=== PATIENT | female | born 1975 | race Caucasian/White ===

== ENCOUNTER 2017-05-08 18:04 | Emergency (ER) | payer MEDICAID, SELFPAY ==
[2017-05-08 18:06] VITALS: BP 162/94; PULSE 84; RESP 17; TEMP 37.1; O2SAT 97; BMI 36.5
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
--- NOTE | 2017-05-08 18:35 | RAD_ITS ---
STUDY: X-RAY - RIGHT ELBOW REASON FOR EXAM: Female, 41 years old. Blunt trauma. TECHNIQUE: 3 view(s) of the elbow. COMPARISON: None. FINDINGS: Small, faint degenerative. Cortical calcification noted along the proximal margin of the medial humeral epicondyle. Normal visualized radius and ulna. Normal radiocapitellar and ulnotrochlear articulations. There is minor soft tissue irregularity/swelling near the degenerative calcification described above. There is no clearly demonstrated fracture, however, which would typically displace the epicondylar fat pad with concomitant hemarthrosis. That is not seen here. RAD/Elbow min 3 Views IMPRESSION: No clearly acute fracture of the right elbow. Probable degenerative calcification along the medial humeral epicondyle. Clinical correlation for point tenderness at this site is advised, however. Electronically Signed: Curtis Jane MD at 19:00 EST , Service support ,
== END 2017-05-08 19:27 | disposition home or self-care (01) ==
PROVIDERS: Emergency Provider Emergency Medicine
DX: S50.01XA Contusion of right elbow, initial encounter (principal); J45.909 Unspecified asthma, uncomplicated; F32.9 Major depressive disorder, single episode, unspecified; Z79.51 Long term (current) use of inhaled steroids; Z79.899 Other long term (current) drug therapy; W20.8XXA Other cause of strike by thrown, projected or falling object, initial encounter; Y93.89 Activity, other specified; Y92.009 Unspecified place in unspecified non-institutional (private) residence as the place of occurrence of the external cause; Y99.8 Other external cause status
CPT/HCPCS: 73080; 99282

== ENCOUNTER 2017-07-31 14:09 | Emergency (ER) | payer MEDICAID, SELFPAY ==
[2017-07-31 14:09] VITALS: BP 147/93; PULSE 95; RESP 16; TEMP 36.6; O2SAT 100; BMI 38.8
--- NOTE | 2017-07-31 14:35 | RAD_ITS ---
STUDY: X-RAY - LEFT HAND REASON FOR EXAM: Female, 41 years old. Pain swelling trauma TECHNIQUE: 3 view(s) of the hand. The patient's fingers are flexed. COMPARISON: None. FINDINGS: Normal radiocarpal articulation. Normal distal radioulnar joint. Normal visualized carpal bones. Normal carpal articulations Normal carpometacarpal articulation of the thumb. Normal second through fifth carpometacarpal joints. Normal metacarpi. Normal metacarpophalangeal joint of the thumb. Normal interphalangeal joint of the thumb. Normal proximal and distal phalanges of the thumb. Normal metacarpophalangeal joints of the second through fifth fingers. Normal proximal and distal interphalangeal joints of the second through fifth fingers. Normal phalanges of the second through fifth fingers. There is visualized soft tissue swelling. There is no definitive evidence of an acute fracture. Consider follow-up study if pain persists. RAD/Hand Min 3 Views IMPRESSION: There is visualized soft tissue swelling. There is no definitive evidence of an acute fracture. Consider follow-up study if pain persists. Electronically Signed: Irene Tucker MD at 14:58 EDT Tel , Service support ,
[2017-07-31] MEDS: HYDROcodone Bitartrate/Apap 5/325 Tablet PO (14:36)
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
--- NOTE | 2017-07-31 14:58 | ED.DEP ---
ED Disposition - Plan for ED Patient: Disposition: Home or Assisted Living Chief Complaint: Upper Extremity Injury Instructions: ED Contusion Upper Ext Prescriptions: Acetaminophen [Tylenol] 325 mg PO 4X/DAY #30 tab Referrals: Care Physician,No Primary [Primary Care Provider] -
== END 2017-07-31 15:25 | disposition home or self-care (01) ==
PROVIDERS: Emergency Provider Emergency Medicine
DX: S60.222A Contusion of left hand, initial encounter (principal); Z72.0 Tobacco use; W22.09XA Striking against other stationary object, initial encounter; Y93.89 Activity, other specified; Y92.89 Other specified places as the place of occurrence of the external cause; Y99.8 Other external cause status
CPT/HCPCS: 73130; 99282

== ENCOUNTER 2017-08-14 15:49 | Emergency (ER) | payer MEDICAID, SELFPAY ==
[2017-08-14 15:49] VITALS: BP 165/97; PULSE 65; RESP 18; TEMP 35.8; O2SAT 100; BMI 37.4
--- NOTE | 2017-08-14 15:59 | ED.DCSUM_ITS ---
- ER Visit Summary Date of Service: 08/14/17 Chief Complaint: Abdominal pain, nausea, vomiting, diarrhea History of Present Illness: The patient is a 41 F reasons to the emergency department with symptoms of gastroenteritis. Patient's symptoms began at 7 AM this morning. She states she had diffuse abdominal cramping. She began to have multiple bouts of emesis. She also had loose watery diarrhea. She denies any fevers or chills. She denies any constant pain, just cramping when she vomits. She did eat fried potatoes last night. She denies any other sick contacts. She has no history of abdominal surgery. She denies any history of Crohn's disease or ulcerative colitis. She does not think there is been blood in the emesis or the diarrhea. She does not take any daily medications. Physical Examination: Vital signs reviewed General: Well-nourished, well-developed Head: Normocephalic, atraumatic Eyes: Pupils equal and reactive, extraocular muscles intact Neck, supple, no lymphadenopathy Heart: Regular rate and rhythm Respiratory: No distress, clear bilaterally Abdomen: Soft, mildly tender without rebound or guarding, nondistended, no peritoneal signs Back: Nontender Extremities: Nontender, no edema, no cords Skin: Normal color no rash Neuro: Alert and oriented, no focal or lateralizing deficits Test Results: [] Emergency Department Course and Treatment: The patient's symptoms do seem consistent with gastroenteritis. She has no focal tenderness. IV was established. Patient was given fluids, morphine, Zofran, and Bentyl. She had marked improvement of her symptoms. Her labs do show mild leukocytosis which I feel is likely reactive. Rest of her labs are relatively unremarkable. On reevaluation she is resting comfortably. The patient was able to tolerate ice chips. At this time, I do feel that she is safe for discharge. She will prescribed antiemetics and antispasmodics. She is counseled to return in the next 24 hours if she has worsening pain, fever, or change in symptoms. She will be discharged home. Treatment Plan: [] Disposition: Charge Impression: 1. Gastroenteritis This note was generated with [employer] dictation software. It may contain incorrect words, spelling, and punctuation that were not noted in review of the chart prior to signing ED Disposition - Plan for ED Patient: Chief Complaint: Nausea/Vomiting/Diarrhea Instructions: ED Gastroenteritis Vs Food Poison Prescriptions: Ondansetron [Zofran Odt] 4 mg PO Q8H PRN PRN #10 tab PRN Reason: Nausea Dicyclomine HCl [Bentyl] 20 mg PO TIDAC #20 cap Referrals: Care Physician,No Primary [Primary Care Provider] -
[2017-08-14] MEDS: Morphine 4 MG/ML Syringe IV (16:08)
[2017-08-14] MEDS: 0.9% Normal Saline 1,000 ML 1000 ML IV (16:08)
[2017-08-14] MEDS: Ondansetron 4 MG/2 ML Vial IV (16:08)
[2017-08-14] MEDS: Dicyclomine 20 MG/2 ML Vial IM (16:11)
[2017-08-14 16:26] LABS: Absolute Neutrophil Count 13.5 X10^3/uL (2.0-7.7); Basophil# 0.02 X10^3/uL; Basophil% 0.1 % (0-1); Hematocrit 34.2 % (37-47); Hemoglobin 10.6 g/dl (12.0-15.0); Mean Corpuscular Hgb 23.7 pg (27.0-32.0); Mean Corpuscular Volume 76.3 fL (81-99); Mean Platelet Vol. 9.3 fl (6.2-12.0); Monocyte# 0.31 X10^3/uL; Monocyte% 2.1 % (0-10); Neutrophil # 13.51 X10^3/uL (2.7-7.7); Neutrophil % 89.7 % (47-70); Platelet Count 415 K/mm3 (150-450); RBC Distribution Width CV 18.4 % (11.6-14.6); RBC Distribution Width SD 51.6 fl (35.1-43.9); Red Blood Count 4.48 M/mm3 (4.2-5.4); White Blood Count 15.1 K/mm3 (4.4-11.0)
[2017-08-14 16:27] LABS: POSITIVE COUNT NO; POSITIVE DIFFERENTIAL NO; POSITIVE MORPHOLOGY NO
[2017-08-14 16:39] LABS: BUN 5 mg/dL (7-18); Glucose 154 mg/dL (74-106)
[2017-08-14 16:40] LABS: ALB/GLOB Ratio 0.9 RATIO (0.9-2.4); AST(SGOT) 17 U/L (15-37); Alanine Aminotransfer ALT/SGPT 16 U/L (13-56); Albumin, Serum 3.7 g/dL (3.2-5.0); Alkaline Phosphatase 80 U/L (45-117); Anion Gap 8 (5-15); BUN/Creat Ratio 7.1 RATIO (10-20); Chloride 108 mmol/L (98-107); EST Glomerular Filtration Rate 98 mL/min (>60); Est Glom Filt Rate - Afr Amer 119 mL/min (>60); Estimated Creatinine Clearance 108.85 ml/min; Globulin 4.1 g/dL (2.2-4.2); Lipase 76 U/L (73-393); Potassium 4.2 mmol/L (3.5-5.1); Protein, Total 7.8 g/dL (6.4-8.2); Sodium Level 141 mmol/L (136-145)
[2017-08-14 16:44] LABS: Pregnancy, Serum, hCG Quali. NEGATIVE Negative (0-9 Nonpreg)
[2017-08-14 17:09] VITALS: BP 132/71; PULSE 75; RESP 20; O2SAT 100
--- NOTE | 2017-08-14 17:10 | ED.RN ---
PT GIVEN WRITTEN AND VERBAL DISCHARGE INSTRUCTIONS. PT IV D/C AND COVERED WITH 2X2 GAUZE DRESSING AND PAPER TAPE. PT AMBULATES OUT OF DEPT. WITH FRIEND.
== END 2017-08-14 17:11 | disposition home or self-care (01) ==
LOC: ED 16:36
PROVIDERS: Emergency Provider Emergency Medicine
DX: K52.9 Noninfective gastroenteritis and colitis, unspecified (principal); E66.9 Obesity, unspecified; J45.909 Unspecified asthma, uncomplicated; Z79.51 Long term (current) use of inhaled steroids
CPT/HCPCS: 80053; 83690; 84703; 85025; 96361; 96372; 96374; 96375; 99283; J7030; A4216; J2405

== ENCOUNTER 2017-09-13 21:34 | Emergency (ER) | payer MEDICAID, SELFPAY ==
[2017-09-13 21:34] VITALS: BP 110/98; PULSE 98; RESP 14; TEMP 37.2; O2SAT 98; BMI 44.5
--- NOTE | 2017-09-13 22:18 | RAD_ITS ---
STUDY: X-RAY - PELVIS AND LEFT HIP REASON FOR EXAM: Female, 42 years old. Pain TECHNIQUE: Radiological exam, hip, unilateral, with pelvis when performed; 2 or 3 views. COMPARISON: None. FINDINGS: There is a non-specific bowel gas pattern. Normal visualized soft tissue structures. Normal bilateral iliac wings, sacroiliac joints and visualized sacrum. Normal bilateral superior and inferior pubic rami. Normal pubic symphysis. Normal bilateral ischial tuberosities. Normal visualized femoral head. Normal acetabulum. Normal hip joint. RAD/Hip 2-3 Views with Pelvis IMPRESSION: Normal x-ray examination of the pelvis and hip. Electronically Signed: Terrence Brian DO at 22:57 EDT Tel [phone], Service support ,
--- NOTE | 2017-09-13 22:20 | ED.DCSUM_ITS ---
- ER Visit Summary Date of Service: 09/13/17 Chief Complaint: Left hip pain History of Present Illness: The patient is a 42 F presenting with left hip pain. Patient states she fell getting out of the bathtub this morning. She fell directly on her left hip. She did not hit her head. She did not lose consciousness. She tried Tylenol and ibuprofen at home. She has been able to ambulate with pain. No other injuries. Physical Examination: Vitals are stable. Patient is afebrile. Alert no acute distress. HEENT exam is unremarkable. Neck is nontender Lungs are clear and equal bilaterally. Heart is regular rate and rhythm. Abdomen is soft nontender nondistended. Back: nontender Extremities left lateral hip tenderness with no ecchymosis. Painful range of motion. Skin is warm and dry. No focal neurologic deficit. Remainder of exam is unremarkable. Emergency Department Course and Treatment: X-ray of the left help hip and pelvis shows no acute process. Patient is advised to ice and rest. She declines crutches. She is given one [place] in the emergency department. Advised to follow up with Dr Walker stone dresser for no doc. Advised to return to the ED for worsening complaints. Disposition: Discharge home Impression: Left hip contusion This note was generated with [employer] dictation software. It may contain incorrect words, spelling, and punctuation that were not noted in review of the chart prior to signing ED Disposition - Plan for ED Patient: Chief Complaint: Lower Extremity Injury Referrals: Care Physician,No Primary [Primary Care Provider] -
--- NOTE | 2017-09-13 23:07 | ED.DEP ---
ED Disposition - Plan for ED Patient: Chief Complaint: Lower Extremity Injury Instructions: ED Contusion Hip Prescriptions: Hydrocodone Bitart/Apap 5-325 [Delta 5MG-325MG] 1 tablet PO Q6H PRN PRN 2 Days #8 tablet PRN Reason: Pain Referrals: Care Physician,No Primary [Primary Care Provider] - Katelin Walker MD [COURTESY STAFF PHYSICIAN] -
--- NOTE | 2017-09-13 23:09 | DCINST.ED_ITS ---
ED Disposition - Plan for ED Patient: Chief Complaint: Lower Extremity Injury Instructions: ED Contusion Hip Prescriptions: Hydrocodone Bitart/Apap 5-325 [Stout 5MG-325MG] 1 tablet PO Q6H PRN PRN 2 Days # 8 tablet PRN Reason: Pain Referrals: Care Physician,No Primary [Primary Care Provider] - Katelin Walker MD [COURTESY STAFF PHYSICIAN] -
[2017-09-13] MEDS: HYDROcodone Bitartrate/Apap 5/325 Tablet PO (23:55)
[2017-09-13 23:56] VITALS: RESP 18
== END 2017-09-13 23:56 | disposition home or self-care (01) ==
LOC: ED 22:39
PROVIDERS: Emergency Provider Emergency Medicine
DX: S70.02XA Contusion of left hip, initial encounter (principal); J45.909 Unspecified asthma, uncomplicated; Z72.0 Tobacco use; Z79.51 Long term (current) use of inhaled steroids; W18.30XA Fall on same level, unspecified, initial encounter; Y93.E1 Activity, personal bathing and showering; Y92.002 Bathroom of unspecified non-institutional (private) residence as the place of occurrence of the external cause; Y99.8 Other external cause status
CPT/HCPCS: 73502; 99283

== ENCOUNTER 2017-09-30 07:25 | Emergency (ER) | payer MEDICAID, SELFPAY ==
[2017-09-30 07:26] VITALS: BP 164/91; PULSE 77; RESP 20; TEMP 36.7; O2SAT 99; BMI 44.5
--- NOTE | 2017-09-30 07:58 | RAD_ITS ---
STUDY: X-RAY - SOFT TISSUE NECK REASON FOR EXAM: Female, 42 years old. Sore throat TECHNIQUE: 2 view(s) of the neck were obtained. COMPARISON: None. FINDINGS: Normal visualized nasopharynx, oropharynx, hypopharynx. Normal epiglottis. Normal visualized subglottic tracheal air column. Normal prevertebral soft tissue structures. Normal visualized osseous structures. The soft tissue structures are unremarkable. Straightening normal cervical lordosis. RAD/Neck for Soft Tissue IMPRESSION: Normal x-ray soft tissue neck. Straightening of normal cervical lordosis. Electronically Signed: Tobin Mitchell DO at 8:45 EDT , Service support ,
[2017-09-30 08:05] VITALS: PULSE 80; RESP 17
[2017-09-30] MEDS: Ipratropium/Albuterol Sulfate 3 ML AMPUL.NEB INHALATION (08:05)
--- NOTE | 2017-09-30 08:06 | ED.DCSUM_ITS ---
- ER Visit Summary Date of Service: 09/30/17 Chief Complaint: [Sore throat] History of Present Illness: The patient is a 42 F [who presents the emergency department with cough productive of clear white phlegm. She also feels like the right side of her neck is swollen and she has a big ball of phlegm stuck that she cannot get out. She says it hurts to swallow and she feels like she cannot breathe. No fevers but she has had chills. She has had nasal congestion and bilateral ear pain. She feels short of breath. No nausea or vomiting. She has a history of asthma. She does smoke.] Physical Examination: [] Blood pressure 164/91 respiratory rate 20 other vitals within normal limits WN WD tearful PERRL EOMI MMM Posterior oropharynx shows postnasal drip and mild erythema there is no exudate there is no swelling there is no pooling of secretions NECK shows lymphadenopathy bilateral anterior cervical it is tender there is no redness or erythema she has some mild swelling bilaterally secondary to her lymphadenopathy at the angle of the jaw there is no submandibular swelling RRR no murmur rub or gallop, no peripheral edema, symmetric radial pulses Mild end expiratory wheezing no respiratory distress no rhonchi or rails no accessory muscle use ABDOMEN is soft and nontender, normal bowel sounds, no distension, no rebound or guarding SKIN is warm and dry no rashes Alert and Oriented x3, CN II-XII in tact, no motor or sensory deficits, gait normal No lymphadenopathy Test Results: [] Emergency Department Course and Treatment: [Patient was given steroids. Rapid strep was sent was positive. Soft tissue neck shows no airway obstruction or evidence of retropharyngeal abscess. On physical exam there is no uvula deviation and minimal swelling with no asymmetry. Patient was treated with Augmentin and Decadron she will be given Augmentin for home. She was given precautions for which to return and will follow up with her primary care physician] Treatment Plan: [] Disposition: [Discharge] Impression: [Strep pharyngitis] This note was generated with [employer] dictation software. It may contain incorrect words, spelling, and punctuation that were not noted in review of the chart prior to signing ED Disposition - Plan for ED Patient: Chief Complaint: Sore Throat Referrals: Care Physician,No Primary [Primary Care Provider] -
--- NOTE | 2017-09-30 08:22 | RAD_ITS ---
STUDY: X-RAY CHEST REASON FOR EXAM: Female, 42 years old. Sore throat, fever TECHNIQUE: Frontal and lateral views of the chest. COMPARISON: 02/09/2017. FINDINGS: The lungs are clear and expanded. There is no demonstrated pleural abnormality. Normal size heart. Normal mediastinum and mary. Normal visualized pulmonary arteries. Normal visualized aortic arch and descending thoracic aorta. Normal visualized thoracic spine. Normal visualized ribs, clavicles, and shoulders. There is no demonstrated abnormality of the visualized soft tissue structures of the upper abdomen. RAD/Chest PA and Lateral IMPRESSION: No acute cardiopulmonary disease. Electronically Signed: Tobin Mitchell DO at 8:46 EDT , Service support ,
[2017-09-30] MEDS: Amox/Clavulanate 875 MG Tablet PO (08:50)
--- NOTE | 2017-09-30 09:04 | ED.DEP ---
ED Disposition - Plan for ED Patient: Chief Complaint: Sore Throat Instructions: ED Strep Pharyngitis Conf Prescriptions: Amox/Clavulanate Tablet [Augmentin Tablet] 875 mg PO Q12H #20 tablet Referrals: Sander Moreira DO [STAFF PHYSICIAN] - 5-7 Days
[2017-09-30] MEDS: HYDROcodone Bitartrate/Apap 5/325 Tablet PO (09:17)
[2017-09-30 09:20] VITALS: PULSE 80; RESP 16; O2SAT 99
== END 2017-09-30 09:21 | disposition home or self-care (01) ==
LOC: ED 08:43
PROVIDERS: Emergency Provider Emergency Medicine
DX: J02.0 Streptococcal pharyngitis (principal); F17.200 Nicotine dependence, unspecified, uncomplicated
CPT/HCPCS: 70360; 71046; 87880; 94640; 99283

== ENCOUNTER 2017-11-21 16:05 | Emergency (ER) | payer MEDICAID, SELFPAY ==
[2017-11-21 16:06] VITALS: BP 124/78; PULSE 90; RESP 16; TEMP 36.4; O2SAT 99; BMI 43.2
[2017-11-21] MEDS: HYDROcodone Bitartrate/Apap 5/325 Tablet PO (16:31)
--- NOTE | 2017-11-21 16:32 | ED.VISSUMM ---
- ER Visit Summary Date of Service: 11/21/17 Chief Complaint: Fall History of Present Illness: The patient is a 42 F with a mechanical fall earlier today. She felt that her left hip popped. She has continued pain in her left hip. Pain with moving use. Nothing seems to make it better. She never had this before. No history of hip surgery. No other injuries or complaints from the fall. Physical Examination: Afebrile and vital signs unremarkable. Patient appears uncomfortable but not toxic or in distress. Abdomen soft and nontender. Back nontender. Left hip tender to palpation of the greater trochanter. Tenderness with any movement of her left hip. No obvious shortening or abnormal rotation. She is neurovascular intact distally. Test Results: X-rays of the left hip and pelvis are pending. Emergency Department Course and Treatment: Patient treated with [place] while awaiting results. X-rays negative. Patient was able to ambulate without difficulty. This is likely a contusion. No other injuries noted. I did advise her that the x-ray technology is not perfect. If she has new or worsening pain, she may need repeat x-rays or further imaging. At this point, rest, ice, anti-inflammatories. Short course of [place]. I did check her prescription database report. Patient has crutches at home. We will follow-up with her primary doctor. Treatment Plan: Above Disposition: Discharged Impression: 1. Left hip contusion This note was generated with [employer] dictation software. It may contain incorrect words, spelling, and punctuation that were not noted in review of the chart prior to signing ED Disposition - Plan for ED Patient: Chief Complaint: Fall Referrals: Care Physician,No Primary [Primary Care Provider] -
--- NOTE | 2017-11-21 17:51 | ED.DEP ---
ED Disposition - Plan for ED Patient: Chief Complaint: Fall Instructions: ED Mechanical Fall Prescriptions: Hydrocodone Bitart/Apap 5-325 [[place] 5MG-325MG] 1 tab PO Q6H PRN PRN 3 Days #10 tab PRN Reason: Pain Referrals: Care Physician,No Primary [Primary Care Provider] -
[2017-11-21 18:09] VITALS: BP 109/63; PULSE 66; RESP 16; O2SAT 99
== END 2017-11-21 18:09 | disposition home or self-care (01) ==
PROVIDERS: Emergency Provider Emergency Medicine
DX: S70.02XA Contusion of left hip, initial encounter (principal); J45.909 Unspecified asthma, uncomplicated; Z72.0 Tobacco use; Z79.51 Long term (current) use of inhaled steroids; W18.30XA Fall on same level, unspecified, initial encounter; Y93.89 Activity, other specified; Y92.89 Other specified places as the place of occurrence of the external cause; Y99.8 Other external cause status
CPT/HCPCS: 73502; 99283

== ENCOUNTER 2017-11-29 15:38 | Emergency (ER) | payer MEDICAID, SELFPAY ==
[2017-11-29 15:39] VITALS: BP 149/89; PULSE 90; RESP 18; TEMP 36.7; O2SAT 97; BMI 38.0
--- NOTE | 2017-11-29 15:53 | ED.DCSUM_ITS ---
- ER Visit Summary Date of Service: 11/29/17 Chief Complaint: Left hip pain History of Present Illness: The patient is a 42 F who fell over a week ago and injured her left hip. She was seen here at that time and had x-rays that were unremarkable. Patient states she felt a pop last evening and is now had increased pain. She had still been using crutches but was weightbearing well on her left leg. Now she states she has difficulty with weightbearing again. She did take ibuprofen earlier this morning. She is an appointment to see an orthopedic doctor in [place] next week. Physical Examination: Vital signs are unremarkable. Patient's lying in bed in no acute distress. Heart is regular rate and rhythm. Lung sounds are clear. Abdomen is soft nontender. Left leg is held in flexion and internal rotation, however I am able to straighten her leg and rock her hip without difficulty. She has strong distal pulses and normal sensation. She does have reproducible tenderness over the lateral aspect of the left hip the greater trochanter and over the posterior aspect of the hip near the sciatic notch. Test Results: Hip and pelvis x-rays are unremarkable. Emergency Department Course and Treatment: Patient was given ibuprofen and prednisone. She will be given prescriptions for the same. She will follow-up with her orthopedic doctor next week. She already has crutches at home to use. Treatment Plan: [] Disposition: Discharge Impression: Left hip sprain This note was generated with [employer] dictation software. It may contain incorrect words, spelling, and punctuation that were not noted in review of the chart prior to signing ED Disposition - Plan for ED Patient: Chief Complaint: Lower Extremity Injury Referrals: Care Physician,No Primary [Primary Care Provider] -
[2017-11-29] MEDS: Ibuprofen 400 MG Tablet 800 MG PO (15:54)
[2017-11-29] MEDS: predniSONE 20 MG Tablet 60 MG PO (15:54)
--- NOTE | 2017-11-29 17:05 | ED.DEP ---
ED Disposition - Plan for ED Patient: Disposition: Home or Assisted Living Chief Complaint: Lower Extremity Injury Instructions: ED Sprain Hip Prescriptions: Ibuprofen [Motrin] 800 mg PO TID PRN PRN #20 tablet PRN Reason: Pain Prednisone 10 mg PO UD #33 tablet Additional Instructions: Follow-up with orthopedics next week as scheduled.
[2017-11-29 17:14] VITALS: BP 139/86; PULSE 58; RESP 16; O2SAT 99
--- NOTE | 2017-11-29 17:15 | ED.RN ---
walked to bathroom while in ED and stated ok to walk to car for DC
== END 2017-11-29 17:15 | disposition home or self-care (01) ==
PROVIDERS: Emergency Provider Emergency Medicine
DX: S73.192D Other sprain of left hip, subsequent encounter (principal); J45.909 Unspecified asthma, uncomplicated; Z72.0 Tobacco use; Z79.51 Long term (current) use of inhaled steroids; W19.XXXD Unspecified fall, subsequent encounter
CPT/HCPCS: 73502; 99283

== ENCOUNTER 2018-02-20 09:55 | Emergency (ER) | payer MEDICAID, SELFPAY ==
[2018-02-20 09:56] VITALS: BP 143/82; PULSE 85; RESP 16; TEMP 36.6; O2SAT 99; BMI 39.1
[2018-02-20 10:12] VITALS: O2SAT 97
--- NOTE | 2018-02-20 10:13 | ED.VISSUMM ---
- ER Visit Summary Date of Service: 02/20/18 Chief Complaint: [Cough and shortness of breath] History of Present Illness: The patient is a 42 F [presents the emergency department complaining of a cough times 5 days. Patient states she is coughing up green and yellow sputum. Patient has not had a documented fever at home but she is had chills and sweats. Patient complains of bilateral ear pain. She complains of some mild body aches. Patient states her fianc? also has similar symptoms at home. Patient does have a history of asthma. Patient states that she ran out of her inhaler 2 days ago. Patient does not have a primary care physician.] Physical Examination: [HEENT-PERRLA, EOMI. Cranial nerves II through XII grossly intact. TMs clear. Mucous membranes moist. No adenopathy. Cardiovascular-regular rate and rhythm without murmur or ectopy Lungs-good aeration bilaterally. Patient does have expiratory wheezes throughout. Multiple no significant tachypnea. There is no accessory muscle use or retractions. Abdomen-normoactive bowel sounds, soft, nontender, no rebound or rigidity, no peritoneal signs. Extremities-intact ?4, normal range of motion, normal pulses, atraumatic] Test Results: [None indicated] Emergency Department Course and Treatment: [Patient was given a DuoNeb aerosol as well as prednisone and a dose of Zithromax.] Treatment Plan: [She will be treated with albuterol MDI for home, prednisone, and Zithromax. Patient will be referred to primary care physician loss control consultant for no doc for follow-up within next 5-7 days. Patient advised to return if worsening shortness of breath or condition should worsen anyway.] Disposition: [Discharged home in stable condition] Impression: [Asthmatic bronchitis] This note was generated with [email or web address] dictation software. It may contain incorrect words, spelling, and punctuation that were not noted in review of the chart prior to signing ED Disposition - Plan for ED Patient: Chief Complaint: Cold Sx Referrals: Care Physician,No Primary [Primary Care Provider] -
--- NOTE | 2018-02-20 10:15 | ED.DEP ---
ED Disposition - Plan for ED Patient: Chief Complaint: Cold Sx Instructions: ED Bronchitis Asthmatic Prescriptions: Azithromycin [Zithromax] 250 mg PO DAILY #4 tab Benzonatate [Tessalon Perle] 200 mg PO TID PRN PRN #20 cap PRN Reason: Cough Prednisone [Deltasone] 40 mg PO DAILY #10 tab Referrals: Care Physician,No Primary [Primary Care Provider] - Sharath Castillo III, MD [STAFF PHYSICIAN] - 5-7 Days
[2018-02-20] MEDS: predniSONE 20 MG Tablet 40 MG PO (10:16)
[2018-02-20] MEDS: Azithromycin 250 MG Tablet 500 MG PO (10:16)
[2018-02-20] MEDS: Ipratropium/Albuterol Sulfate 3 ML AMPUL.NEB INHALATION (10:26)
[2018-02-20 10:29] VITALS: PULSE 88; RESP 18
[2018-02-20 10:56] VITALS: BP 154/84; PULSE 90; RESP 16; O2SAT 99
--- OUTSIDE RECORDS SUMMARY | 2018-04-04 01:48 | XMS RPT_ITS ---
:1975 Author Organization OHIP Support Name Relationship Address Phone BARRON LIAM Unavailable [address] [place] [id number] UE Unavailable Unavailable Unavailable UE Unavailable Unavailable Unavailable BARRON, LIAM Unavailable [address] [place] [id number] ANITA JOHNSON Unavailable [address] [place] [place] [id number] UE Unavailable Unavailable Unavailable BARRON, LIAM Unavailable [address] [place] [id number] ANITA JOHNSON Unavailable [address] [place] [place] [id number] UE Unavailable Unavailable Unavailable BARRON, LIAM Unavailable [address] [place] [place] [address] ANITA JOHNSON Unavailable [address] [place] [place] [id number] UE Unavailable Unavailable Unavailable BARRON, LIAM Unavailable [address] [place] [place] [id number] ANITA JOHNSON Unavailable [address] [place] [place] [id number] UE Unavailable Unavailable Unavailable ANITA JOHNSON Unavailable Unavailable + ANITA JOHNSON Unavailable Unavailable + BARRON, LIAM Unavailable [address] [place] [address] ANITA JOHNSON Unavailable [address] [place] [id number] UE Unavailable Unavailable Unavailable BARRON, LIAM Unavailable [address] [place] [address] ANITA JOHNSON Unavailable [address] [place] [place] [address] UE Unavailable Unavailable Unavailable ANITA JOHNSON Unavailable Unavailable + ANITA JOHNSON Unavailable Unavailable + NADEGE BARRONA Unavailable [address] [place] [address] ANITA JOHNSON Unavailable [address] [place] [address] UE Unavailable Unavailable Unavailable Care Team Providers Name Role Phone Charlene PEACOCK, June Watts Attending Unavailable PHYSICIAN, NONE Primary Care Unavailable June Chang MD Attending Unavailable PHYSICIAN, NONE Primary Care Unavailable SHAWNA MOREIRA (PA) Referring Unavailable SHAWNA MOREIRA (PA) Attending Unavailable SHAWNA MOREIRA (PA) Referring Unavailable SRAVAN PEREZ Attending Unavailable SRAVAN PEREZ Referring Unavailable CK TELLEZ Attending Unavailable SRAVAN PEREZ Referring Unavailable Primay Care Physicia, No Primary Care Unavailable Haseeb Toro Attending Unavailable Primay Care Physicia, No Primary Care Unavailable Eric Melchor Attending Unavailable Primay Care Physicia, No Primary Care Unavailable Andrés Lagunas Attending Unavailable Primay Care Physicia, No Primary Care Unavailable Sylvia Nguyen Attending Unavailable Primay Care Physicia, No Primary Care Unavailable Laly Reyes Attending Unavailable Primay Care Physicia, No Primary Care Unavailable Haseeb Viera Attending Unavailable Haseeb Viera Referring Unavailable Primay Care Physicia, No Primary Care Unavailable Yanique Tim Attending Unavailable Primay Care Physicia, No Primary Care Unavailable Da Merida Attending Unavailable PROBLEMS PROBLEMS DATE TYPE CONDITION / CODE ATTENDING STATUS SOURCE 01/05/2018 Active Pain in left knee NA Active [facility] / M25.562(ICD-10) [facility] [place] Repository 01/05/2018 Active Sprain of other NA Active [facility] specified parts [place] of left knee, Repository initial encounter / S83.8X2A(ICD-10) 01/04/2018 Active Unknown / SHAWNA MOREIRA Active [facility] UNK(Unknown) (PA) [facility] [place] Repository 01/04/2018 Active Pain, unspecified NA Active [facility] / R52(ICD-10) [facility] [place] Repository 11/21/2017 Unknown M25.559 - Pain in Haseeb Viera Active [place] unspecified hip / Community M25.559(ICD-10) Hospital Repository 09/14/2017 Unknown S70.02XA - [facility], Active [place] Contusion of left [facility] hip, initial Hospital encounter / Repository S70.02XA(ICD-10) PROCEDURES PROCEDURES No Procedure Records FoundRESULTS RESULTS DISCHARGE INSTRUCTION Observed: 02/20/2018 Status: F Source: [place] 10:18 AM [facility] REPOSITORY [facility] Medical Records Department [address] [place] [address] Discharge Instruction 02/20/18 1015 MR#: [id number] Acct: [id number] Name: JONO BARBOUR Rep #: [id number] : 1975 42 From: Da Merida DO PCP: Care Physician, No Primary Status: PRE ER ED Disposition - Plan for ED Patient: Chief Complaint: Cold Sx Instructions: ED Bronchitis Asthmatic Prescriptions: Azithromycin [Zithromax] 250 mg PO DAILY #4 tab Benzonatate [Tessalon Perle] 200 mg PO TID PRN PRN #20 cap PRN Reason: Cough Prednisone [Deltasone] 40 mg PO DAILY #10 tab Referrals: Care Physician,No Primary [Primary Care Provider] - Sharath Castillo III, MD [STAFF PHYSICIAN] - 5-7 Days What to do if you have Problems For any increased pain, shortness of breath, bleeding, nausea or vomiting, chest pain, or any unexpected problems, contact your Primary Care Provider. Call [facility] ([phone]) or report to the closest Emergency Room. Call 911 if necessary. 02/20/18 1018 <Electronically signed by Da Merida DO> Date Da Merida DO Cosigner Signature (If Indicated): Date CC: No Primary Care Physician EMERGENCY DEPARTMENT Observed: 02/20/2018 Status: F Source: [place] SUMMARY 10:15 AM [facility] REPOSITORY [facility] Medical Records Department [address] [place] [address] Emergency Department Summary 02/20/18 1013 MR#: [id number] Acct: [id number] Name: JONO BARBOUR Rep #: [id number] : 1975 42 From: Da Merida DO PCP: Care Physician, No Primary Status: PRE ER - ER Visit Summary Date of Service: 02/20/18 Chief Complaint: [Cough and shortness of breath] History of Present Illness: The patient is a 42 F [presents the emergency department complaining of a cough times 5 days. Patient states she is coughing up green and yellow sputum. Patient has not had a documented fever at home but she is had chills and sweats. Patient complains of bilateral ear pain. She complains of some mild body aches. Patient states her fianc also has similar symptoms at home. Patient does have a history of asthma. Patient states that she ran out of her inhaler 2 days ago. Patient does not have a primary care physician.] Physical Examination: [HEENT-PERRLA, EOMI. Cranial nerves II through XII grossly intact. TMs clear. Mucous membranes moist. No adenopathy. Cardiovascular-regular rate and rhythm without murmur or ectopy Lungs-good aeration bilaterally. Patient does have expiratory wheezes throughout. Multiple no significant tachypnea. There is no accessory muscle use or retractions. Abdomen-normoactive bowel sounds, soft, nontender, no rebound or rigidity, no peritoneal signs. Extremities-intact 4, normal range of motion, normal pulses, atraumatic] Test Results: [None indicated] Emergency Department Course and Treatment: [Patient was given a DuoNeb aerosol as well as prednisone and a dose of Zithromax.] Treatment Plan: [She will be treated with albuterol MDI for home, prednisone, and Zithromax. 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 Patient advised to return if worsening shortness of breath or condition should worsen anyway.] Disposition: [Discharged home in stable condition] Impression: [Asthmatic bronchitis] This note was generated with [employer] Insight dictation software. It may contain incorrect words, spelling, and punctuation that were not noted in review of the chart prior to signing ED Disposition - Plan for ED Patient: Chief Complaint: Cold Sx Referrals: Care Physician,No Primary [Primary Care Provider] - What to do if you have Problems For any increased pain, shortness of breath, bleeding, nausea or vomiting, chest pain, or any unexpected problems, contact your Primary Care Provider. Call [facility] ([phone]) or report to the closest Emergency Room. Call 911 if necessary. 02/20/18 1015 <Electronically signed by Da Merida DO> Date Da Merida DO Cosigner Signature (If Indicated): Date CC: No Primary Care Physician PROGRESS Observed: 01/29/2018 Status: COMPLETED Source: [place] 7:10 AM [facility] REPOSITORY [facility] ID: [id number] Author: Ck Tellez Service: (none) Author Type: Physician Type: Progress Notes Filed: 01/29/2018 7:23 AM Note Text: DEPARTMENT OF ORTHOPAEDICS HISTORY OF PRESENT ILLNESS: This is a pleasant 42 year old female, who presents today with a chief complaint of left knee pain. She complains of sharp and stabbing pain about the anterior and medial aspect of approximately several months duration. This pain is constant. She reports falling . She complains that the pain is 7/10. She reports nocturnal pain. The pain is exacerbated by walking, managing stairs, prolonged standing, prolonged sitting and ADLs. Previous treatments have included surgery( arthroscopy x2 in last ten years . Patient reports that she had cartilage fragments cleaned out) . She denies proximal radiation. She denies distal radiation. She denies numbness, tingling, or electric shocks. She reports clicking and grinding. She reports swelling and/or warmth. PAST MEDICAL HISTORY Diagnosis Date - Abnormal glandular Papanicolaou smear of cervix Abn. Pap smear (cervix) - Anemia WITH - Asthma - Back pain - Bipolar disorder (HCC) - Complication of anesthesia BACK PAIN AT INSERTION SITE - Diabetes (HCC) - Diabetes, gestational - Loose body in knee 2012 Left knee ARTHROSCOPIC REMOVAL LOOSE BODY KNEE - Migraines - Obesity - Tobacco use disorder - Trauma PAST SURGICAL HISTORY Procedure Laterality Date - KNEE ARTHROSCOPY/SURGERY 1997, 2012 left X2 - LIGATE FALLOPIAN TUBE 02/23/16 Tubal ligation - VAGINOSCOPY 09 Current Outpatient Prescriptions: acetaminophen (TYLENOL EXTRA STRENGTH) 500 mg tablet Take 1,500 mg by mouth twice daily as needed. Disp: Rfl: cyclobenzaprine (FLEXERIL) 10 mg tablet Take 1 tablet by mouth three times daily as needed for Muscle Spasm. Disp: 20 tablet Rfl: 0 melatonin 10 mg tab Take by mouth once daily. Disp: Rfl: promethazine (PHENERGAN) 12.5 mg tablet Take 1 tablet by mouth every 6 hours as needed for Nausea/Vomiting. Disp: 30 tablet Rfl: 0 Blood-Glucose Meter misc 1 Each as directed. Disp: 1 Each Rfl: 0 blood sugar diagnostic test strip 1 Strip four times daily. Use as instructed Disp: 120 Strip Rfl: 9 Lancets lancets 1 Each four times daily. Use as instructed Disp: 120 Each Rfl: 9 Urine Glucose-Ketones Test (KETO-DIASTIX) strp 1 Strip four times daily. (Patient not taking: Reported on 01/04/2018 ) Disp: 120 Strip Rfl: 9 FLUoxetine (PROZAC) 20 mg capsule Take 60 mg by mouth once daily. Disp: Rfl: Hctxgeox-Nt-Vvx-Fe-FA tab Take 1 tablet by mouth once daily. (Patient not taking: Reported on 01/04/2018 ) Disp: 30 tablet Rfl: 12 No current facility-administered medications for this visit. ALLERGIES Allergen Reactions - Aspirin Hives - Naprosyn [Naproxen] Hives - [place] [Hydrocodone-* Rash, Vomiting - Thorazine [Chlorpro* Hives, Swelling - Ultram [Tramadol] Swelling Made throat swell - 2014 FAMILY HISTORY Problem Relation Age of Onset - other (tb [Other]) Father - Heart Father - Emphysema Father - Thyroid Brother - Alcohol/Drug Father ETOH - Arthritis Father - Diabetes Paternal Grandmother - Heart Paternal Grandfather - Hypertension Father - Hypertension Sister - Hypertension Maternal Grandmother - Hypertension Maternal Grandfather - Hypertension Paternal Grandmother - Hypertension Paternal Grandfather Social History Substance Use Topics - Smoking status: Current Every Day Smoker Packs/day: 0.50 Years: 25.00 Types: Cigarettes - Smokeless tobacco: Never Used - Alcohol use No Occupation: Currently unemployed Activity level: sedentary, sport/activity: none REVIEW OF SYSTEMS: GENERAL: negative for malaise, significant weight loss, night sweats and fever HEENT: No changes in hearing or vision, no nose bleeds or other nasal problems., No trouble swallowing RESPIRATORY: Negative for cough, wheezing and shortness of breath CARDIOVASCULAR: Negative for chest pain, leg swelling, palpitations, orthopnea GI: Negative for abdominal discomfort, hematochezia, melena, hematemesis, change in bowel habits, diarrhea, constipation, nausea or vomiting. MUSCULOSKELETAL: See HPI. PSYCH: Negative for sleep disturbance, mood disorder and recent psychosocial stressors. HEMATOLOGY Negative for prolonged bleeding, bruising easily, and swollen nodes. ENDOCRINE: Negative for cold or heat intolerance, polyuria, polydipsia and goiter. NEURO: negative for lightheadedness, dizziness, tremor, gait imbalance, syncope and seizures. RADIOGRAPHS: left standing AP, lateral and Merchant views dated 01/04/18 revealed no acute processes, fractures, or dislocations. Osseous and soft tissue structures remarkable for what appears to be an osteochondral defect at the margin of her lateral femoral condyle. 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 Finally there is narrowing of the talus femoral joint with osteophyte formation at the superior and inferior margins of the patella . All of these changes are consistent with those seen on films 05/22/15. OTHER STUDIES: MRI left knee performed 01/05/18- NO ACUTE ABNORMALITY. 2. ?MODERATE DEGENERATIVE ARTHRITIS IN THE PATELLA. 3. ?FOCAL CHRONIC APPEARING OSTEOCHONDRAL LESION IN THE ANTERIOR ASPECT OF LATERAL FEMORAL CONDYLE. PHYSICAL EXAM: Wt 264 lb (119.8kg) General: Appears stated age, well built, in no apparent distress. Psychiatric: Mood and affect appropriate. Alert and oriented x3. Musculoskeletal Exam: Gait and Station antalgic: left. LEFT KNEE EXAM: Inspection Skin No evidence of eythema, warmth, bruising, abrasions, scars, swelling, atrophy or deformity about bilateral lower extremities. Incision Positive: Well healed arthroscopic incision. Atrophy No evidence of muscular atrophy. Range of Motion Knee 5-100 degrees Patella Decreased patellar mobility Palpation Effusion Mild effusion Tenderness medial joint line, lateral joint line, medial patellar facet and lateral patellar facet Crepitance Positive palpable patellofemoral crepitance Meniscus difficult to assess secondary to pain Stability Negative varus/valgus instability, negative Saad's, negative posterior drawer and negative Dial test Lumbar Spine: Lumbar spine normal to inspection, palpation and motion. Negative straight leg raise and nerve root tension signs. Negative Andrew's, calf tenderness or palpable cords. Bilateral lower extremities show equal motion of the hips and ankles. Normal strength, tone, and stability of both lower extremities distally. Neurologic Exam: Intact medial leg and foot(L4), lateral leg and 1st web space(L5), lateral foot(S1) sensation in both lower extremities. Intact patellar tendon(L4), and Achilles(S1) reflexes in both lower extremities. Vascular: 2+ pedal pulses of both lower extremities. PROCEDURE: Not applicable IMPRESSION: 1. left knee pain-chronic. Based on her exam and imaging this appears to be all related to osteoarticular wear. She does not demonstrate any obvious loose bodies or meniscal tears that I feel could be predictably improved with an arthroscopic procedure. Discussed other nonoperative treatment options including prescription NSAID use. Patient states that she has had an anaphylactic reaction to both aspirin and Naprosyn and therefore is unable to take NSAIDs. We discussed the potential benefit of a short course of prednisone. Patient states that she has been on prednisone in the past and refuses to take it again. She states that she's been on it so much in the past that she does not wish to utilize it any further. We discussed the potential benefit of a corticosteroid injection. Patient refuses stating that she is full because of needles and will not consent. Finally discussed a physical therapy program for the left knee as well as mjfu-bjf-zffsopt anti-inflammatory agents. I explained to her that arthroscopic intervention would not improve her symptoms as her pain is coming from osteoarticular wear. I explained the risk of the surgery in this situation out weigh the potential benefits and therefore do not recommend surgical intervention at this time. She became quite upset at this point. She together herbal long ring's and left the office angrily complaining about the treatment plan and stating that she would seek care elsewhere. I did attempt to discuss this with her further patient refused. PLAN: Patient left the office before any definitive treatment plans could be established. Ck Tellez MD I would like to thank you for the kind referral of . I appreciate the opportunity to be involved in her care. Please do not hesitate to call upon me if I may be of further assistance. CNOV Observed: 01/26/2018 Status: COMPLETED Source: [place] 2:00 PM [facility] REPOSITORY Office Visit (ORMDNA) JONO BARBOUR ([id number]) 1975 F Date Time Provider Department 01/26/18 2:00 PM CK TELLEZ During your visit today, we recorded the following information about you: Weight 119.[address] 01/26/2018 2:46 PM Signed Patient presents with: Left Knee Pain Ck Tellez MD 01/29/2018 7:23 AM Signed DEPARTMENT OF ORTHOPAEDICS HISTORY OF PRESENT ILLNESS: This is a pleasant 42 year old female, who presents today with a chief complaint of left knee pain. She complains of sharp and stabbing pain about the anterior and medial aspect of approximately several months duration. This pain is constant. She reports falling . She complains that the pain is 7/10. She reports nocturnal pain. The pain is exacerbated by walking, managing stairs, prolonged standing, prolonged sitting and ADLs. Previous treatments have included surgery( arthroscopy x2 in last ten years . Patient reports that she had cartilage fragments cleaned out) . She denies proximal radiation. She denies distal radiation. She denies numbness, tingling, or electric shocks. She reports clicking and grinding. She reports swelling and/or warmth. PAST MEDICAL HISTORY Diagnosis Date - Abnormal glandular Papanicolaou smear of cervix Abn. Pap smear (cervix) - Anemia WITH - Asthma - Back pain - Bipolar disorder (HCC) - Complication of anesthesia BACK PAIN AT INSERTION SITE - Diabetes (HCC) - Diabetes, gestational - Loose body in knee 2012 Left knee ARTHROSCOPIC REMOVAL LOOSE BODY KNEE - Migraines - Obesity - Tobacco use disorder - Trauma PAST SURGICAL HISTORY Procedure Laterality Date - KNEE ARTHROSCOPY/SURGERY 1997, 2012 left X2 - LIGATE FALLOPIAN TUBE 02/23/16 Tubal ligation - VAGINOSCOPY 09 Current Outpatient Prescriptions: acetaminophen (TYLENOL EXTRA STRENGTH) 500 mg tablet Take 1,500 mg by mouth twice daily as needed. Disp: Rfl: cyclobenzaprine (FLEXERIL) 10 mg tablet Take 1 tablet by mouth three times daily as needed for Muscle Spasm. Disp: 20 tablet Rfl: 0 melatonin 10 mg tab Take by mouth once daily. Disp: Rfl: promethazine (PHENERGAN) 12.5 mg tablet Take 1 tablet by mouth every 6 hours as needed for Nausea/Vomiting. Disp: 30 tablet Rfl: 0 Blood-Glucose Meter misc 1 Each as directed. Disp: 1 Each Rfl: 0 blood sugar diagnostic test strip 1 Strip four times daily. Use as instructed Disp: 120 Strip Rfl: 9 Lancets lancets 1 Each four times daily. Use as instructed Disp: 120 Each Rfl: 9 Urine Glucose-Ketones Test (KETO-DIASTIX) strp 1 Strip four times daily. (Patient not taking: Reported on 01/04/2018 ) Disp: 120 Strip Rfl: 9 FLUoxetine (PROZAC) 20 mg capsule Take 60 mg by mouth once daily. Disp: Rfl: Meigfvyw-Qa-Aje-Fe-FA tab Take 1 tablet by mouth once daily. (Patient not taking: Reported on 01/04/2018 ) Disp: 30 tablet Rfl: 12 No current facility-administered medications for this visit. ALLERGIES Allergen Reactions - Aspirin Hives - Naprosyn [Naproxen] Hives - [place] [Hydrocodone-* Rash, Vomiting - Thorazine [Chlorpro* Hives, Swelling - Ultram [Tramadol] Swelling Made throat swell - 2014 FAMILY HISTORY Problem Relation Age of Onset - other (tb [Other]) Father - Heart Father - Emphysema Father - Thyroid Brother - Alcohol/Drug Father ETOH - Arthritis Father - Diabetes Paternal Grandmother - Heart Paternal Grandfather - Hypertension Father - Hypertension Sister - Hypertension Maternal Grandmother - Hypertension Maternal Grandfather - Hypertension Paternal Grandmother - Hypertension Paternal Grandfather Social History Substance Use Topics - Smoking status: Current Every Day Smoker Packs/day: 0.50 Years: 25.00 Types: Cigarettes - Smokeless tobacco: Never Used - Alcohol use No Occupation: Currently unemployed Activity level: sedentary, sport/activity: none REVIEW OF SYSTEMS: GENERAL: negative for malaise, significant weight loss, night sweats and fever HEENT: No changes in hearing or vision, no nose bleeds or other nasal problems., No trouble swallowing RESPIRATORY: Negative for cough, wheezing and shortness of breath CARDIOVASCULAR: Negative for chest pain, leg swelling, palpitations, orthopnea GI: Negative for abdominal discomfort, hematochezia, melena, hematemesis, change in bowel habits, diarrhea, constipation, nausea or vomiting. MUSCULOSKELETAL: See HPI. PSYCH: Negative for sleep disturbance, mood disorder and recent psychosocial stressors. HEMATOLOGY Negative for prolonged bleeding, bruising easily, and swollen nodes. ENDOCRINE: Negative for cold or heat intolerance, polyuria, polydipsia and goiter. NEURO: negative for lightheadedness, dizziness, tremor, gait imbalance, syncope and seizures. RADIOGRAPHS: left standing AP, lateral and Merchant views dated 01/04/18 revealed no acute processes, fractures, or dislocations. Osseous and soft tissue structures remarkable for what appears to be an osteochondral defect at the margin of her lateral femoral condyle. She also has a calcified fragment at the tibial tubercle consistent with Johnny Ty's. Finally there is narrowing of the talus femoral joint with osteophyte formation at the superior and inferior margins of the patella . All of these changes are consistent with those seen on films 05/22/15. OTHER STUDIES: MRI left knee performed 01/05/18- NO ACUTE ABNORMALITY. 2. ?MODERATE DEGENERATIVE ARTHRITIS IN THE PATELLA. 3. ?FOCAL CHRONIC APPEARING OSTEOCHONDRAL LESION IN THE ANTERIOR ASPECT OF LATERAL FEMORAL CONDYLE. PHYSICAL EXAM: Wt 264 lb (119.8kg) General: Appears stated age, well built, in no apparent distress. Psychiatric: Mood and affect appropriate. Alert and oriented x3. Musculoskeletal Exam: Gait and Station antalgic: left. LEFT KNEE EXAM: Inspection Skin No evidence of eythema, warmth, bruising, abrasions, scars, swelling, atrophy or deformity about bilateral lower extremities. Incision Positive: Well healed arthroscopic incision. Atrophy No evidence of muscular atrophy. Range of Motion Knee 5-100 degrees Patella Decreased patellar mobility Palpation Effusion Mild effusion Tenderness medial joint line, lateral joint line, medial patellar facet and lateral patellar facet Crepitance Positive palpable patellofemoral crepitance Meniscus difficult to assess secondary to pain Stability Negative varus/valgus instability, negative Saad's, negative posterior drawer and negative Dial test Lumbar Spine: Lumbar spine normal to inspection, palpation and motion. Negative straight leg raise and nerve root tension signs. Negative Andrew's, calf tenderness or palpable cords. Bilateral lower extremities show equal motion of the hips and ankles. Normal strength, tone, and stability of both lower extremities distally. Neurologic Exam: Intact medial leg and foot(L4), lateral leg and 1st web space(L5), lateral foot(S1) sensation in both lower extremities. Intact patellar tendon(L4), and Achilles(S1) reflexes in both lower extremities. Vascular: 2+ pedal pulses of both lower extremities. PROCEDURE: Not applicable IMPRESSION: 1. left knee pain-chronic. Based on her exam and imaging this appears to be all related to osteoarticular wear. She does not demonstrate any obvious loose bodies or meniscal tears that I feel could be predictably improved with an arthroscopic procedure. Discussed other nonoperative treatment options including prescription NSAID use. Patient states that she has had an anaphylactic reaction to both aspirin and Naprosyn and therefore is unable to take NSAIDs. We discussed the potential benefit of a short course of prednisone. Patient states that she has been on prednisone in the past and refuses to take it again. She states that she's been on it so much in the past that she does not wish to utilize it any further. We discussed the potential benefit of a corticosteroid injection. Patient refuses stating that she is full because of needles and will not consent. Finally discussed a physical therapy program for the left knee as well as awql-qli-[id number] anti-inflammatory agents. I explained to her that arthroscopic intervention would not improve her symptoms as her pain is coming from osteoarticular wear. I explained the risk of the surgery in this situation out weigh the potential benefits and therefore do not recommend surgical intervention at this time. She became quite upset at this point. She together herbal long ring's and left the office angrily complaining about the treatment plan and stating that she would seek care elsewhere. I did attempt to discuss this with her further patient refused. PLAN: Patient left the office before any definitive treatment plans could be established. Ck Tellez MD I would like to thank you for the kind referral of . I appreciate the opportunity to be involved in her care. Please do not hesitate to call upon me if I may be of further assistance. Referring Provider: SRAVAN PEREZ [[id number]] Allergies As of Date: 01/26/2018 Noted Allergy Reaction ASPIRIN 02/09/2011 4 - Hives NAPROSYN (NAPROXEN) 12/28/2012 4 - Hives NORCO (HYDROCODONE-ACETAMINOPHEN) 03/18/2013 2 - Rash 11 - Vomiting THORAZINE (CHLORPROMAZINE) 02/09/2011 4 - Hives 7 - Swelling ULTRAM (TRAMADOL) 02/09/2011 7 - Swelling Comments: Made throat swell - 2014 Date Reviewed: 01/26/2018 Reviewed by: Patrizia Madsen CT - Fully Assessed Reason for Visit: Left Knee Pain [1208] Primary Visit Diagnosis:Primary osteoarthritis of left knee [M17.12] Prescriptions as of 01/26/2018 Sig: ACETAMINOPHEN 500 MG TABLET Take 1,500 mg by mouth twice * CYCLOBENZAPRINE 10 MG TABLET Take 1 tablet by mouth three * MELATONIN 10 MG TABLET Take by mouth once daily. PROMETHAZINE 12.5 MG TABLET Take 1 tablet by mouth every * BLOOD-GLUCOSE METER 1 Each as directed. BLOOD SUGAR DIAGNOSTIC STRIPS 1 Strip four times daily. Use* LANCETS 1 Each four times daily. Use * URINE GLUCOSE-KETONES TEST ST* 1 Strip four times daily. Patient not taking: Reported on 01/04/2018 FLUOXETINE 20 MG CAPSULE Take 60 mg by mouth once adeline* VITAMIN,CALCIUM,MINE* Take 1 tablet by mouth once d* Patient not taking: Reported on 01/04/2018 Problem List As Of Date 01/26/2018 Noted Resolved Asthma [J45.909] Bipolar disorder [F31.9] More... Tobacco use disorder [F17.200] More... Back pain [M54.9] Obesity [E66.9] Neck pain [M54.2] INVALID FOR* SUPRF HIGH RISK NEC [V23.89] [O09.899]INVALID FOR* Itching [L29.9] INVALID FOR* More... More... Depression [F32.9] INVALID FOR* More... Poor social situation [Z65.9] INVALID FOR* More... More... ADHD (attention deficit hyperactivity disorder)*INVALID FOR* More... Custody issue [Z65.3] INVALID FOR* More... Marijuana use [F12.90] INVALID FOR* More... Nausea/vomiting in [O21.9] INVALID FOR* More... History of gestational diabetes in prior pregna*INVALID FOR* More... Outbursts of anger [R45.4] INVALID FOR* More... Chronic back pain [M54.9, G89.29] INVALID FOR* More... History of miscarriage [Z87.59] INVALID FOR* More... Advanced maternal age in [VFM1045] INVALID FOR*10/16/2015 More... Osteochondral defect of femoral condyle [M95.8] INVALID FOR* Loose body in knee [M23.40] INVALID FOR* Supervision of high risk in third tri*INVALID FOR* Encounter for confirmation of test re*INVALID FOR* with type 2 diabetes mellitus in firs*INVALID FOR* More... Non-compliant patient [O09.899, Z91.19]INVALID FOR* More... Obesity in [O99.210] INVALID FOR* Visit Notes: >> Patrizia Madsen CT MonJan 26, 2018 2:18 PM Status: Signed Patient presents with: Left Knee Pain Follow-up and Disposition History Recorded Encounter Status:Closed by CK TELLEZ MD on 01/29/18 PROGRESS Observed: 01/16/2018 Status: COMPLETED Source: [place] 4:19 PM [facility] REPOS[facility] O ID: [id number] Author: Sravan Perez Service: (none) Author Type: Physician Type: Progress Notes Filed: 02/15/2018 10:44 AM Note Text: PRE OP VISIT Jono Barbour is a 42 year old female who is in to discuss a left total knee replacement. Please see full care path note of 01/04/18. Her MRI shows areas of full thickness loss but no oint-hr-nljm areas. I think total knee is an over aggressive approach at this time and would recommend an assessment as to whether arthroscopic surgery might help Over 20 minutes was spent with the patient discussing the details of the treatment options. Sravan Perez MD CNOV Observed: 01/16/2018 Status: COMPLETED Source: [place] 4:00 PM [facility] REPOSITORY Office Visit (ORMDNA) JONO BARBOUR ([id number]) 1975 F Date Time Provider Department 01/16/18 4:00 PM SRAVAN PEREZ During your visit today, we recorded the following information about you: Yuly Linares Ma 01/16/2018 4:19 PM Signed Patient presents with: Pre-Op Exam: left knee Sravan Perez MD 02/15/2018 10:44 AM Signed PRE OP VISIT Jono Barbour is a 42 year old female who is in to discuss a left total knee replacement. Please see full care path note of 01/04/18. Her MRI shows areas of full thickness loss but no sqzl-mr-qbkb areas. I think total knee is an over aggressive approach at this time and would recommend an assessment as to whether arthroscopic surgery might help Over 20 minutes was spent with the patient discussing the details of the treatment options. Sravan Perez MD Referring Provider: SRAVAN PEREZ [[id number]] Allergies As of Date: 01/16/2018 Noted Allergy Reaction ASPIRIN 02/09/2011 4 - Hives NAPROSYN (NAPROXEN) 12/28/2012 4 - Hives NORCO (HYDROCODONE-ACETAMINOPHEN) 03/18/2013 2 - Rash 11 - Vomiting THORAZINE (CHLORPROMAZINE) 02/09/2011 4 - Hives 7 - Swelling ULTRAM (TRAMADOL) 02/09/2011 7 - Swelling Comments: Made throat swell - 2014 Date Reviewed: 01/16/2018 Reviewed by: Yuly Linares Ma - Fully Assessed Reason for Visit: Pre-Op Exam [87] Cmt: left knee Primary Visit Diagnosis:Osteochondral defect of femoral condyle [M95.8] Other Visit Diagnosis:Primary osteoarthritis of left knee [M17.12] Prescriptions as of 01/16/2018 Sig: CYCLOBENZAPRINE 10 MG TABLET Take 1 tablet by mouth three * MELATONIN 10 MG TABLET Take by mouth once daily. PROMETHAZINE 12.5 MG TABLET Take 1 tablet by mouth every * BLOOD-GLUCOSE METER 1 Each as directed. BLOOD SUGAR DIAGNOSTIC STRIPS 1 Strip four times daily. Use* LANCETS 1 Each four times daily. Use * URINE GLUCOSE-KETONES TEST ST* 1 Strip four times daily. Patient not taking: Reported on 01/04/2018 FLUOXETINE 20 MG CAPSULE Take 60 mg by mouth once adeline* VITAMIN,CALCIUM,MINE* Take 1 tablet by mouth once d* Patient not taking: Reported on 01/04/2018 Problem List As Of Date 01/16/2018 Noted Resolved Asthma [J45.909] Bipolar disorder [F31.9] More... Tobacco use disorder [F17.200] More... Back pain [M54.9] Obesity [E66.9] Neck pain [M54.2] INVALID FOR* SUPRF HIGH RISK NEC [V23.89] [O09.899]INVALID FOR* Itching [L29.9] INVALID FOR* More... More... Depression [F32.9] INVALID FOR* More... Poor social situation [Z65.9] INVALID FOR* More... More... ADHD (attention deficit hyperactivity disorder)*INVALID FOR* More... Custody issue [Z65.3] INVALID FOR* More... Marijuana use [F12.90] INVALID FOR* More... Nausea/vomiting in [O21.9] INVALID FOR* More... History of gestational diabetes in prior pregna*INVALID FOR* More... Outbursts of anger [R45.4] INVALID FOR* More... Chronic back pain [M54.9, G89.29] INVALID FOR* More... History of miscarriage [Z87.59] INVALID FOR* More... Advanced maternal age in [ZZU2564] INVALID FOR*10/16/2015 More... Osteochondral defect of femoral condyle [M95.8] INVALID FOR* Loose body in knee [M23.40] INVALID FOR* Supervision of high risk in third tri*INVALID FOR* Encounter for confirmation of test re*INVALID FOR* with type 2 diabetes mellitus in firs*INVALID FOR* More... Non-compliant patient [O09.899, Z91.19]INVALID FOR* More... Obesity in [O99.210] INVALID FOR* Visit Notes: >> Yuly Parker Jan 16, 2018 4:19 PM Status: Signed Patient presents with: Pre-Op Exam: left knee Encounter Status:Closed by SRAVAN PEREZ MD on 02/15/18 MRI KNEE WO IVCON Observed: 01/05/2018 Status: F Source: [facility] 2:37 PM [facility] REPOSITORY * * *Final Report* * * DATE OF EXAM: Jan 05 2018 2:37PM [facility] 0212 - MRI KNEE WO IVCON LT / PROCEDURE REASON: multiple diagnoses * * * * Physician Interpretation * * * * EXAMINATION: MRI LEFT KNEE WITHOUT CONTRAST CLINICAL HISTORY: Internal derangement Joint pain, knee, Limited movement, knee, [facility]'s sign, Mechanical knee symptoms: locking, catching, snapping, crepitus Prev sx x2 pain under patella and both sides of lt knee TECHNIQUE: Routine non-contrast MRI of the knee MQ: [id number]_2 COMPARISON: None RESULT: MENISCI: Medial Meniscus: Intact. Lateral Meniscus: Degenerative changes without a tear with minimal increased signal along the inner margin of the body. LIGAMENTS: ACL: Intact PCL: Intact MCL: Intact LCL Complex: Intact CARTILAGE: Medial Femoral Condyle: Small area(s) of full thickness cartilage loss/fissuring in the far posterior aspect Medial Tibial Plateau: Normal Lateral Femoral Condyle: Osteochondral lesion in the anterior aspect of the lateral femoral condyle the junction with the trochlea measuring 1.5 cm in AP dimension with mild edema signal and small subchondral cyst at the base. The overlying articular cartilage is abnormal in signal and morphology. Lateral Tibial Plateau: Normal Patella: Moderate sized area(s) of predominantly high grade (>50% thickness) cartilage loss/fissuring with smaller area(s) of full thickness cartilage loss/fissuring in the lateral patellar facet with subchondral marrow reactive/cystic changes. Trochlea: Normal TENDONS: The distal quadriceps and patellar tendons are intact. The popliteus tendon is intact. BONES AND MARROW: No evidence of fracture or bone marrow replacing process. Reactive cystic changes in the tibial tuberosity with a ununited ossicle. MUSCLES: Muscle bulk and signal intensity are normal. JOINT FLUID AND SYNOVIUM: No joint effusion. No synovitis. No Alejo's cyst. OTHER: An intra-articular body seen within the popliteal tendon sheath (5:5). IMPRESSION: 1. NO ACUTE ABNORMALITY. 2. MODERATE DEGENERATIVE ARTHRITIS IN THE PATELLA. 3. FOCAL CHRONIC APPEARING OSTEOCHONDRAL LESION IN THE ANTERIOR ASPECT OF LATERAL FEMORAL CONDYLE. Director Of Quality: PSCB Transcribe Date/Time: Jan 05 2018 2:58P Dictated by : ADAMA BARBOUR MD This examination was interpreted and the report reviewed and electronically signed by: ADAMA BARBOUR MD on Jan 05 2018 3:05PM EST [id number] PROGRESS Observed: 01/05/2018 Status: COMPLETED Source: [place] 2:17 PM [facility] REPOSITORY HNO ID: [id number] Author: Anay Parekr (Rt) Service: (none) Author Type: Account Services Coordinator Type: Progress Notes Filed: 01/05/2018 2:17 PM Note Text: Radiology Service Progress Note PATIENT NAME: Jono Barbour DATE OF SERVICE: January 05, 2018 TIME: 2:17 PM PATIENT IDENTITY VERIFICATION COMPLETED USING TWO (2) METHODS: Patient confirmed name verbally and Date of . PATIENT GENDER DATA: Female. status: : No status: NO. PATIENT RELEVANT IMPLANT DATA REVIEWED: Yes RADIOLOGY DEPARTMENT: MR; Exam(s) Completed: Lower MSK: Knee, left PERIPHERAL IV DATA: Not applicable SIGNED BY: RT Keith January 05, 2018 2:17 PM PROGRESS Observed: 01/04/2018 Status: COMPLETED Source: [place] 2:13 PM [facility] REPOSITORY HNO ID: [id number] Author: Shawna Moreira (Pa) Service: (none) Author Type: Physician Wrapper Stemmer Operator Type: Progress Notes Filed: 01/04/2018 2:38 PM Note Text: CONSULT ORTHOPAEDIC: KNEE PRIMARY CARE PHYSICIAN: No primary care provider on file. REFERRING PROVIDER: SELF ASSESSMENT AND PLAN Impression: Left Knee Mild Degenerative Osteoarthritis, Primary and locked meniscal tear left knee After discussion with Jono Barbour, continued non-operative management of MRI was chosen. The patient currently has progressive symptoms and concern for a locked meniscal tear. Progressive Symptoms Include: Pain impacting sleep or causing fatigue Pain worsened by weight bearing Pain effecting living situation Pain limiting ability to stay fit and healthy. The patient has been ordered: STAT MRI Crutches hydrocodone Jono Barbour meets the following criteria for MRI: Diagnosis of Mild Osteorathritis Diagnosis of Internal Derangement of Knee CONSULTS: Patient does not require consults for optimization at this time. ACTIVE PROBLEM LIST Asthma Bipolar Disorder (Hcc) Tobacco Use Disorder Back Pain Obesity Neck Pain SUPRF HIGH RISK NEC [V23.89] Itching Depression Poor Social Situation Adhd (Attention Deficit Hyperactivity Disorder) Custody Issue Marijuana Use Nausea/Vomiting in History of Gestational Diabetes in Prior , Currently Outbursts of Anger Chronic Back Pain History of Miscarriage Osteochondral Defect of Femoral Condyle Loose Body in Knee Supervision of High Risk in Third Trimester Encounter for Confirmation of Test Result With Physical Examination With Type 2 Diabetes Mellitus in First Trimester Non-Compliant Patient Obesity in SUBJECTIVE CHIEF COMPLAINT: Knee Pain HPI: Jono Barbour is a 42 year old female here for evaluation and management of left knee pain. 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 The problem began limiting activities 1-4 weeks ago. Currently the pain in the joint is rated at 9 out of 10 with minimal activity. The pain is constant and is located global. The pain is described as sharp, stabbing and locking. Relieving factors include temporary relief with ibuprofen. The pain appears to be directly related to injury. Jono states she fell while coming down steps while carrying her 2 year old daughter. She landed on her left hip and was checked out at an ED diagnosis was left hip bruise. The knee was not bothering her at the time and was not addressed. She has no additional complaints. FUNCTIONAL STATUS: Have sexual relations (5.25 METs) Preoperative Ambulatory Status: Impaired Community Distances Number of Entry Steps: 10 Bedroom Location: First floor Bathroom Location: First floor Caregiver Assistance: Consistent/Live-In (5-7 days/wk) Home Location: Up to 150 miles PREVIOUS TREATMENTS: Medical Treatments: OTC NSAIDS for 3 Months or Greater (Ibuprofen), RX NSAIDS for 3 Months or Greater (meloxicam (Mobic)) Physical Therapy: Use of Ambulatory Aid and Activities Modified REVIEW OF SYSTEMS: PAIN ASSESSMENT: See HPI. MUSCULOSKELETAL: See HPI. Surgical Risk Factors: asthma PAST MEDICAL HISTORY Diagnosis Date - Abnormal glandular Papanicolaou smear of cervix Abn. Pap smear (cervix) - Anemia WITH - Asthma - Back pain - Bipolar disorder (HCC) - Complication of anesthesia BACK PAIN AT INSERTION SITE - Diabetes (HCC) - Diabetes, gestational - Loose body in knee 2012 Left knee ARTHROSCOPIC REMOVAL LOOSE BODY KNEE - Migraines - Obesity - Tobacco use disorder - Trauma PAST SURGICAL HISTORY Procedure Laterality Date - KNEE ARTHROSCOPY/SURGERY 1997, 2012 left X2 - LIGATE FALLOPIAN TUBE 02/23/16 Tubal ligation - VAGINOSCOPY 09 FAMILY HISTORY Problem Relation Age of Onset - other (tb [Other]) Father - Heart Father - Emphysema Father - Thyroid Brother - Alcohol/Drug Father ETOH - Arthritis Father - Diabetes Paternal Grandmother - Heart Paternal Grandfather - Hypertension Father - Hypertension Sister - Hypertension Maternal Grandmother - Hypertension Maternal Grandfather - Hypertension Paternal Grandmother - Hypertension Paternal Grandfather Social History Marital status: Legally Spouse name: Years of education: 11 Number of children: 4 Occupational History Occupation Employer Comment unemployed Social History Main Topics Smoking status: Current Every Day Smoker Packs/day: 0.50 Years: 25.00 Types: Cigarettes Smokeless tobacco: Never Used Alcohol use: No Drug use: No Sexual activity: Yes Partners with: Male control/protection: None Social History Narrative 1 son, 1 daughter ALLERGIES: Aspirin; Naprosyn [Naproxen]; Thorazine [Chlorpromazine]; Ultram [Tramadol] MEDICATIONS: Blood-Glucose Meter misc 1 Each as directed. blood sugar diagnostic test strip 1 Strip four times daily. Use as instructed Lancets lancets 1 Each four times daily. Use as instructed cyclobenzaprine (FLEXERIL) 10 mg tablet Take 1 tablet by mouth three times daily as needed for Muscle Spasm. melatonin 10 mg tab Take by mouth once daily. promethazine (PHENERGAN) 12.5 mg tablet Take 1 tablet by mouth every 6 hours as needed for Nausea/Vomiting. Urine Glucose-Ketones Test (KETO-DIASTIX) strp 1 Strip four times daily. FLUoxetine (PROZAC) 20 mg capsule Take 60 mg by mouth once daily. Wcyulqkg-Zg-Yvk-Fe-FA tab Take 1 tablet by mouth once daily. PHYSICAL EXAM: BP 106/80 Pulse 95 Ht 175.3 cm (5' 9) Wt 117.7 kg (259 lb 6.4 oz) LMP 12/21/2017 BMI 38.31 kg/m? All other systems deferred. GENERAL: Appears healthy, well-nourished, no deformities. HABITUS: Morbidly obese GAIT: Antalgic to the left, Shuffling and The patient had trouble getting up onto the exam table KNEE EXAM: Right: Alignment: Neutral Range of motion is 0 degrees in extension and 130 degrees of flexion. Extension La degrees Pain with ROM: No Effusion: None Tender to the palpation of None Pain with patellar compression: No Stability: Anterior/Posterior stable and Varus/Valgus stable Hip Exam: flexion to 100+ degrees, full extension, internal/external rotation adequate and no pain with log roll Neurovascular Status: Sensation Intact and Moves foot and ankle up AND down Left: Alignment: Neutral Range of motion is 20 degrees in extension and 70 degrees of flexion. Extension La-20 degrees Pain with ROM: Yes and + McMurrary's Effusion: Moderate Tender to the palpation of Patellar tendon, Medial joint line and Lateral joint line Pain with patellar compression: No Stability: difficult to assess due to pain and limited motion Hip Exam: flexion to 100+ degrees, full extension, internal/external rotation adequate and no pain with log roll Neurovascular Status: Sensation Intact, Moves foot and ankle up AND down, 2+ dorsalis pedis and negative homans sign UPPER EXTREMITIES: No restriction of function that would interfere with the use of ambulatory aids DATA: Diagnostic tests reviewed for today's visit: Left knee X-Ray: Medial joint space noted to have mild degenerative changes, Patellofemoral joint noted to have mild degenerative changes and 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 The following conditions were addressed during the office visit today: Obesity - Weight management strategies and Smoking - Cessation counseling SIGNATURE: Shawna Moreira PA-C PATIENT NAME: Jono Barbour DATE: January 04, 2018 TIME: 2:15 PM CNOV Observed: 01/04/2018 Status: COMPLETED Source: [place] 2:00 PM [facility] REPOSITORY Office Visit (ORMDNA) JONO BARBOUR ([id number]) 1975 F Date Time Provider Department 01/04/18 2:00 PM SHAWNA MOREIRA (PA) During your visit today, we recorded the following information about you: Pulse Blood pressure Weight Height 95/minute 106/80 117.7 kg 1.753 m Last Period 12/21/17 Karissa Bernal Julianna 01/04/2018 1:58 PM Signed Patient presents with: Left Knee Pain Shawna Moreira PA-C 01/04/2018 2:38 PM Signed CONSULT ORTHOPAEDIC: KNEE PRIMARY CARE PHYSICIAN: No primary care provider on file. REFERRING PROVIDER: SELF ASSESSMENT AND PLAN Impression: Left Knee Mild Degenerative Osteoarthritis, Primary and locked meniscal tear left knee After discussion with Jono Barbour, continued non-operative management of MRI was chosen. The patient currently has progressive symptoms and concern for a locked meniscal tear. Progressive Symptoms Include: Pain impacting sleep or causing fatigue Pain worsened by weight bearing Pain effecting living situation Pain limiting ability to stay fit and healthy. The patient has been ordered: STAT MRI Crutches hydrocodone Jono Barbour meets the following criteria for MRI: Diagnosis of Mild Osteorathritis Diagnosis of Internal Derangement of Knee CONSULTS: Patient does not require consults for optimization at this time. ACTIVE PROBLEM LIST Asthma Bipolar Disorder (Hcc) Tobacco Use Disorder Back Pain Obesity Neck Pain SUPRF HIGH RISK NEC [V23.89] Itching Depression Poor Social Situation Adhd (Attention Deficit Hyperactivity Disorder) Custody Issue Marijuana Use Nausea/Vomiting in History of Gestational Diabetes in Prior , Currently Outbursts of Anger Chronic Back Pain History of Miscarriage Osteochondral Defect of Femoral Condyle Loose Body in Knee Supervision of High Risk in Third Trimester Encounter for Confirmation of Test Result With Physical Examination With Type 2 Diabetes Mellitus in First Trimester Non-Compliant Patient Obesity in SUBJECTIVE CHIEF COMPLAINT: Knee Pain HPI: Jono Barbour is a 42 year old female here for evaluation and management of left knee pain. 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 The problem began limiting activities 1-4 weeks ago. Currently the pain in the joint is rated at 9 out of 10 with minimal activity. The pain is constant and is located global. The pain is described as sharp, stabbing and locking. Relieving factors include temporary relief with ibuprofen. The pain appears to be directly related to injury. Jono states she fell while coming down steps while carrying her 2 year old daughter. She landed on her left hip and was checked out at an ED diagnosis was left hip bruise. The knee was not bothering her at the time and was not addressed. She has no additional complaints. FUNCTIONAL STATUS: Have sexual relations (5.25 METs) Preoperative Ambulatory Status: Impaired Community Distances Number of Entry Steps: 10 Bedroom Location: First floor Bathroom Location: First floor Caregiver Assistance: Consistent/Live-In (5-7 days/wk) Home Location: Up to 150 miles PREVIOUS TREATMENTS: Medical Treatments: OTC NSAIDS for 3 Months or Greater (Ibuprofen), RX NSAIDS for 3 Months or Greater (meloxicam (Mobic)) Physical Therapy: Use of Ambulatory Aid and Activities Modified REVIEW OF SYSTEMS: PAIN ASSESSMENT: See HPI. MUSCULOSKELETAL: See HPI. Surgical Risk Factors: asthma PAST MEDICAL HISTORY Diagnosis Date - Abnormal glandular Papanicolaou smear of cervix Abn. Pap smear (cervix) - Anemia WITH - Asthma - Back pain - Bipolar disorder (HCC) - Complication of anesthesia BACK PAIN AT INSERTION SITE - Diabetes (HCC) - Diabetes, gestational - Loose body in knee 2012 Left knee ARTHROSCOPIC REMOVAL LOOSE BODY KNEE - Migraines - Obesity - Tobacco use disorder - Trauma PAST SURGICAL HISTORY Procedure Laterality Date - KNEE ARTHROSCOPY/SURGERY 1997, 2012 left X2 - LIGATE FALLOPIAN TUBE 02/23/16 Tubal ligation - VAGINOSCOPY 09 FAMILY HISTORY Problem Relation Age of Onset - other (tb [Other]) Father - Heart Father - Emphysema Father - Thyroid Brother - Alcohol/Drug Father ETOH - Arthritis Father - Diabetes Paternal Grandmother - Heart Paternal Grandfather - Hypertension Father - Hypertension Sister - Hypertension Maternal Grandmother - Hypertension Maternal Grandfather - Hypertension Paternal Grandmother - Hypertension Paternal Grandfather Social History Marital status: Legally Spouse name: Years of education: 11 Number of children: 4 Occupational History Occupation Employer Comment unemployed Social History Main Topics Smoking status: Current Every Day Smoker Packs/day: 0.50 Years: 25.00 Types: Cigarettes Smokeless tobacco: Never Used Alcohol use: No Drug use: No Sexual activity: Yes Partners with: Male control/protection: None Social History Narrative 1 son, 1 daughter ALLERGIES: Aspirin; Naprosyn [Naproxen]; Thorazine [Chlorpromazine]; Ultram [Tramadol] MEDICATIONS: Blood-Glucose Meter misc 1 Each as directed. blood sugar diagnostic test strip 1 Strip four times daily. Use as instructed Lancets lancets 1 Each four times daily. Use as instructed cyclobenzaprine (FLEXERIL) 10 mg tablet Take 1 tablet by mouth three times daily as needed for Muscle Spasm. melatonin 10 mg tab Take by mouth once daily. promethazine (PHENERGAN) 12.5 mg tablet Take 1 tablet by mouth every 6 hours as needed for Nausea/Vomiting. Urine Glucose-Ketones Test (KETO-DIASTIX) strp 1 Strip four times daily. FLUoxetine (PROZAC) 20 mg capsule Take 60 mg by mouth once daily. Jmzkwwpd-Jf-Ifj-Fe-FA tab Take 1 tablet by mouth once daily. PHYSICAL EXAM: BP 106/80 Pulse 95 Ht 175.3 cm (5' 9) Wt 117.7 kg (259 lb 6.4 oz) LMP 12/21/2017 BMI 38.31 kg/m? All other systems deferred. GENERAL: Appears healthy, well-nourished, no deformities. HABITUS: Morbidly obese GAIT: Antalgic to the left, Shuffling and The patient had trouble getting up onto the exam table KNEE EXAM: Right: Alignment: Neutral Range of motion is 0 degrees in extension and 130 degrees of flexion. Extension La degrees Pain with ROM: No Effusion: None Tender to the palpation of None Pain with patellar compression: No Stability: Anterior/Posterior stable and Varus/Valgus stable Hip Exam: flexion to 100+ degrees, full extension, internal/external rotation adequate and no pain with log roll Neurovascular Status: Sensation Intact and Moves foot and ankle up AND down Left: Alignment: Neutral Range of motion is 20 degrees in extension and 70 degrees of flexion. Extension La-20 degrees Pain with ROM: Yes and + McMurrary's Effusion: Moderate Tender to the palpation of Patellar tendon, Medial joint line and Lateral joint line Pain with patellar compression: No Stability: difficult to assess due to pain and limited motion Hip Exam: flexion to 100+ degrees, full extension, internal/external rotation adequate and no pain with log roll Neurovascular Status: Sensation Intact, Moves foot and ankle up AND down, 2+ dorsalis pedis and negative homans sign UPPER EXTREMITIES: No restriction of function that would interfere with the use of ambulatory aids DATA: Diagnostic tests reviewed for today's visit: Left knee X-Ray: Medial joint space noted to have mild degenerative changes, Patellofemoral joint noted to have mild degenerative changes and 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 The following conditions were addressed during the office visit today: Obesity - Weight management strategies and Smoking - Cessation counseling SIGNATURE: Shawna Moreira PA-C PATIENT NAME: Jono Barbour DATE: January 04, 2018 TIME: 2:15 PM Referring Provider: SELF [200] Allergies As of Date: 01/04/2018 Noted Allergy Reaction ASPIRIN 02/09/2011 4 - Hives NAPROSYN (NAPROXEN) 12/28/2012 4 - Hives THORAZINE (CHLORPROMAZINE) 02/09/2011 4 - Hives 7 - Swelling ULTRAM (TRAMADOL) 02/09/2011 7 - Swelling Comments: Made throat swell - 2014 Date Reviewed: 01/04/2018 Reviewed by: Shawna Moreira (Pa) - Fully Assessed Reason for Visit: Left Knee Pain [1208] Primary Visit Diagnosis:Acute lateral meniscal injury of left knee, initial encounter [S83.8X2A] Other Visit Diagnosis:Arthralgia of left knee [M25.562] Order(s[facility] [1416[facility]] Order #: [id number] FUTURE HYDROcodone-acetaminophen (NORCO) 5-325 mg per tabletTake 1 tablet by mouth every 8 hours as needed for up to 7 days.Disp: 21 tabletRfl: 0 Prescriptions as of 01/04/2018 Sig: HYDROCODONE 5 MG-ACETAMINOPHE* Take 1 tablet by mouth every * CYCLOBENZAPRINE 10 MG TABLET Take 1 tablet by mouth three * MELATONIN 10 MG TABLET Take by mouth once daily. PROMETHAZINE 12.5 MG TABLET Take 1 tablet by mouth every * BLOOD-GLUCOSE METER 1 Each as directed. BLOOD SUGAR DIAGNOSTIC STRIPS 1 Strip four times daily. Use* LANCETS 1 Each four times daily. Use * URINE GLUCOSE-KETONES TEST ST* 1 Strip four times daily. Patient not taking: Reported on 01/04/2018 FLUOXETINE 20 MG CAPSULE Take 60 mg by mouth once adeline* VITAMIN,CALCIUM,MINE* Take 1 tablet by mouth once d* Patient not taking: Reported on 01/04/2018 Problem List As Of Date 01/04/2018 Noted Resolved Asthma [J45.909] Bipolar disorder [F31.9] More... Tobacco use disorder [F17.200] More... Back pain [M54.9] Obesity [E66.9] Neck pain [M54.2] INVALID FOR* SUPRF HIGH RISK NEC [V23.89] [O09.899]INVALID FOR* Itching [L29.9] INVALID FOR* More... More... Depression [F32.9] INVALID FOR* More... Poor social situation [Z65.9] INVALID FOR* More... More... ADHD (attention deficit hyperactivity disorder)*INVALID FOR* More... Custody issue [Z65.3] INVALID FOR* More... Marijuana use [F12.90] INVALID FOR* More... Nausea/vomiting in [O21.9] INVALID FOR* More... History of gestational diabetes in prior pregna*INVALID FOR* More... Outbursts of anger [R45.4] INVALID FOR* More... Chronic back pain [M54.9, G89.29] INVALID FOR* More... History of miscarriage [Z87.59] INVALID FOR* More... Advanced maternal age in [NBD0199] INVALID FOR*10/16/2015 More... Osteochondral defect of femoral condyle [M95.8] INVALID FOR* Loose body in knee [M23.40] INVALID FOR* Supervision of high risk in third tri*INVALID FOR* Encounter for confirmation of test re*INVALID FOR* with type 2 diabetes mellitus in firs*INVALID FOR* More... Non-compliant patient [O09.899, Z91.19]INVALID FOR* More... Obesity in [O99.210] INVALID FOR* Visit Notes: >> Karissa Bernal Ma Donna Jan 04, 2018 1:58 PM Status: Signed Patient presents with: Left Knee Pain Prescriptions ordered this encounter Disp Refills Start End HYDROCODONE 5 MG-ACETAMINOPHEN 325 M* 21 t* 0 01/04/2018 01/11/2018 Class: Print RX Route: ORAL Sig: Take 1 tablet by mouth every 8 hours as needed for up to 7 days. Encounter Status:Closed by SHAWNA MOREIRA PA-C on 01/04/18 PROGRESS Observed: 01/04/2018 Status: COMPLETED Source: [place] 1:49 PM CLINIC OTHER CAMPUS REPOSITORY HNO ID: [id number] Author: Ave (Ct) KAROLYN Correa Service: (none) Author Type: Clinical Account Services Coordinator Type: Progress Notes Filed: 01/04/2018 1:49 PM Note Text: NAME:Jono Barbour DATE: January 04, 2018 CCF#: [id number] Lower Extremity X-Ray(s): Knee, AP / Lat / Merchant Left and Wt. Bearing COMPLETED TECH ID SIGN: AVE CORREA XR KNEE 3V AP/LAT/MERCHANT Observed: 01/04/2018 Status: F Source: [facility] 1:41 PM [facility] OTHER [place] REPOSITORY * * *Final Report* * * DATE OF EXAM: Jan 04 2018 1:41PM MECHELLE 5208 - XR KNEE 3V AP/LAT/MERCHANT LT / PROCEDURE REASON: [id number] * * * * Physician Interpretation * * * * EXAMINATION: XR KNEE 3V AP/LAT/MERCHANT LT HISTORY: LEFT KNEE PAIN-FALL ONE WEEK AGO-XRAYS PERFORMED PER ORTHO DR PROTOCOL Pain . TECHNIQUE: XR KNEE 3V AP/LAT/MERCHANT LT Laterality: LEFT Number of different views (projections): 3 M: XB_1 COMPARISON: 05/22/2015. RESULT: There is no acute fracture or subluxation. There is no significant joint space narrowing. Tiny marginal osteophytes are again visualized. There is a well-corticated osseous density near the tibial tuberosity is unchanged. There is chronic deformity of the lateral femoral condyle, which is unchanged since prior exam. IMPRESSION: NO ACUTE OSSEOUS ABNORMITY. MINIMAL DEGENERATIVE CHANGES OF THE LEFT KNEE, NOT SIGNIFICANTLY CHANGED SINCE 05/22/2015. Director Of Quality: PSCB Transcribe Date/Time: Jan 05 2018 8:04A Dictated by : ALEYDA BROWN MD This examination was interpreted and the report reviewed and electronically signed by: ALEYDA BROWN MD on Jan 05 2018 8:07AM EST [id number] EMERGENCY DEPARTMENT Observed: 11/30/2017 Status: F Source: [place] SUMMARY 12:43 AM [facility] REPOSITORY [facility] Medical Records Department [address] [place] [address] Emergency Department Summary 11/29/17 1552 MR#: [id number] Acct: [id number] Name: JONO BARBOUR Rep #: [id number] : 1975 42 From: Yanique Tim MD PCP: Care Physician, No Primary Status: DEP ER - ER Visit Summary Date of Service: 11/29/17 Chief Complaint: Left hip pain History of Present Illness: The patient is a 42 F who fell over a week ago and injured her left hip. She was seen here at that time and had x-rays that were unremarkable. Patient states she felt a pop last evening and is now had increased pain. She had still been using crutches but was weightbearing well on her left leg. Now she states she has difficulty with weightbearing again. She did take ibuprofen earlier this morning. She is an appointment to see an orthopedic doctor in [place] next week. Physical Examination: Vital signs are unremarkable. Patient's lying in bed in no acute distress. Heart is regular rate and rhythm. Lung sounds are clear. Abdomen is soft nontender. Left leg is held in flexion and internal rotation, however I am able to straighten her leg and rock her hip without difficulty. She has strong distal pulses and normal sensation. She does have reproducible tenderness over the lateral aspect of the left hip the greater trochanter and over the posterior aspect of the hip near the sciatic notch. Test Results: Hip and pelvis x-rays are unremarkable. Emergency Department Course and Treatment: Patient was given ibuprofen and prednisone. She will be given prescriptions for the same. She will follow- up with her orthopedic doctor next week. She already has crutches at home to use. Treatment Plan: [] Disposition: Discharge Impression: Left hip sprain This note was generated with iCoolhuntation software. It may contain incorrect words, spelling, and punctuation that were not noted in review of the chart prior to signing ED Disposition - Plan for ED Patient: Chief Complaint: Lower Extremity Injury Referrals: Care Physician,No Primary [Primary Care Provider] - What to do if you have Problems For any increased pain, shortness of breath, bleeding, nausea or vomiting, chest pain, or any unexpected problems, contact your Primary Care Provider. Call [facility] ([phone]) or report to the closest Emergency Room. Call 911 if necessary. 11/30/17 0043 <Electronically signed by Yanique Tim MD> Date Yanique Tim MD Cosigner Signature (If Indicated): Date CC: No Primary Care Physician DISCHARGE INSTRUCTION Observed: 11/29/2017 Status: F Source: [place] 5:06 PM [facility] REPOSITORY [facility] Medical Records Department [address] [place] [address] Discharge Instruction 11/29/171704 MR#: [id number] Acct: [id number] Name: JONO BARBOUR Rep #: [id number] : 1975 42 From: Yanique Tim MD PCP: Care Physician, No Primary Status: REG ER ED Disposition - Plan for ED Patient: Disposition: Home or Assisted Living Chief Complaint: Lower Extremity Injury Instructions: ED Sprain Hip Prescriptions: Ibuprofen [Motrin] 800 mg PO TID PRN PRN #20 tablet PRN Reason: Pain Prednisone 10 mg PO UD #33 tablet Additional Instructions: Follow-up with orthopedics next week as scheduled. What to do if you have Problems For any increased pain, shortness of breath, bleeding, nausea or vomiting, chest pain, or any unexpected problems, contact your Primary Care Provider. Call [facility] ([phone]) or report to the closest Emergency Room. Call 911 if necessary. 11/29/17 1706 <Electronically signed by Yanique Tim MD> Date Yanique Tim MD Cosigner Signature (If Indicated): Date CC: No Primary Care Physician HIP, UNI W/ PELVIS Observed: 11/29/2017 Status: F Source: [facility] 2-3 VIEWS 3:50 PM [facility] REPOSITORY [facility] Imaging Services [address] [place] [address] HIP, UNI W/ Pelvis 2-3 Views MR#: [id number] Acct: [id number] Name: JONO BARBOUR Rep #: [id number] : 1975 F 42 From: Julius Escamilla MD PCP: Care Physician, No Primary Status: REG ER Study: HIP, UNI W/ Pelvis 2-3 Views Date of Exam: 11/29/17 Exam# [id number] Ordering Dr: Yanique Tim MD STUDY: X-RAY - PELVIS AND LEFT HIP REASON FOR EXAM: Female, 42 years old. Trauma TECHNIQUE: Radiological exam, hip, unilateral, with pelvis when performed; 2 or 3 views. COMPARISON: None. FINDINGS: There is a non-specific bowel gas pattern. Normal visualized soft tissue structures. Normal bilateral iliac wings, sacroiliac joints and visualized sacrum. Normal bilateral superior and inferior pubic rami. Normal pubic symphysis. Normal bilateral ischial tuberosities. Normal visualized femoral head. Normal acetabulum. Normal hip joint. RAD/HIP, UNI W/ Pelvis 2-3 Views IMPRESSION: Normal x-ray examination of the pelvis and hip. Electronically Signed: Julius Escamilla MD at 16:44 EDT , Service support , CC: No Primary Care Physician; Yanique Tim MD Director Of Quality: Signed EMERGENCY DEPARTMENT Observed: 11/21/2017 Status: F Source: [place] SUMMARY 11:25 PM [facility] REPOSITORY [facility] Medical Records Department [address] [place] [address] Emergency Department Summary 11/21/17 1632 MR#: [id number] Acct: [id number] Name: JONO BARBOUR Rep #: [id number] : 1975 42 From: Haseeb Viera MD PCP: Care Physician, No Primary Status: DEP ER - ER Visit Summary Date of Service: 11/21/17 Chief Complaint: Fall History of Present Illness: The patient is a 42 F with a mechanical fall earlier today. She felt that her left hip popped. She has continued pain in her left hip. Pain with moving use. Nothing seems to make it better. She never had this before. No history of hip surgery. No other injuries or complaints from the fall. Physical Examination: Afebrile and vital signs unremarkable. Patient appears uncomfortable but not toxic or in distress. Abdomen soft and nontender. Back nontender. Left hip tender to palpation of the greater trochanter. Tenderness with any movement of her left hip. No obvious shortening or abnormal rotation. She is neurovascular intact distally. Test Results: X-rays of the left hip and pelvis are pending. Emergency Department Course and Treatment: Patient treated with [place] while awaiting results. X-rays negative. Patient was able to ambulate without difficulty. This is likely a contusion. No other injuries noted. I did advise her that the x-ray technology is not perfect. If she has new or worsening pain, she may need repeat x-rays or further imaging. At this point, rest, ice, anti-inflammatories. Short course of [place]. I did check her prescription database report. Patient has crutches at home. We will follow-up with her primary doctor. Treatment Plan: Above Disposition: Discharged Impression: 1. Left hip contusion This note was generated with iCoolhuntation software. It may contain incorrect words, spelling, and punctuation that were not noted in review of the chart prior to signing ED Disposition - Plan for ED Patient: Chief Complaint: Fall Referrals: Care Physician,No Primary [Primary Care Provider] - What to do if you have Problems For any increased pain, shortness of breath, bleeding, nausea or vomiting, chest pain, or any unexpected problems, contact your Primary Care Provider. Call [facility] ([phone]) or report to the closest Emergency Room. Call 911 if necessary. 11/21/172324 <Electronically signed by Haseeb Viera MD> Date Haseeb Viera MD Cosigner Signature (If Indicated): Date CC: No Primary Care Physician DISCHARGE INSTRUCTION Observed: 11/21/2017 Status: F Source: [place] 11:25 PM [facility] REPOSITORY [facility] Medical Records Department [address] [place] [address] Discharge Instruction 11/21/17 1751 MR#: [id number] Acct: [id number] Name: JONO BARBOUR Rep #: [id number] : 1975 42 From: Haseeb Viera MD PCP: Care Physician, No Primary Status: [facility] ER ED Disposition - Plan for ED Patient: Chief Complaint: Fall Instructions: ED Mechanical Fall Prescriptions: Hydrocodone Bitart/Apap 5-325 [[place] 5MG-325MG] 1 tab PO Q6H PRN PRN 3 Days #10 tab PRN Reason: Pain Referrals: Care Physician,No Primary [Primary Care Provider] - What to do if you have Problems For any increased pain, shortness of breath, bleeding, nausea or vomiting, chest pain, or any unexpected problems, contact your Primary Care Provider. Call [facility] ([phone]) or report to the closest Emergency Room. Call 911 if necessary. 11/21/172324 <Electronically signed by Haseeb Viera MD> Date Haseeb Viera MD Cosigner Signature (If Indicated): Date CC: No Primary Care Physician HIP, UNI W/ PELVIS Observed: 11/21/2017 Status: F Source: [facility] 2-3 VIEWS 4:24 PM [facility] REPOSITORY [facility] Imaging Services [address] [place] [address] HIP, UNI W/ Pelvis 2-3 Views MR#: [id number] Acct: [id number] Name: JONO BARBOUR Rep #: [id number] : 1975 F 42 From: Zulema Owen MD PCP: Care Physician, No Primary Status: REG ER Study: HIP, UNI W/ Pelvis 2-3 Views Date of Exam: 11/21/17 Exam# [id number] Ordering Dr: Haseeb Viera MD STUDY: X-RAY - PELVIS AND LEFT HIP REASON FOR EXAM: Female, 42 years old. Fall, left hip pain. TECHNIQUE: Radiological exam, hip, unilateral, with pelvis when performed; 2 or 3 views. COMPARISON: None. FINDINGS: There is a non-specific bowel gas pattern. Normal visualized soft tissue structures. Normal bilateral iliac wings, sacroiliac joints and visualized sacrum. Normal bilateral superior and inferior pubic rami. Normal pubic symphysis. Normal bilateral ischial tuberosities. Normal visualized femoral head. Normal acetabulum. Normal hip joint. RAD/HIP, UNI W/ Pelvis 2-3 Views IMPRESSION: Normal x-ray examination of the pelvis and hip. Electronically Signed: Zulema Owen MD at 16:56 EDT Tel , Service support , CC: No Primary Care Physician; Haseeb Viera MD Director Of Quality: Signed DISCHARGE INSTRUCTION Observed: 09/30/2017 Status: F Source: [facility] 9:05 AM [facility] REPOSITORY [facility] Medical Records Department [address] [place] [address] Discharge Instruction 09/30/17903 MR#: [id number] Acct: [id number] Name: JONO BARBOUR Rep #: [id number] : 1975 42 From: Laly Reyes PCP: Care Physician, No Primary Status: REG ER ED Disposition - Plan for ED Patient: Chief Complaint: Sore Throat Instructions: ED Strep Pharyngitis Conf Prescriptions: Amox/Clavulanate Tablet [Augmentin Tablet] 875 mg PO Q12H #20 tablet Referrals: Sander Moreira DO [STAFF PHYSICIAN] - 5-7 Days What to do if you have Problems For any increased pain, shortness of breath, bleeding, nausea or vomiting, chest pain, or any unexpected problems, contact your Primary Care Provider. Call [facility] ([phone]) or report to the closest Emergency Room. Call 911 if necessary. 09/30/17904 <Electronically signed by Laly Reyes > Date Laly Reyes Cosigner Signature (If Indicated): Date CC: No Primary Care Physician EMERGENCY DEPARTMENT Observed: 09/30/2017 Status: F Source: [facility] SUMMARY 9:04 AM [facility] REPOSITORY [facility] Medical Records Department [address] [place] [address] Emergency Department Summary 09/30/17802 MR#: [id number] Acct: [id number] Name: JONO BARBOUR Rep #: [id number] : 1975 42 From: Laly Reyes PCP: Care Physician, No Primary Status: REG ER - ER Visit Summary Date of Service: 09/30/17 Chief Complaint: [Sore throat] History of Present Illness: The patient is a 42 F [who presents the emergency department with cough productive of clear white phlegm. She also feels like the right side of her neck is swollen and she has a big ball of phlegm stuck that she cannot get out. She says it hurts to swallow and she feels like she cannot breathe. No fevers but she has had chills. She has had nasal congestion and bilateral ear pain. She feels short of breath. No nausea or vomiting. She has a history of asthma. She does smoke.] Physical Examination: [] Blood pressure 164/91 respiratory rate 20 other vitals within normal limits WN WD tearful PERRL EOMI MMM Posterior oropharynx shows postnasal drip and mild erythema there is no exudate there is no swelling there is no pooling of secretions NECK shows lymphadenopathy bilateral anterior cervical it is tender there is no redness or erythema she has some mild swelling bilaterally secondary to her lymphadenopathy at the angle of the jaw there is no submandibular swelling RRR no murmur rub or gallop, no peripheral edema, symmetric radial pulses Mild end expiratory wheezing no respiratory distress no rhonchi or rails no accessory muscle use ABDOMEN is soft and nontender, normal bowel sounds, no distension, no rebound or guarding SKIN is warm and dry no rashes Alert and Oriented x3, CN II-XII in tact, no motor or sensory deficits, gait normal No lymphadenopathy Test Results: [] Emergency Department Course and Treatment: [Patient was given steroids. Rapid strep was sent was positive. Soft tissue neck shows no airway obstruction or evidence of retropharyngeal abscess. On physical exam there is no uvula deviation and minimal swelling with no asymmetry. Patient was treated with Augmentin and Decadron she will be given Augmentin for home. She was given precautions for which to return and will follow up with her primary care physician] Treatment Plan: [] Disposition: [Discharge] Impression: [Strep pharyngitis] This note was generated with iCoolhuntation software. It may contain incorrect words, spelling, and punctuation that were not noted in review of the chart prior to signing ED Disposition - Plan for ED Patient: Chief Complaint: Sore Throat Referrals: Care Physician,No Primary [Primary Care Provider] - What to do if you have Problems For any increased pain, shortness of breath, bleeding, nausea or vomiting, chest pain, or any unexpected problems, contact your Primary Care Provider. Call [facility] ([phone]) or report to the closest Emergency Room. Call 911 if necessary. 09/30/17903 <Electronically signed by Laly Reyes > Date Laly Reyes Cosigner Signature (If Indicated): Date CC: No Primary Care Physician Observed: 09/30/2017 Status: F Source: [place] STREP A (THROAT 8:05 AM [facility] RAPID MICHI) REPOSITORY Order Date: 09/30/17 Strep A Rapid RESULTS CALLED TO BERENICE MOORE 09/30/17 0824 Irene Aviles. REPORT READ BACK BY SAME. Rapid Strep A Screen POSITIVE A Disk (Conf. Cult) Test Not Required : All NEGATIVE screens will be confirmed with a culture. ORGANISM 1: Streptococcus Group A Performed By: #### M100.676 #### [facility] [address] [address] [facility] [place], [place], [address] NECK FOR SOFT Observed: 09/30/2017 Status: F Source: [place] TISSUE 7:59 AM [facility] REPOSITORY [facility] Imaging Services [address] [place] [address] Neck for Soft Tissue MR#: [id number] Acct: [id number] Name: JONO BARBOUR Rep #: [id number] : 1975 F 42 From: Tobin Mitchell PCP: Care Physician, No Primary Status: REG ER Study: Neck for Soft Tissue Date of Exam: 09/30/17 Exam# [id number] Ordering Dr: Laly Reyes STUDY: X-RAY - SOFT TISSUE NECK REASON FOR EXAM: Female, 42 years old. Sore throat TECHNIQUE: 2 view(s) of the neck were obtained. COMPARISON: None. FINDINGS: Normal visualized nasopharynx, oropharynx, hypopharynx. Normal epiglottis. Normal visualized subglottic tracheal air column. Normal prevertebral soft tissue structures. Normal visualized osseous structures. The soft tissue structures are unremarkable. Straightening normal cervical lordosis. RAD/Neck for Soft Tissue IMPRESSION: Normal x-ray soft tissue neck. Straightening of normal cervical lordosis. Electronically Signed: Tobin Mitchell DO at 8:45 EDT , Service support , CC: No Primary Care Physician; Laly Reyes Director Of Quality: Signed CHEST PA AND LATERAL Observed: 09/30/2017 Status: F Source: [place] 7:59 AM [facility] REPOSITORY [facility] Imaging Services [address] [place] [address] Chest PA and Lateral MR#: [id number] Acct: [id number] Name: JONO BARBOUR Rep #: [id number] : 1975 F 42 From: Tobin Mitchell PCP: Care Physician, No Primary Status: REG ER Study: Chest PA and Lateral Date of Exam: 09/30/17 Exam# [id number] Ordering Dr: Laly Reyes STUDY: X-RAY CHEST REASON FOR EXAM: Female, 42 years old. Sore throat, fever TECHNIQUE: Frontal and lateral views of the chest. COMPARISON: 02/09/2017. FINDINGS: The lungs are clear and expanded. There is no demonstrated pleural abnormality. Normal size heart. Normal mediastinum and mary. Normal visualized pulmonary arteries. Normal visualized aortic arch and descending thoracic aorta. Normal visualized thoracic spine. Normal visualized ribs, clavicles, and shoulders. There is no demonstrated abnormality of the visualized soft tissue structures of the upper abdomen. RAD/Chest PA and Lateral IMPRESSION: No acute cardiopulmonary disease. Electronically Signed: Tobin Mitchell DO at 8:46 EDT , Service support , CC: No Primary Care Physician; Laly Reyes Director Of Quality: Signed DISCHARGE INSTRUCTION Observed: 2017 Status: F Source: [place] 11:09 PM [facility] REPOSITORY [facility] Medical Records Department [address] [place] [address] Discharge Instruction 09/13/172306 MR#: [id number] Acct: [id number] Name: JONO BARBOUR Rep #: [id number] : 1975 42 From: Sylvia Nguyen MD PCP: Care Physician, No Primary Status: REG ER ED Disposition - Plan for ED Patient: Chief Complaint: Lower Extremity Injury Instructions: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 [address]ATTN: [place] [address]QN: 11/29/2017 Secondary NOT GIVENUNK [place] Insurance:SELF PAY [facility] Number: Effective Repository Date:2017-11-29 11/21/2017 Melisse A Primary Melisse A [place] [id number] WATER Insurance:CARESOURCEP GroahDOB: [address] BARNESsocrates Number: [id number] General Hospital [address]Nen: [id number] Repository Date:2017-11-21P O (HP) [address]ATTN: [place] [address]XB: 11/21/2017 Secondary NOT GIVENUNK [place] Insurance:SELF PAY [facility] Number: Effective Repository Date:2017-11-21 09/30/2017 Melisse A Primary Melisse A Vamsi [id number] WATER Insurance:CARESOURCEP GroahDOB: [facility] Aletheajosé antonio BARNES Number: [id number] General Hospital [address]Zvj: [id number] Repository Date:2017-09-30P O (HP) [address]ATTN: [place] [address]QF: 09/30/2017 Secondary NOT GIVENUNK [place] Insurance:SELF PAY [facility] Number: Effective Repository Date:2017-09-30 2017 Melisse A Primary Melisse A [place] [id number] WATER Insurance:CARESOURCEP GroDOB: [address] [facility] Number: [id number] General Hospital [address]Igi: [id number] Repository Date:2017P O (HP) [address]ATTN: [place] [address]ST: 2017 Secondary NOT GIVENUNK Vamsi Insurance:SELF PAY [facility] Number: Effective Repository Date:2017 09/08/2017 MELISSE A [facility]CARESOURCE [facility] MEDICAIDPolicy [id number] LOT Number: [address] [place] [address] [id number] [address] [place] [address]Avr: ([phone]) Date:2017-09-08 20713Fdi: [id number] [phone] (HP)Tel: [phone]) Name:[address] () () [address] [place] [phone] (WP) [address]DZ: 08/14/2017 Melisse A Primary Melisse A Vamsi [id number] WATER Insurance:CARESOURCEP [facility] [address] Number: [id number] General Hospital [address]Vow: [id number] Repository Date:2017-08-14P O (HP) [address]ATTN: [place] [address]DR: 08/14/2017 Secondary NOT GIVENUNK [place] Insurance:SELF PAY [facility] Number: Effective Repository Date:2017-08-14 07/31/2017 Melisse A Primary Melisse A [place] [id number] WATER Insurance:CARESOURCEP GroDOB: [facility] fanny GUAJARDOsocrates Number: [id number] General Hospital [address]Riq: [id number] Repository Date:2017-07-31 O (HP) [address]ATTN: [place] [address]PQ: 07/31/2017 Secondary NOT GIVENUNK Vamsi Insurance:SELF PAY [facility] Number: Effective Repository Date:2017-07-31 06/12/2017 MELISSE A Primary JONO [facility] Insurance:CARESOURCE [facility]: [facility] MEDICAIDPolicy [id number] LOT Number: [address] [place] [id number] [place] [address]Pwd: [phone]) Date:2017-06-12 [id number]: [id number] [phone] (HP)Tel: [phone]) Name:[address] (HP) (WP) [address], [place] [phone] (WP) [address]YL: 05/08/2017 Melisse A Primary Nerissaisse A [place] [id number] WATER Insurance:CARESOURCEP [facility] [address] Number: [id number] General Hospital [address]Nnb: [id number] Repository Date:2017-05-08 O (HP) [address]ATTN: [place] [address]GH: 05/08/2017 Secondary NOT GIVENUNK [place] Insurance:SELF PAY [facility] Number: Effective Repository Date:2017-05-08
== END 2018-02-20 10:58 | disposition home or self-care (01) ==
LOC: ED 10:27
PROVIDERS: Emergency Provider Emergency Medicine
DX: J45.909 Unspecified asthma, uncomplicated (principal); Z72.0 Tobacco use
CPT/HCPCS: 94640; 99283

== ENCOUNTER 2018-06-12 10:24 | Emergency (ER) | payer MEDICAID, SELFPAY ==
[2018-06-12 10:25] VITALS: BP 142/77; PULSE 96; RESP 20; TEMP 36.6; O2SAT 100; BMI 43.2
--- NOTE | 2018-06-12 10:41 | CT_ITS ---
STUDY: CT LUMBAR SPINE WITHOUT CONTRAST REASON FOR EXAM: Female, 42 years old. FALL-LBP WITH PAIN RADIATING TO RLE, HX-DB,ASTHMA,KS, CERVICAL CA RADIATION DOSAGE (If Supplied By Facility): CTDIvol = ( 39.92 ) mGy, DLP = ( 1090.46 ) mGycm TECHNIQUE: The patient was scanned in a multi detector CT scanner. High resolution transaxial imaging was performed. Images were obtained from T11 to S2. Sagittal and coronal images were reconstructed. Individualized dose optimization techniques were used for this CT. COMPARISON: None FINDINGS: Normal lumbar lordosis. There is no substantial scoliosis. Normal vertebrae of the lumbar spine. L1-2: Normal endplates. Normal disc height and morphology. Normal bilateral facet joints. Normal central canal and bilateral lateral recesses. Normal bilateral intervertebral neural foramina. L2-3: Normal endplates. Normal disc height and morphology. Normal bilateral facet joints. Normal central canal and bilateral lateral recesses. Normal bilateral intervertebral neural foramina. L3-4: Normal endplates. Normal disc height and morphology. Normal bilateral facet joints. Normal central canal and bilateral lateral recesses. Normal bilateral intervertebral neural foramina. L4-5: Normal endplates. Normal disc height and morphology. Normal bilateral facet joints. Normal central canal and bilateral lateral recesses. Normal bilateral intervertebral neural foramina. L5-S1: Endplate spondylosis. Left para midline and left foraminal disc herniation impinging on the left S1 nerve root. Degenerative changes of the bilateral facet joints. Mild narrowing of the central canal and moderate narrowing of the left intervertebral neural foramen. Normal visualized paraspinous soft tissue structures. CT/Spine Lumbar without Contrast IMPRESSION: Left para midline and left foraminal disc herniation at L5-S1 impinging on the left S1 nerve root. Degenerative changes of the bilateral facet joints. Mild narrowing of the central canal and moderate narrowing of the left intervertebral neural foramen. Electronically Signed: Armando Tolbert, at 11:24 EDT Tel , Service support ,
[2018-06-12] MEDS: Morphine 4 MG/ML Syringe SC (10:51)
--- NOTE | 2018-06-12 11:00 | ED.VIS.GEN ---
History of Present Illness Chief Complaint: Back Informant: Patient Onset: Today Context: Sudden Onset Timing: Continuous Quality: pain Location: upper lumbar Current Severity: Severe Maximum Severity: Severe Worsened by: movement Relieved by: nothing Associated Symptoms: radiation down RLE. no bowel or bladder dysfunction or saddle anesthesia Narrative: Patient states she has chronic knee problems, her right knee frequently gives out on her. She states she is used to that, and it did this on Monday, 2 days ago, causing her to fall onto her buttocks. She took some Tylenol or ibuprofen and had no significant pain issues from this. Today the same thing happened if she was going down some steps, she ended up falling with 1 of the steps against her low back, again no significant pain issues from that, but shortly thereafter she bent over to pick something up and when she stood back up she felt a pop in her low back with excruciating pain that has been persistent for the last couple hours. She had some discomfort radiate down her right leg but that has not persisted. She denies feeling any weakness in her lower extremities, just significant amount of pain with trying to walk and move. - Past Medical History (1) History of asthma Status: Chronic Past Medical History - Allergies and Home Meds Allergies/Adverse Reactions: Allergies aspirin Allergy (Verified 06/12/18 10:27) Hives chlorpromazine HCl [From Thorazine] Allergy (Verified 06/12/18 10:27) Hives naproxen Allergy (Verified 06/12/18 10:27) Anaphylaxis tramadol HCl [From Ultram] Allergy (Verified 06/12/18 10:27) Hives Primary Care Physician: Care Physician,No Primary [Primary Care Provider] - Surgical History: no surgical history Smoking Status: Current every day smoker Drugs: None Review of Systems General: Denies: Chills, Fever Genitourinary: Reports: - - no bowel or bladder incontinence or retention Musculoskeletal: Reports: Back pain, Extremity Pain. Denies: Neck pain Skin: Denies: Abrasions, Wounds Neurological: Denies: Headache, Weakness, Numbness Physical Exam Vital Signs/Narrative: Vital Signs Temp Pulse Resp BP Pulse Ox 06/12/18 10:25 97.9 F 96 20 H 142/77 H 100 Inital Vital Signs reviewed: Yes General: Well nourished, Well developed, Obese, Acute Distress - painful Head: Normocephalic, Atraumatic Abdomen: Soft, Nontender, Nondistended, Normal bowel sounds Back: Spinal tenderness - upper lumbar, in addition to right paraspinal tenderness. no thoracic or cervical tenderness. Extremities: Nontender, No edema Skin: Normal color, No rash, No Trauma Neurological: Alert, Oriented x3, Cranial nerves II-XII grossly intact, Normal Strength, Normal Sensation, Normal DTR. Negative for: Normal Gait - able. antalgic. Psychological: Normal affect, Normal Mood Diagnostic/Tx/Re-eval Clinical Impression(s) from Imaging Studies Lumbar Spine CT 06/12/18 10:41 IMPRESSION: Left para midline and left foraminal disc herniation at L5-S1 impinging on the left S1 nerve root. Degenerative changes of the bilateral facet joints. Mild narrowing of the central canal and moderate narrowing of the left intervertebral neural foramen. Electronically Signed: Armando Tolbert, at 11:24 EDT Tel , Service support , - Medical Decision Making Given the severity of her pain and her obesity, I decided to obtain a CT because I thought it would be more sensitive to rule out fracture. It shows no fractures, but does show left S1 nerve impingement by a disc. She is having no symptoms down the left lower extremity, only the right. It is possible that she has nerve impingement that is not seen by the CT, and it is also possible that she has a neuropraxia. She feels better after an injection of morphine. She has developed no symptoms of cauda equina syndrome or conus medullaris syndrome. She is stable for discharge home, symptom medic treatment, with close outpatient follow-up. She was given a prescription for [place], after screening her for addiction problems. At her request she is also given a work note for tomorrow. ED Disposition - Plan for ED Patient: Disposition: Home or Assisted Living Diagnosis: Acute myofascial strain of lumbar region Instructions: ED Sciatica, ED Low Back Pain Injury Prescriptions: Hydrocodone Bitart/Apap 5-325 [[place] 5MG-325MG] 1 tab PO Q4H PRN PRN 2 Days #12 tab PRN Reason: Pain Referrals: Kontak,Julius, MD [NON-STAFF] - 3-5 Days if not improving
== END 2018-06-12 12:06 | disposition home or self-care (01) ==
PROVIDERS: Emergency Provider Emergency Medicine
DX: S39.012A Strain of muscle, fascia and tendon of lower back, initial encounter (principal); F17.200 Nicotine dependence, unspecified, uncomplicated; E66.9 Obesity, unspecified; W10.9XXA Fall (on) (from) unspecified stairs and steps, initial encounter; Y93.01 Activity, walking, marching and hiking; Y92.89 Other specified places as the place of occurrence of the external cause; Y99.8 Other external cause status
CPT/HCPCS: 72131; 96372; 99282

== ENCOUNTER 2018-07-25 14:31 | Emergency (ER) | payer MEDICAID, SELFPAY ==
[2018-07-25 14:32] VITALS: BP 147/78; PULSE 88; RESP 16; TEMP 36.7; O2SAT 98; BMI 37.3
--- NOTE | 2018-07-25 14:53 | ED.RN ---
DR MCCARTNEY IN TO SEE PT. ASSESSED PT. PT BEGAN YELLING AT DR ABOUT PAIN WHEN HE OFFERED MOTRIN. PT STOOD UP STRAIGHT, FORCEFULLY THREW URINE CUP IN THE TRASH AND BRISKLY WALKED WITHOUT DIFFICULTY OUT OF DEPARTMENT STATING I'M GOOD. I'M FINE. PT LEFT DEPARTMENT BEFORE BEING REGISTERED OR RECEIVING DISCHARGE INSTRUCTIONS.
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
== END 2018-07-25 15:13 | disposition home or self-care (01) ==
LOC: ED 15:11
PROVIDERS: Emergency Provider Emergency Medicine
DX: M54.5 Low back pain (principal); Z76.5 Malingerer [conscious simulation]; J45.909 Unspecified asthma, uncomplicated; Z87.891 Personal history of nicotine dependence
CPT/HCPCS: 99282

== ENCOUNTER 2019-01-14 06:08 | Emergency (ER) | payer MEDICAID, SELFPAY ==
[2019-01-14 06:09] VITALS: BP 120/90; PULSE 70; RESP 18; TEMP 36.9; O2SAT 99; BMI 37.7
--- NOTE | 2019-01-14 06:27 | RAD_ITS ---
STUDY: X-RAY - RIGHT SHOULDER REASON FOR EXAM: Female, 43 years old. Status post fall down 4 steps, landing on the banister with shoulder. TECHNIQUE: 3 view(s) of the shoulder. COMPARISON: None. FINDINGS: Normal glenohumeral articulation. Normal acromioclavicular joint. Normal acromion. Normal humeral head and visualized proximal humerus. The soft tissue structures are unremarkable. Normal visualized pulmonary apex. RAD/Shoulder min 2 Views IMPRESSION: Normal x-ray examination of the shoulder. Electronically Signed: Logan Navarrete MD at 6:46 EDT , Service support ,
--- NOTE | 2019-01-14 06:28 | ED.DCSUM_ITS ---
History of Present Illness Chief Complaint: Upper Extremity Injury Informant: Patient Onset: Today Context: Sudden Onset Timing: Continuous Current Severity: Severe Maximum Severity: Severe Narrative: Patient is a 43-year-old female with history of asthma and tobacco abuse presenting with right shoulder pain. Patient states she is walking on the stairs when her feet slipped out from underneath her and she fell onto her buttocks. She then slid down the stairs and her right shoulder hit the banister. Patient has had significant pain in her right shoulder since then. She is a hard time moving it because of the pain. The pain is in the shoulder/upper back area. She has no associated numbness or tingling. She is taken Tylenol and Motrin at home with no significant relief. Patient states the pain woke her up from sleep and then she came to the emergency room. She denies any other complaints or injuries at this time. She denies hitting her head or any loss of consciousness. She states she is now on any anticoagulation. 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 Past Medical History - Allergies and Home Meds Allergies/Adverse Reactions: Allergies acetaminophen [From [place]] Allergy (Verified 01/14/19 06:09) Hives aspirin Allergy (Verified 01/14/19 06:09) Hives chlorpromazine HCl [From Thorazine] Allergy (Verified 01/14/19 06:09) Hives hydrocodone [From [place]] Allergy (Verified 01/14/19 06:09) Hives naproxen Allergy (Verified 01/14/19 06:09) Anaphylaxis oseltamivir [From Tamiflu] Allergy (Verified 01/14/19 06:09) Swelling tramadol HCl [From Ultram] Allergy (Verified 01/14/19 06:09) Hives Primary Care Physician: Care Physician,No Primary [Primary Care Provider] - Past Medical History: - - Asthma Surgical History: - - Tubal ligation, left knee surgery Lives: With Family Smoking Status: Current every day smoker Alcohol: None Drugs: None Review of Systems All systems negative except as indicated Musculoskeletal: Reports: Extremity Pain - Right shoulder Physical Exam Vital Signs/Narrative: Vital Signs Temp Pulse Resp BP Pulse Ox 01/14/19 06:09 98.5 F 70 18 120/90 H 99 Inital Vital Signs reviewed: Yes General: Well nourished, Well developed, No Acute Distress, - - Crying in the room Head: Normocephalic, Atraumatic Eyes: Perrl, EOMI ENT: Moist mucous membranes, No rhinorrhea Neck: Supple, Nontender Cardiovascular: Regular rate, Regular rhythm, No murmurs Respiratory: No distress, CTA bilaterally, Chest nontender Abdomen: Soft, Nontender Back: Normal Inspection, - - No midline tenderness. 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 Electronically Signed: Logan Navarrete MD at 6:46 EDT , Service support , - Medical Decision Making Patient is evaluated for a right shoulder injury after a fall. She is hemodynamically stable. Patient is neurovascularly intact. Patient is significant pain at her AC joint and over her trapezius. She does not have any obvious deformity. X-ray does not show acute fracture or dislocation. I suspect patient is more of a soft tissue injury. She is initially given morphine for pain control in the ER. Patient is then given oral Flexeril. She states she still having pain however she is resting much more comfortably in bed. Patient is given a work note as she does a lot of physical activity. Patient is counseled on signs and symptoms requiring return to the emergency room. Patient verbalizes agreement and understand this plan. Patient discharged home in stable and improved condition. ED Disposition - Plan for ED Patient: Disposition: Home or Assisted Living Diagnosis: Right shoulder pain, Shoulder contusion Instructions: CONTUSION, Upper Extremity Prescriptions: cycloBENZAPRine HCl [Flexeril] 10 mg PO TID PRN #12 tab PRN Reason: Muscle Spasm Prescription Printed Ibuprofen [Motrin] 600 mg PO Q6H PRN PRN #20 tab PRN Reason: Pain Or Fever Prescription Printed Referrals: Care Physician,No Primary [Primary Care Provider] - Additional Instructions: Please follow-up with your primary care doctor. Use ice for the pain as well as medications prescribed. Continue to range of motion your shoulder throughout the day to prevent frozen shoulder. Return if you develop any worsening symptoms such as numbness or tingling or inability to move your arm.
[2019-01-14] MEDS: Morphine 4 MG/ML Syringe IM (06:43)
[2019-01-14 07:53] VITALS: BP 127/79; PULSE 59; RESP 18; TEMP 35
[2019-01-14] MEDS: cycloBENZAPRine HCl 10 MG Tablet PO (07:54)
== END 2019-01-14 08:30 | disposition home or self-care (01) ==
PROVIDERS: Emergency Provider Emergency Medicine
DX: S40.011A Contusion of right shoulder, initial encounter (principal); J45.909 Unspecified asthma, uncomplicated; F17.200 Nicotine dependence, unspecified, uncomplicated; W01.0XXA Fall on same level from slipping, tripping and stumbling without subsequent striking against object, initial encounter; Y93.01 Activity, walking, marching and hiking; Y92.009 Unspecified place in unspecified non-institutional (private) residence as the place of occurrence of the external cause; Y99.8 Other external cause status
CPT/HCPCS: 73030; 96372; 99284

== ENCOUNTER 2019-02-27 15:03 | Emergency (ER) | payer MEDICAID, SELFPAY ==
[2019-02-27 15:04] VITALS: BP 136/81; PULSE 76; RESP 17; TEMP 36.7; O2SAT 97; BMI 41.8
--- NOTE | 2019-02-27 15:35 | US_ITS ---
STUDY: ULTRASOUND OF THE FEMALE PELVIS - COMPLETE REASON FOR EXAM: Female, 43 years old. Right sided pelvic pain for 3 years recent worsening. LMP: February 11, 2019. TECHNIQUE: Transvaginal TECHNICAL QUALITY: Adequate. COMPARISON: OB ultrasound, March 18, 2015. FINDINGS: The uterus is anteverted and is in a midline position. The uterus measures 9.1 x 6.3 x 4.4 cm. There is a Nabothian cyst of the cervix. The endometrium measures 7 mm in thickness, and is hyperechoic. There is no demonstrated endometrial mass. There is no demonstrated myometrial mass. I.U.D. - The patient does not have an I.U.D. The right ovary is visualized. The right ovary measures 3.5 x 3.1 x 2.2 cm. There is a dominant 1.3 x 1.4 x 1.0 cm follicle. There is no visualized right adnexal mass or complex lesion. There is normal arterial and normal venous vascularity. The left ovary is visualized. The left ovary measures 4.7 x 2.5 x 2 point for cm. There is a 1.6 x 1.0 x 1.6 cm cyst. There is no visualized left adnexal mass or complex lesion. There is normal arterial and normal venous vascularity. There is no fluid in the cul-de-sac. The urinary bladder appears grossly normal but is incompletely visualized. Polycystic ovary disease: No. US/Transvaginal Non- IMPRESSION: 1. Normal uterus and right ovary. 2. Small left ovarian cyst. Electronically Signed: Blaek Ibanez DO at 16:54 EST Tel [phone], Service support ,
--- NOTE | 2019-02-27 15:40 | ED.DCSUM_ITS ---
History of Present Illness Chief Complaint: Abd Pain Informant: Patient - Abdominal Pain/Flank Pain Onset: Days - 4-5 Context: Gradual Onset Timing: Continuous - not colicky Quality: Cramping - like labor pains Location: - - suprapubic Current Severity: Severe Maximum Severity: Severe Worsened by: Movement, - - intercourse Relieved by: Nothing - hasn't tried any medications - Nausea/Vomiting/Emesis GI Symptom: Nausea. Negative for: Vomiting - Diarrhea/Melena/Hematochezia GI Symptom: Negative for: Diarrhea, Melena, Hematochezia Associated Symptoms: Urgency - and trouble initially getting urine out when feels need to go. Negative for: Dysuria, Frequency LMP: 3 weeks - 2-3 wks; usually regular Narrative: Patient states she has been having this pain for the past 4 or 5 days and it is severe. Despite the pain, she had intercourse which made it worse. She then says that she has been having this pain almost monthly for the past 3 years. It is associated with her cycle usually, however this time it is not. Her last cycle was 2 or 3 weeks ago. She is usually regular. She has a [employer] and has never discussed the symptoms with. - Past Medical History (1) History of asthma Status: Chronic Past Medical History - Allergies and Home Meds Allergies/Adverse Reactions: Allergies acetaminophen [From Sweeny] Allergy (Verified 02/27/19 15:04) Hives aspirin Allergy (Verified 02/27/19 15:04) Hives chlorpromazine HCl [From Thorazine] Allergy (Verified 02/27/19 15:04) Hives hydrocodone [From Sweeny] Allergy (Verified 02/27/19 15:04) Hives naproxen Allergy (Verified 02/27/19 15:04) Anaphylaxis oseltamivir [From Tamiflu] Allergy (Verified 02/27/19 15:04) Swelling tramadol HCl [From Ultram] Allergy (Verified 02/27/19 15:04) Hives Primary Care Physician: Care Physician,No Primary [Primary Care Provider] - Surgical History: - - Tubal ligation, left knee surgery Smoking Status: Current every day smoker Drugs: None Review of Systems General: Denies: Chills, Fever, Sweats Eyes: Denies: Visual changes - bilaterally, Diplopia ENT: Denies: Rhinorrhea, Sore throat Cardiovascular: Denies: Chest pain, Palpitations Respiratory: Denies: Dyspnea, Cough, Dyspnea on exertion Gastrointestinal: Reports: Abdominal pain, Nausea. Denies: Vomiting, Diarrhea, Melena, Hematochezia Genitourinary: Reports: - - hesitancy. Denies: Dysuria, Hematuria, Frequency Musculoskeletal: Reports: Back pain - rad to low back. Denies: Swelling, Extremity Pain Skin: Denies: Rash, Wounds Neurological: Denies: Headache, Weakness, Numbness Physical Exam Vital Signs/Narrative: Vital Signs Temp Pulse Resp BP Pulse Ox 02/27/19 15:04 98.0 F 76 17 136/81 H 97 Inital Vital Signs reviewed: Yes General: Well nourished, Well developed, Obese, No Acute Distress Head: Normocephalic, Atraumatic Eyes: Perrl, EOMI ENT: Moist mucous membranes, No rhinorrhea Neck: Supple, Nontender Cardiovascular: Regular rate, Regular rhythm, No murmurs Respiratory: No distress, CTA bilaterally, Chest nontender Abdomen: Soft, Nondistended, Normal bowel sounds, Tender - suprapubic only. Negative for: Guarding, Rebound tenderness, Pulsatile mass Back: Nontender, Normal Inspection. Negative for: CVA tenderness Extremities: Nontender, No edema Skin: Normal color, No rash, No Trauma Neurological: Alert, Oriented x3, Cranial nerves II-XII grossly intact, Normal Strength, Normal Sensation, Normal Gait Psychological: Normal Mood, - - anxiety Diagnostic/Tx/Re-eval Laboratory Tests 02/27/19 02/27/19 02/27/19 Range/Units 15:50 15:50 15:48 WBC 11.4 H (4.4-11.0) K/mm3 RBC 4.02 L (4.2-5.4) M/mm3 Hgb 10.2 L (12.0-15.0) g/dL Hct 32.6 L (37-47) % MCV 81.1 (81-99) fL MCH 25.4 L (27.0-32.0) pg MCHC 31.3 L (32-36) g/dL RDW Std Deviation 58.5 H (35.1-43.9) fl RDW Coeff of Mohan 19.8 H (11.6-14.6) % Plt Count 325 (150-450) K/mm3 MPV 9.4 (6.2-12.0) fl Immature Gran % (Auto) 0.400 (0.0-0.9) % Neut % (Auto) 68.2 (47-70) % Lymph % (Auto) 21.6 (19-41) % Williams % (Auto) 8.1 (0-10) % Eos % (Auto) 1.1 (0-5) % Baso % (Auto) 0.6 (0-1) % Absolute Neuts (auto) 7.8 H (2.0-7.7) X10^3/uL Absolute Lymphs (auto) 2.45 (0.83-4.51) X10^3/uL Nucleated RBC % 0 (0-5) % Urine Color Yellow (Yellow) Urine Clarity Sl. Cloudy (Clear) Urine pH 6.0 (5.0 - 8.0) Ur Specific North 1.015 (1.002-1.030) Urine Protein Negative (Negative) mg/dl Urine Glucose (UA) Normal (Normal) mg/dl Urine Ketones Negative (Negative) mg/dl Urine Occult Blood Negative (Negative) /ul Urine Nitrite Negative (Negative) Urine Bilirubin Negative (Negative) mg/dL Urine Urobilinogen Normal (Normal) mg/dl Ur Leukocyte Esterase 25 H (Negative) /ul Urine RBC 0 SEEN (0-5) /hpf Urine WBC 0-5 SEEN (0-5) /hpf Ur Squamous Epith Cells 10-25 SEEN (5-10) /hpf Amorphous Sediment 1+ Urine Bacteria 2+ (None Seen) /hpf Urine Mucus 1+ (<or=2+) /hpf Urine Test Negative Negative Clinical Impression(s) from Imaging Studies Transvaginal US 02/27/19 15:35 IMPRESSION: 1. Normal uterus and right ovary. 2. Small left ovarian cyst. Electronically Signed: Blake Ibanez DO at 16:54 EST Tel [phone], Service support , - Medical Decision Making Labs are unremarkable including urinalysis which shows no infection. Her is negative. I obtained an ultrasound of her pelvis which I thought was the most appropriate imaging test given the quality, location, duration of her symptoms. It shows nothing acute. There is a small left ovarian cyst which may or may not be related to her symptoms. I think giving the recurrence and duration of her symptoms, she needs to follow-up with gynecology. She is in agreement. Endometriosis is in the differential diagnosis. She was given some morphine here since she declares allergies in the form of anaphylaxis to some NSAIDs and does not know if she is allergic to Toradol or not. She states she feels a lot better but is still in some pain. She will be given an oxycodone and discharged home with supportive care and pelvic rest until she feels better. ED Disposition - Plan for ED Patient: Disposition: Home or Assisted Living Diagnosis: Acute pelvic pain, female Instructions: PELVIC PAIN, Unknown Cause Referrals: [facility] [Provider Group] - As soon as possible
[2019-02-27] MEDS: Ondansetron 4 MG/2 ML Vial IV (15:52)
[2019-02-27] MEDS: Morphine 4 MG/ML Syringe IV (15:53)
[2019-02-27 16:01] LABS: Red Blood Cells-Urine 0 SEEN /hpf (0-5)
[2019-02-27 16:06] LABS: Absolute Lymphocyte Count 2.45 X10^3/uL (0.83-4.51); Absolute Neutrophil Count 7.8 X10^3/uL (2.0-7.7); Basophil# 0.07 X10^3/uL; Basophil% 0.6 % (0-1); Eosinophil# 0.12 X10^3/uL; Eosinophils% 1.1 % (0-5); Hematocrit 32.6 % (37-47); Hemoglobin 10.2 g/dL (12.0-15.0); Lymphocyte # 2.45 X10^3/ul (4.0); Lymphocyte % 21.6 % (19-41); Mean Corp Hgb Conc 31.3 g/dL (32-36); Mean Corpuscular Hgb 25.4 pg (27.0-32.0); Mean Corpuscular Volume 81.1 fL (81-99); Mean Platelet Vol. 9.4 fl (6.2-12.0); Monocyte# 0.92 X10^3/uL; Monocyte% 8.1 % (0-10); NRBC Flagged by Analyzer 0 % (0-5); Neutrophil # 7.76 X10^3/uL (2.7-7.7); Neutrophil % 68.2 % (47-70); Platelet Count 325 K/mm3 (150-450); RBC Distribution Width CV 19.8 % (11.6-14.6); RBC Distribution Width SD 58.5 fl (35.1-43.9); Red Blood Count 4.02 M/mm3 (4.2-5.4); White Blood Count 11.4 K/mm3 (4.4-11.0)
[2019-02-27 16:10] LABS: Color, Urine Yellow (Yellow); Glucose, Dipstick Normal (Normal); Ketone-Dipstick Negative (Negative); Leukocyte Esterase-Dipstick 25 /ul (Negative); Nitrite-Dipstick Negative (Negative); Occult Blood-Urine Negative /ul (Negative); Protein-Dipstick Negative (Negative); Specific Gravity, Urine 1.015 (1.002-1.030); Urine Bilirubin Dipstick Negative (Negative); Urine Clarity Sl. Cloudy (Clear); Urine Urobilinogen Normal (Normal)
[2019-02-27 16:13] LABS: Internal QC Validated? YES +Cl - CLEAR BKGD; Pregnancy, Urine Negative Negative
[2019-02-27 16:18] LABS: Amorphous Sediment 1+; Bacteria 2+ /hpf (None Seen); Mucous, Urine 1+ /hpf (<or=2+); Squamous Epithelial Cells - UA 10-25 SEEN /hpf (5-10); White Blood Cells 0-5 SEEN /hpf (0-5)
[2019-02-27] MEDS: oxyCODONE 5 MG Tablet PO (17:30)
[2019-02-27 17:35] VITALS: BP 131/81; PULSE 67; RESP 12; O2SAT 97
== END 2019-02-27 17:36 | disposition home or self-care (01) ==
PROVIDERS: Emergency Provider Emergency Medicine
DX: R10.2 Pelvic and perineal pain (principal); N83.202 Unspecified ovarian cyst, left side; J45.909 Unspecified asthma, uncomplicated; E66.9 Obesity, unspecified; F17.200 Nicotine dependence, unspecified, uncomplicated
CPT/HCPCS: 76830; 81001; 81025; 85025; 93976; 96374; 96375; 99284; A4216; J2405

== ENCOUNTER 2019-03-07 14:14 | Emergency (ER) | payer MEDICAID, SELFPAY ==
[2019-03-07 14:17] VITALS: BP 163/97; PULSE 117; RESP 17; TEMP 36.9; O2SAT 99; BMI 38.5
--- NOTE | 2019-03-07 14:39 | RAD_ITS ---
STUDY: X-RAY - LEFT ANKLE REASON FOR EXAM: Female, 43 years old. Left ankle pain following injury. TECHNIQUE: 3 view(s) of the ankle. COMPARISON: Comparison is made with prior study dated October 17, 2015. FINDINGS: Normal visualized distal tibia and fibula. Normal medial and lateral malleoli. Normal tibiotalar articulation and ankle mortise. Small plantar spur The visualized subtalar, talonavicular, calcaneocuboid and tarsal articulations are normal. The soft tissue structures are unremarkable. RAD/Ankle min 3 Views IMPRESSION: Small plantar spur. Electronically Signed: Markel Diaz, at 15:13 EST , Service support ,
--- NOTE | 2019-03-07 14:39 | RAD_ITS ---
STUDY: X-RAY - RIGHT KNEE REASON FOR EXAM: Female, 43 years old. Right knee pain and abrasion following injury. TECHNIQUE: 4 view(s) of the knee. COMPARISON: None. FINDINGS: Normal visualized distal femur. Normal visualized proximal tibia and fibula. Normal proximal tibiofibular articulation. Normal medial femorotibial compartment. Normal lateral femorotibial compartment. Normal patellofemoral articulation. Small joint effusion. RAD/Knee 4 or More Views IMPRESSION: Small joint effusion. Electronically Signed: Markel Diaz, at 15:16 EST , Service support ,
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
[2019-03-07] MEDS: Ibuprofen 600 MG Tablet PO (15:04)
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
== END 2019-03-07 15:28 | disposition home or self-care (01) ==
PROVIDERS: Emergency Provider Emergency Medicine
DX: S93.402A Sprain of unspecified ligament of left ankle, initial encounter (principal); S80.211A Abrasion, right knee, initial encounter; J45.909 Unspecified asthma, uncomplicated; Z72.0 Tobacco use; Y04.2XXA Assault by strike against or bumped into by another person, initial encounter; Y93.89 Activity, other specified; Y92.481 Parking lot as the place of occurrence of the external cause; Y99.8 Other external cause status
CPT/HCPCS: 73564; 73610; 99283

== ENCOUNTER 2019-04-01 09:41 | Emergency (ER) | payer MEDICAID, SELFPAY ==
[2019-04-01 09:42] VITALS: BP 153/78; PULSE 71; RESP 17; TEMP 36.5; O2SAT 100; BMI 39.8
--- NOTE | 2019-04-01 10:02 | RAD_ITS ---
STUDY: X-RAY CHEST REASON FOR EXAM: Female, 43 years old. CHEST PAIN, NAUSEA, VOMITING TECHNIQUE: Single AP portable view of the chest. COMPARISON: Comparison is made with prior examination dated September 30, 2017. FINDINGS: EKG electrodes are seen. Mild degree of increased markings at the left lung base suggestive of atelectasis and/or early infiltrate. Follow-up is recommended. There is no demonstrated pleural abnormality. Normal size heart. Normal mediastinum and mary. Normal visualized pulmonary arteries. Normal visualized aortic arch and descending thoracic aorta. Normal visualized thoracic spine. Normal visualized ribs, clavicles, and shoulders. There is no demonstrated abnormality of the visualized soft tissue structures of the upper abdomen. RAD/Chest 1 View (Portable) IMPRESSION: Mild degree of increased markings at the left lung base suggestive of atelectasis and/or early infiltrate. Electronically Signed: Markel Diaz, at 10:51 EST , Service support ,
--- NOTE | 2019-04-01 10:02 | EKG12_ITS ---
Test Reason : AB PAIN Blood Pressure : / mmHG Vent. Rate : 054 BPM Atrial Rate : 054 BPM P-R Int : 142 ms QRS Dur : 088 ms QT Int : 452 ms P-R-T Axes : 012 034 050 degrees QTc Int : 428 ms Sinus bradycardia Otherwise normal ECG Confirmed by NINA PEACOCK, MAURO ([id number]), graphic editor LILIA FISCHER ([id number]) on 04/03/2019 10:45:24 AM Referred By: Confirmed By:MAURO WOOD MD
[2019-04-01] MEDS: 0.9% Normal Saline 1,000 ML 1000 ML IV (10:13)
[2019-04-01] MEDS: Ondansetron 4 MG/2 ML Vial IV (10:13)
[2019-04-01] MEDS: Morphine 4 MG/ML Syringe IV (10:13)
--- NOTE | 2019-04-01 10:19 | ED.DCSUM_ITS ---
- ER Visit Summary Date of Service: 04/01/19 Chief Complaint: Nausea, vomiting, diarrhea History of Present Illness: The patient is a 43 F with nausea, vomiting, diarrhea that started this morning when she woke up. This is associated with epigastric pain that radiates to the back. She never had this before. Worse when she tries to eat or drink. Worse in certain positions. Denies fever, but does report chills. Denies any chest pain or shortness of breath. Denies any urinary symptoms. No recent antibiotics or hospitalization. Physical Examination: Afebrile and vital signs unremarkable. Alert and oriented. Uncomfortable but not toxic or in distress. Heart regular rate and rhythm. Lungs clear. Abdomen is tender in the epigastric region. No guarding or rebound. Back is nontender. Skin appears normal without jaundice or pallor. Test Results: EKG, chest x-ray, labs pending. Emergency Department Course and Treatment: Patient treated with fluids, morphine, Zofran while awaiting results. White count 16.4. Patient has a history of leukocytosis. She is aware of this, but does not know why. Hemoglobin slightly improved from baseline at 11.9 and platelets 451. She may be hemoconcentrated to some degree. CMP and lipase unremarkable. Troponin normal. EKG showed sinus rhythm at a rate of 54 with no signs of ischemia or infarction pattern. hCG negative. Chest x-ray was read as possible left base atelectasis versus infiltrate by the radiologist. I reviewed the x-ray. There is no significant infiltrate. The patient has no clinical signs or symptoms of pneumonia. I did ask her when we reviewed the results. No cough, fevers, sputum, etc. I will not initiate treatment with antibiotics based on her clinical picture. Patient had continued nausea and required treatment with Phenergan. Because of her continued symptoms, I did check a CT of her abdomen and pelvis. This showed multiple small gallstones without other signs of cholecystitis. She also has a 2.7 cm right adrenal adenoma. No other acute findings to explain her current symptoms. On reevaluation, patient is feeling better. Vital signs stable. She would like to go home. I believe this is reasonable. Patient was advised that this could be an early infection and will return for fevers or any worsening pain or symptoms. She will also monitor for symptoms of pneumonia. Follow-up with her family doctor for recheck. Prescription for Phenergan. Stay hydrated and rested. Precautions discussed. Treatment Plan: As above Disposition: Discharge Impression: 1. Nausea, vomiting, diarrhea This note was generated with [employer] (V3D) dictation software. It may contain incorrect words, spelling, and punctuation that were not noted in review of the chart prior to signing ED Disposition - Plan for ED Patient: Referrals: Care Physician,No Primary [Primary Care Provider] -
[2019-04-01 10:20] LABS: Absolute Lymphocyte Count 3.79 X10^3/uL (0.83-4.51); Basophil% 0.6 % (0-1); Eosinophil# 0.26 X10^3/uL; Eosinophils% 1.6 % (0-5); Hemoglobin 11.9 g/dL (12.0-15.0); Lymphocyte # 3.79 X10^3/ul (4.0); Lymphocyte % 23.1 % (19-41); Mean Corp Hgb Conc 30.5 g/dL (32-36); Mean Corpuscular Hgb 24.8 pg (27.0-32.0); Mean Corpuscular Volume 81.4 fL (81-99); Mean Platelet Vol. 9.4 fl (6.2-12.0); Monocyte# 1.18 X10^3/uL; Monocyte% 7.2 % (0-10); NRBC Flagged by Analyzer 0 % (0-5); Neutrophil # 10.99 X10^3/uL (2.7-7.7); Neutrophil % 67.1 % (47-70); Platelet Count 451 K/mm3 (150-450); RBC Distribution Width CV 18.7 % (11.6-14.6); RBC Distribution Width SD 56.1 fl (35.1-43.9); Red Blood Count 4.79 M/mm3 (4.2-5.4); White Blood Count 16.4 K/mm3 (4.4-11.0)
[2019-04-01 10:34] LABS: ALB/GLOB Ratio 0.8 RATIO (0.9-2.4); AST(SGOT) 17 U/L (15-37); Alanine Aminotransfer ALT/SGPT 19 U/L (13-56); Albumin, Serum 3.7 g/dL (3.2-5.0); Alkaline Phosphatase 71 U/L (45-117); Anion Gap 5 (5-15); BUN 7 mg/dL (7-18); BUN/Creat Ratio 8.2 RATIO (10-20); Calcium,Total 9.2 mg/dL (8.5-10.1); Chloride 111 mmol/L (98-107); Creatinine, Serum 0.86 mg/dL (0.55-1.02); EST Glomerular Filtration Rate 77 mL/min (>60); Est Glom Filt Rate - Afr Amer 94 mL/min (>60); Estimated Creatinine Clearance 89.97 ml/min; Globulin 4.4 g/dL (2.2-4.2); Glucose 122 mg/dL (74-106); Lipase 136 U/L (73-393); Potassium 3.8 mmol/L (3.5-5.1); Protein, Total 8.1 g/dL (6.4-8.2); Sodium Level 142 mmol/L (136-145)
--- NOTE | 2019-04-01 10:39 | CT_ITS ---
STUDY: CT ABDOMEN AND PELVIS WITH CONTRAST REASON FOR EXAM: Female, 43 years old. ABD PAIN, N/V/D RADIATION DOSAGE (If Supplied By Facility): CTDIvol = ( 18.72 ) mGy, DLP = ( 1325.23 ) mGycm TECHNIQUE: Transaxial images were obtained from the dome of the diaphragm to the symphysis pubis without oral contrast. IV 100mL Isovue-300 was administered. Sagittal and coronal images were reconstructed. Individualized dose optimization techniques were used for this CT. COMPARISON: None. FINDINGS: Minimal degree of dependent bibasilar atelectasis. The visualized portions of the heart are within normal limits. Normal liver. There are several tiny gallstones along the dependent portion of the gallbladder lumen. Normal spleen. Normal pancreas. There is a small, circumscribed, smooth, low attenuation right adrenal mass, consistent with an adrenal adenoma. This measures 2.7 cm. Normal left adrenal gland. Normal right kidney. There is a 1.4 cm cyst in the upper lateral aspect of the left kidney. There is a small hiatal hernia. Normal small intestine. There are scattered colonic diverticula consistent with diverticulosis. The appendix is visualized and appears normal. There is scattered atherosclerotic calcification of the abdominal aorta, without a demonstrated aneurysm. Normal inferior vena cava. Normal retroperitoneum. Normal urinary bladder. Bilateral tubal ligation. There is a 2.5 cm cyst in the right ovary. Small follicles are seen in the left ovary. Normal abdominal wall. Disc space narrowing and degeneration at the L5-S1 level. CT/Abdomen/Pelvis W IV Cont ONLY IMPRESSION: Multiple small gallstones along the dependent portion of the gallbladder lumen. Findings suggestive of a 2.7 cm right adrenal adenoma. Electronically Signed: Markel Diaz, at 11:21 EST , Service support ,
[2019-04-01 10:40] LABS: Internal QC Validated? YES +Cl - CLEAR BKGD; Pregnancy, Serum, hCG Quali. NEGATIVE Negative
[2019-04-01] MEDS: proMETHazine 25 MG/ML Syringe 12.5 MG IV (10:43)
[2019-04-01 10:45] VITALS: BP 149/91; PULSE 62; RESP 20; O2SAT 100
[2019-04-01 11:21] VITALS: BP 149/106; PULSE 62; RESP 18; O2SAT 98
--- NOTE | 2019-04-01 11:38 | ED.DEP ---
ED Disposition - Plan for ED Patient: Instructions: VOMITING (8y-Adult) Prescriptions: proMETHazine tablet [Phenergan] 25 mg PO Q6H PRN PRN #10 tab PRN Reason: Nausea Prescription Printed Referrals: Amanda Rivera [NON-STAFF] -
[2019-04-01 11:48] VITALS: BP 169/100; PULSE 79; RESP 18; O2SAT 98
== END 2019-04-01 11:54 | disposition home or self-care (01) ==
PROVIDERS: Emergency Provider Emergency Medicine
DX: R11.2 Nausea with vomiting, unspecified (principal); R19.7 Diarrhea, unspecified; K80.20 Calculus of gallbladder without cholecystitis without obstruction; D35.01 Benign neoplasm of right adrenal gland; J45.909 Unspecified asthma, uncomplicated; Z72.0 Tobacco use
CPT/HCPCS: 71045; 74177; 80053; 83690; 84484; 84703; 85025; 93005; 96361; 96374; 96375; 99285; J7030; Q9967; A4216; J2405

== ENCOUNTER 2019-05-13 01:17 | Emergency (ER) | payer MEDICAID, SELFPAY ==
[2019-05-13 01:18] VITALS: BP 137/84; PULSE 74; RESP 18; TEMP 37; O2SAT 99; BMI 41.4
--- NOTE | 2019-05-13 02:40 | ED.VISSUMM ---
- ER Visit Summary Date of Service: 05/13/19 Chief Complaint: Left ankle pain History of Present Illness: The patient is a 43 F who presents with a left ankle injury that her occurred today. Patient states she slipped getting out of her truck and twisted her left ankle. Patient states her pain is worse with any movement or weightbearing. Patient states her pain is sharp and stabbing. Patient states her pain improves with rest. Patient admits to some tingling in her toes. Patient denies any head injury or loss of consciousness. Patient denies any other injuries. Patient denies any pain over the proximal fibula or fifth metatarsal. Physical Examination: Vital signs are stable. Patient is afebrile. Patient is in no acute distress. Musculoskeletal exam reveals tenderness over the medial and posterior aspects of the left ankle. There is some mild edema. There is no bony crepitance or step-off. Achilles tendon is intact. Saldaña test is negative. Pedal pulses are equal bilaterally. Sensation was intact to light touch in all digits. There is no tenderness over the fifth metatarsal or proximal fibula. Test Results: X-rays of the left ankle were obtained. There is no acute fracture. These are interpreted by the radiologist and myself. Emergency Department Course and Treatment: Patient was given an Aircast. Patient was instructed to ice and elevate the left ankle. Patient was instructed to take Tylenol or ibuprofen as needed for pain. Patient was instructed to follow-up with her primary care physician in 5 to 7 days. Patient understood and was agreeable with the plan. All questions were answered. Disposition: Discharge home Impression: Acute sprain left ankle This note was generated with [employer] dictation software. It may contain incorrect words, spelling, and punctuation that were not noted in review of the chart prior to signing ED Disposition - Plan for ED Patient: Disposition: Home or Assisted Living Diagnosis: Sprain of left ankle Instructions: Sprain, Ankle, with X-Ray Referrals: Care Physician,No Primary [Primary Care Provider] - Bigg Johnson MD [STAFF PHYSICIAN] - 5-7 Days
--- NOTE | 2019-05-13 02:50 | RAD_ITS ---
STUDY: X-RAY - LEFT ANKLE REASON FOR EXAM: Female, 43 years old. PT INJURED LT ANKLE WHILE STEPPING OUT OF A TRUCK, MEDIAL LT ANKLE PAIN TECHNIQUE: 3 view(s) of the ankle. COMPARISON: 03/07/2019. FINDINGS: Normal visualized distal tibia and fibula. Normal medial and lateral malleoli. Normal tibiotalar articulation and ankle mortise. There is a plantar calcaneal spur and there is a posterior calcaneal enthesophyte at the insertion site of the Achilles'' tendon. Otherwise normal talus, calcaneus, and tarsal bones, The visualized subtalar, talonavicular, calcaneocuboid and tarsal articulations are normal. The soft tissue structures are unremarkable. RAD/Ankle min 3 Views IMPRESSION: Normal x-ray examination of the ankle. Electronically Signed: Logan Navarrete MD at 3:35 EST , Service support ,
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
== END 2019-05-13 04:36 | disposition home or self-care (01) ==
PROVIDERS: Emergency Provider Emergency Medicine
DX: S93.402A Sprain of unspecified ligament of left ankle, initial encounter (principal); Z72.0 Tobacco use; X50.1XXA Overexertion from prolonged static or awkward postures, initial encounter; Y93.89 Activity, other specified; Y92.89 Other specified places as the place of occurrence of the external cause; Y99.8 Other external cause status
CPT/HCPCS: 73610; 99283

== ENCOUNTER 2019-09-16 21:08 | Emergency (ER) | payer MEDICAID, SELFPAY ==
[2019-09-16 21:09] VITALS: BP 153/88; PULSE 79; RESP 20; TEMP 36.4; O2SAT 99; BMI 44.9
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
--- NOTE | 2019-09-16 21:25 | RAD_ITS ---
STUDY: X-RAY - LEFT ANKLE REASON FOR EXAM: Female, 44 years old. left ankle pain after twisting it TECHNIQUE: 3 view(s) of the ankle. COMPARISON: None. FINDINGS: Mild to moderate soft tissue swelling is present around the ankle joint. No visualized acute fracture or displacement. A small plantar calcaneal spur is seen. Normal visualized distal tibia and fibula. Normal medial and lateral malleoli. Normal tibiotalar articulation and ankle mortise. Normal visualized talus and calcaneus. The visualized subtalar, talonavicular, calcaneocuboid and tarsal articulations are normal. RAD/Ankle min 3 Views IMPRESSION: Mild to moderate soft tissue swelling Electronically Signed: Raheel Biswas MD at 22:04 EDT , Service support ,
[2019-09-16] MEDS: oxyCODONE 5 MG Tablet PO (21:30)
[2019-09-16 22:09] VITALS: BP 144/88; PULSE 71; RESP 16; O2SAT 97
== END 2019-09-16 22:09 | disposition home or self-care (01) ==
PROVIDERS: Emergency Provider Emergency Medicine
DX: S93.402A Sprain of unspecified ligament of left ankle, initial encounter (principal); J45.909 Unspecified asthma, uncomplicated; Z79.51 Long term (current) use of inhaled steroids; F17.200 Nicotine dependence, unspecified, uncomplicated; X50.1XXA Overexertion from prolonged static or awkward postures, initial encounter; Y93.01 Activity, walking, marching and hiking; Y92.89 Other specified places as the place of occurrence of the external cause; Y99.8 Other external cause status
CPT/HCPCS: 73610; 99283

== ENCOUNTER 2020-01-28 04:23 | Emergency (ER) | payer MEDICAID, SELFPAY ==
[2020-01-28 04:23] VITALS: BP 155/89; PULSE 87; RESP 18; TEMP 35.7; O2SAT 98; BMI 45.8
--- NOTE | 2020-01-28 04:30 | ED.DCSUM_ITS ---
History of Present Illness Chief Complaint: Abd Pain Informant: Patient Onset: Today Context: Gradual Onset Timing: Continuous Current Severity: Moderate Maximum Severity: Moderate Narrative: Patient is a 44-year-old female who presents to the emergency department concerned that she may have food poisoning. She states that she had [place] yesterday in the evening. A few hours later, she began to get diffuse abdominal cramping. Was followed by multiple bouts of nonbloody, nonbilious emesis. She states right prior to arrival, she began to have loose, watery diarrhea. She describes diffuse cramping pain throughout her abdomen, mostly in the left upper quadrant. She is had chills but no fever. She states up until tonight, she has been in her normal state of health. She denies any other sick contacts. Prior similar symptoms: No Recent Illness/Hospitalization: No Past Medical History - Allergies and Home Meds Allergies/Adverse Reactions: Allergies aspirin Allergy (Verified 01/28/20 04:26) Hives chlorpromazine HCl [From Thorazine] Allergy (Verified 01/28/20 04:26) Hives hydrocodone [From [place]] Allergy (Verified 01/28/20 04:26) Hives naproxen Allergy (Verified 01/28/20 04:26) Anaphylaxis oseltamivir [From Tamiflu] Allergy (Verified 01/28/20 04:26) Swelling tramadol HCl [From Ultram] Allergy (Verified 01/28/20 04:26) Hives Primary Care Physician: Care Physician,No Primary [Primary Care Provider] - Prior records reviewed: Yes Past Medical History: - - No significant medical history Surgical History: noncontributory, - - Tubal ligation, left knee surgery Smoking Status: Current every day smoker Review of Systems General: Denies: Chills, Fever, Sweats Eyes: Denies: Visual changes - bilaterally, Diplopia ENT: Denies: Rhinorrhea, Sore throat Cardiovascular: Denies: Chest pain, Palpitations Respiratory: Denies: Dyspnea, Cough, Dyspnea on exertion Gastrointestinal: Reports: Abdominal pain, Nausea, Vomiting, Diarrhea. Denies: Melena, Hematochezia Genitourinary: Denies: Dysuria, Hematuria, Frequency Musculoskeletal: Denies: Back pain, Extremity Pain Skin: Denies: Rash, Wounds Neurological: Denies: Headache, Weakness, Numbness Physical Exam Vital Signs/Narrative: Vital Signs Temp Pulse Resp BP Pulse Ox 01/28/20 04:23 96.3 F L 87 18 155/89 H 98 Inital Vital Signs reviewed: Yes General: Well nourished, Well developed, No Acute Distress Head: Normocephalic, Atraumatic Eyes: Perrl, EOMI ENT: Moist mucous membranes, No rhinorrhea Neck: Supple, Nontender Cardiovascular: Regular rate, Regular rhythm, No murmurs Respiratory: No distress, CTA bilaterally, Chest nontender Abdomen: Soft, Nontender, Nondistended, Normal bowel sounds Back: Nontender, Normal Inspection Extremities: Nontender, No edema Skin: Normal color, No rash Neurological: Alert, Oriented x3, Cranial nerves II-XII grossly intact, Normal Strength, Normal Sensation Psychological: Normal affect, Normal Mood Diagnostic/Tx/Re-eval Abnormal Lab Results 01/28/20 01/28/20 04:30 04:30 WBC 11.3 H RBC 4.36 Hgb 11.6 L Hct 37.4 MCV 85.8 MCH 26.6 L MCHC 31.0 L RDW Std Deviation 52.8 H RDW Coeff of Mohan 16.8 H Plt Count 448 MPV 9.6 Immature Gran % (Auto) 0.400 Neut % (Auto) 68.7 Lymph % (Auto) 22.5 Gregg % (Auto) 6.7 Eos % (Auto) 1.2 Baso % (Auto) 0.5 Absolute Neuts (auto) 7.7 Absolute Lymphs (auto) 2.53 Nucleated RBC % 0 Sodium 140 Potassium 4.8 Chloride 105 Carbon Dioxide 30.0 Anion Gap 5 BUN 9 Creatinine 0.92 Estim Creat Clear Calc 83.25 Est GFR (MDRD) Af Amer 86 Est GFR (MDRD) Non-Af 71 BUN/Creatinine Ratio 9.8 L Glucose 127 H Calcium 8.3 L Total Bilirubin 0.50 AST 71 H ALT 42 Alkaline Phosphatase 77 Total Protein 7.3 Albumin 3.2 Globulin 4.1 Albumin/Globulin Ratio 0.8 L Lipase 125 - Medical Decision Making Patient symptoms do seem consistent with a gastroenteritis or food poisoning. IV was established. She was treated with fluids, Zofran, and morphine. Labs were obtained. She does have mild leukocytosis which I feel is likely reactive. On reevaluation her symptoms are much improved and she is resting comfortably. She is in no further vomiting. Her pain is controlled. Her labs are otherwise unremarkable. The patient will be treated with Bentyl and Phenergan. She was counseled on concerning symptoms. She will be discharged home. Impression 1. Gastroenteritis ED Disposition - Plan for ED Patient: Instructions: ED Gastroenteritis Vs Food Poison Prescriptions: Dicyclomine HCl [Bentyl] 20 mg PO TIDAC #20 cap Prescription Printed proMETHazine tablet [Phenergan] 25 mg PO Q6H PRN PRN #10 tab PRN Reason: Nausea Prescription Printed Referrals: Care Physician,No Primary [Primary Care Provider] -
[2020-01-28] MEDS: Ondansetron 4 MG/2 ML Vial IV (04:35)
[2020-01-28] MEDS: 0.9% Normal Saline 1,000 ML 1000 ML IV (04:35)
[2020-01-28] MEDS: Morphine 4 MG/ML Syringe IV (04:36)
[2020-01-28 04:38] LABS: Absolute Lymphocyte Count 2.53 X10^3/uL (0.83-4.51); Absolute Neutrophil Count 7.7 X10^3/uL (2.0-7.7); Basophil# 0.06 X10^3/uL; Basophil% 0.5 % (0-1); Eosinophil# 0.13 X10^3/uL; Eosinophils% 1.2 % (0-5); Hematocrit 37.4 % (37-47); Hemoglobin 11.6 g/dL (12.0-15.0); Lymphocyte # 2.53 X10^3/ul (4.0); Lymphocyte % 22.5 % (19-41); Mean Corpuscular Hgb 26.6 pg (27.0-32.0); Mean Corpuscular Volume 85.8 fL (81-99); Mean Platelet Vol. 9.6 fl (6.2-12.0); Monocyte# 0.75 X10^3/uL; Monocyte% 6.7 % (0-10); NRBC Flagged by Analyzer 0 % (0-5); Neutrophil # 7.73 X10^3/uL (2.7-7.7); Neutrophil % 68.7 % (47-70); Platelet Count 448 K/mm3 (150-450); RBC Distribution Width CV 16.8 % (11.6-14.6); RBC Distribution Width SD 52.8 fl (35.1-43.9); Red Blood Count 4.36 M/mm3 (4.2-5.4); White Blood Count 11.3 K/mm3 (4.4-11.0)
[2020-01-28 04:59] LABS: ALB/GLOB Ratio 0.8 RATIO (0.9-2.4); AST(SGOT) 71 U/L (15-37); Alanine Aminotransfer ALT/SGPT 42 U/L (13-56); Albumin, Serum 3.2 g/dL (3.2-5.0); Alkaline Phosphatase 77 U/L (45-117); Anion Gap 5 (5-15); BUN 9 mg/dL (7-18); BUN/Creat Ratio 9.8 RATIO (10-20); Calcium,Total 8.3 mg/dL (8.5-10.1); Chloride 105 mmol/L (98-107); Creatinine, Serum 0.92 mg/dL (0.55-1.02); EST Glomerular Filtration Rate 71 mL/min (>60); Est Glom Filt Rate - Afr Amer 86 mL/min (>60); Estimated Creatinine Clearance 83.25 ml/min; Globulin 4.1 g/dL (2.2-4.2); Glucose 127 mg/dL (74-106); Lipase 125 U/L (73-393); Potassium 4.8 mmol/L (3.5-5.1); Protein, Total 7.3 g/dL (6.4-8.2); Sodium Level 140 mmol/L (136-145)
[2020-01-28 05:10] VITALS: BP 145/78; PULSE 79; RESP 18; O2SAT 96
== END 2020-01-28 05:11 | disposition home or self-care (01) ==
LOC: ED 04:45
PROVIDERS: Emergency Provider Emergency Medicine
DX: K52.9 Noninfective gastroenteritis and colitis, unspecified (principal); F17.200 Nicotine dependence, unspecified, uncomplicated
CPT/HCPCS: 80053; 83690; 85025; 96361; 96374; 96375; 99282; J7030; J2405

== ENCOUNTER 2020-07-22 05:56 | Emergency (ER) | payer MEDICAID, SELFPAY ==
[2020-07-22 05:57] VITALS: BP 183/81; PULSE 77; RESP 20; TEMP 36.3; O2SAT 100; BMI 47.7
--- NOTE | 2020-07-22 06:05 | RAD_ITS ---
STUDY: X-RAY - RIGHT SHOULDER REASON FOR EXAM: Female, 44 years old. Pain after lifting 30 pound daughter. TECHNIQUE: 3 view(s) of the shoulder. COMPARISON: 01/14/2019 right shoulder radiographs. FINDINGS: No visible fracture. No osseous destruction. Alignment anatomic. No significant degenerative changes. No acute soft tissue abnormality. Calcific tendinopathy of the distal rotator cuff. RAD/Shoulder min 2 Views IMPRESSION: No acute osseous abnormality. Calcific tendinopathy of the distal rotator cuff. Electronically Signed: Dirk Kothari MD at 6:36 EDT Tel , Service support ,
--- NOTE | 2020-07-22 06:32 | EX.ED.UPPERE ---
HPI History of Present Illness Chief Complaint: Upper Extremity Injury Narrative Narrative: Patient presenting with right shoulder pain. 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 She felt it in the anterior shoulder. She has limited range of motion secondary to pain. She states she was unable to sleep. She denies any direct trauma. She does not have any numbness or tingling. PFSH PFSH Home Medications albuterol sulfate 2 puff IH Q6H PRN PRN 05/13/19 [History Last Taken Unknown] oxycodone 5 mg PO Q6H PRN 3 Days #12 cap 07/22/20 [Rx Last Taken Unknown] Allergy/AdvReac Type Severity Reaction Status Date / Time aspirin Allergy Hives Verified 07/22/20 06:01 chlorpromazine HCl Allergy Hives Verified 07/22/20 06:01 [From Thorazine] hydrocodone [From [place]] Allergy Hives Verified 07/22/20 06:01 naproxen Allergy Anaphylaxis Verified 07/22/20 06:01 oseltamivir [From Tamiflu] Allergy Swelling Verified 07/22/20 06:01 tramadol HCl [From Ultram] Allergy Hives Verified 07/22/20 06:01 Social History Smoking Status: Current every day smoker ROS ROS ED Constitutional Constitutional ED: Denies chills, fever(s) or sweats Eyes Eyes: Denies blurry vision or change in vision ENT ENT ED: Denies ear pain, rhinorrhea or sore throat Cardiovascular Cardiovascular: Denies chest pain, palpitations or racing heartbeat Respiratory/Chest Respiratory/Chest: Denies cough, dyspnea or sputum Gastrointestinal Gastrointestinal: Denies abdominal pain, constipation, diarrhea or vomiting Genitourinary Genitourinary ED: Denies dysuria, hematuria or urinary frequency Musculoskeletal Musculoskeletal: Reports arthralgias, myalgias and other Details: Right anterior shoulder and trapezius pain. Limited range of motion secondary to pain. Integumentary Denies abscess, Abrasions or rash Neurologic Neurologic: Denies headache(s), paresthesias or weakness Psychiatric Psychiatric: Denies anxiety, depression, suicidal ideation or suicidal thoughts Endocrine Endocrinology: Denies polydipsia or polyuria EXAM Physical Exam Const Vital Signs: 04/28/21 05:57 Temperature 97.3 F L Temperature Source Temporal Pulse Rate 77 Respiratory Rate 20 H Blood Pressure 183/81 H Blood Pressure Mean 115 Pulse Ox 100 Oxygen Delivery Method Room Air General Appearance ED: Negative for pallor HEENT Reports normocephalic, head/scalp atraumatic and moist mucous membranes Eyes PERRL and EOMs intact bilaterally Neck no lymphadenopathy and supple Chest Wall inspection of chest normal and palpation of chest normal Resp normal respiratory effort and clear to auscultation bilaterally Auscultation: Negative for rales, rhonchi or wheezes Cardio regular rate and regular rhythm GI normal to inspection, nondistended, normoactive bowel sounds and non-distended Auscultation: normoactive bowel sounds Palpation: soft Narrative: Deferred Back/Spine no CVA tenderness General Back: Negative for CVA tenderness Cervical Spine: Negative for cervical spine tenderness Extremity normal to inspection Right Upper Extremity: shoulder joint Shoulder Joint Exam - Right: ROM and other (Tenderness to palpation right anterior shoulder and right trapezius. There is no obvious deformities.) Neuro oriented x3 and CN's II-XII intact bilaterally Sensorium / Orientation: alert Motor Exam: strength 5/5 throughout Psych mental status grossly normal Attitude: No agitated Skin no rashes or lesions noted and no wounds General Skin Exam: Negative for jaundice or pallor MDM MDM MDM Narrative Medical decision making narrative: Patient presenting with right shoulder pain which started yesterday and she heard a pop in her right shoulder. This was while she was trying to lift a child. Patient tried Tylenol as well as ice and ibuprofen and these were not helping. Patient states she was unable to sleep secondary to pain. Patient had 2 views of the right shoulder which showed no acute bony abnormality as interpreted by myself and radiologist agree. Radiologist does feel there is some tendinopathy in the right distal rotator cuff. Patient was given oxycodone in the ED. clinically I think she has a rotator cuff tear. She will be given pain medication for home. She is given follow-up with orthopedics. Patient stable for discharge at this time. Impression: 1. Right rotator cuff tear Discharge Plan Triage Chief Complaint: Upper Extremity Injury ED Provider: Lamont Ge Dx/Rx/DC Orders Instructions: ED Rotator Cuff Tear Prescriptions: New oxycodone 5 mg capsule 5 mg PO Q6H PRN (Reason: pain) 3 Days Qty: 12 RF: 0 No Action albuterol sulfate 1 INHALER inhaler 2 puff IH Q6H PRN PRN (Reason: Sob &/Or Wheezing) RF: 0 Primary Care Provider: Care Physician,No Primary Referrals: Nuvia Packer DO [STAFF PHYSICIAN] - Care Physician,No Primary [Primary Care Provider] - Disposition Patient Disposition: Home, self care Discharge Date/Time: 07/22/20 07:15
[2020-07-22] MEDS: oxyCODONE 5 MG Tablet PO (07:13)
== END 2020-07-22 07:15 | disposition home or self-care (01) ==
PROVIDERS: Emergency Provider Student in an Organized Health Care Education/Training Program
DX: S46.011A Strain of muscle(s) and tendon(s) of the rotator cuff of right shoulder, initial encounter (principal); F17.200 Nicotine dependence, unspecified, uncomplicated; X50.0XXA Overexertion from strenuous movement or load, initial encounter; Y93.89 Activity, other specified; Y92.89 Other specified places as the place of occurrence of the external cause; Y99.8 Other external cause status
CPT/HCPCS: 73030; 99283

== ENCOUNTER 2020-08-20 07:19 | Emergency (ER) | payer MEDICAID, SELFPAY ==
[2020-07-29 10:19] VITALS: BMI 44.2
[2020-08-20 07:20] VITALS: BP 155/120; PULSE 97; RESP 16; TEMP 36.4; O2SAT 98; BMI 42.2
--- NOTE | 2020-08-20 07:25 | EDS_ITS ---
HPI History of Present Illness Chief Complaint: Upper Extremity Injury Narrative Narrative: 44-year-old female presenting with right-sided neck pain, shoulder pain, numbness and tingling in the right hand in the distribution of the right thumb and index finger. Patient states that the tingling is intermittent. At times her hand go numb in this distribution. She denies any trauma. Patient was seen in the ED a month ago for similar symptoms and now they have worsened. Patient states that she followed up with orthopedics who did do a shoulder injection and placed her on a Medrol Dosepak. This course of medications is finished and she has continued numbness and tingling in her right shoulder/right hand. Patient has not seen a spinal specialist. She states that last night her hand went numb in this distribution and she was unable to natural resources specialist. PFSH [facility] Medical History Asthma Depression H/O psychiatric hospitalization Home Medications cyclobenzaprine 10 mg tablet 10 mg PO TID PRN #30 tab 08/14/20 [Rx Last Taken Unknown] hydrocodone-acetaminophen 1 tab PO Q6H PRN PRN 3 Days #12 tablet 08/20/20 [Rx Last Taken Unknown] prednisone 50 mg PO DAILY #5 tab 08/20/20 [Rx Last Taken Unknown] Allergy/AdvReac Type Severity Reaction Status Date / Time aspirin Allergy Hives Verified 08/20/20 07:23 chlorpromazine HCl Allergy Hives Verified 08/20/20 07:23 [From Thorazine] hydrocodone [From [place]] Allergy Hives Verified 08/20/20 07:23 naproxen Allergy Anaphylaxis Verified 08/20/20 07:23 oseltamivir [From Tamiflu] Allergy Swelling Verified 08/20/20 07:23 tramadol HCl [From Ultram] Allergy Hives Verified 08/20/20 07:23 Family History Father Cancer Heart disease Mother Myocardial infarction Surgical History History of arthroscopy of left knee Hx of tubal ligation Social History household members: significant other and children number of children: 4 Smoking Status: Current every day smoker tobacco type: cigarettes Tobacco: How many years used: 20 alcohol intake: never what type of physical activity do you participate in: none do you feel safe at home: Yes ROS ROS ED Constitutional Constitutional ED: Denies chills, fever(s) or sweats Eyes Eyes: Denies blurry vision or change in vision ENT ENT ED: Denies ear pain, rhinorrhea or sore throat Cardiovascular Cardiovascular: Denies chest pain, palpitations or racing heartbeat Respiratory/Chest Respiratory/Chest: Denies cough, dyspnea or sputum Gastrointestinal Gastrointestinal: Denies abdominal pain, constipation, diarrhea or vomiting Genitourinary Genitourinary ED: Denies dysuria, hematuria or urinary frequency Musculoskeletal Musculoskeletal: Reports neck pain; Denies arthralgias or myalgias Integumentary Denies abscess, Abrasions or rash Neurologic Neurologic: Reports paresthesias; Denies headache(s) or weakness Psychiatric Psychiatric: Denies anxiety, depression, suicidal ideation or suicidal thoughts Endocrine Endocrinology: Denies polydipsia or polyuria EXAM Physical Exam Const Vital Signs: 08/20/20 07:20 Temperature 97.6 F L Temperature Source Temporal Pulse Rate 97 Respiratory Rate 16 Blood Pressure 155/120 H Blood Pressure Mean 131 Pulse Ox 98 Oxygen Delivery Method Room Air Positive well nourished General Appearance ED: NAD; Negative for pallor HEENT Reports normocephalic, head/scalp atraumatic and moist mucous membranes normocephalic and atraumatic Eyes PERRL and EOMs intact bilaterally Neck no lymphadenopathy Neck Narrative: Right paraspinal musculature tenderness. Chest Wall inspection of chest normal and palpation of chest normal Resp normal respiratory effort and clear to auscultation bilaterally Auscultation: Negative for rales, rhonchi or wheezes Cardio regular rate and regular rhythm GI normal to inspection, nondistended, normoactive bowel sounds Narrative: Deferred Extremity normal to inspection Extremity Narrative: Tenderness to palpation right paraspinal musculature tenderness as well as right trapezius. General Extremety ED: Yes edema and tenderness General Extremity: edema Neuro oriented x3 and CN's II-XII intact bilaterally Neuro Narrative: Decreased sensation of her right thumb and index finger. Sensorium / Orientation: alert Motor Exam: strength 5/5 throughout Psych mental status grossly normal Attitude: No agitated Skin no rashes or lesions noted and no wounds General Skin Exam: Negative for jaundice or pallor Lesions: no lesions Rashes: no rashes MDM MDM MDM Narrative Medical decision making narrative: Patient presenting with right shoulder pain and radicular pain into her thumb and first index finger on the right. She is previously been on a Medrol Dosepak and had a shoulder injection into the shoulder. Her exam is consistent with cervical radiculopathy. I do not believe she needs another x-ray of her cervical spine. I spoke with Dr. Bell who will see her next week in office on Monday. He recommended a burst of prednisone and some pain medication until she can get to the office. Patient amenable to this plan and she is discharged home in stable condition. Impression: 1. Cervical radiculopathy Lab Data Attestation: I reviewed the patient's lab results. Discharge Plan Triage Chief Complaint: Upper Extremity Injury ED Provider: Lamont Ge Dx/Rx/DC Orders Instructions: ED Radiculopathy, Cervical Prescriptions: New hydrocodone-acetaminophen 5-325 mg tablet 1 tab PO Q6H PRN PRN (Reason: Pain) 3 Days Qty: 12 RF: 0 prednisone 50 mg tablet 50 mg PO DAILY Qty: 5 RF: 0 No Action cyclobenzaprine 10 mg tablet 10 mg PO TID PRN (Reason: muscle spasm) Qty: 30 RF: 0 Primary Care Provider: Care Physician,No Primary Referrals: Kd Bell DO [STAFF PHYSICIAN] - Care Physician,No Primary [Primary Care Provider] - Disposition Disposition: Home, self care Discharge Date/Time: 08/20/20 09:12
== END 2020-08-20 09:12 | disposition home or self-care (01) ==
PROVIDERS: Emergency Provider Student in an Organized Health Care Education/Training Program
DX: M54.12 Radiculopathy, cervical region (principal); F41.9 Anxiety disorder, unspecified; F32.9 Major depressive disorder, single episode, unspecified; F17.210 Nicotine dependence, cigarettes, uncomplicated; Z79.899 Other long term (current) drug therapy
CPT/HCPCS: 99282

== ENCOUNTER → 2020-09-15 16:59 | Outpatient (CLI) | payer MEDICAID, SELFPAY ==
[2020-08-26 13:00] VITALS: BMI 42.2
--- NOTE | 2020-09-15 17:00 | MRI_ITS ---
STUDY: MRI CERVICAL SPINE WITHOUT CONTRAST REASON FOR EXAM: Female, 45 years old. Neck pain, right shoulder and elbow pain, right arm numbness TECHNIQUE: Standardized fat and water weighted pulse sequences were obtained in the sagittal and axial planes. COMPARISON: None FINDINGS: Normal foramen magnum and brainstem-cervical cord junction. There is straightening of the normal cervical lordosis. C2-3: Normal endplates. Normal disc height, signal and morphology. Normal central canal and intervertebral neural foramina. C3-4: There is minimal disc space narrowing and endplate spondylosis. There is no significant disc herniation, central canal or foraminal stenosis. C4-5: There is mild disc space narrowing and endplate spondylosis. There is no significant disc herniation, central canal or foraminal stenosis. C5-6: There is mild disc space narrowing and endplates spondylosis. Mild disc osteophyte complex without significant central canal stenosis. Uncovertebral arthropathy with moderate right and moderate left foraminal stenosis. C6-7: There is moderate disc space narrowing and endplates spondylosis. Mild disc osteophyte complex with mild central canal stenosis. Uncovertebral arthropathy with moderate right and moderate left foraminal stenosis. There is 1.2 cm hemangioma at C7. C7-T1: There is minimal disc space narrowing and endplate spondylosis. There is no significant disc herniation, central canal or left foraminal stenosis. Uncovertebral arthropathy with mild right foraminal stenosis. Normal cervical cord. MRI/Spine Cervical (Routine) IMPRESSION: C5/C6 moderate right and moderate left foraminal stenosis. C6/7: Moderate right and moderate left foraminal stenosis. Electronically Signed: Suzy Beth MD at 15:50 EDT Tel , Service support ,
== END ==
PROVIDERS: Referring Provider Orthopaedic Surgery; Visit Provider Orthopaedic Surgery
DX: M50.222 Other cervical disc displacement at C5-C6 level (principal); M54.12 Radiculopathy, cervical region; M47.812 Spondylosis without myelopathy or radiculopathy, cervical region
CPT/HCPCS: 72141

== ENCOUNTER 2021-01-03 21:39 | Emergency (ER) | payer MEDICAID, SELFPAY ==
[2021-01-03 21:40] VITALS: BP 162/86; PULSE 81; RESP 18; TEMP 36.7; O2SAT 98; BMI 43.6
--- NOTE | 2021-01-03 21:50 | RAD_ITS ---
EXAM: XR LEFT ELBOW COMPLETE, 3 OR MORE VIEWS : 1975 CLINICAL INDICATION: LT ELBOW INJURY TECHNIQUE: Frontal, lateral and oblique views of the left elbow. This report was created using [employer] report generation technology. COMPARISON: None. FINDINGS: BONES/JOINTS: Unremarkable. There is no displacement of the anterior or posterior fat pads. No acute fracture. No subluxation. Normal alignment. Preservation of the joint space. No destructive or sclerotic lesions. SOFT TISSUES: Unremarkable. No soft tissue swelling or gas. No radiopaque foreign body. RAD/Elbow min 3 Views IMPRESSION: Negative left elbow. at 2214 Reported and signed by: Toby Motley MD Electronically Signed: Toby Motley MD at 22:13 EDT Tel , Service support ,
[2021-01-03 22:24] VITALS: PULSE 78; O2SAT 15
--- NOTE | 2021-01-03 22:25 | EX.ED.UPPERE ---
HPI History of Present Illness Chief Complaint: Upper Extremity Injury Informant: patient Narrative Narrative: Patient had her left arm closed in a car door yesterday evening. She has some bruising and soreness at the elbow and just above. No numbness tingling or weakness. No deformity. No other injuries. Pressing her motion makes it worse. Ice makes it better. Decreased hearing. Of note the patient has allergies as to opioids, aspirin and was taken off Tylenol due to reactions recently. There is very low limits of what can be given for discomfort. [facility] Medical History Asthma Depression H/O psychiatric hospitalization Home Medications cyclobenzaprine 10 mg tablet 10 mg PO TID PRN #30 tab 08/14/20 [Rx Last Taken Unknown] diazepam 10 mg tablet 10 mg PO QHS PRN #1 tab 08/26/20 [Rx Last Taken Unknown] Allergy/AdvReac Type Severity Reaction Status Date / Time aspirin Allergy Hives Verified 01/03/21 21:40 chlorpromazine HCl Allergy Hives Verified 01/03/21 21:40 [From Thorazine] hydrocodone [From [place]] Allergy Hives Verified 01/03/21 21:40 naproxen Allergy Anaphylaxis Verified 01/03/21 21:40 oseltamivir [From Tamiflu] Allergy Swelling Verified 01/03/21 21:40 tramadol HCl [From Ultram] Allergy Hives Verified 01/03/21 21:40 Family History Father Cancer Heart disease Mother Myocardial infarction Surgical History History of arthroscopy of left knee Hx of tubal ligation Social History household members: significant other and children number of children: 4 Smoking Status: Current every day smoker tobacco type: cigarettes Tobacco: How many years used: 20 alcohol intake: never what type of physical activity do you participate in: none do you feel safe at home: Yes ROS ROS ED Constitutional Constitutional ED: Denies fever(s) or subjective Respiratory/Chest Respiratory/Chest: Denies dyspnea Gastrointestinal Gastrointestinal: Denies nausea or vomiting Musculoskeletal Musculoskeletal: Reports other Details: See history of present illness. ; Denies back pain or neck pain Integumentary Reports other Details: Contusion to left elbow ; Denies abscess, Abrasions or rash Neurologic Neurologic: Denies paresthesias or weakness Hematologic/Lymphatic Hematologic/Lymphatic: Denies easy bleeding or easy bruising EXAM Physical Exam Const Vital Signs: 01/03/21 21:40 Temperature 98.0 F Temperature Source Temporal Pulse Rate 81 Respiratory Rate 18 Blood Pressure 162/86 H Blood Pressure Mean 111 Pulse Ox 98 Oxygen Delivery Method Room Air Positive well nourished, well developed and obese General Appearance ED: well developed Nutritional Appearance: obese HEENT atraumatic Resp normal respiratory effort Back/Spine Cervical Spine: Negative for cervical spine tenderness Extremity Extremity Narrative: There is system contusion along the medial aspect of the left elbow. There are some mild tenderness in that area and just above it. Patient distal pulses are normal and intact. 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 No tenderness distal to the elbow or more proximally in the arm. No deformities. Neuro oriented x3 and no sensory deficits noted Sensorium / Orientation: alert Motor Exam: strength 5/5 throughout Psych mental status grossly normal Skin Skin Narrative: Contusion as above. MDM MDM MDM Narrative Medical decision making narrative: Three-view x-ray of her left elbow looked at by me and read by radiology shows no sign of acute fracture or dislocation. Patient has very significant limitations on which be given for pain. However, she also has contusions with no sign of a break. I think rest ice and a sling will be appropriate. I explained that with a sling she can only use it for a few days and I demonstrated frequent range of motion to prevent stiffness. Radiography Diagnostic Testing: Clinical Impression(s) from Imaging Studies Elbow X-Ray 01/03/21 21:50 IMPRESSION: Negative left elbow. at 2214 Reported and signed by: Toby Motley MD Electronically Signed: Toby Motley MD at 22:13 EDT Tel , Service support , Discharge Plan Triage Chief Complaint: Upper Extremity Injury ED Provider: Ari Sweeney Dx/Rx/DC Orders Clinical Impression: Contusion of elbow, left Instructions: Bruises (Contusions) Prescriptions: No Action diazepam [Valium] 10 mg tablet 10 mg PO QHS PRN (Reason: mri anxiety) Qty: 1 RF: 0 cyclobenzaprine 10 mg tablet 10 mg PO TID PRN (Reason: muscle spasm) Qty: 30 RF: 0 Primary Care Provider: Care Physician,No Primary Referrals: Sylvia Marshall MD [STAFF PHYSICIAN] - 1 Week if not improving Care Physician,No Primary [Primary Care Provider] - Disposition Disposition: Home, Self Care
[2021-01-03 22:27] VITALS: BP 139/74
== END 2021-01-03 22:48 | disposition home or self-care (01) ==
PROVIDERS: Emergency Provider Emergency Medicine
DX: S50.02XA Contusion of left elbow, initial encounter (principal); J45.909 Unspecified asthma, uncomplicated; F32.9 Major depressive disorder, single episode, unspecified; F17.210 Nicotine dependence, cigarettes, uncomplicated; E66.9 Obesity, unspecified; W23.0XXA Caught, crushed, jammed, or pinched between moving objects, initial encounter; Y93.89 Activity, other specified; Y92.89 Other specified places as the place of occurrence of the external cause; Y99.8 Other external cause status
CPT/HCPCS: 73080; 99282

== ENCOUNTER 2021-03-11 16:57 | Emergency (ER) | payer MEDICAID, SELFPAY ==
[2021-03-11 16:58] VITALS: BP 131/84; PULSE 95; RESP 16; TEMP 36.3; O2SAT 97; BMI 43.0
--- NOTE | 2021-03-11 17:51 | EX.ED.DYSGE1 ---
HPI History of Present Illness Chief Complaint: Back Informant: patient Onset/Context/Timing Onset: Today Current Severity: Moderate Maximum Severity: Severe Narrative Narrative: Patient presents with left flank pain after a fall. She was standing on some steps when she took her dog outside. The dog took off after her cat and had the leash wrapped around her leg. Her legs were pulled out from underneath her and she hit her left flank area on the edge of the step. She had pain to the left flank area since that time. She denies hematuria. [facility] Medical History (Updated 03/11/21 @ 20:[address] Yanique Tim MD) Anxiety and depression Asthma Depression H/O psychiatric hospitalization Herniated nucleus pulposus, C5-6 History of asthma Home Medications oxycodone-acetaminophen [Percocet] 1 tab PO Q6H PRN 3 Days #10 tab 03/11/21 [Rx Last Taken Unknown] Allergy/AdvReac Type Severity Reaction Status Date / Time aspirin Allergy Hives Verified 03/11/21 17:51 chlorpromazine HCl Allergy Hives Verified 03/11/21 17:51 [From Thorazine] hydrocodone [From [place]] Allergy Hives Verified 03/11/21 17:51 naproxen Allergy Anaphylaxis Verified 03/11/21 17:51 oseltamivir [From Tamiflu] Allergy Swelling Verified 03/11/21 17:51 tramadol HCl [From Ultram] Allergy Hives Verified 03/11/21 17:51 Family History Father Cancer Heart disease Mother Myocardial infarction Surgical History History of arthroscopy of left knee Hx of tubal ligation Social History household members: significant other and children number of children: 4 Smoking Status: Current every day smoker tobacco type: cigarettes Tobacco: How many years used: 20 alcohol intake: never what type of physical activity do you participate in: none do you feel safe at home: Yes ROS ROS ED Constitutional Constitutional ED: Denies chills or fever(s) Eyes Eyes: Denies change in vision ENT ENT ED: Denies sore throat Cardiovascular Cardiovascular: Denies chest pain Respiratory/Chest Respiratory/Chest: Denies cough or dyspnea Gastrointestinal Gastrointestinal: Reports abdominal pain; Denies diarrhea, nausea or vomiting Genitourinary Genitourinary ED: Denies dysuria Musculoskeletal Musculoskeletal: Reports back pain Integumentary Denies rash Neurologic Neurologic: Denies headache(s) or weakness Allergic/Immunologic Allergic/Immunologic ED: Denies urticaria EXAM Physical Exam Const Vital Signs: 03/11/21 16:58 03/11/21 19:30 Temperature 97.4 F L Temperature Source Temporal Pulse Rate 95 62 Respiratory Rate 16 15 Blood Pressure 131/84 H 111/69 Blood Pressure Mean 99 83 Pulse Ox 97 96 Oxygen Delivery Method Room Air Room Air Positive well nourished and well developed General Appearance ED: well developed HEENT Reports moist mucous membranes Eyes PERRL and EOMs intact bilaterally Neck supple Chest Wall inspection of chest normal and palpation of chest normal Resp normal respiratory effort and clear to auscultation bilaterally Cardio regular rate and regular rhythm GI normal to inspection, nondistended, normoactive bowel sounds Extremity Extremity Narrative: Tenderness to the left flank. No overlying abrasions or ecchymoses. Neuro oriented x3 Sensorium / Orientation: alert MDM MDM MDM Narrative Medical decision making narrative: Patient given morphine and Zofran for pain. Lab work and urinalysis ordered. CT abdomen pelvis with IV contrast ordered due to concern for kidney injury. Lab Data Labs: Laboratory Results - last 24 hr 03/11/21 03/11/21 03/11/21 18:20 18:20 18:20 WBC 10.0 RBC 3.84 L Hgb 10.8 L Hct 33.0 L MCV 85.9 MCH 28.1 MCHC 32.7 RDW Std Deviation 57.1 H RDW Coeff of Mohan 18.0 H Plt Count 299 MPV 10.0 Immature Gran % (Auto) 0.200 Neut % (Auto) 50.5 Lymph % (Auto) 37.8 [place] % (Auto) 9.1 Eos % (Auto) 1.7 Baso % (Auto) 0.7 Absolute Neuts (auto) 5.1 Absolute Lymphs (auto) 3.80 Nucleated RBC % 0 Sodium 143 Potassium 3.5 Chloride 114 H Carbon Dioxide 26.0 Anion Gap 3 L BUN 6 L Creatinine 0.73 Estim Creat Clear Calc 103.85 Est GFR (MDRD) Af Amer 111 Est GFR (MDRD) Non-Af 92 BUN/Creatinine Ratio 8.2 L Glucose 103 Calcium 8.7 Serum , Qual NEGATIVE Urine Color Urine Clarity Urine pH Ur Specific [place] Urine Protein Urine Glucose (UA) Urine Ketones Urine Occult Blood Urine Nitrite Urine Bilirubin Urine Urobilinogen Ur Leukocyte Esterase Urine RBC Urine WBC Ur Squamous Epith Cells Urine Bacteria Urine Mucus 03/11/21 19:38 WBC RBC Hgb Hct MCV MCH MCHC RDW Std Deviation RDW Coeff of Mohan Plt Count MPV Immature Gran % (Auto) Neut % (Auto) Lymph % (Auto) [place] % (Auto) Eos % (Auto) Baso % (Auto) Absolute Neuts (auto) Absolute Lymphs (auto) Nucleated RBC % Sodium Potassium Chloride Carbon Dioxide Anion Gap BUN Creatinine Estim Creat Clear Calc Est GFR (MDRD) Af Amer Est GFR (MDRD) Non-Af BUN/Creatinine Ratio Glucose Calcium Serum , Qual Urine Color Yellow Urine Clarity Sl. Cloudy Urine pH 6.0 Ur Specific [place] 1.015 Urine Protein Negative Urine Glucose (UA) Normal Urine Ketones Negative Urine Occult Blood 10 H Urine Nitrite Negative Urine Bilirubin Negative Urine Urobilinogen 1 H Ur Leukocyte Esterase Negative Urine RBC 0 SEEN Urine WBC 0 SEEN Ur Squamous Epith Cells 0-5 SEEN Urine Bacteria 0 SEEN Urine Mucus 0 SEEN Radiography Diagnostic Testing: Clinical Impression(s) from Imaging Studies Abdomen/Pelvis CT 03/11/21 17:53 IMPRESSION: No acute abnormalities in the abdomen or pelvis. Stable 2.2 cm right adrenal adenoma. Cholelithiasis. Diverticulosis. Electronically Signed: John Yoo MD at 20:22 EST Tel , Service support , Treatment and Re-Evaluation Comments:: Lab work is unremarkable. Renal function normal. CT reveals no evidence of acute injury. I did do an [facility] report. Patient has not had a narcotic for pain since July 2020. She will be given a short course of Percocet. Return instructions provided. Discharge Plan Triage Chief Complaint: Back ED Provider: Yanique Tim Dx/Rx/DC Orders Clinical Impression: Fall, Back pain Instructions: ED Back Pain (Acute or Chronic) Prescriptions: New oxycodone-acetaminophen [Percocet] 5-325 mg tablet 1 tab PO Q6H PRN (Reason: pain) 3 Days Qty: 10 RF: 0 Primary Care Provider: Care Physician,No Primary Referrals: Chirag Collier MD [STAFF PHYSICIAN] - 1-2 Weeks Care Physician,No Primary [Primary Care Provider] - Disposition Disposition: Home, Self Care
--- NOTE | 2021-03-11 17:53 | CT_ITS ---
INDICATION: fall EXAMINATION: CT Abdomen And Pelvis W/ Contrast Injection TECHNIQUE: Helically acquired images were obtained of the abdomen and pelvis after IV contrast. A radiation dose optimization technique was used for this scan. IV Contrast dosage and agent: IV 100mL [id number]-300 Oral contrast: None. COMPARISON: 04/01/2019. FINDINGS: Visualized lung bases: Unremarkable Liver: Unremarkable Gallbladder: Few small intraluminal stones seen. Spleen: Unremarkable Pancreas: Unremarkable Adrenal Glands: Stable 2.2 cm right adrenal adenoma. Kidneys: Scattered too small to characterize subcentimeter hypodensities bilaterally. Vasculature: Unremarkable GI Tract: Scattered diverticula throughout the colon without evidence of inflammation. Lymphadenopathy: None Peritoneum: No ascites. Bladder: Unremarkable Reproductive organs: Unremarkable Bones/Soft tissues: No suspicious osseous or soft tissue lesions CT/Abdomen/Pelvis W IV Cont ONLY IMPRESSION: No acute abnormalities in the abdomen or pelvis. Stable 2.2 cm right adrenal adenoma. Cholelithiasis. Diverticulosis. Electronically Signed: John Yoo MD at 20:22 EST Tel , Service support ,
[2021-03-11] MEDS: Morphine 4 MG/ML Syringe IV (18:13)
[2021-03-11] MEDS: Ondansetron 4 MG/2 ML Vial IV (18:13)
[2021-03-11 18:43] LABS: Absolute Neutrophil Count 5.1 X10^3/uL (2.0-7.7); Basophil# 0.07 X10^3/uL; Basophil% 0.7 % (0-1); Eosinophil# 0.17 X10^3/uL; Eosinophils% 1.7 % (0-5); Hemoglobin 10.8 g/dL (12.0-15.0); Lymphocyte % 37.8 % (19-41); Mean Corp Hgb Conc 32.7 g/dL (32-36); Mean Corpuscular Hgb 28.1 pg (27.0-32.0); Mean Corpuscular Volume 85.9 fL (81-99); Monocyte# 0.91 X10^3/uL; Monocyte% 9.1 % (0-10); NRBC Flagged by Analyzer 0 % (0-5); Neutrophil # 5.07 X10^3/uL (2.7-7.7); Neutrophil % 50.5 % (47-70); Platelet Count 299 K/mm3 (150-450); RBC Distribution Width SD 57.1 fl (35.1-43.9); Red Blood Count 3.84 M/mm3 (4.2-5.4)
[2021-03-11 18:52] LABS: Internal QC Validated? YES +Cl - CLEAR BKGD; Pregnancy, Serum, hCG Quali. NEGATIVE Negative
[2021-03-11 18:54] LABS: Anion Gap 3 (5-15); BUN 6 mg/dL (7-18); BUN/Creat Ratio 8.2 RATIO (10-20); Calcium,Total 8.7 mg/dL (8.5-10.1); Chloride 114 mmol/L (98-107); Creatinine, Serum 0.73 mg/dL (0.55-1.02); EST Glomerular Filtration Rate 92 mL/min (>60); Est Glom Filt Rate - Afr Amer 111 mL/min (>60); Estimated Creatinine Clearance 103.85 ml/min; Glucose 103 mg/dL (74-106); Potassium 3.5 mmol/L (3.5-5.1); Sodium Level 143 mmol/L (136-145)
[2021-03-11 19:30] VITALS: BP 111/69; PULSE 62; RESP 15; O2SAT 96
[2021-03-11 19:48] LABS: Bacteria 0 SEEN /hpf (None Seen); Mucous, Urine 0 SEEN /hpf (<or=2+); Red Blood Cells-Urine 0 SEEN /hpf (0-5); White Blood Cells 0 SEEN /hpf (0-5)
[2021-03-11 19:53] LABS: Color, Urine Yellow (Yellow); Glucose, Dipstick Normal (Normal); Ketone-Dipstick Negative (Negative); Leukocyte Esterase-Dipstick Negative /ul (Negative); Nitrite-Dipstick Negative (Negative); Occult Blood-Urine 10 /ul (Negative); Protein-Dipstick Negative (Negative); Specific Gravity, Urine 1.015 (1.002-1.030); Urine Bilirubin Dipstick Negative (Negative); Urine Clarity Sl. Cloudy (Clear); Urine Urobilinogen 1 mg/dl (Normal)
[2021-03-11 20:11] LABS: Squamous Epithelial Cells - UA 0-5 SEEN /hpf (5-10)
[2021-03-11 21:44] VITALS: BP 111/69; PULSE 62; RESP 15; O2SAT 96
== END 2021-03-11 21:44 | disposition home or self-care (01) ==
PROVIDERS: Emergency Provider Emergency Medicine
DX: M54.9 Dorsalgia, unspecified (principal); F17.210 Nicotine dependence, cigarettes, uncomplicated
CPT/HCPCS: 74177; 80048; 81001; 84703; 85025; 96374; 96375; 99283; Q9967; A4216; J2405

== ENCOUNTER 2021-08-23 20:55 | Emergency (ER) | payer MEDICAID, SELFPAY ==
[2021-08-23 20:56] VITALS: BP 144/97; PULSE 75; RESP 14; TEMP 37.2; O2SAT 99; BMI 39.2
--- NOTE | 2021-08-23 21:07 | EDS_ITS ---
HPI History of Present Illness Chief Complaint: Bite Informant: patient Onset/Context/Timing Onset: Today Context: Gradual Onset Timing: Continuous Quality: swelling Location: around both eyes Current Severity: Severe Maximum Severity: Severe Worsened by: nothing Relieved by: nothing but hasn't tried anything Associated Symptoms Associated Symptoms: forehead swelling mild Narrative Narrative: Patient states she was outside and got stung by a horse fly in the middle of her forehead. She then took a nap and woke up and she was severely swollen around both of her eyes. She denies pain, mildly itchy. She denies any shortness of breath, she does have a history of asthma and states it is not acting up. She denies any swelling in her hands or feet, lightheadedness, to ngue or throat swelling or any other symptoms. [facility] Medical History Anxiety and depression Asthma Depression H/O psychiatric hospitalization Herniated nucleus pulposus, C5-6 History of asthma Home Medications oxycodone-acetaminophen [Percocet] 1 tab PO Q6H PRN 3 Days #10 tab 03/11/21 [Rx Last Taken Unknown] prednisone 40 mg PO DAILY 3 Days #6 tablet 08/23/21 [Rx Last Taken Unknown] Allergy/AdvReac Type Severity Reaction Status Date / Time aspirin Allergy Hives Verified 08/23/21 20:56 chlorpromazine HCl Allergy Hives Verified 08/23/21 20:56 [From Thorazine] hydrocodone [From [place]] Allergy Hives Verified 08/23/21 20:56 naproxen Allergy Anaphylaxis Verified 08/23/21 20:56 oseltamivir [From Tamiflu] Allergy Swelling Verified 08/23/21 20:56 tramadol HCl [From Ultram] Allergy Hives Verified 08/23/21 20:56 Family History Father Cancer Heart disease Mother Myocardial infarction Surgical History History of arthroscopy of left knee Hx of tubal ligation Social History household members: significant other and children number of children: 4 Smoking Status: Current every day smoker tobacco type: cigarettes Tobacco: How many years used: 20 alcohol intake: never what type of physical activity do you participate in: none do you feel safe at home: Yes ROS ROS ED Constitutional Constitutional ED: Denies chills, fatigue or fever(s) Cardiovascular Cardiovascular: Denies chest pain, dyspnea, flutter in chest, lightheadedness or palpitations Respiratory/Chest Respiratory/Chest: Denies cough, dyspnea, dyspnea on exertion or wheezing Musculoskeletal Musculoskeletal: Denies back pain, extremity pain or joint pain Integumentary Reports pruritus; Denies abscess or rash Neurologic Neurologic: Denies numbness, syncope or weakness Psychiatric Psychiatric: Denies anxiety or depression Allergic/Immunologic Allergic/Immunologic ED: Reports as per HPI; Denies throat swelling, tongue swelling, hives, urticaria or wheezing EXAM Physical Exam Const Vital Signs: 08/23/21 20:56 08/23/21 21:13 Temperature 99 F Temperature Source Temporal Pulse Rate 75 87 Respiratory Rate 14 Blood Pressure 144/97 H Blood Pressure Mean 112 Pulse Ox 99 98 Oxygen Delivery Method Room Air Positive well nourished, well developed and obese General Appearance ED: well developed and NAD Nutritional Appearance: obese HEENT Reports normocephalic, head/scalp atraumatic and moist mucous membranes HEENT Narrative: No stridor or difficulty breathing or talking Eyes Eyes Narrative: Bilateral symmetric periorbital edema. Eyes normal. Resp normal respiratory effort and normal air movement Effort and Inspection: able to speak in complete sentences Cardio regular rate and regular rhythm Rate: Negative for tachycardic Extremity normal to inspection, full ROM and no pedal edema Neuro oriented x3, CN's II-XII intact bilaterally, no focal motor deficits, no sensory deficits noted and gait normal Psych mental status grossly normal and thought process normal Skin no rashes or lesions noted and no wounds Skin Narrative: No rashes MDM MDM MDM Narrative Medical decision making narrative: Given the contacts I think giving the patient Benadryl 75 mg and advising that she apply ice packs to her eyes will help with this and by tomorrow it should be significantly improved. Since I cannot guarantee this, I am happy to provide her a [id number] prescription for a short course of prednisone. Discussed this with her she is comfortable with that plan. Discharge Plan Triage Chief Complaint: Bite ED Provider: Aries Dhaliwal Dx/Rx/DC Orders Clinical Impression: Local reaction to insect sting Instructions: ED Insect Sting, Local Reaction Prescriptions: New prednisone 20 MG tablet 40 mg PO DAILY 3 Days Qty: 6 RF: 0 No Action oxycodone-acetaminophen [Percocet] 5-325 mg tablet 1 tab PO Q6H PRN (Reason: pain) 3 Days Qty: 10 RF: 0 Primary Care Provider: Care Physician,No Primary Referrals: Care Physician,No Primary [Primary Care Provider] - Doctor,Your [STAFF PHYSICIAN] - As Needed Disposition Disposition: Home, Self Care
[2021-08-23] MEDS: DiphenhydrAMINE 25 MG Capsule 75 MG PO (21:11)
[2021-08-23 21:13] VITALS: PULSE 87; O2SAT 98
== END 2021-08-23 21:28 | disposition home or self-care (01) ==
LOC: ED 21:20
PROVIDERS: Emergency Provider Emergency Medicine; Visit Provider Emergency Medicine
DX: S00.86XA Insect bite (nonvenomous) of other part of head, initial encounter (principal); W57.XXXA Bitten or stung by nonvenomous insect and other nonvenomous arthropods, initial encounter; F17.210 Nicotine dependence, cigarettes, uncomplicated; E66.9 Obesity, unspecified; Z68.39 Body mass index [BMI] 39.0-39.9, adult
CPT/HCPCS: 99283

== ENCOUNTER 2021-09-21 16:41 | Emergency (ER) | payer MEDICAID, SELFPAY ==
[2021-09-21 16:42] VITALS: BP 121/78; PULSE 79; RESP 18; TEMP 36.6; O2SAT 98; BMI 37.8
--- NOTE | 2021-09-21 17:13 | RAD_ITS ---
STUDY: XR Knee Complete 4 Views or More 09/21/2021 5:55 PM REASON FOR EXAM: Female, 46 years old. trauma TECHNIQUE: XR Knee Complete 4 Views or More LEFT COMPARISON: None FINDINGS: Normal visualized distal femur. Normal visualized proximal tibia and fibula. Normal proximal tibiofibular articulation. Normal medial femorotibial compartment. Normal lateral femorotibial compartment. Normal patellofemoral articulation. The soft tissue structures are unremarkable. RAD/Knee 4 or More Views IMPRESSION: There are no acute findings. Electronically Signed: Toby Wilson MD at 17:56 EDT ,
--- NOTE | 2021-09-21 17:20 | EDS_ITS ---
HPI HPI - Fall History of Present Illness Chief Complaint: Fall Informant: patient Narrative Narrative: Patient fell at about 930 this morning. Her dog pulled her. She states her left knee twisted but she fell onto her left hip. Its been sore ever since. She can bear weight but it is sore. She denies any other injury. She is not on any blood thinners. PFSH PFSH Medical History Anxiety and depression Asthma Depression H/O psychiatric hospitalization Herniated nucleus pulposus, C5-6 History of asthma Home Medications oxycodone-acetaminophen 5 mg-325 mg tablet (Percocet) 1 tab PO Q6H PRN pain 3 days #10 tabs 03/11/21 [Rx Last Taken Unknown] prednisone 20 mg tablet 40 mg PO DAILY 3 days #6 TABLETS 08/23/21 [Rx Last Taken Unknown] Allergy/AdvReac Type Severity Reaction Status Date / Time aspirin Allergy Hives Verified 09/21/21 16:42 chlorpromazine HCl Allergy Hives Verified 09/21/21 16:42 [From Thorazine] hydrocodone [From [place]] Allergy Hives Verified 09/21/21 16:42 naproxen Allergy Anaphylaxis Verified 09/21/21 16:42 oseltamivir [From Tamiflu] Allergy Swelling Verified 09/21/21 16:42 tramadol HCl [From Ultram] Allergy Hives Verified 09/21/21 16:42 Family History Father Cancer Heart disease Mother Myocardial infarction Surgical History History of arthroscopy of left knee Hx of tubal ligation Social History household members: significant other and children number of children: 4 Smoking Status: Current every day smoker tobacco type: cigarettes Tobacco: How many years used: 20 alcohol intake: never what type of physical activity do you participate in: none do you feel safe at home: Yes ROS ROS ED Constitutional Constitutional ED: Denies chills or fever(s) Eyes Eyes: Denies change in vision Cardiovascular Cardiovascular: Denies chest pain Respiratory/Chest Respiratory/Chest: Denies cough or dyspnea Gastrointestinal Gastrointestinal: Denies nausea or vomiting Musculoskeletal Musculoskeletal: Reports other Details: Left hip knee thigh area pain. No other complaints. ; Denies back pain or neck pain Integumentary Denies rash Neurologic Neurologic: Denies paresthesias or weakness Hematologic/Lymphatic Hematologic/Lymphatic: Denies easy bleeding or easy bruising EXAM Physical Exam Const Vital Signs: 09/21/21 16:42 09/21/21 17:18 Temperature 97.8 F Temperature Source Temporal Pulse Rate 79 Respiratory Rate 18 Respiratory Effort Normal Respiratory Depth Normal Respiratory Pattern Normal Blood Pressure 121/78 H Blood Pressure Mean 92 Pulse Ox 98 Oxygen Delivery Method Room Air Room Air Positive well nourished and well developed Constitutional Narrative: Patient is awake alert lying in bed. She can roll around without difficulty. She looks comfortable. She is nontoxic. General Appearance ED: well developed HEENT atraumatic Resp normal respiratory effort Back/Spine Thoracic Spine / Upper Back: Negative for pain with ROM Lumbar Spine / Lower Back: Negative for lumbar spinal tenderness Extremity Extremity Narrative: Patient has nonfocal soreness of her left knee. She points mostly to the anterior lateral aspect but is not focally tender. There is no erythema or contusion. It is stable to varus valgus stress. Extensor mechanism is intact. She also has some mild tenderness up the lateral thigh and over the greater trochanter. No inguinal pain. No tenderness with compression of her pelvis. Neuro oriented x3 Skin Skin Narrative: No notable abrasions or contusions. Lesions: no lesions MDM MDM MDM Narrative Medical decision making narrative: 4 view femur x-rays and 4 view left knee x-ray looked at by me and read by radiology shows no acute fracture. There are signs of old Johnny-Schlatter's disease in the knee has a fabella. Ice rest Tylenol should be appropriate. She requested a couple days off work. Radiography Diagnostic Testing: Clinical Impression(s) from Imaging Studies Knee X-Ray 09/21/21 17:13 IMPRESSION: There are no acute findings. Electronically Signed: Toby Wilson MD at 17:56 EDT Reading Location ID and State: [facility] / [place] , Service support , Femur X-Ray 09/21/21 17:25 IMPRESSION: Negative left femur x-rays. Electronically Signed: Toby Wilson MD at 17:56 EDT , Discharge Plan Triage Chief Complaint: Fall ED Provider: Ari Sweeney Dx/Rx/DC Orders Clinical Impression: Fall from slip, trip, or stumble, Contusion of hip, left, Strain of left knee Instructions: ED Contusion, Lower Extremity Prescriptions: No Action oxycodone-acetaminophen [Percocet] 5-325 mg tablet 1 tab PO Q6H PRN (Reason: pain) 3 Days Qty: 10 0RF prednisone 20 MG tablet 40 mg PO DAILY 3 Days Qty: 6 0RF Primary Care Provider: Care Physician,No Primary Referrals: Deirdre Gonzalez DO [STAFF PHYSICIAN] - 3-5 Days Care Physician,No Primary [Primary Care Provider] - Disposition Disposition: Home, Self Care
--- NOTE | 2021-09-21 17:25 | RAD_ITS ---
EXAM: XR LEFT FEMUR, 2 VIEWS CLINICAL INDICATION: trauma TECHNIQUE: Frontal and lateral views of the left femur. This report was created using Room 77 report generation technology. COMPARISON: None. FINDINGS: BONES/JOINTS: Unremarkable. No acute fracture. No subluxation. Normal alignment. Preservation of the joint space. No sclerotic or destructive changes observed. SOFT TISSUES: Unremarkable. No soft tissue swelling or gas. No radiopaque foreign body. RAD/Femur Min 2 Views IMPRESSION: Negative left femur x-rays. Electronically Signed: Toby Wilson MD at 17:56 EDT ,
== END 2021-09-21 18:30 | disposition home or self-care (01) ==
PROVIDERS: Emergency Provider Emergency Medicine; Visit Provider Emergency Medicine
DX: S86.912A Strain of unspecified muscle(s) and tendon(s) at lower leg level, left leg, initial encounter (principal); S70.02XA Contusion of left hip, initial encounter; W17.89XA Other fall from one level to another, initial encounter; Y93.K1 Activity, walking an animal; Y99.8 Other external cause status; F17.210 Nicotine dependence, cigarettes, uncomplicated
CPT/HCPCS: 73552; 73564; 99282

== ENCOUNTER 2021-11-20 10:29 | Emergency (ER) | payer MEDICAID, SELFPAY ==
[2021-11-20 10:30] VITALS: BP 157/86; PULSE 69; RESP 14; TEMP 36.2; O2SAT 99; BMI 35.7
--- NOTE | 2021-11-20 10:40 | EX.ED.UPPERE ---
HPI History of Present Illness HPI Narrative: Patient presents with right shoulder pain that began after a fall 2 days ago. Patient states initially she did not have much pain in her shoulder. Patient states it has gradually gotten worse since yesterday. Patient states it is worse with any movement. Patient describes the pain as sharp. Patient states she is unable to lift her arm due to the pain. Patient denies any weakness. Patient does admit to some tingling into her fingers. Patient denies any head injury or loss of consciousness. Patient states the pain radiates up into the right side of her neck. Patient denies any midline neck pain. Chief Complaint: Upper Extremity Injury Informant: patient Occured/Mechanism Mechanism/Context: Yes fall Onset/Context/Timing Onset: Days (2) Context: Gradual Onset Timing: Continuous Quality of Pain: Sharp Location: Right shoulder Worsened by: Movement Relieved by: Nothing Associated Symptoms Associated Symptoms: Positive for Parasthesia; Negative for Weakness or Loss of Funtion PFSH PFSH Medical History Anxiety and depression Asthma Depression H/O psychiatric hospitalization Herniated nucleus pulposus, C5-6 History of asthma Home Medications oxycodone-acetaminophen 5 mg-325 mg tablet (Percocet) 1 tab PO Q6H PRN pain 3 days #10 tabs 03/11/21 [Rx Last Taken Unknown] prednisone 20 mg tablet 40 mg PO DAILY 3 days #6 TABLETS 08/23/21 [Rx Last Taken Unknown] Allergy/AdvReac Type Severity Reaction Status Date / Time aspirin Allergy Hives Verified 11/20/21 10:30 chlorpromazine HCl Allergy Hives Verified 11/20/21 10:30 [From Thorazine] hydrocodone [From [place]] Allergy Hives Verified 11/20/21 10:30 naproxen Allergy Anaphylaxis Verified 11/20/21 10:30 oseltamivir [From Tamiflu] Allergy Swelling Verified 11/20/21 10:30 tramadol HCl [From Ultram] Allergy Hives Verified 11/20/21 10:30 Family History Father Cancer Heart disease Mother Myocardial infarction Surgical History History of arthroscopy of left knee Hx of tubal ligation Social History household members: significant other and children number of children: 4 Smoking Status: Current every day smoker tobacco type: cigarettes Tobacco: How many years used: 20 alcohol intake: never what type of physical activity do you participate in: none do you feel safe at home: Yes ROS ROS ED Constitutional Constitutional ED: Denies chills or fever(s) Eyes Eyes: Denies blurry vision or change in vision ENT ENT ED: Denies rhinorrhea or sore throat Cardiovascular Cardiovascular: Denies chest pain or palpitations Respiratory/Chest Respiratory/Chest: Denies cough or dyspnea Gastrointestinal Gastrointestinal: Denies nausea or vomiting Genitourinary Genitourinary ED: Denies dysuria or hematuria Musculoskeletal Musculoskeletal: Reports neck pain; Denies back pain Integumentary Denies abscess or rash Neurologic Neurologic: Denies headache(s) or weakness Allergic/Immunologic Allergic/Immunologic ED: Denies mouth swelling or urticaria EXAM Physical Exam Const Vital Signs: 11/20/21 10:30 Temperature 97.1 F L Temperature Source Temporal Pulse Rate 69 Respiratory Rate 14 Blood Pressure 157/86 H Blood Pressure Mean 109 Pulse Ox 99 Oxygen Delivery Method Room Air Positive well nourished, well developed and obese General Appearance ED: well developed and NAD Nutritional Appearance: obese HEENT Reports moist mucous membranes Neck full ROM and supple Neck Narrative: There is some mild tenderness over the right cervical paraspinal muscles. There is no midline tenderness. There is no bony crepitance or step-off. There is good range of motion. Extremity Extremity Narrative: There is diffuse tenderness over the right shoulder. There is no edema or ecchymosis. There is no bony crepitance or step-off. Range of motion was limited in all motions of the right shoulder secondary to pain. There is also limited range of motion of the right elbow secondary to pain. Radial pulses are equal bilaterally. Sensation was intact to light touch in the radial, median, and ulnar areas. Strength is 5/5 in the radial, median, and ulnar areas. Neuro oriented x3, CN's II-XII intact bilaterally, moves all extremities, no focal motor deficits and no sensory deficits noted Sensorium / Orientation: alert Motor Exam: strength 5/5 throughout Psych mental status grossly normal MDM MDM MDM Narrative Medical decision making narrative: Patient was given a dose of oxycodone here. X-rays of the right shoulder were obtained. There are 4 views. On my interpretation, there is no acute fracture. There is no dislocation. There is no soft tissue swelling. Radiologist also interpreted the x-rays and agrees. Patient was advised of her findings. Patient was given a sling for comfort. Patient was instructed to ice and elevate the right shoulder. Patient was instructed to take Tylenol or ibuprofen as needed for pain. Patient understood and was agreeable with the plan. All questions were answered. Discharge Plan Triage Chief Complaint: Upper Extremity Injury ED Provider: Wilmer Calvin Dx/Rx/DC Orders Clinical Impression: Right shoulder strain, Fall Instructions: ED Shoulder Sprain Prescriptions: No Action oxycodone-acetaminophen [Percocet] 5-325 mg tablet 1 tab PO Q6H PRN (Reason: pain) 3 Days Qty: 10 0RF prednisone 20 MG tablet 40 mg PO DAILY 3 Days Qty: 6 0RF Primary Care Provider: Care Physician,No Primary Referrals: Katelin Walker MD [Med Staff - Senior Water Resources Engineer] - 3-5 Days Care Physician,No Primary [Primary Care Provider] - Disposition Disposition: Home, Self Care
--- NOTE | 2021-11-20 10:55 | RAD_ITS ---
STUDY: X-RAY - RIGHT SHOULDER REASON FOR EXAM: Female, 46 years old. Pain, decreased range of motion TECHNIQUE: 4 view(s) of the shoulder. COMPARISON: None. FINDINGS: Normal glenohumeral articulation. Normal acromioclavicular joint. Normal acromion. Normal humeral head and visualized proximal humerus. The soft tissue structures are unremarkable. Normal visualized pulmonary apex. RAD/Shoulder min 2 Views IMPRESSION: Normal x-ray examination of the shoulder. Electronically Signed: Curtis Braden MD at 11:14 EDT ,
[2021-11-20] MEDS: oxyCODONE 5 MG Tablet PO (11:05)
--- NOTE | 2021-11-20 12:21 | ED.RN ---
PT ANGRY UPON THIS RN ARRIVAL TO ROOM. ATTEMPTS TO ASK WHAT PT IS ANGRY ABOUT AND WHAT THIS NURSE COULD DO TO HELP. PT STATES YOU CAN'T DO NOTHING, TELLING ME TO TAKE TYLENOL IS STUPID, THIS HOSPITAL IS A FUCKING JOKE AND I WILL NEVER COME BACK. THIS RN ATTEMPTED TO DISCUSS WITH PT, PT STATES JUST PUT THE STUPID SLING ON AND I'M LEAVING. PT YELLING THRU HALLWAY ON WAY OUT
== END 2021-11-20 12:25 | disposition home or self-care (01) ==
PROVIDERS: Emergency Provider Emergency Medicine; Visit Provider Emergency Medicine
DX: S46.911A Strain of unspecified muscle, fascia and tendon at shoulder and upper arm level, right arm, initial encounter (principal); F17.210 Nicotine dependence, cigarettes, uncomplicated; J45.909 Unspecified asthma, uncomplicated; E66.9 Obesity, unspecified; Z79.52 Long term (current) use of systemic steroids; W19.XXXA Unspecified fall, initial encounter
CPT/HCPCS: 73030; 99283

== ENCOUNTER 2022-01-11 12:08 | Emergency (ER) | payer MEDICAID, SELFPAY ==
[2022-01-11 12:09] VITALS: BP 145/83; PULSE 66; RESP 16; TEMP 36.6; O2SAT 97; BMI 43.4
--- NOTE | 2022-01-11 12:24 | CT_ITS ---
STUDY: CT ABDOMEN AND PELVIS WITH CONTRAST REASON FOR EXAM: Female, 46 years old. Lower abdominal pain with radiation to the back. Painful urination. RADIATION DOSAGE (If Supplied By Facility): CTDIvol = ( 22.27 ) mGy, DLP = ( 1728.64 ) mGycm TECHNIQUE: Transaxial images were obtained from the dome of the diaphragm to the symphysis pubis without oral contrast. IV 100mL Isovue-300 was administered. Sagittal and coronal images were reconstructed. Individualized dose optimization techniques were used for this CT. COMPARISON: Comparison is made with prior study dated 03/11/2021. FINDINGS: The visualized lung bases are unremarkable. The visualized portions of the heart are within normal limits. There is decreased attenuation of the liver consistent with steatosis. There are multiple small gallstones. Normal spleen. Normal pancreas. There is a small, circumscribed, smooth, low attenuation right adrenal mass, consistent with an adrenal adenoma. This measures 2.9 cm. This is unchanged. Normal left adrenal gland. Normal right kidney. Stable small cyst in the upper pole of the left kidney. Normal visualized stomach. Normal small intestine. There are multiple colonic diverticula consistent with diverticulosis. The appendix is visualized and appears normal. There is scattered atherosclerotic calcification of the abdominal aorta, without a demonstrated aneurysm. Normal inferior vena cava. Normal retroperitoneum. Normal urinary bladder. There is evidence of bilateral tubal ligation. Normal abdominal wall. Disc space narrowing and disc degeneration and spondylosis at the L5-S1 level. CT/Abdomen/Pelvis WITH Contrast IMPRESSION: Fatty infiltration of the liver. Multiple small gallstones. Stable right adrenal adenoma. Sigmoid diverticulosis. Electronically Signed: Markel Diaz MD at 14:57 EDT ,
--- NOTE | 2022-01-11 12:24 | ED.VIS.GI ---
HPI HPI - GI History of Present Illness Chief Complaint: Abd Pain Detail of Chief Complaint: Abdominal pain off and on for a month and a half Informant: patient Abdominal Pain/Flank Pain Current Severity: 8/10 Narrative Narrative: Patient presents to the emergency department with complaint of abdominal pain that started about a month and a half ago. Patient's had the pain off and on. Patient states the pain became more severe last evening and now feels like it is radiating to her back. Patient states that she try to have a bowel movement last night. Time she tried to put she would have severe pain on the lower abdomen. Patient denies any vomiting or diarrhea. She denies blood in her stool or black tarry stool. Patient states that she had a temperature last night up to 100.0. She is not had any prior abdominal surgeries other than tubal ligation. Patient currently rates the pain an 8 out of 10. [facility] Medical History Anxiety and depression Asthma Depression H/O psychiatric hospitalization Herniated nucleus pulposus, C5-6 History of asthma Home Medications oxycodone-acetaminophen 5 mg-325 mg tablet (Percocet) 1 tab PO Q6H PRN pain 3 days #10 tabs 03/11/21 [Rx Last Taken Unknown] prednisone 20 mg tablet 40 mg PO DAILY 3 days #6 TABLETS 08/23/21 [Rx Last Taken Unknown] dicyclomine 10 mg capsule 20 mg PO TIDAC PRN cramps #20 CAPSULES 01/11/22 [Rx Last Taken Unknown] oxycodone-acetaminophen 5 mg-325 mg tablet 1 tab PO Q6H PRN PRN Pain 3 days #12 TABLETS 01/11/22 [Rx Last Taken Unknown] Allergy/AdvReac Type Severity Reaction Status Date / Time aspirin Allergy Hives Verified 01/11/22 12:11 chlorpromazine HCl Allergy Hives Verified 01/11/22 12:11 [From Thorazine] hydrocodone [From [place]] Allergy Hives Verified 01/11/22 12:11 naproxen Allergy Anaphylaxis Verified 01/11/22 12:11 oseltamivir [From Tamiflu] Allergy Swelling Verified 01/11/22 12:11 tramadol HCl [From Ultram] Allergy Hives Verified 01/11/22 12:11 Family History Father Cancer Heart disease Mother Myocardial infarction Surgical History History of arthroscopy of left knee Hx of tubal ligation Social History household members: significant other and children number of children: 4 Smoking Status: Current every day smoker tobacco type: cigarettes Tobacco: How many years used: 20 alcohol intake: never what type of physical activity do you participate in: none do you feel safe at home: Yes ROS ROS ED Review of Systems ROS Unobtainable: other Constitutional Constitutional ED: Reports lethargy; Denies chills, fever(s), sweats or weight loss Eyes Eyes: Denies blurry vision, change in vision or diplopia ENT ENT ED: Denies rhinorrhea or sore throat Cardiovascular Cardiovascular: Denies chest pain, orthopnea or racing heartbeat Respiratory/Chest Respiratory/Chest: Denies cough, dyspnea, dyspnea on exertion, orthopnea or sputum Gastrointestinal Gastrointestinal: Reports abdominal pain; Denies diarrhea, nausea or vomiting Genitourinary Genitourinary ED: Denies dysuria, hematuria or urinary frequency Musculoskeletal Musculoskeletal: Denies arthralgias, back pain, myalgias or neck pain Integumentary Denies abscess, Abrasions or rash Neurologic Neurologic: Denies headache(s) or weakness Psychiatric Psychiatric: Denies anxiety, depression or suicidal thoughts Endocrine Endocrinology: Denies polydipsia, polyphagia or polyuria Hematologic/Lymphatic Hematologic/Lymphatic: Denies easy bleeding, easy bruising or lymphadenopathy Allergic/Immunologic Allergic/Immunologic ED: Denies mouth swelling, tongue swelling or urticaria EXAM Physical Exam Const Vital Signs: 01/11/22 12:09 Temperature 97.8 F Temperature Source Temporal Pulse Rate 66 Respiratory Rate 16 Blood Pressure 145/83 H Blood Pressure Mean 103 Pulse Ox 97 Oxygen Delivery Method Room Air Positive well nourished and well developed General Appearance ED: well developed and NAD HEENT Reports TM's clear and moist mucous membranes normocephalic and atraumatic; Negative for trauma or tenderness Tympanic Membrane ED: Yes TM's clear Eyes PERRL and EOMs intact bilaterally General Eye ED: Negative for pale conjunctiva or scleral icterus Neck no lymphadenopathy, supple and no JVD General: Negative for tenderness Chest Wall inspection of chest normal and palpation of chest normal Chest: Negative for tenderness Resp normal respiratory effort and clear to auscultation bilaterally Effort and Inspection: Negative for respiratory distress or pain with movement Auscultation: Negative for rhonchi, wheezes or diminished lung sounds Cardio regular rate, regular rhythm, S1 normal heart sound, S2 normal heart sound and no murmurs Peripheral Pulses: pulses 2+ throughout GI normal to inspection, nondistended, normoactive bowel sounds, soft to palpation, non-distended and no masses GI Narrative: Tender to palpation over the left lower quadrant. There are some mild fullness over the suprapubic region. There is no rebound, rigidity, or peritoneal signs. No obvious hernias palpated. Patient is morbidly obese. Back/Spine no CVA tenderness and no thoracic nor lumbar tenderness Extremity normal to inspection General Extremety ED: Negative for edema General Extremity: Negative for edema Neuro oriented x3, CN's II-XII intact bilaterally, no sensory deficits noted and gait normal Sensorium / Orientation: awake, alert, oriented to person, oriented to place and oriented to time Motor Exam: strength 5/5 throughout and strength abnormal Psych mental status grossly normal Skin no rashes or lesions noted and no wounds MDM MDM MDM Narrative Medical decision making narrative: IV line established. Patient placed on normal saline. CBC with differential showing a 10.6. Chemistries unremarkable. LFTs were normal. Urinalysis was normal. CT scan of the abdomen pelvis with IV and p.o. contrast showed some gallstones and some diverticulosis otherwise nothing acute. Stable exam. Patient was given morphine and Zofran for pain. At this point etiology of her pain unclear although this appears to be a chronic issue. Patient will be given referral to GI. She will be given a prescription for Bentyl and a few [place] for severe pain. Patient also advised to follow-up with her [employer] as he has before COVID she was having a lot of issues with heavy menstrual periods and they were to do a hysterectomy and she has had some issues with ovarian cysts. Etiology of her abdominal pain is unclear. Lab Data Attestation: I reviewed the patient's lab results. Labs: Laboratory Results - last 24 hr 01/11/22 01/11/22 01/11/22 12:41 12:45 12:45 WBC 10.6 RBC 3.77 L Hgb 11.9 L Hct 36.4 L MCV 96.6 MCH 31.6 MCHC 32.7 RDW Std Deviation 59.7 H RDW Coeff of Mohan 16.9 H Plt Count 318 MPV 9.9 Immature Gran % (Auto) 0.500 Neut % (Auto) 58.6 Lymph % (Auto) 31.9 Bowie % (Auto) 7.3 Eos % (Auto) 1.1 Baso % (Auto) 0.6 Absolute Neuts (auto) 6.2 Absolute Lymphs (auto) 3.37 Nucleated RBC % 0 Sodium 143 Potassium 3.8 Chloride 113 H Carbon Dioxide 25.0 Anion Gap 5 BUN 5 L Creatinine 0.59 Estim Creat Clear Calc 127.16 Est GFR (MDRD) Af Amer 142 Est GFR (MDRD) Non-Af 118 BUN/Creatinine Ratio 8.5 L Glucose 92 Lactic Acid Calcium 8.6 Total Bilirubin 0.30 AST 7 L ALT 14 Alkaline Phosphatase 58 Total Protein 6.8 Albumin 3.3 Globulin 3.5 Albumin/Globulin Ratio 0.9 Serum , Qual Urine Color Yellow Urine Clarity Clear Urine pH 6.0 Ur Specific [place] 1.010 Urine Protein Negative Urine Glucose (UA) Normal Urine Ketones Negative Urine Occult Blood 50 H Urine Nitrite Negative Urine Bilirubin Negative Urine Urobilinogen Normal Ur Leukocyte Esterase 25 H Urine RBC 0-5 SEEN Urine WBC 0-5 SEEN Ur Squamous Epith Cells 0-5 SEEN Urine Bacteria RARE Urine Mucus 0 SEEN 01/11/22 01/11/22 12:45 12:45 WBC RBC Hgb Hct MCV MCH MCHC RDW Std Deviation RDW Coeff of Mohan Plt Count MPV Immature Gran % (Auto) Neut % (Auto) Lymph % (Auto) [place] % (Auto) Eos % (Auto) Baso % (Auto) Absolute Neuts (auto) Absolute Lymphs (auto) Nucleated RBC % Sodium Potassium Chloride Carbon Dioxide Anion Gap BUN Creatinine Estim Creat Clear Calc Est GFR (MDRD) Af Amer Est GFR (MDRD) Non-Af BUN/Creatinine Ratio Glucose Lactic Acid 0.8 Calcium Total Bilirubin AST ALT Alkaline Phosphatase Total Protein Albumin Globulin Albumin/Globulin Ratio Serum , Qual NEGATIVE Urine Color Urine Clarity Urine pH Ur Specific [place] Urine Protein Urine Glucose (UA) Urine Ketones Urine Occult Blood Urine Nitrite Urine Bilirubin Urine Urobilinogen Ur Leukocyte Esterase Urine RBC Urine WBC Ur Squamous Epith Cells Urine Bacteria Urine Mucus Radiography Diagnostic Testing: Clinical Impression(s) from Imaging Studies Abdomen/Pelvis CT 01/11/22 12:24 IMPRESSION: Fatty infiltration of the liver. Multiple small gallstones. Stable right adrenal adenoma. Sigmoid diverticulosis. Electronically Signed: Markel Diaz MD at 14:57 EDT , Discharge Plan Triage Chief Complaint: Abd Pain ED Provider: Da Merida Dx/Rx/DC Orders Clinical Impression: Abdominal pain Instructions: ED Abdominal Pain Unkn Cause Fem Prescriptions: New dicyclomine 10 mg capsule 20 mg PO TIDAC PRN (Reason: cramps) Qty: 20 0RF oxycodone-acetaminophen [oxycodone-acetaminophen] 5-325 mg tablet 1 tab PO Q6H PRN PRN (Reason: Pain) 3 Days Qty: 12 0RF No Action oxycodone-acetaminophen [Percocet] 5-325 mg tablet 1 tab PO Q6H PRN (Reason: pain) 3 Days Qty: 10 0RF prednisone 20 MG tablet 40 mg PO DAILY 3 Days Qty: 6 0RF Primary Care Provider: Care Physician,No Primary Referrals: Friend,Jose, DO [Med Staff - Active Staff] - 3-5 Days Care Physician,No Primary [Primary Care Provider] - Disposition Disposition: Home, Self Care
[2022-01-11] MEDS: Ondansetron 4 MG/2 ML Vial IV (12:47)
[2022-01-11] MEDS: 0.9% Normal Saline 1,000 ML 125 ML IV (12:47)
[2022-01-11] MEDS: Morphine 4 MG/ML Syringe IV (12:47)
[2022-01-11 12:58] LABS: Mucous, Urine 0 SEEN /hpf (<or=2+)
[2022-01-11 13:10] LABS: Absolute Lymphocyte Count 3.37 X10^3/uL (0.83-4.51); Absolute Neutrophil Count 6.2 X10^3/uL (2.0-7.7); Basophil# 0.06 X10^3/uL; Basophil% 0.6 % (0-1); Eosinophil# 0.12 X10^3/uL; Eosinophils% 1.1 % (0-5); Hematocrit 36.4 % (37-47); Hemoglobin 11.9 g/dL (12.0-15.0); Lymphocyte # 3.37 X10^3/ul (0.83-4.51); Lymphocyte % 31.9 % (19-41); Mean Corp Hgb Conc 32.7 g/dL (32-36); Mean Corpuscular Hgb 31.6 pg (27.0-32.0); Mean Corpuscular Volume 96.6 fL (81-99); Mean Platelet Vol. 9.9 fl (6.2-12.0); Monocyte# 0.77 X10^3/uL; Monocyte% 7.3 % (0-10); NRBC Flagged by Analyzer 0 % (0-5); Neutrophil # 6.18 X10^3/uL (2.7-7.7); Neutrophil % 58.6 % (47-70); Platelet Count 318 K/mm3 (150-450); RBC Distribution Width CV 16.9 % (11.6-14.6); RBC Distribution Width SD 59.7 fl (35.1-43.9); Red Blood Count 3.77 M/mm3 (4.2-5.4); White Blood Count 10.6 K/mm3 (4.4-11.0)
[2022-01-11 13:17] LABS: Color, Urine Yellow (Yellow); Glucose, Dipstick Normal (Normal); Ketone-Dipstick Negative (Negative); Leukocyte Esterase-Dipstick 25 /ul (Negative); Nitrite-Dipstick Negative (Negative); Occult Blood-Urine 50 /ul (Negative); Protein-Dipstick Negative (Negative); Urine Bilirubin Dipstick Negative (Negative); Urine Clarity Clear (Clear); Urine Urobilinogen Normal (Normal)
[2022-01-11 13:19] LABS: ALB/GLOB Ratio 0.9 RATIO (0.9-2.4); AST(SGOT) 7 U/L (15-37); Alanine Aminotransfer ALT/SGPT 14 U/L (13-56); Albumin, Serum 3.3 g/dL (3.2-5.0); Alkaline Phosphatase 58 U/L (45-117); Anion Gap 5 (5-15); BUN 5 mg/dL (7-18); BUN/Creat Ratio 8.5 RATIO (10-20); Calcium,Total 8.6 mg/dL (8.5-10.1); Chloride 113 mmol/L (98-107); Creatinine, Serum 0.59 mg/dL (0.55-1.02); EST Glomerular Filtration Rate 118 mL/min (>60); Est Glom Filt Rate - Afr Amer 142 mL/min (>60); Estimated Creatinine Clearance 127.16 ml/min; Globulin 3.5 g/dL (2.2-4.2); Glucose 92 mg/dL (74-106); Potassium 3.8 mmol/L (3.5-5.1); Protein, Total 6.8 g/dL (6.4-8.2); Sodium Level 143 mmol/L (136-145)
[2022-01-11 13:26] LABS: Internal QC Validated? YES +Cl - CLEAR BKGD; Pregnancy, Serum, hCG Quali. NEGATIVE Negative
[2022-01-11 13:26] LABS: Bacteria RARE /hpf (None Seen); Red Blood Cells-Urine 0-5 SEEN /hpf (0-5); Squamous Epithelial Cells - UA 0-5 SEEN /hpf (5-10); White Blood Cells 0-5 SEEN /hpf (0-5)
[2022-01-11 13:37] LABS: Lactic Acid 0.8 mmol/L (0.4-1.9)
[2022-01-11 14:09] VITALS: PULSE 88; RESP 20; O2SAT 100
== END 2022-01-11 15:21 | disposition home or self-care (01) ==
PROVIDERS: Emergency Provider Emergency Medicine; Visit Provider Emergency Medicine
DX: R10.9 Unspecified abdominal pain (principal); F17.210 Nicotine dependence, cigarettes, uncomplicated
CPT/HCPCS: 74177; 80053; 81001; 83605; 84703; 85025; 96374; 96375; 99283; J7030; Q9967; A4216; J2405

== ENCOUNTER 2022-02-15 12:42 | Day surgery (SDC) | payer MEDICAID, SELFPAY ==
--- NOTE | 2022-02-14 18:34 | PCM.HP.BLA ---
History and Physical Date of Admission: 02/15/22 ? Jono Belcher 1975 ? ? REFERRING PHYSICIAN:? ?Self ? CHIEF COMPLAINT:? ?Gallstones? ? HPI: The patient is a 46 year old female notes RUQ abdominal pain.? She states that this is intermittent.? She had known gallstones prior to COVID but this has not bothered her until recently.? She has noted severe pain - severe ache in the RUQ with intermittent sharp pains for the past two weeks.? She also has accompanying nausea.? She denies fevers. She denies icterus or jaundice. ? US obtained 01/17/2022 obtained at [facility]: FINDINGS:? The gallbladder is moderately distended with small calculi. There is no abnormal wall thickening. Negative sonographic Emery's sign..? ? ? PAST MEDICAL HISTORY ?Abnormal glandular Papanicolaou smear of cervix? ?Abn. Pap smear (cervix) ?Anemia? ?WITH ?Asthma? ?Back pain? ?Bipolar disorder (HCC)? ?Complication of anesthesia? ?BACK PAIN AT INSERTION SITE ?Diabetes (HCC)? ?Diabetes, gestational? ?Loose body in [id number] ?Left knee? ARTHROSCOPIC REMOVAL LOOSE BODY KNEE? ?Migraines? ?Obesity? ?Tobacco use disorder? ?Trauma? PAST SURGICAL HISTORY ?KNEE ARTHROSCOPY/SURGERY 1997, 2012 ?left X2 ?LIG/TRNSXJ FLP TUBE ABDL/VAG APPR UNI/BI 02/23/16 ?Tubal ligation ?VAGINOSCOPY 09 ? ? Current Outpatient Medications MedicationSig ?acetaminophen (TYLENOL EXTRA STRENGTH) 500 mg tabletTake 1,500 mg by mouth twice daily as needed. ?melatonin 10 mg tabTake? by mouth once daily. (Patient not taking: Reported on 01/26/2022) ?promethazine (PHENERGAN) 12.5 mg tabletTake 1 tablet by mouth every 6 hours as needed for Nausea/Vomiting. ?FLUoxetine (PROZAC) 20 mg capsuleTake 60 mg by mouth once daily. ? Gyphussp-Ry-Zpb-Fe-FA tabTake 1 tablet by mouth once daily. (Patient not taking: Reported on 01/04/2018 ? ? ALLERGIES: Aspirin, Naprosyn [Naproxen], [place] [Hydrocodone-Acetaminophen], Thorazine [Chlorpromazine], and Ultram [Tramadol] ? PERSONAL HISTORY:? Tobacco Use ?Smoking status:Every Day ? Packs/day:0.50 ? Years:35.00 ? Pack years:17.50 ? Types:Cigarettes ?Smokeless tobacco:Never ?Tobacco comments: ? 4 per day? Vaping Use ?Vaping Use:Never used Substance Use Topics ?Alcohol use:No ?Drug use:No ?? ? FAMILY MEDICAL HISTORY ?HeartFather? ?EmphysemaFather? ?Alcohol/DrugFather? ETOH ?ArthritisFather? ?HypertensionFather? ?other (tb)Father? ?HypertensionMaternal Grandmother? ?HypertensionMaternal Grandfather? ?DiabetesPaternal Grandmother? ?HypertensionPaternal Grandmother? ?HeartPaternal Grandfather? ?HypertensionPaternal Grandfather? ?ThyroidBrother? ?HypertensionSister? ? ? The review of systems data was entered by the nurse and reviewed by me ? Nursing Notes:? Gabbi Calderon LPN?? REVIEW OF SYSTEMS: ? ? ?General:? ?The patient denies fatigue, denies weight loss, denies weight gain, NOTES feeling hot, and denies feelings of cold. ? ? ?Eyes:? The patient denies glaucoma, denies eye injury/surgery, wears glasses. ? ? ?Ear/Nose/Throat:? The patient denies allergies, denies hayfever, denies ear infections, and denies bloody noses. ? ? ?Cardiovascular:? The patient NOTES chest pain, denies heart disease, denies high blood pressure,denies cardiac stent, denies prior heart attack, denies irregular heart beat, denies high cholesterol,? denies poor circulation, denies heart failure, other cardiac issues, NOTES claudication, denies cold feet, denies peripheral arterial stent. ? ? ?Respiratory:? The patient denies tuberculosis, denies pneumonia, denies frequent cough, denies pulmonary embolism, denies shortness of breath, and denies coughing up blood. ? ? ?Gastrointestinal:? The patient denies difficulty swallowing, NOTES acid reflux, NOTES ulcers, denies vomiting, denies jaundice/hepatitis, NOTES gallbladder problems, NOTES black or tarry stools, denies hemorrhoids, denies bleeding from rectum, denies diverticulitis, NOTES constipation, denies diarrhea, denies loss of stool control, and denies hernias. ? ? ?Kidney/Bladder:? The patient denies kidney stones, denies urine infections, and denies bloody urine. ? ? ?Skin:? The patient denies a history of skin cancer, denies bleeding/changing moles, and denies a history of skin rash. ? ? ?Neurologic:? The patient denies a history of epilepsy/convulsions, NOTES headaches, NOTES head injuries, and denies stroke/TIA. ? ? ?Psychiatric:? The patient denies psychiatric medications, denies depression, and denies voices, denies substance abuse. ? ? ?Endocrine:? The patient denies thyroid disorders, denies diabetes, and denies hormonal problems. ? ? ?Hematologic:? The patient denies a history of bruising, denies bleeding, and denies anemia, denies blood clots. ? ? ?Infections:? The patient denies a history of measles and mumps, denies rheumatic fever, and denies sexually transmitted diseases. ? ? ?Musculoskeletal:? The patient denies back pain/injury, denies back problems, denies sciatica, NOTES knee trouble, denies arthritis, or denies gout. When was patient's last Mammogram screening? Nothing noted ?Last Colonoscopy:? N/A? Gabbi Calderon LPN ? ? ? PHYSICAL EXAMINATION: ? General:? The patient is 46 year old female, well nourished, well hydrated in no acute distress.? The patient is oriented to time, place, and person. ? VITALS: Blood pressure 114/72, pulse 88, temperature 36.4 ?C (97.6 ?F), temperature source Temporal, resp. rate 16, height 175.3 cm (5' 9), weight 110.2 kg (243 lb), last menstrual period 01/20/2022, SpO2 98 %. Body mass index is 35.88 kg/m?.? ? Head ? Normocephalic. EOM intact with sclera clear and no icterus noted. Wearing glasses. Neck - supple with no jugular venous distention noted. Trachea is midline.? Lungs ? clear to auscultation. Normal breath sounds. No rales/rhonchi/wheezing noted. No labored breathing noted, such as retractions. No cough heard. Heart ? normal S1 and S2 auscultated. No rubs/clicks/murmurs noted. Regular rate. Abdomen ? soft and benign. Difficult to determine if any masses or organomegaly due to body habitus. Extremities ? no calf tenderness noted. No pitting edema noted. Skin ? normal skin integrity. Neurological ? gait normal, no focal deficits noted. Psych ? calm and appropriate? ? RADIOLOGIC STUDIES:? As Noted ? IMPRESSION: cholelithiasis, abdominal pain ? PLAN:? ?I have discussed the above with the patient. I have offered laparoscopic cholecystectomy, possible cholangiograms I have explained the procedure to the patient. I have counseled the patient as to the risks of the procedure, including but not limited to: infection, bleeding, injury to any blood vessels/nerves, scar tissue, injury to any intrabdominal organs, injury to bowel/bladder, injury to the common bile duct/biliary tree, bile leakage, intraabdominal abscess/bleeding, hernias at incisional sites, wound infections, complications of anesthesia, etc. ? the patient understands. The patient wishes to proceed. ? ? I have answered all questions to the patient?s satisfaction and the patient has no further questions. . Diagnoses: (R10.11) RUQ abdominal pain (K80.20) Gallstones ? ? ?
[2022-02-15] VITALS (10 sets, daily range): BP systolic 121–156; BP diastolic 61–74; PULSE 63–105; RESP 18–96; TEMP 36.4–37.1; O2SAT 28–98; BMI 34.5
[2022-02-15] MEDS: Lactated Ringers 1,000 ML 75 ML IV (13:20)
[2022-02-15] MEDS: Cefazolin 2 GM in 0.9% Normal Saline 100 ML IV (14:35)
--- NOTE | 2022-02-15 14:35 | GALL_PTH ---
PATIENT: ANGÉLICA JOHNSON LOC: [facility] [place] U#:[id number] AGE/SX: 46/F ROOM: RE02/15/[address]: Dr. Jacquelyn Hui MD : 1975 BED: DIS: 02/15/2022 SPEC #: [id number] RECD: 02/16/22 07:00 STATUS: BROOKE REAngely #: [id number] MARGARET: 02/15/22 14:[address]: Jacquelyn Hui DEPT: SURGICAL PATHOLOGY RECD BY: Rubina Sanchez ENTERED: 02/16/22 09:01 SP TYPE: MAN CRESPO DR: No Primary Care Phys Tissues: Gallbladder, NOS Procedures: Surgery Specimen Level III HEADER OPERATION: Laparoscopic cholecystectomy with IOC PRE-OP DIAGNOSIS: Cholelithiasis, abdominal pain TISSUE SUBMITTED: Gallbladder MICROSCOPIC DIAGNOSIS Gallbladder, cholecystectomy: Chronic cholecystitis and cholelithiasis. SJ:anh 02/18/2022 MICROSCOPIC DESCRIPTION Slides are reviewed. GROSS DESCRIPTION Received is one container labeled with the patient's name and designated gallbladder. The specimen consists of a gallbladder measuring 6.5 cm in length and up to 2 cm in diameter. The external surface is pink-cortes, smooth and glistening for the most part. Focally it is granular, hemorrhagic and contains cautery artifact. The gallbladder contains green-yellow mucoid bile and multiple black, irregular stones measuring in aggregate 1.5 x 1.5 x 0.5 cm and 0.3 to 0.4 cm in greatest dimension. The mucosa is bile-stained and without any mass lesions. The gallbladder wall measures up to 0.3 cm in thickness. Sr Technical Sales Consultant sections from the gallbladder and the cystic duct are submitted in one cassette. / SJ:rg 02/16/2022 TC:3 [facility]: [id number]
--- NOTE | 2022-02-15 14:50 | RAD_ITS ---
EXAM: FL CHOLANGIOGRAPHY AND/OR PANCREATOGRAPHY CLINICAL INDICATION: PAIN TECHNIQUE: Fluoroscopic cholangiogram and/or pancreatography of the right upper quadrant. Fluoroscopic guidance was provided by a physician. This report was created using [employer] report [employer] technology. COMPARISON: None. FINDINGS: Single fluoroscopic view of the abdomen in the OR demonstrates contrast material injected into the cystic duct remnant filling the distal portion of the common bile duct. No filling defects are seen within the distal duct. Contrast extends into the duodenum. Total fluoroscopy time of 5.2 seconds. Total dose of 1.1mGy. RAD/Cholangiogram/ O R,Initial IMPRESSION: As above. Electronically Signed: Jaycob Canela MD at 15:48 EST ,
[2022-02-15] MEDS: Lidocaine 2% /Epi 1:100 (20ml) 20 ML VIAL ×2 (15:02→15:55)
--- NOTE | 2022-02-15 16:06 | OP.PCM_ITS ---
Report of Operation Date of Procedure: 02/15/22 Pre-Operative Diagnosis: cholelithiasis, RUQ abdominal pain Post-Operative Diagnosis: same Surgery/Procedure Performed:: laparoscopic cholecystectomy with cholangiograms Description of Surgical Findings:: normal cholangiograms Surgeon: Jacqueyln Hui Type of Anesthesia: General Anesthesiologist: Wilmer Garcia Specimen's removed: gallbladder and contents Drains: none Estimated Blood Loss (mL): < 10 ml Fluids Replaced: 450 ml RL Description of Procedure: After informed consent was given, the patient was brought to the Operating Room. Appropriate time out protocol was followed. The patient was placed in the supine position. The patient was then placed under general endotracheal anesthesia by the anesthesia provider. The abdomen was then prepped with a sterile surgical skin preparation and sterile surgical drapes were placed. An area superior to the umbilical dimple was grasped with penetrating clamps and the skin and subcutaneous tissues were infiltrated with local anesthetic with epinephrine. A skin incision was then made with a 15 blade scalpel. The anterior abdominal wall was elevated and a Veress needle was carefully inserted into the intraabdominal cavity. It was checked to be in the proper position with a normal saline drop test. A CO2 pneumoperitoneum was then created. Once this was achieved, then the Veress needle was removed and an 11mm trocar was placed in its stead. A 10mm laparoscope was then inserted into the trocar and careful attention was directed to the intraabdominal contents. There was no evidence of injury to any intraabdominal organs from insertion of the Veress needle or the trocar. Under direct visualization, a 5mm subxiphoid trocar and two lateral 5mm right subcostal trocars were placed. The skin and subcutaneous tissues at these sites were infiltrated with local anesthetic with epinephrine prior to placement of these trocars. Attention was then directed to the right upper quadrant of the abdomen. Graspers were placed in the lateral trocars to grasp the distal aspect of the gallbladder and direct it cephalad and to grasp the gallbladder at Brock?s pouch and direct it laterally. Dissection then began on the proximal gallbladder continuing down to the area of the triangle of Calot to bluntly dissect out the cystic duct. The neck of the gallbladder was identified and blunt dissection continued to dissect out a segment of the cystic duct. A clip was then placed on the neck of the gallbladder. A small ductotomy was then made. A Ranfac catheter was brought in through a separate skin incision and placed into the cystic duct. An intraoperative cholangiogram was performed under fluoroscopy. The xray revealed no lesions in the common bile duct, arborization of the biliary tree, and good flow into the duodenum. The Ranfac catheter was then removed and two clips were placed proximal to the ductotomy and the cystic duct was then transected. The cystic artery was visualized and bluntly isolated and then two clips were placed proximally and one clip distally and then it was transected between the proximal and distal clips. The gallbladder was then from the liver bed using electroca utery. Once from the liver bed, it was placed in an Endobag and brought out via the umbilical port. It was then forwarded to pathology for analysis. The liver bed was carefully examined. There was no evidence of bile leakage or bleeding. The cystic duct stump and cystic artery stump had their clips intact and there was no evidence of bile leakage or bleeding. The remainder of the abdomen was grossly normal. The CO2 was released and all trocars removed intact. The periumbilical fascia was approximated with a [id number]-iv-yhdgt 0 vicryl suture. All skin incision were closed with 4-0 monocryl in a subdermal fashion. Cavilol and Steristrips were used to reinforce the skin closure. Sterile dressings were applied to all wounds. Sponge, needle and instrument count was verified and correct at time of skin closure. The patient was extubated and brought to the Recovery Room in stable condition. Complications none noted Admit VTE Documentation VTE Present on Admission: Yes VTE Mechan Device Prophylaxis: SCD's
[2022-02-15] MEDS: Ipratropium/Albuterol Sulfate 3 ML AMPUL.NEB INHALATION (17:00)
[2022-02-15] MEDS: Acetaminophen 500 MG Tablet PO (18:24)
== END 2022-02-15 18:42 | disposition home or self-care (01) ==
LOC: SDC 12:42 → AC 12:44
PROVIDERS: Referring Provider Surgery; Visit Provider Surgery
PROC: (CPT 47610; principal; 2022-02-15 14:15)
DX: K80.10 Calculus of gallbladder with chronic cholecystitis without obstruction (principal); F31.9 Bipolar disorder, unspecified; F17.210 Nicotine dependence, cigarettes, uncomplicated; M47.812 Spondylosis without myelopathy or radiculopathy, cervical region; Z86.16 Personal history of COVID-19; Z79.899 Other long term (current) drug therapy
CPT/HCPCS: 47563; 00790; 74300; 76000; 88304; 93005; 94640; 99251; J7050; J7120; G0463; J2405

== ENCOUNTER 2022-02-17 10:41 | Emergency (ER) | payer MEDICAID, SELFPAY ==
[2022-02-17 10:44] VITALS: BP 167/97; PULSE 94; RESP 20; TEMP 36.7; O2SAT 97; BMI 34.0
--- NOTE | 2022-02-17 10:53 | EKG12_ITS ---
Test Reason : PRE-OP Blood Pressure : / mmHG Vent. Rate : 061 BPM Atrial Rate : 061 BPM P-R Int : 148 ms QRS Dur : 078 ms QT Int : 416 ms P-R-T Axes : 010 012 028 degrees QTc Int : 418 ms Normal sinus rhythm Normal ECG When compared with ECG of 01-APR-2019 10:25, No significant change was found Confirmed by LIBBY PEACOCK, ESTEFANIA ([id number]), deputy editor in chief KARL CHAN ([id number]) on 02/21/2022 11:37:06 AM Referred By: KALI Confirmed By:ESTEFANIA SOUZA MD
--- NOTE | 2022-02-17 10:54 | EDS_ITS ---
HPI HPI - GI History of Present Illness Chief Complaint: Other, Pain/Inj Informant: patient Abdominal Pain/Flank Pain Onset: Days (2) Context: Gradual Onset Timing: Continuous Quality: Aching Location: Epigastric (And periumbilical mostly) and RUQ Current Severity: Severe Maximum Severity: Severe Worsened by: - (Vomiting) Relieved by: Nothing Nausea/Vomiting/Emesis GI Symptom: Positive for Nausea Onset: Yesterday Diarrhea/Melena/Hematochezia GI Symptom: Positive for - (No bowel movement since surgery); Negative for Diarrhea, Melena or Hematochezia Associated Symptoms Associated Symptoms: Negative for Dysuria, Frequency or Hematuria Narrative Narrative: 2 days ago patient had a laparoscopic cholecystectomy by Dr. Hui here. She has had no bowel movement since then. Her abdominal discomfort postoperatively of continued to worsen in the past 2 days, she has been vomiting and unable to keep any liquids down, she had a fever of 102 at home, she has a chronic cough that is no worse than usual. She feels short of breath because taking a deep breath makes her epigastrium hurt worse, and the pain radiates into her mid low back. No alcohol since this surgery. Other than asthma and arthritis she has no other major medical problems. [facility] Medical History Anxiety and depression Arthritis Asthma Cancer Depression H/O psychiatric hospitalization Herniated nucleus pulposus, C5-6 History of asthma History of edema History of pain when walking History of ulceration Injury of back Injury of head and neck Low iron Migraine headache Smoker Wears dentures Wears glasses Home Medications oxycodone 5 mg capsule 5 mg PO Q8H PRN pain 5 days #15 caps 02/15/22 [Rx Last Taken 02/17/22 0200] ciprofloxacin HCl 500 mg tablet 500 mg PO BID #20 TABLETS 02/17/22 [Rx Last Taken Unknown] metronidazole 500 mg tablet 500 mg PO BID #20 tabs 02/17/22 [Rx Last Taken Unknown] Allergy/AdvReac Type Severity Reaction Status Date / Time aspirin Allergy Hives Verified 02/17/22 10:44 chlorpromazine HCl Allergy Hives Verified 02/17/22 10:44 [From Thorazine] hydrocodone [From [place]] Allergy Hives Verified 02/17/22 10:44 naproxen Allergy Anaphylaxis Verified 02/17/22 10:44 oseltamivir [From Tamiflu] Allergy Swelling Verified 02/17/22 10:44 tramadol HCl [From Ultram] Allergy Hives Verified 02/17/22 10:44 Family History Father Cancer Heart disease Mother Myocardial infarction Surgical History History of arthroscopy of left knee Hx laparoscopic cholecystectomy Hx of tooth extraction Hx of tubal ligation Social History household members: significant other and children number of children: 4 Smoking Status: Current every day smoker tobacco type: cigarettes Tobacco: How many years used: 20 alcohol intake: never what type of physical activity do you participate in: none do you feel safe at home: Yes ROS ROS ED Constitutional Constitutional ED: Reports fever(s); Denies chills Eyes Eyes: Denies change in vision or diplopia ENT ENT ED: Denies rhinorrhea or sore throat Cardiovascular Cardiovascular: Denies chest pain or palpitations Respiratory/Chest Respiratory/Chest: Reports cough and dyspnea Gastrointestinal Gastrointestinal: Reports abdominal pain, nausea and vomiting; Denies diarrhea or melena Genitourinary Genitourinary ED: Denies dysuria, hematuria or urinary frequency Musculoskeletal Musculoskeletal: Reports back pain; Denies neck pain Integumentary Denies abscess or rash Neurologic Neurologic: Denies headache(s), paresthesias or weakness Psychiatric Psychiatric: Denies anxiety or suicidal thoughts EXAM Physical Exam Const Vital Signs: 02/17/22 10:44 02/17/22 10:58 02/17/22 10:58 Temperature 98.0 F 97.6 F L 97.6 F L Temperature Source Temporal Oral Oral Pulse Rate 94 94 94 Respiratory Rate 20 H 16 16 Respiratory Effort Respiratory Pattern Blood Pressure 167/97 H 147/90 H 147/90 H Blood Pressure Mean 120 109 109 Pulse Ox 97 97 97 Oxygen Delivery Method Room Air Room Air Room Air 02/17/22 11:05 02/17/22 11:58 02/17/22 12:58 Temperature 97.8 F 98.0 F Temperature Source Oral Oral Pulse Rate 72 83 Respiratory Rate 14 16 Respiratory Effort Normal Non-Labored Respiratory Pattern Normal Blood Pressure 156/84 H 142/82 H Blood Pressure Mean 108 102 Pulse Ox 97 96 Oxygen Delivery Method Room Air Room Air 02/17/22 13:58 Temperature 98.3 F Temperature Source Oral Pulse Rate 86 Respiratory Rate 18 Respiratory Effort Respiratory Pattern Blood Pressure 152/84 H Blood Pressure Mean 106 Pulse Ox 97 Oxygen Delivery Method Room Air Positive well nourished, well developed and obese General Appearance ED: well developed and NAD Nutritional Appearance: obese HEENT Reports moist mucous membranes normocephalic and atraumatic Eyes PERRL and EOMs intact bilaterally Neck full ROM and supple Resp normal respiratory effort and clear to auscultation bilaterally Cardio regular rate, regular rhythm and no murmurs GI GI Narrative: Postoperative laparoscopic incision dressings are in place and clean, dry, intact without any surrounding erythema or major tenderness at the skin level. Patient is tender severely in the epigastrium and right upper quadrant, less so throughout the rest of the right side, periumbilical, suprapubic areas. Nontender on the left. No guarding or rebound. Auscultation: hypoactive bowel sounds Palpation: soft Back/Spine no CVA tenderness General Back: other FROM Extremity normal to inspection and full ROM General Extremety ED: Negative for edema, pulses abnormal or tenderness General Extremity: Negative for edema or pulses abnormal Neuro oriented x3, CN's II-XII intact bilaterally and no sensory deficits noted Sensorium / Orientation: awake and alert Motor Exam: strength 5/5 throughout Skin no rashes or lesions noted and no wounds MDM MDM MDM Narrative Medical decision making narrative: Patient has symptoms initially sound like it could be due to an ileus, started with an acute abdominal series which is unremarkable on my interpretation, 4 views. No free air, no infiltrates, no pleural effusion, and the bowel gas pattern is nonspecific. Her labs show significant leukocytosis, normal liver enzymes and lipase. Discussed with surgery Dr. White, he advises and oral and IV contrast CT given the possibility for a bile leak. After evaluating the results of the CT, and discussing again with surgery, this patient is highly suspect for having a bile leak. The next best test to evaluate for that would be a HIDA scan. However the patient presents on , and that test is not available today although it would be available tomorrow morning. Dr. White came in to evaluate the patient and admit her, however the patient refuses to stay because of social issues at home, she understands risks, and demands to leave AGAINST MEDICAL ADVICE which I confirmed with her with subsequent conversation. She does have the capacity to make this decision at this time, she does understand the risks of an untreated bile leak which include but are not exclusive of biliary peritonitis, cholangitis with possible sepsis, and infected biloma as well has significant intra-abdominal inflammation with possible development of scar tissue and the possible delayed complications that come with that. Therefore I treated her with IV Zosyn and discharged her with Cipro and Flagyl prescriptions. Lab Data Attestation: I reviewed the patient's lab results. Labs: Laboratory Results - last 24 hr 02/17/22 02/17/22 11:05 11:05 WBC 21.4 H RBC 4.05 L Hgb 12.9 Hct 38.3 MCV 94.6 MCH 31.9 MCHC 33.7 RDW Std Deviation 52.8 H RDW Coeff of Mohan 15.0 H Plt Count 305 MPV 9.4 Immature Gran % (Auto) 0.500 Neut % (Auto) 79.9 H Lymph % (Auto) 11.5 L [place] % (Auto) 7.9 Eos % (Auto) 0.0 Baso % (Auto) 0.2 Absolute Neuts (auto) 17.1 H Absolute Lymphs (auto) 2.45 Nucleated RBC % 0 Diff Path Review May foll Hypersegmented Neuts 21.4 Sodium 137 Potassium 3.5 Chloride 107 Carbon Dioxide 23.0 Anion Gap 7 BUN 8 Creatinine 0.57 Estim Creat Clear Calc 131.63 Est GFR (MDRD) Af Amer 148 Est GFR (MDRD) Non-Af 122 BUN/Creatinine Ratio 14.0 Glucose 96 Calcium 8.8 Total Bilirubin 0.70 AST 16 ALT 28 Alkaline Phosphatase 62 Troponin I High Sens 8 Total Protein 7.3 Albumin 3.3 Globulin 4.0 Albumin/Globulin Ratio 0.8 L Lipase 67 L Radiography Diagnostic Testing: Clinical Impression(s) from Imaging Studies Acute Abdomen Series 02/17/22 11:45 IMPRESSION: 1. Normal x-ray examination of the chest. 2. Mild gaseous distention of the transverse colon noted. No visualized bowel obstruction by x-ray criteria. The soft tissue structures of the abdomen and pelvis are unremarkable. Bilateral adnexal surgical clips are present. Electronically Signed: Raheel Biswas MD at 12:09 EST , Abdomen/Pelvis CT 02/17/22 12:00 IMPRESSION: 1. Small amount of postoperative serous fluid is present in the cholecystectomy surgical bed. Electronically Signed: Raheel Biswas MD at 14:33 EST , Rhythm Strip Rhythm Strip: Sinus Rhythm Rate: 85 Ectopy: None EKG Initial EKG: Attestation: I personally reviewed and interpreted this EKG as follows: Interpretation: Sinus Rhythm and No Acute Injury Pattern Comments: nml EKG Discharge Plan Triage Chief Complaint: Other, Pain/Inj ED Provider: Aries Dhaliwal Dx/Rx/DC Orders Clinical Impression: Acute postoperative abdominal pain, Leukocytosis Instructions: AMA, Managing Post-Op Pain at Home Prescriptions: New metronidazole [metronidazole] 500 mg tablet 500 mg PO BID Qty: 20 0RF ciprofloxacin HCl [ciprofloxacin HCl] 500 mg tablet 500 mg PO BID Qty: 20 0RF No Action oxycodone 5 mg capsule 5 mg PO Q8H PRN (Reason: pain) 5 Days Qty: 15 0RF Primary Care Provider: Care Physician,No Primary Referrals: Jacquelyn Hui MD [Med Staff - Active Staff] - As soon as possible Care Physician,No Primary [Primary Care Provider] - Disposition Disposition: Against Medical Advice Capacity Capacity Assessment Tool Can the patient make a choice & communicate that choice?: Yes Can the patient understand benefits, risks and alternatives?: Yes Can the patient make a logical, rational choice?: Yes Is the choice the patient makes consistent w/ their values?: Yes Is there an impending, emergent risk to the patient?: Yes Is there a Surrogate Available?: Yes ()
[2022-02-17 10:58] VITALS: BP 147/90; PULSE 94; RESP 16; TEMP 36.4; O2SAT 97
--- NOTE | 2022-02-17 11:00 | EKG12_ITS ---
Test Reason : OTHER PAIN Blood Pressure : / mmHG Vent. Rate : 082 BPM Atrial Rate : 082 BPM P-R Int : 132 ms QRS Dur : 076 ms QT Int : 378 ms P-R-T Axes : 072 026 033 degrees QTc Int : 441 ms Normal sinus rhythm Nonspecific ST abnormality Abnormal ECG Confirmed by LIBBY PEACOCK, ESTEFANIA ([id number]), electronic news gathering editor KARL CHAN ([id number]) on 02/21/2022 11:51:45 AM Referred By: Confirmed By:ESTEFANIA SOUZA MD
[2022-02-17 11:14] LABS: Absolute Lymphocyte Count 2.45 X10^3/uL (0.83-4.51); Absolute Neutrophil Count 17.1 X10^3/uL (2.0-7.7); Basophil# 0.04 X10^3/uL; Basophil% 0.2 % (0-1); Eosinophil# 0.01 X10^3/uL; Hematocrit 38.3 % (37-47); Hemoglobin 12.9 g/dL (12.0-15.0); Lymphocyte # 2.45 X10^3/ul (0.83-4.51); Lymphocyte % 11.5 % (19-41); Mean Corp Hgb Conc 33.7 g/dL (32-36); Mean Corpuscular Hgb 31.9 pg (27.0-32.0); Mean Corpuscular Volume 94.6 fL (81-99); Mean Platelet Vol. 9.4 fl (6.2-12.0); Monocyte# 1.69 X10^3/uL; Monocyte% 7.9 % (0-10); NRBC Flagged by Analyzer 0 % (0-5); Neutrophil % 79.9 % (47-70); POSITIVE DIFFERENTIAL YES; Platelet Count 305 K/mm3 (150-450); RBC Distribution Width SD 52.8 fl (35.1-43.9); Red Blood Count 4.05 M/mm3 (4.2-5.4); White Blood Count 21.4 K/mm3 (4.4-11.0)
[2022-02-17] MEDS: Morphine 4 MG/ML Syringe IV ×2 (11:15→14:08)
[2022-02-17] MEDS: Ondansetron 4 MG/2 ML Vial IV (11:15)
[2022-02-17] MEDS: 0.9% Normal Saline 1,000 ML 999 ML IV (11:15)
[2022-02-17 11:16] LABS: Differential Indicated SCAN CRITERIA MET
[2022-02-17 11:31] LABS: ALB/GLOB Ratio 0.8 RATIO (0.9-2.4); AST(SGOT) 16 U/L (15-37); Alanine Aminotransfer ALT/SGPT 28 U/L (13-56); Albumin, Serum 3.3 g/dL (3.2-5.0); Alkaline Phosphatase 62 U/L (45-117); Anion Gap 7 (5-15); BUN 8 mg/dL (7-18); Calcium,Total 8.8 mg/dL (8.5-10.1); Chloride 107 mmol/L (98-107); Creatinine, Serum 0.57 mg/dL (0.55-1.02); EST Glomerular Filtration Rate 122 mL/min (>60); Est Glom Filt Rate - Afr Amer 148 mL/min (>60); Estimated Creatinine Clearance 131.63 ml/min; Glucose 96 mg/dL (74-106); Lipase 67 U/L (73-393); Potassium 3.5 mmol/L (3.5-5.1); Protein, Total 7.3 g/dL (6.4-8.2); Sodium Level 137 mmol/L (136-145); Troponin-I HS 8 pg/mL (3.0-54.0)
[2022-02-17 11:39] LABS: Hypersegmented Neutrophils 21.4
--- NOTE | 2022-02-17 11:45 | RAD_ITS ---
STUDY: X-RAY - ACUTE ABDOMINAL SERIES REASON FOR EXAM: Female, 46 years old. postop pain more on right/middle, vomiting TECHNIQUE: Single view of the chest. Supine, view(s) of the abdomen were obtained. COMPARISON: Chest x-ray dated April 01, 2019. CT of the abdomen and pelvis dated January 11, 2022 FINDINGS: The lungs are clear and expanded. Normal size heart. Normal mediastinum and mary. Normal visualized pulmonary arteries. Normal visualized aortic arch and descending thoracic aorta. Mild gaseous distention of the transverse colon noted. No visualized bowel obstruction by x-ray criteria. The soft tissue structures of the abdomen and pelvis are unremarkable. Bilateral adnexal surgical clips are present. Normal visualized osseous structures. RAD/Acute Abdomen Inc Chest IMPRESSION: 1. Normal x-ray examination of the chest. 2. Mild gaseous distention of the transverse colon noted. No visualized bowel obstruction by x-ray criteria. The soft tissue structures of the abdomen and pelvis are unremarkable. Bilateral adnexal surgical clips are present. Electronically Signed: Raheel Biswas MD at 12:09 EST ,
[2022-02-17 11:58] VITALS: BP 156/84; PULSE 72; RESP 14; TEMP 36.6; O2SAT 97
--- NOTE | 2022-02-17 12:00 | CT_ITS ---
STUDY: CT ABDOMEN AND PELVIS WITH CONTRAST REASON FOR EXAM: Female, 46 years old. postop pain epigast/R, leukocytosis, n/v. CHOLECYSTECTOMY 02/15/22. RADIATION DOSAGE (If Supplied By Facility): CTDIvol = ( 21.53 ) mGy, DLP = ( 1913.79 ) mGycm TECHNIQUE: Transaxial images were obtained from the dome of the diaphragm to the symphysis pubis without oral contrast. Oral and amp; IV Gastrografin and amp; 75mL Isovue-370 was administered. Sagittal and coronal images were reconstructed. Individualized dose optimization techniques were used for this CT. COMPARISON: CT of abdomen and pelvis dated January 11, 2022 FINDINGS: Mild subsegmental atelectasis is present in the lung bases. Normal liver. No intrahepatic biliary duct dilatation or liver mass. Small amount of postoperative serous fluid is present in the cholecystectomy surgical bed. A small amount of the fluid tracks down into the right lower quadrant and pelvis. Normal spleen. Normal pancreas. Normal bilateral adrenal glands. Normal right kidney. There is mild cortical atrophy of the left kidney, consistent with chronic medical renal disease. No hydronephrosis or renal masses. No visualized radiopaque stones. Normal visualized stomach. Normal small intestine. There are several sigmoid colonic diverticula consistent with diverticulosis. Normal remaining colonic loops. No bowel dilatation or obstruction. No free air or free fluid. The appendix is visualized and appears normal. There is diffuse atherosclerotic calcification of the abdominal aorta, without a demonstrated aneurysm. Normal inferior vena cava. Normal retroperitoneum. Normal urinary bladder. Unremarkable uterus and ovaries. Bilateral adnexal clips are present. Healed midline anterior abdominal wall incision tract. Normal osseous structures. CT/Abdomen/Pelvis WITH Contrast IMPRESSION: 1. Small amount of postoperative serous fluid is present in the cholecystectomy surgical bed. Electronically Signed: Raheel Biswas MD at 14:33 EST Reading Location ID and State: [facility] / [place] , Service support ,
[2022-02-17 12:58] VITALS: BP 142/82; PULSE 83; RESP 16; TEMP 36.7; O2SAT 96
[2022-02-17 13:58] VITALS: BP 152/84; PULSE 86; RESP 18; TEMP 36.8; O2SAT 97
--- NOTE | 2022-02-17 15:32 | EX.PCM.CON.S ---
Assessment & Plan Assessment/Plan (1) Acute postoperative abdominal pain: PLAN: I told the patient had like for her to come in so that we can get a HIDA scan on her in the morning to make sure that she did not have a bile leak. She said that there was no way possible that she was going to be able to do this because she had no one to take care of her children and if her did not go to work tomorrow he would lose her job and there was no one else to take care of her kids. I discussed the case with the ER physician we are going to give her some antibiotics and send her home on some antibiotics. I explained to her that if her pain gets worse she is going to have to come back to the emergency department we are going to have to admit her. Her plan is to follow-up on Monday with Dr. Hui. This is clearly not an ideal situation. Given the situation I really do not think she has a pulmonary embolus and the CAT scan really does not reveal any significant amount of postoperative fluid or signs of bleeding. HPI Consult Data Date of Consult: 02/17/22 HPI Narrative HPI Narrative: ANGÉLICA JOHNSON, is a 46 F who presents who 2 days ago patient had a laparoscopic cholecystectomy by Dr. Hui here.? She has had no bowel movement since then.? Her abdominal discomfort postoperatively of continued to worsen in the past 2 days, she has been vomiting and unable to keep any liquids down, she had a fever of 102 at home, she has a chronic cough that is no worse than usual.? She feels short of breath because taking a deep breath makes her epigastrium hurt worse, and the pain radiates into her mid low back.? No alcohol since this surgery.? Other than asthma and arthritis she has no other major medical problems. CT scan was performed which showed small amounts of postoperative serous fluid present in the cholecystectomy surgical bed. Her white count on admission was 21.4 hemoglobin is stable at 12.9 hematocrit 38.3 platelet count is 305 her total bilirubin is 0.7 and her liver function tests are all within normal limits. [facility] Medical History Anxiety and depression Arthritis Asthma Cancer Depression H/O psychiatric hospitalization Herniated nucleus pulposus, C5-6 History of asthma History of edema History of pain when walking History of ulceration Injury of back Injury of head and neck Low iron Migraine headache Smoker Wears dentures Wears glasses Home Medications oxycodone 5 mg capsule 5 mg PO Q8H PRN pain 5 days #15 caps 02/15/22 [Rx Last Taken 02/17/22 0200] Allergy/AdvReac Type Severity Reaction Status Date / Time aspirin Allergy Hives Verified 02/17/22 10:44 chlorpromazine HCl Allergy Hives Verified 02/17/22 10:44 [From Thorazine] hydrocodone [From [place]] Allergy Hives Verified 02/17/22 10:44 naproxen Allergy Anaphylaxis Verified 02/17/22 10:44 oseltamivir [From Tamiflu] Allergy Swelling Verified 02/17/22 10:44 tramadol HCl [From Ultram] Allergy Hives Verified 02/17/22 10:44 Family History Father Cancer Heart disease Mother Myocardial infarction Surgical History History of arthroscopy of left knee Hx laparoscopic cholecystectomy Hx of tooth extraction Hx of tubal ligation Social History household members: significant other and children number of children: 4 Smoking Status: Current every day smoker tobacco type: cigarettes Tobacco: How many years used: 20 alcohol intake: never what type of physical activity do you participate in: none do you feel safe at home: Yes ROS Constitutional Constitutional: Reports fever(s); Denies chills Cardiovascular Cardiovascular: Denies chest pain Gastrointestinal Gastrointestinal: Reports abdominal pain, nausea and vomiting; Denies diarrhea or hematochezia Genitourinary Genitourinary: Denies dysuria Integumentary Integumentary: Denies jaundice Neurologic Neurologic: Denies abnormal gait or dizziness Physical Exam Const alert, oriented x3 and no apparent distress Nutritional Appearance: obese HEENT normocephalic and head/scalp atraumatic Eyes PERRL and EOMs intact bilaterally Resp clear to auscultation bilaterally Cardio Rate: regular rate Rhythm: regular rhythm GI soft to palpation GI Narrative: Her dressings are dry and intact. She has no bruising around the dressings. There is no surrounding erythema. She is most tender in the epigastric area. There is no guarding rebound or peritoneal signs. Her abdomen is soft to palpation Palpation: tender epigastric Lab / Micro Data Result Diagrams: 02/17/22 11:05 02/17/22 11:05 Labs: Laboratory Results - last 24 hr 02/17/22 11:05: WBC 21.4 H, RBC 4.05 L, Hgb 12.9, Hct 38.3, MCV 94.6, MCH 31.9, MCHC 33.7, RDW Std Deviation 52.8 H, RDW Coeff of Mohan 15.0 H, Plt Count 305, MPV 9.4, Immature Gran % (Auto) 0.500, Neut % (Auto) 79.9 H, Lymph % (Auto) 11.5 L, [place] % (Auto) 7.9, Eos % (Auto) 0.0, Baso % (Auto) 0.2, Absolute Neuts (auto) 17.1 H, Absolute Lymphs (auto) 2.45, Nucleated RBC % 0, Diff Path Review May , Hypersegmented Neuts 21.4 02/17/22 11:05: Sodium 137, Potassium 3.5, Chloride 107, Carbon Dioxide 23.0, Anion Gap 7, BUN 8, Creatinine 0.57, Estim Creat Clear Calc 131.63, Est GFR (MDRD) Af Amer 148, Est GFR (MDRD) Non-Af 122, BUN/Creatinine Ratio 14.0, Glucose 96, Calcium 8.8, Total Bilirubin 0.70, AST 16, ALT 28, Alkaline Phosphatase 62, Troponin I High Sens 8, Total Protein 7.3, Albumin 3.3, Globulin 4.0, Albumin/Globulin Ratio 0.8 L, Lipase 67 L Rhythm Strip Rhythm Strip: Sinus Rhythm Rate: 85 Ectopy: None Radiology Impression Acute Abdomen Series 02/17/22 11:45 IMPRESSION: 1. Normal x-ray examination of the chest. 2. Mild gaseous distention of the transverse colon noted. No visualized bowel obstruction by x-ray criteria. The soft tissue structures of the abdomen and pelvis are unremarkable. Bilateral adnexal surgical clips are present. Electronically Signed: Raheel Biswas MD at 12:09 EST Reading Location ID and State: [facility] / [place] , Service support , Abdomen/Pelvis CT 02/17/22 12:00 IMPRESSION: 1. Small amount of postoperative serous fluid is present in the cholecystectomy surgical bed. Electronically Signed: Raheel Biswas MD at 14:33 EST ,
[2022-02-17 16:54] VITALS: BP 134/77; PULSE 77; RESP 16; O2SAT 94
[2022-02-18 13:29] LABS: Pathologist Review Reviewed
== END 2022-02-17 16:55 | disposition left against medical advice (07) ==
PROVIDERS: Emergency Provider Emergency Medicine; Visit Provider Emergency Medicine
DX: R10.13 Epigastric pain (principal); G89.18 Other acute postprocedural pain; D72.829 Elevated white blood cell count, unspecified; F17.210 Nicotine dependence, cigarettes, uncomplicated; E66.9 Obesity, unspecified
CPT/HCPCS: 74022; 74177; 80053; 83690; 84484; 85025; 93005; 96365; 96375; 96376; 99283; J7030; Q9967; A4216; J2405

== ENCOUNTER 2022-02-28 05:11 | Emergency (ER) | payer MEDICAID, SELFPAY ==
[2022-02-28 05:12] VITALS: BP 191/94; PULSE 67; RESP 16; TEMP 36.6; O2SAT 99; BMI 34.3
--- NOTE | 2022-02-28 05:36 | ED.VIS.GI ---
HPI HPI - GI History of Present Illness Chief Complaint: Abd Pain Detail of Chief Complaint: Post operative abdominal pain status post laparoscopic cholecystectomy Informant: patient Abdominal Pain/Flank Pain Onset: Weeks Context: Gradual Onset Timing: Continuous Quality: Aching Location: Epigastric and RUQ Current Severity: Mild Maximum Severity: Moderate Worsened by: Nothing Relieved by: Nothing Nausea/Vomiting/Emesis GI Symptom: Positive for Nausea and Vomiting Onset: Today Severity: Mild Diarrhea/Melena/Hematochezia GI Symptom: Negative for Diarrhea, Melena or Hematochezia Associated Symptoms Associated Symptoms: Negative for Dysuria, Frequency or Hematuria Narrative Narrative: 46-year-old female status post laparoscopic cholecystectomy on 1121 here at this facility by Dr. Jacquelyn Hui. Patient is reportedly had postoperative pain. She was seen here in emergency department had evaluation done including a CAT scan. At that time she had elevated white count. Dr. White was consulted for general surgery. Patient last needs medical advice was treated with IV antibiotics here and discharged home on Cipro and Flagyl. She has since followed up and the plan was to get an outpatient HIDA scan to evaluate her for biliary leak. She is complaining of the same pain. Has had nausea and vomiting last 24 hours. Denies dysuria. Denies fever. Prior similar symptoms: Yes Recent Illness/Hospitalization: No PFSH PFSH Medical History Anxiety and depression Arthritis Asthma Cancer Depression H/O psychiatric hospitalization Herniated nucleus pulposus, C5-6 History of asthma History of edema History of pain when walking History of ulceration Injury of back Injury of head and neck Low iron Migraine headache Smoker Wears dentures Wears glasses Home Medications acetaminophen 500 mg tablet 1,500 mg PO BID PRN Pain 02/28/22 [History Last Taken Unknown] ondansetron HCl 4 mg tablet 4 mg PO Q8 PRN Nausea 02/28/22 [History Last Taken Unknown] Allergy/AdvReac Type Severity Reaction Status Date / Time aspirin Allergy Hives Verified 02/17/22 10:44 chlorpromazine HCl Allergy Hives Verified 02/17/22 10:44 [From Thorazine] hydrocodone [From [place]] Allergy Hives Verified 02/17/22 10:44 naproxen Allergy Anaphylaxis Verified 02/17/22 10:44 oseltamivir [From Tamiflu] Allergy Swelling Verified 02/17/22 10:44 tramadol HCl [From Ultram] Allergy Hives Verified 02/17/22 10:44 Family History Father Cancer Heart disease Mother Myocardial infarction Surgical History History of arthroscopy of left knee History of cholecystectomy Hx laparoscopic cholecystectomy Hx of tooth extraction Hx of tubal ligation Social History household members: significant other and children number of children: 4 Smoking Status: Current every day smoker tobacco type: cigarettes Tobacco: How many years used: 20 alcohol intake: never what type of physical activity do you participate in: none do you feel safe at home: Yes ROS ROS ED ROS Narrative Abdominal pain. Nausea vomiting. Review of Systems ROS Unobtainable: Denies due to encephalopathy Constitutional Constitutional ED: Denies chills or fever(s) ENT ENT ED: Denies ear pain Cardiovascular Cardiovascular: Denies chest pain Respiratory/Chest Respiratory/Chest: Denies cough or dyspnea Gastrointestinal Gastrointestinal: Reports abdominal pain, nausea and vomiting; Denies constipation, diarrhea or melena Genitourinary Genitourinary ED: Denies dysuria or hematuria Musculoskeletal Musculoskeletal: Denies arthralgias Integumentary Denies abscess Neurologic Neurologic: Denies headache(s) Psychiatric Psychiatric: Denies anxiety Endocrine Endocrinology: Denies polydipsia Hematologic/Lymphatic Hematologic/Lymphatic: Denies easy bleeding Allergic/Immunologic Allergic/Immunologic ED: Denies mouth swelling or tongue swelling EXAM Physical Exam Narrative Exam Narrative: Well-appearing middle-aged female. Vital signs are stable afebrile. She does not look septic or toxic. She is emotionally upset and times tearful. H EENT exam unremarkable. Moist [place] members. Neck nontender. Lungs clear to auscultation bilaterally. Heart regular rate and rhythm rate about 70 no murmur. Abdomen soft. Nondistended normal bowel sounds no peritoneal signs. Well healing laparoscopic incisions. They are dry and clean. No discharge or cellulitis. She does have mild epigastric right upper quadrant tenderness. No peritoneal signs. No signs of obstruction. Positive bowel sounds. Moving all 4 extremities. Back nontender. Neurologically she is awake and alert. Const Vital Signs: 02/28/22 05:12 Temperature 97.9 F Temperature Source Oral Pulse Rate 67 Respiratory Rate 16 Blood Pressure 191/94 H Blood Pressure Mean 126 Pulse Ox 99 Oxygen Delivery Method Room Air Positive well nourished, well developed and obese; Negative for cachectic, contractures or unkempt General Appearance ED: well developed and NAD; Negative for unkempt, cachectic, contractures or pallor Nutritional Appearance: obese; Negative for cachectic HEENT Reports moist mucous membranes; Denies dry mucous membranes normocephalic and atraumatic; Negative for trauma or tenderness Mouth ED: No dry mucous membranes Mouth: No dry mucous membranes Eyes PERRL and EOMs intact bilaterally General Eye ED: Negative for pale conjunctiva Neck no lymphadenopathy, supple and no JVD General: Negative for tenderness Carotids: Negative for other Lymph Lymphatic: Negative for other Resp normal respiratory effort and clear to auscultation bilaterally Effort and Inspection: Negative for respiratory distress, retractions or pain with movement Auscultation: Negative for rales or rhonchi Cardio regular rate, regular rhythm, S1 normal heart sound, S2 normal heart sound and no murmurs Rate: Negative for bradycardia or tachycardic Rhythm: Negative for abnormal rhythm GI non-distended and no masses; Negative for non-tender GI Narrative: Well-healing laparoscopic abdominal incisions. Dry and clean. No discharge. No cellulitis. Moderate gastric right upper quadrant tenderness. No peritoneal signs. No signs of obstruction. Lower quadrants are nontender. Inspection: Negative for abdominal distention Auscultation: normoactive bowel sounds Palpation: soft and tender; Negative for guarding, rigid, hernia, mass or pulsatile mass Back/Spine no CVA tenderness General Back: Negative for CVA tenderness Cervical Spine: Negative for cervical spine tenderness Thoracic Spine / Upper Back: Negative for thoracic spinal tenderness Lumbar Spine / Lower Back: Negative for lumbar spinal tenderness Coccyx: Negative for other Extremity full ROM General Extremety ED: Negative for edema or tenderness General Extremity: Negative for edema Neuro CN's II-XII intact bilaterally and moves all extremities Sensorium / Orientation: alert, oriented to person, oriented to place and oriented to time; Negative for orientation impaired, confused, lethargic or stuporous Motor Exam: strength 5/5 throughout Psych mental status grossly normal and thought process normal Appearance: Negative for unkempt Attitude: No agitated Mood & Affect: Negative for depressed, anxious or tearful Skin no wounds General Skin Exam: Negative for jaundice or pallor Lesions: no lesions Rashes: no rashes Trauma: Negative for abrasion Nails: Negative for discolored MDM MDM MDM Narrative Medical decision making narrative: 46-year-old status post laparoscopic cholecystectomy on February 15. Was seen in the emergency department. Is pending an outpatient HIDA scan. Has recurrent epigastric right upper quadrant pain. She had a CAT scan of her abdomen that showed no specific abnormality. She will be treated with Toradol morphine and Zofran tonight. Screening labs are being obtained. I do not think we need to repeat CAT scan her. Repeat exam at 6:18 AM patient doing well.Feels improved after medications. We went over her test results. She is supposed to call and schedule her HIDA scan today. Its already been ordered according to the patient. She is needs to set up the date and time. Lab Data Attestation: I reviewed the patient's lab results. Lab results narrative: BC shows a white count 11.1 much improved from the prior 21. H&H 12.5 and 37. Platelets 393. Electrolytes show a gap of 7. Normal BUN and creatinine. Normal liver enzymes. Glucose of 108. Lipase is normal at 136. Labs are unremarkable white count is markedly improved from prior visit. Labs: Laboratory Results - last 24 hr 02/28/22 02/28/22 05:17 05:17 WBC 11.1 H RBC 3.88 L Hgb 12.5 Hct 37.4 MCV 96.4 MCH 32.2 H MCHC 33.4 RDW Std Deviation 55.6 H RDW Coeff of Mohan 15.7 H Plt Count 393 MPV 10.9 Immature Gran % (Auto) 0.400 Neut % (Auto) 62.7 Lymph % (Auto) 27.7 [place] % (Auto) 7.3 Eos % (Auto) 1.4 Baso % (Auto) 0.5 Absolute Neuts (auto) 6.9 Absolute Lymphs (auto) 3.07 Nucleated RBC % 0 Sodium 140 Potassium 3.9 Chloride 109 H Carbon Dioxide 24.0 Anion Gap 7 BUN 8 Creatinine 0.62 Estim Creat Clear Calc 121.01 Est GFR (MDRD) Af Amer 135 Est GFR (MDRD) Non-Af 111 BUN/Creatinine Ratio 12.9 Glucose 108 H Calcium 9.0 Total Bilirubin 0.30 AST 19 ALT 17 Alkaline Phosphatase 54 Total Protein 7.0 Albumin 3.3 Globulin 3.7 Albumin/Globulin Ratio 0.9 Lipase 136 Discharge Plan Triage Chief Complaint: Abd Pain ED Provider: Fred Porras Dx/Rx/DC Orders Clinical Impression: Acute postoperative abdominal pain, History of cholecystectomy Instructions: Abdominal Pain Prescriptions: No Action ondansetron HCl 4 mg tablet 4 mg PO Q8 PRN (Reason: Nausea) acetaminophen [Tylenol Ex Str Arthritis Pain] 500 mg Tablet 1,500 mg PO BID PRN (Reason: Pain) Primary Care Provider: Care Physician,No Primary Referrals: Jacquelyn Hui MD [Med Staff - Active Staff] - As soon as possible Care Physician,No Primary [Primary Care Provider] - Activity Restrictions/Additional Instructions: Tylenol and Motrin for pain. Call and follow-up with Dr. Jacquelyn Hui Monday to get your HIDA scan done. Disposition Disposition: Home, Self Care
[2022-02-28] MEDS: Ketorolac 15 MG/ML Vial IV (05:38)
[2022-02-28] MEDS: Ondansetron 4 MG/2 ML Vial IV (05:38)
[2022-02-28] MEDS: morphine 8 MG/ML Syringe IV (05:39)
[2022-02-28 05:41] LABS: Absolute Lymphocyte Count 3.07 X10^3/uL (0.83-4.51); Absolute Neutrophil Count 6.9 X10^3/uL (2.0-7.7); Basophil# 0.05 X10^3/uL; Basophil% 0.5 % (0-1); Eosinophil# 0.16 X10^3/uL; Eosinophils% 1.4 % (0-5); Hematocrit 37.4 % (37-47); Hemoglobin 12.5 g/dL (12.0-15.0); Lymphocyte # 3.07 X10^3/ul (0.83-4.51); Lymphocyte % 27.7 % (19-41); Mean Corp Hgb Conc 33.4 g/dL (32-36); Mean Corpuscular Hgb 32.2 pg (27.0-32.0); Mean Corpuscular Volume 96.4 fL (81-99); Mean Platelet Vol. 10.9 fl (6.2-12.0); Monocyte# 0.81 X10^3/uL; Monocyte% 7.3 % (0-10); NRBC Flagged by Analyzer 0 % (0-5); Neutrophil # 6.94 X10^3/uL (2.7-7.7); Neutrophil % 62.7 % (47-70); Platelet Count 393 K/mm3 (150-450); RBC Distribution Width CV 15.7 % (11.6-14.6); RBC Distribution Width SD 55.6 fl (35.1-43.9); Red Blood Count 3.88 M/mm3 (4.2-5.4); White Blood Count 11.1 K/mm3 (4.4-11.0)
[2022-02-28 06:08] LABS: ALB/GLOB Ratio 0.9 RATIO (0.9-2.4); AST(SGOT) 19 U/L (15-37); Alanine Aminotransfer ALT/SGPT 17 U/L (13-56); Albumin, Serum 3.3 g/dL (3.2-5.0); Alkaline Phosphatase 54 U/L (45-117); Anion Gap 7 (5-15); BUN 8 mg/dL (7-18); BUN/Creat Ratio 12.9 RATIO (10-20); Chloride 109 mmol/L (98-107); Creatinine, Serum 0.62 mg/dL (0.55-1.02); EST Glomerular Filtration Rate 111 mL/min (>60); Est Glom Filt Rate - Afr Amer 135 mL/min (>60); Estimated Creatinine Clearance 121.01 ml/min; Globulin 3.7 g/dL (2.2-4.2); Glucose 108 mg/dL (74-106); Lipase 136 U/L (73-393); Potassium 3.9 mmol/L (3.5-5.1); Sodium Level 140 mmol/L (136-145)
[2022-02-28 06:24] VITALS: BP 174/87; PULSE 59; RESP 16; O2SAT 95
== END 2022-02-28 06:25 | disposition home or self-care (01) ==
PROVIDERS: Emergency Provider Emergency Medicine; Visit Provider Emergency Medicine
DX: R10.9 Unspecified abdominal pain (principal); G89.18 Other acute postprocedural pain; F17.210 Nicotine dependence, cigarettes, uncomplicated; E66.9 Obesity, unspecified
CPT/HCPCS: 80053; 83690; 85025; 96374; 96375; 99282; A4216; J2405

== ENCOUNTER 2022-03-01 10:20 | Emergency (ER) | payer MEDICAID, SELFPAY ==
[2022-03-01 10:20] VITALS: BP 157/86; PULSE 86; RESP 16; TEMP 36.3; O2SAT 98; BMI 33.9
--- NOTE | 2022-03-01 11:24 | CT_ITS ---
STUDY: CT ABDOMEN AND PELVIS WITH CONTRAST REASON FOR EXAM: Female, 46 years old. Right flank pain. Recent cholecystectomy. History of cervical cancer. RADIATION DOSAGE (If Supplied By Facility): CTDIvol = ( 17.03 ) mGy, DLP = ( 1320.04 ) mGycm TECHNIQUE: Transaxial images were obtained from the dome of the diaphragm to the symphysis pubis without oral contrast. IV 100mL Isovue-300 was administered. Sagittal and coronal images were reconstructed. Individualized dose optimization techniques were used for this CT. COMPARISON: Comparison is made with prior study 02/17/2022. FINDINGS: Mild degree of increased markings at the lung bases suggest bibasilar atelectasis. Mild coronary artery calcification. Normal liver. The patient is status post cholecystectomy. The previously seen small amount of the fluid in the gallbladder fossa as a most completely resolved. Normal spleen. Normal pancreas. Normal bilateral adrenal glands. Normal right kidney. Normal left kidney. Normal visualized stomach. Normal small intestine. There are multiple colonic diverticula consistent with diverticulosis. The appendix is visualized and appears normal. Normal abdominal aorta. Normal inferior vena cava. Normal retroperitoneum. Normal urinary bladder. There is evidence of prior bilateral tubal ligation. Normal abdominal wall. Normal osseous structures. CT/Abdomen/Pelvis W IV Cont ONLY IMPRESSION: Status post cholecystectomy. Minimal amount of residual fluid is seen in the gallbladder fossa. Electronically Signed: Markel Diaz MD at 13:04 EST ,
--- NOTE | 2022-03-01 11:25 | EX.ED.DYSGE1 ---
HPI History of Present Illness Chief Complaint: Flank Pain Informant: patient and spouse/S.O. Narrative Narrative: 46-year-old female underwent laparoscopic cholecystectomy on February 15, [address]ui. She states that since that time she has had pain in her right upper quadrant and epigastrium. Is been unrelenting. She was seen in the emergency department yesterday where she had labs that were negative. She called the office today and was referred back to the emergency department. Nothing has changed from yesterday until today she states she is just following doctors orders. She notes constipation and vomiting. She denies any fevers. Steri-Strips are still in place. She did a follow-up in the office and was told it everything looked fine. She states that she is always told to come to the emergency department where we treat her horribly. PFSH [facility] Medical History Anxiety and depression Arthritis Asthma Cancer Depression H/O psychiatric hospitalization Herniated nucleus pulposus, C5-6 History of asthma History of edema History of pain when walking History of ulceration Injury of back Injury of head and neck Low iron Migraine headache Smoker Wears dentures Wears glasses Home Medications acetaminophen 500 mg tablet 1,500 mg PO BID PRN Pain 02/28/22 [History Last Taken Unknown] ondansetron HCl 4 mg tablet 4 mg PO Q8 PRN Nausea 02/28/22 [History Last Taken Unknown] oxycodone 5 mg tablet 5 mg PO Q6H PRN pain 3 days #12 tabs 03/01/22 [Rx Last Taken Unknown] pantoprazole 40 mg tablet,delayed release (Protonix) 40 mg PO DAILY #14 tabs 03/01/22 [Rx Last Taken Unknown] Allergy/AdvReac Type Severity Reaction Status Date / Time aspirin Allergy Hives Verified 03/01/22 10:20 chlorpromazine HCl Allergy Hives Verified 03/01/22 10:20 [From Thorazine] hydrocodone [From [place]] Allergy Hives Verified 03/01/22 10:20 naproxen Allergy Anaphylaxis Verified 03/01/22 10:20 oseltamivir [From Tamiflu] Allergy Swelling Verified 03/01/22 10:20 tramadol HCl [From Ultram] Allergy Hives Verified 03/01/22 10:20 Family History Father Cancer Heart disease Mother Myocardial infarction Surgical History History of arthroscopy of left knee History of cholecystectomy Hx laparoscopic cholecystectomy Hx of tooth extraction Hx of tubal ligation Social History household members: significant other and children number of children: 4 Smoking Status: Current every day smoker tobacco type: cigarettes Tobacco: How many years used: 20 alcohol intake: never what type of physical activity do you participate in: none do you feel safe at home: Yes ROS ROS ED Constitutional Constitutional ED: Denies chills or weight loss Eyes Eyes: Denies change in vision or diplopia ENT ENT ED: Denies ear pain, rhinorrhea or sore throat Cardiovascular Cardiovascular: Denies chest pain, orthopnea, palpitations or racing heartbeat Respiratory/Chest Respiratory/Chest: Denies cough, dyspnea or orthopnea Gastrointestinal Gastrointestinal: Reports abdominal pain, constipation, nausea and vomiting; Denies diarrhea Genitourinary Genitourinary ED: Denies dysuria, hematuria or urinary frequency Musculoskeletal Musculoskeletal: Denies arthralgias or myalgias Integumentary Denies abscess or rash Neurologic Neurologic: Denies headache(s) or weakness Psychiatric Psychiatric: Denies anxiety, depression, suicidal ideation or suicidal thoughts Endocrine Endocrinology: Denies polydipsia, polyphagia or polyuria Allergic/Immunologic Allergic/Immunologic ED: Denies mouth swelling, tongue swelling or urticaria EXAM Physical Exam Const Vital Signs: 03/01/22 10:20 03/01/22 12:25 Temperature 97.4 F L Temperature Source Temporal Pulse Rate 86 Respiratory Rate 16 16 Blood Pressure 157/86 H Blood Pressure Mean 109 Pulse Ox 98 Oxygen Delivery Method Room Air Positive well nourished and well developed General Appearance ED: well developed HEENT Reports normocephalic, head/scalp atraumatic and moist mucous membranes Eyes PERRL and EOMs intact bilaterally Neck no lymphadenopathy, supple and no JVD Resp normal respiratory effort and clear to auscultation bilaterally Cardio regular rate, regular rhythm and no murmurs GI Inspection: Negative for abdominal distention Auscultation: normoactive bowel sounds Palpation: soft Narrative: Patient is diffusely tender to palpation throughout the abdomen out of proportion to the examination. Even with very light touch of the skin the patient winces. Her abdominal incisions appear to be healing well and there are still Steri-Strips in place Back/Spine no CVA tenderness and normal ROM Extremity normal to inspection General Extremety ED: Negative for edema General Extremity: Negative for edema Neuro oriented x3 and CN's II-XII intact bilaterally Sensorium / Orientation: alert Motor Exam: strength 5/5 throughout Psych mental status grossly normal Mood & Affect: Negative for depressed or tearful Skin no rashes or lesions noted and no wounds MDM MDM MDM Narrative Medical decision making narrative: Basic blood work was obtained. Her white count is normal at 10.4. LFTs and lipase are normal. CT of the abdomen pelvis was obtained read by radiology reviewed by myself. We do not see anything acute. There is still a small amount of fluid in the gallbladder fossa which is most likely postoperative. She was advised yesterday to schedule HIDA scan however she went home and slept and her significant other went to work and did have the availability to call for an appointment. I suggest that they do that before going home today. I will write for her to have some pain medication but also think would be good for her to have some Protonix based on where she is pointing to as her pain. She obviously has not been eating as well as she normally would and this could be complicating her recovery. Lab Data Attestation: I reviewed the patient's lab results. Labs: Laboratory Results - last 24 hr 03/01/22 03/01/22 10:40 10:40 WBC 10.4 RBC 3.88 L Hgb 12.6 Hct 37.0 MCV 95.4 MCH 32.5 H MCHC 34.1 RDW Std Deviation 54.6 H RDW Coeff of [place] 15.5 H Plt Count 384 MPV 10.3 Immature Gran % (Auto) 1.200 H Neut % (Auto) 79.8 H Lymph % (Auto) 14.9 [place] % (Auto) 3.4 Eos % (Auto) 0.2 Baso % (Auto) 0.5 Absolute Neuts (auto) 8.3 H Absolute Lymphs (auto) 1.55 Nucleated RBC % 0 Sodium 141 Potassium 4.0 Chloride 111 H Carbon Dioxide 27.0 Anion Gap 3 L BUN 7 Creatinine 0.57 Estim Creat Clear Calc 131.63 Est GFR (MDRD) Af Amer 149 Est GFR (MDRD) Non-Af 123 BUN/Creatinine Ratio 12.4 Glucose 108 H Calcium 9.0 Total Bilirubin 0.40 Direct Bilirubin 0.13 AST 6 L ALT 15 Alkaline Phosphatase 53 Total Protein 6.8 Albumin 3.4 Globulin 3.4 Lipase 67 L Radiography Diagnostic Testing: Clinical Impression(s) from Imaging Studies Abdomen/Pelvis CT 03/01/22 11:24 IMPRESSION: Status post cholecystectomy. Minimal amount of residual fluid is seen in the gallbladder fossa. Electronically Signed: Markel Diaz MD at 13:04 EST , Discharge Plan Triage Chief Complaint: Flank Pain ED Provider: Haseeb Toro Dx/Rx/DC Orders Clinical Impression: Acute postoperative abdominal pain, History of cholecystectomy Instructions: ED Pain, Acute, Uncertain Cause Prescriptions: New pantoprazole [Protonix] 40 mg tablet,delayed release (DR/EC) 40 mg PO DAILY Qty: 14 0RF oxycodone 5 mg tablet 5 mg PO Q6H PRN (Reason: pain) 3 Days Qty: 12 0RF No Action ondansetron HCl 4 mg tablet 4 mg PO Q8 PRN (Reason: Nausea) acetaminophen [Tylenol Ex Str Arthritis Pain] 500 mg Tablet 1,500 mg PO BID PRN (Reason: Pain) Primary Care Provider: Care Physician,No Primary Referrals: Jacquelyn Hui MD [Med Staff - Active Staff] - As soon as possible Care Physician,No Primary [Primary Care Provider] - Disposition Disposition: Home, Self Care
[2022-03-01] MEDS: Ondansetron 4 MG/2 ML Vial IV (11:31)
[2022-03-01] MEDS: Morphine 4 MG/ML Syringe IV (11:31)
[2022-03-01 11:35] LABS: Absolute Lymphocyte Count 1.55 X10^3/uL (0.83-4.51); Absolute Neutrophil Count 8.3 X10^3/uL (2.0-7.7); Basophil# 0.05 X10^3/uL; Basophil% 0.5 % (0-1); Eosinophil# 0.02 X10^3/uL; Eosinophils% 0.2 % (0-5); Hemoglobin 12.6 g/dL (12.0-15.0); Lymphocyte # 1.55 X10^3/ul (0.83-4.51); Lymphocyte % 14.9 % (19-41); Mean Corp Hgb Conc 34.1 g/dL (32-36); Mean Corpuscular Hgb 32.5 pg (27.0-32.0); Mean Corpuscular Volume 95.4 fL (81-99); Mean Platelet Vol. 10.3 fl (6.2-12.0); Monocyte# 0.35 X10^3/uL; Monocyte% 3.4 % (0-10); NRBC Flagged by Analyzer 0 % (0-5); Neutrophil # 8.33 X10^3/uL (2.7-7.7); Neutrophil % 79.8 % (47-70); Platelet Count 384 K/mm3 (150-450); RBC Distribution Width CV 15.5 % (11.6-14.6); RBC Distribution Width SD 54.6 fl (35.1-43.9); Red Blood Count 3.88 M/mm3 (4.2-5.4); White Blood Count 10.4 K/mm3 (4.4-11.0)
[2022-03-01 11:49] LABS: AST(SGOT) 6 U/L (15-37); Alanine Aminotransfer ALT/SGPT 15 U/L (13-56); Albumin, Serum 3.4 g/dL (3.2-5.0); Alkaline Phosphatase 53 U/L (45-117); Anion Gap 3 (5-15); BUN 7 mg/dL (7-18); BUN/Creat Ratio 12.4 RATIO (10-20); Bilirubin, Direct 0.13 mg/dL (0.00-0.30); Chloride 111 mmol/L (98-107); Creatinine, Serum 0.57 mg/dL (0.55-1.02); EST Glomerular Filtration Rate 123 mL/min (>60); Est Glom Filt Rate - Afr Amer 149 mL/min (>60); Estimated Creatinine Clearance 131.63 ml/min; Globulin 3.4 g/dL (2.2-4.2); Glucose 108 mg/dL (74-106); Lipase 67 U/L (73-393); Protein, Total 6.8 g/dL (6.4-8.2); Sodium Level 141 mmol/L (136-145)
[2022-03-01 12:25] VITALS: RESP 16
[2022-03-01 13:28] VITALS: BP 153/87; PULSE 67; RESP 16; O2SAT 97
== END 2022-03-01 13:30 | disposition home or self-care (01) ==
PROVIDERS: Emergency Provider Emergency Medicine; Visit Provider Emergency Medicine
DX: R10.13 Epigastric pain (principal); R10.11 Right upper quadrant pain; G89.18 Other acute postprocedural pain; F17.210 Nicotine dependence, cigarettes, uncomplicated; R11.10 Vomiting, unspecified; K59.00 Constipation, unspecified; J45.909 Unspecified asthma, uncomplicated; Z90.49 Acquired absence of other specified parts of digestive tract
CPT/HCPCS: 74177; 80048; 80076; 83690; 85025; 96374; 96375; 99283; Q9967; A4216; J2405

== ENCOUNTER 2022-07-28 23:19 | Emergency (ER) | payer MEDICAID, SELFPAY ==
[2022-07-28 23:20] VITALS: BP 132/81; PULSE 79; RESP 16; TEMP 36.8; O2SAT 100; BMI 33.0
--- NOTE | 2022-07-28 23:40 | RAD_ITS ---
INDICATION: Pain, knee popped out and popped back in, unable to straighten knee EXAMINATION/TECHNIQUE: X-RAY - LEFT XR Knee Complete 4 Views or More: AP, lateral, tunnel and sunrise views COMPARISON: Left knee radiographs from 09/13/2021 FINDINGS: SOFT TISSUES: No significant soft tissue swelling. Small benign fabella posteriorly BONES/JOINTS: No acute fracture or subluxation. Normal alignment. Mild femorotibial osteophytosis and mild medial compartment joint space narrowing again noted. Stable small subchondral cyst lateral femoral condyle. RAD/Knee 4 or More Views IMPRESSION: Stable degenerative changes with no acute osseous injury. Electronically Signed: Bigg Moser MD at 23:58 EDT ,
[2022-07-29] MEDS: oxyCODONE 5 MG Tablet 10 MG PO (00:28)
[2022-07-29 00:31] VITALS: PULSE 64; RESP 15; O2SAT 99
--- NOTE | 2022-07-29 00:31 | EDS_ITS ---
HPI History of Present Illness Chief Complaint: Lower Extremity Injury Narrative Narrative: Patient is a 46-year-old female with past medical history of of recurrent knee pain as well as degenerative disc disease and depression. She states that a few hours ago she went to take her dog out when the dog saw a cat and pulled forward causing her to slip and lose her balance. She states that she landed directly on her left knee and she believes that the knee became dislocated. She states that she did not strike her head or have any loss of consciousness nor does she take blood thinners. She states her was able to help her put it back in. Since that time she been able to walk but limited range of motion has been present as well as persistent pain and secondary to this patient presents for evaluation [facility] Medical History Anxiety and depression Arthritis Asthma Cancer Depression H/O psychiatric hospitalization Herniated nucleus pulposus, C5-6 History of asthma History of edema History of pain when walking History of ulceration Injury of back Injury of head and neck Low iron Migraine headache Smoker Wears dentures Wears glasses Home Medications acetaminophen 500 mg tablet 1,500 mg PO BID PRN Pain 02/28/22 [History Last Taken Unknown] ondansetron HCl 4 mg tablet 4 mg PO Q8 PRN Nausea 02/28/22 [History Last Taken Unknown] oxycodone 5 mg tablet 5 mg PO Q6H PRN pain 3 days #12 tabs 03/01/22 [Rx Last Taken Unknown] pantoprazole 40 mg tablet,delayed release (Protonix) 40 mg PO DAILY #14 tabs 03/01/22 [Rx Last Taken Unknown] oxycodone-acetaminophen 5 mg-325 mg tablet (Percocet) 1 tab PO Q6H PRN pain 3 days #12 tabs 07/29/22 [Rx Last Taken Unknown] Allergy/AdvReac Type Severity Reaction Status Date / Time aspirin Allergy Hives Verified 07/28/22 23:22 chlorpromazine HCl Allergy Hives Verified 07/28/22 23:22 [From Thorazine] hydrocodone [From [place]] Allergy Hives Verified 07/28/22 23:22 naproxen Allergy Anaphylaxis Verified 07/28/22 23:22 oseltamivir [From Tamiflu] Allergy Swelling Verified 07/28/22 23:22 tramadol HCl [From Ultram] Allergy Hives Verified 07/28/22 23:22 Family History Father Cancer Heart disease Mother Myocardial infarction Surgical History History of arthroscopy of left knee History of cholecystectomy Hx laparoscopic cholecystectomy Hx of tooth extraction Hx of tubal ligation Social History household members: significant other and children number of children: 4 Smoking Status: Current every day smoker tobacco type: cigarettes Tobacco: How many years used: 20 alcohol intake: never what type of physical activity do you participate in: none do you feel safe at home: Yes ROS ROS ED Constitutional Constitutional ED: Denies chills or fever(s) Eyes Eyes: Denies change in vision ENT ENT ED: Denies sore throat Cardiovascular Cardiovascular: Denies chest pain Respiratory/Chest Respiratory/Chest: Denies cough or dyspnea Gastrointestinal Gastrointestinal: Denies abdominal pain, diarrhea, nausea or vomiting Genitourinary Genitourinary ED: Denies dysuria Musculoskeletal Musculoskeletal: Reports other Details: Positive left knee pain ; Denies back pain, myalgias or neck pain Integumentary Reports Abrasions; Denies rash Neurologic Neurologic: Denies headache(s), paresthesias or weakness Hematologic/Lymphatic Hematologic/Lymphatic: Denies easy bleeding or easy bruising EXAM Physical Exam Const Vital Signs: 07/28/22 23:20 07/29/22 00:31 Temperature 98.3 F Temperature Source Temporal Pulse Rate 79 64 Respiratory Rate 16 15 Blood Pressure 132/81 H Blood Pressure Mean 98 Pulse Ox 100 99 Oxygen Delivery Method Room Air Positive well nourished and well developed General Appearance ED: well developed HEENT HEENT Narrative: Normocephalic atraumatic Eyes PERRL and EOMs intact bilaterally Neck supple Neck Narrative: No bony deformity or step-off of the cervical spine no midline pain with palpation Resp normal respiratory effort and clear to auscultation bilaterally Cardio regular rate and regular rhythm Back/Spine Back/Spine Narrative: No bony deformity or step-off of the thoracic or lumbar spine no midline pain with palpation Extremity Extremity Narrative: Left lower extremity is neurovascularly intact. Patient has mild soft tissue swelling with hematoma along the left anterior aspect of the left knee. No obvious bony deformity or joint effusion. Knee ligaments are stable and patellar tendon is intact. Active range of motion is decreased secondary to pain. Neuro oriented x3, CN's II-XII intact bilaterally and no sensory deficits noted Sensorium / Orientation: alert Psych mental status grossly normal Skin no rashes or lesions noted Skin Narrative: Soft tissue changes to the left knee that includes soft tissue swelling plus ecchymosis and hematoma as documented above MDM MDM MDM Narrative Medical decision making narrative: Patient presented to the ER after report of a mechanical fall therefore there is no need for cardiac or syncope work-up. She had direct trauma to the left knee and also reports it was dislocated. Differential diagnosis includes patellar fracture tibial plateau fracture knee effusion hematoma dislocation versus subluxation. The patient was able to ambulate knee ligaments are stable patellar tendon is intact and as the fall was mechanical I do not believe laboratory studies are warranted. An x-ray was obtained which confirmed no acute patellar or tibial plateau fracture or signs of joint effusion. Therefore patient will be given symptomatic treatment and discharged home History & Record Review Discussion w/independent historian: Patient Radiography Diagnostic Testing: Clinical Impression(s) from Imaging Studies Knee X-Ray 07/28/22 23:40 IMPRESSION: Stable degenerative changes with no acute osseous injury. Electronically Signed: Bigg Moser MD at 23:58 EDT , X-ray of the left knee as interpreted by the emergency medicine physician reveals chronic degenerative changes without acute fracture dislocation or joint effusion Discharge Plan Triage Chief Complaint: Lower Extremity Injury ED Provider: Francisco aBi Dx/Rx/DC Orders Clinical Impression: Contusion of knee, Tobacco abuse Instructions: Bone Contusion, ED Patellar Dislocation/Subluxation Prescriptions: New oxycodone-acetaminophen [Percocet] 5-325 mg tablet 1 tab PO Q6H PRN (Reason: pain) 3 Days Qty: 12 0RF No Action ondansetron HCl 4 mg tablet 4 mg PO Q8 PRN (Reason: Nausea) acetaminophen [Tylenol Ex Str Arthritis Pain] 500 mg Tablet 1,500 mg PO BID PRN (Reason: Pain) pantoprazole [Protonix] 40 mg tablet,delayed release (DR/EC) 40 mg PO DAILY Qty: 14 0RF oxycodone 5 mg tablet 5 mg PO Q6H PRN (Reason: pain) 3 Days Qty: 12 0RF Primary Care Provider: Care Physician,No Primary Referrals: Antonino Brunner MD [Med Staff - Active Staff] - Care Physician,No Primary [Primary Care Provider] - Activity Restrictions/Additional Instructions: Please wear your immobilizer for stabilization and ice the area to reduce pain and speed healing. If you have any further concerns please return to the ER for repeat evaluation Disposition Disposition: Home, Self Care Discharge Date/Time: 07/29/22 00:30
== END 2022-07-29 00:30 | disposition home or self-care (01) ==
PROVIDERS: Emergency Provider Emergency Medicine; Visit Provider Emergency Medicine
DX: S80.02XA Contusion of left knee, initial encounter (principal); F17.210 Nicotine dependence, cigarettes, uncomplicated; X58.XXXA Exposure to other specified factors, initial encounter
CPT/HCPCS: 73564; 99283

== ENCOUNTER 2022-08-24 07:23 | Emergency (ER) | payer MEDICAID, SELFPAY ==
[2022-08-24 07:24] VITALS: BP 131/70; PULSE 63; RESP 14; TEMP 36.4; O2SAT 99; BMI 33.7
--- NOTE | 2022-08-24 07:35 | EX.ED.DYSGE1 ---
HPI History of Present Illness Chief Complaint: Nausea/Vomiting/Diarrhea PFSH PFSH Medical History Anxiety and depression Arthritis Asthma Cancer Depression H/O psychiatric hospitalization Herniated nucleus pulposus, C5-6 History of asthma History of edema History of pain when walking History of ulceration Injury of back Injury of head and neck Low iron Migraine headache Smoker Wears dentures Wears glasses Home Medications acetaminophen 500 mg tablet 1,500 mg PO BID PRN Pain 02/28/22 [History Last Taken Unknown] ondansetron HCl 4 mg tablet 4 mg PO Q8 PRN Nausea 02/28/22 [History Last Taken Unknown] oxycodone 5 mg tablet 5 mg PO Q6H PRN pain 3 days #12 tabs 03/01/22 [Rx Last Taken Unknown] pantoprazole 40 mg tablet,delayed release (Protonix) 40 mg PO DAILY #14 tabs 03/01/22 [Rx Last Taken Unknown] oxycodone-acetaminophen 5 mg-325 mg tablet (Percocet) 1 tab PO Q6H PRN pain 3 days #12 tabs 07/29/22 [Rx Last Taken Unknown] ondansetron 4 mg disintegrating tablet 4 mg PO Q8H PRN nausea and vomiting 3 days #9 tabs 08/24/22 [Rx Last Taken Unknown] Allergy/AdvReac Type Severity Reaction Status Date / Time aspirin Allergy Hives Verified 08/24/22 07:26 chlorpromazine HCl Allergy Hives Verified 08/24/22 07:26 [From Thorazine] hydrocodone [From [place]] Allergy Hives Verified 08/24/22 07:26 naproxen Allergy Anaphylaxis Verified 08/24/22 07:26 oseltamivir [From Tamiflu] Allergy Swelling Verified 08/24/22 07:26 tramadol HCl [From Ultram] Allergy Hives Verified 08/24/22 07:26 Family History Father Cancer Heart disease Mother Myocardial infarction Surgical History History of arthroscopy of left knee History of cholecystectomy Hx laparoscopic cholecystectomy Hx of tooth extraction Hx of tubal ligation Social History household members: significant other and children number of children: 4 Smoking Status: Current every day smoker tobacco type: cigarettes Tobacco: How many years used: 20 alcohol intake: never what type of physical activity do you participate in: none do you feel safe at home: Yes EXAM Physical Exam Const Vital Signs: 08/24/22 07:24 08/24/22 09:26 Temperature 97.6 F L Temperature Source Temporal Pulse Rate 63 47 L Respiratory Rate 14 16 Blood Pressure 131/70 H 135/82 H Blood Pressure Mean 90 Pulse Ox 99 97 Oxygen Delivery Method Room Air [facility] [place] Narr[place] Medical decision making narrative: HISTORY OF PRESENT ILLNESS: 46-year-old female here with nausea vomiting diarrhea. Notes sick contact with her daughter. The patient further states she developed this this morning. Notes several episodes of loose stools. No melena or hematochezia noted. Notes 3 episodes of nonbloody nonbilious vomitus. States she is got pain located in the epigastrium but notes history of her gallbladder being taken out. There is no association with food. No recent travel, surgery, recent hospitalization. No fevers. No chest pain or shortness of breath noted. REVIEW OF SYSTEMS: Pertinent positives: Nausea vomiting diarrhea Pertinent negatives: Abdominal pain, fever PHYSICAL EXAM: Nursing triage notes reviewed, Vital signs reviewed Constitutional: please see [facility] HENT: MMM Eyes: Pupils equal round and reactive to light, Extraocular muscles intact Neck: No stridor, no JVD, full neck ROM Lungs: Clear to auscultation, No wheezing or rales. No increased work of breathing, no conversational dyspnea, no accessory muscle use, no nasal flaring. No respiratory distress noted Heart: Regular rate and rhythm, No murmurs, No rubs and No gallops, 2+ distal pulses (radial, femoral, posterior tibial) in all extremities Abdomen: Soft, there is no tenderness, rigidity, rebound or guarding, no obvious peritoneal signs, no palpable pulsatile abdominal masses, no auscultated abdominal bruit : No CVAT Extremities: No edema Neuro: No focal neurological deficits, cranial nerves II through XII intact, 5/5 strength in all extremities. Intact sensation to light touch in all extremities, 2+ reflexes bilateral patella tendons. Normal gait. No ataxia. Skin: No rash or lesions noted MEDICAL DECISION MAKING: Chief Complaint: Nausea vomiting diarrhea External records reviewed: Last CT in February 2022 Factors affecting care: History of cholecystectomy Social determinants of health: Tobacco use History obtained from others: None Consults: none ALL IMAGES HAVE BEEN PERSONALLY REVIEWED AND INTERPRETED BY MYSELF. EKG shows sinus bradycardia, normal axis, normal intervals, no STEMI. No signs of hypokalemia MDM Narrative: The patient was hemodynamically stable, afebrile, nontoxic-appearing. Abdominal exam was benign there are no peritoneal signs I considered the following differential diagnosis: Dehydration, electrolyte abnormality, Acute intra-abdominal process I considered obtaining a CT scan of the abdomen pelvis however the patient had a benign abdominal exam this was not consistent with acute surgical pathology. I gave the patient symptomatic treatment in the form of Zofran, fluids and morphine as well as Pepcid. I obtained a broad lab work-up to rule out signs of dehydration, electrolyte abnormalities, anemia, , pancreatitis. Labs are unremarkable. No clear etiology to explain the patient's symptoms. There is no life-limiting etiology at this time. Likely viral gastroenteritis as a potential etiology. Patient is appropriate discharge home with symptomatic treatment in the form of Zofran. Total critical care time today provided was at least 0 minutes. This excludes separately billable procedures. There was a high probability of clinically significant/life threatening deterioration in the patient's condition which required my urgent intervention. Shared decision making: I will have a discussion with the patient and or visitors regarding risk/benefits of further testing or admission. They will be made aware of of the risk/benefits inherent in this decision they will be given the opportunity to voice understanding. Lab Data Attestation: I reviewed the patient's lab results. Lab results narrative: EKG with normal sinus rhythm, normal axis, normal intervals, no STEMI CBC without leukocytosis to suggest some inflammation, mild anemia, no thrombocytopenia BMP without evidence of significant electrolyte abnormalities, no anion gap, no acute kidney injury. LFTs show no evidence of hepatobiliary pathology. Lipase is wnl indicating no pancreatic inflammation. Urine test negative Labs: Laboratory Results - last 24 hr 08/24/22 08/24/22 08/24/22 07:50 07:50 08:51 WBC 8.4 RBC 3.80 L Hgb 11.4 L Hct 35.4 L MCV 93.2 MCH 30.0 MCHC 32.2 RDW Std Deviation 56.7 H RDW Coeff of Mohan 16.7 H Plt Count 251 MPV 9.4 Immature Gran % (Auto) 0.100 Neut % (Auto) 60.2 Lymph % (Auto) 30.2 [place] % (Auto) 7.3 Eos % (Auto) 1.5 Baso % (Auto) 0.7 Absolute Neuts (auto) 5.1 Absolute Lymphs (auto) 2.53 Nucleated RBC % 0 Sodium 143 Potassium 3.9 Chloride 113 H Carbon Dioxide 24.0 Anion Gap 6 BUN 8 Creatinine 0.74 Estim Creat Clear Calc 101.39 Est GFR (MDRD) Af Amer 110 Est GFR (MDRD) Non-Af 91 BUN/Creatinine Ratio 10.9 Glucose 93 Calcium 8.3 L Total Bilirubin 0.20 Direct Bilirubin 0.09 AST 13 L ALT 11 L Alkaline Phosphatase 61 Total Protein 6.4 Albumin 3.2 Globulin 3.2 Lipase 36 Urine Test Negative Treatment and Re-Evaluation :: Repeat abdominal exam was benign. Discharge Plan Triage Chief Complaint: Nausea/Vomiting/Diarrhea ED Provider: Sean Lambert Dx/Rx/DC Orders Clinical Impression: Nausea, vomiting, and diarrhea Instructions: ED Vomiting and Diarrhea ... Prescriptions: New ondansetron 4 mg tablet,disintegrating 4 mg PO Q8H PRN (Reason: nausea and vomiting) 3 Days Qty: 9 0RF No Action ondansetron HCl 4 mg tablet 4 mg PO Q8 PRN (Reason: Nausea) acetaminophen [Tylenol Ex Str Arthritis Pain] 500 mg Tablet 1,500 mg PO BID PRN (Reason: Pain) pantoprazole [Protonix] 40 mg tablet,delayed release (DR/EC) 40 mg PO DAILY Qty: 14 0RF oxycodone 5 mg tablet 5 mg PO Q6H PRN (Reason: pain) 3 Days Qty: 12 0RF oxycodone-acetaminophen [Percocet] 5-325 mg tablet 1 tab PO Q6H PRN (Reason: pain) 3 Days Qty: 12 0RF Stand Alone Forms: ED Work / School Excuse Primary Care Provider: Care Physician,No Primary Referrals: Pasquale Lilly MD [Med Staff - [employer]] - Activity Restrictions/Additional Instructions: Thank you for trusting us with your care today! Please take Tylenol (2 pills, 650 mg), ibuprofen (2 pills, 400 mg) every 6 hours as needed for pain and fever control. Please take Zofran as needed for nausea vomiting control. Please return to the emergency department if your symptoms change or worsen. Specifically if cannot tolerate food or medicine by mouth. If develop severe abdominal pain. If you lose consciousness. Please follow with your primary care physician for further outpatient evaluation and management. Disposition Disposition: Home, Self Care Discharge Date/Time: 08/24/22 09:30
[2022-08-24] MEDS: 0.9% Normal Saline 1,000 ML 1000 ML IV (07:57)
[2022-08-24] MEDS: Ondansetron 4 MG/2 ML Vial IV (07:57)
[2022-08-24] MEDS: Morphine 4 MG/ML Syringe IV (07:58)
[2022-08-24 07:59] LABS: Absolute Lymphocyte Count 2.53 X10^3/uL (0.83-4.51); Absolute Neutrophil Count 5.1 X10^3/uL (2.0-7.7); Basophil# 0.06 X10^3/uL; Basophil% 0.7 % (0-1); Eosinophil# 0.13 X10^3/uL; Eosinophils% 1.5 % (0-5); Hematocrit 35.4 % (37-47); Hemoglobin 11.4 g/dL (12.0-15.0); Lymphocyte # 2.53 X10^3/ul (0.83-4.51); Lymphocyte % 30.2 % (19-41); Mean Corp Hgb Conc 32.2 g/dL (32-36); Mean Corpuscular Volume 93.2 fL (81-99); Mean Platelet Vol. 9.4 fl (6.2-12.0); Monocyte# 0.61 X10^3/uL; Monocyte% 7.3 % (0-10); NRBC Flagged by Analyzer 0 % (0-5); Neutrophil # 5.05 X10^3/uL (2.7-7.7); Neutrophil % 60.2 % (47-70); Platelet Count 251 K/mm3 (150-450); RBC Distribution Width CV 16.7 % (11.6-14.6); RBC Distribution Width SD 56.7 fl (35.1-43.9); White Blood Count 8.4 K/mm3 (4.4-11.0)
[2022-08-24] MEDS: Famotidine 200 MG/20 ML MDV 20 MG in 0.9% Normal Saline (Pres. free 8 ML 300 MG IV (08:00)
[2022-08-24 08:23] LABS: AST(SGOT) 13 U/L (15-37); Alanine Aminotransfer ALT/SGPT 11 U/L (13-56); Albumin, Serum 3.2 g/dL (3.2-5.0); Alkaline Phosphatase 61 U/L (45-117); Anion Gap 6 (5-15); BUN 8 mg/dL (7-18); BUN/Creat Ratio 10.9 RATIO (10-20); Bilirubin, Direct 0.09 mg/dL (0.00-0.30); Calcium,Total 8.3 mg/dL (8.5-10.1); Chloride 113 mmol/L (98-107); Creatinine, Serum 0.74 mg/dL (0.55-1.02); EST Glomerular Filtration Rate 91 mL/min (>60); Est Glom Filt Rate - Afr Amer 110 mL/min (>60); Estimated Creatinine Clearance 101.39 ml/min; Globulin 3.2 g/dL (2.2-4.2); Glucose 93 mg/dL (74-106); Lipase 36 U/L (13-75); Potassium 3.9 mmol/L (3.5-5.1); Protein, Total 6.4 g/dL (6.4-8.2); Sodium Level 143 mmol/L (136-145)
[2022-08-24 09:10] LABS: Internal QC Validated? YES +Cl - CLEAR BKGD; Pregnancy, Urine Negative Negative
[2022-08-24 09:26] VITALS: BP 135/82; PULSE 47; RESP 16; O2SAT 97
== END 2022-08-24 09:30 | disposition home or self-care (01) ==
PROVIDERS: Emergency Provider Emergency Medicine; Visit Provider Emergency Medicine
DX: R11.2 Nausea with vomiting, unspecified (principal); R19.7 Diarrhea, unspecified; F17.210 Nicotine dependence, cigarettes, uncomplicated; J45.909 Unspecified asthma, uncomplicated
CPT/HCPCS: 80048; 80076; 81025; 83690; 85025; 93005; 96374; 96375; 99283; J7030; A4216; J2405; J3490

== ENCOUNTER 2022-09-18 07:59 | Emergency (ER) | payer MEDICAID, SELFPAY ==
[2022-09-18 08:00] VITALS: BP 150/85; PULSE 69; RESP 15; TEMP 36; O2SAT 100; BMI 33.6
--- NOTE | 2022-09-18 08:12 | CT_ITS ---
STUDY: CT ABDOMEN AND PELVIS WITH CONTRAST REASON FOR EXAM: Female, 47 years old. llq abd pain RADIATION DOSAGE (If Supplied By Facility): CTDIvol = ( 12.3 ) mGy, DLP = ( 1216.67 ) mGycm TECHNIQUE: Transaxial images were obtained from the dome of the diaphragm to the symphysis pubis without oral contrast. IV 100mL [id number]-[id number] was administered. Sagittal and coronal images were reconstructed. Individualized dose optimization techniques were used for this CT. COMPARISON: March 01, 2022. FINDINGS: The visualized lung bases are unremarkable. The visualized portions of the heart are within normal limits. Normal liver. The gallbladder is not seen consistent with cholecystectomy. Normal spleen. Normal pancreas. There is stable 2.4 cm right adrenal mass. There is a 0.5 cm cyst of the right kidney. Normal left kidney. Normal visualized stomach. Normal small intestine. There are a few colonic diverticula consistent with diverticulosis. The appendix is visualized and appears normal. Normal abdominal aorta. Normal inferior vena cava. Normal retroperitoneum. Normal urinary bladder. Normal visualized uterus. There are tubal ligation clips. There is no free fluid in the abdomen or pelvis. Normal abdominal wall. There is degenerative change of the lumbar spine. CT/Abdomen/Pelvis W IV Cont ONLY IMPRESSION: Colonic diverticulosis. No obstruction or abscess. Electronically Signed: Aries Chua MD at 10:00 EDT ,
--- NOTE | 2022-09-18 08:13 | ED.VIS.GI ---
HPI HPI - GI History of Present Illness Chief Complaint: Abd Pain Narrative Narrative: 47-year-old female presenting with left flank and abdominal pain. She states it starts in her back and radiates around to her front. She states has been present for 4 days constantly. She feels like she has chills but she has not a fever. She is nauseous. She denies constipation or diarrhea. She states that she has some incontinence but does not have dysuria or hematuria or urinary frequency. Patient has a distant history of kidney stones. As far as abdominal surgeries she has had a cholecystectomy. She not having right upper quadrant pain. [facility] Medical History Anxiety and depression Arthritis Asthma Cancer Depression H/O psychiatric hospitalization Herniated nucleus pulposus, C5-6 History of asthma History of edema History of pain when walking History of ulceration Injury of back Injury of head and neck Low iron Migraine headache Smoker Wears dentures Wears glasses Home Medications acetaminophen 500 mg tablet 1,500 mg PO BID PRN Pain 02/28/22 [History Last Taken Unknown] ondansetron HCl 4 mg tablet 4 mg PO Q8 PRN Nausea 02/28/22 [History Last Taken Unknown] oxycodone 5 mg tablet 5 mg PO Q6H PRN pain 3 days #12 tabs 03/01/22 [Rx Last Taken Unknown] pantoprazole 40 mg tablet,delayed release (Protonix) 40 mg PO DAILY #14 tabs 03/01/22 [Rx Last Taken Unknown] oxycodone-acetaminophen 5 mg-325 mg tablet (Percocet) 1 tab PO Q6H PRN pain 3 days #12 tabs 07/29/22 [Rx Last Taken Unknown] ondansetron 4 mg disintegrating tablet 4 mg PO Q8H PRN nausea and vomiting 3 days #9 tabs 08/24/22 [Rx Last Taken Unknown] cyclobenzaprine 10 mg tablet 10 mg PO TID PRN Muscle Spasm #20 TABLETS 09/18/22 [Rx Last Taken Unknown] Allergy/AdvReac Type Severity Reaction Status Date / Time aspirin Allergy Hives Verified 09/18/22 08:03 chlorpromazine HCl Allergy Hives Verified 09/18/22 08:03 [From Thorazine] hydrocodone [From [place]] Allergy Hives Verified 09/18/22 08:03 naproxen Allergy Anaphylaxis Verified 09/18/22 08:03 oseltamivir [From Tamiflu] Allergy Swelling Verified 09/18/22 08:03 tramadol HCl [From Ultram] Allergy Hives Verified 09/18/22 08:03 Family History Father Cancer Heart disease Mother Myocardial infarction Surgical History History of arthroscopy of left knee History of cholecystectomy Hx laparoscopic cholecystectomy Hx of tooth extraction Hx of tubal ligation Social History household members: significant other and children number of children: 4 Smoking Status: Current every day smoker tobacco type: cigarettes Tobacco: How many years used: 20 alcohol intake: never what type of physical activity do you participate in: none do you feel safe at home: Yes ROS ROS ED Constitutional Constitutional ED: Reports chills; Denies fever(s) ENT ENT ED: Denies rhinorrhea or sore throat Cardiovascular Cardiovascular: Denies chest pain or palpitations Respiratory/Chest Respiratory/Chest: Denies cough or dyspnea Gastrointestinal Gastrointestinal: Reports abdominal pain and nausea Genitourinary Genitourinary ED: Denies dysuria or urinary frequency Musculoskeletal Musculoskeletal: Reports back pain; Denies arthralgias Integumentary Denies abscess Neurologic Neurologic: Denies headache(s) or paresthesias Psychiatric Psychiatric: Denies anxiety or depression EXAM Physical Exam Const Vital Signs: 09/18/22 08:00 Temperature 96.8 F L Temperature Source Temporal Pulse Rate 69 Respiratory Rate 15 Blood Pressure 150/85 H Blood Pressure Mean 106 Pulse Ox 100 Oxygen Delivery Method Room Air Positive well nourished General Appearance ED: NAD; Negative for pallor HEENT normocephalic and atraumatic Eyes PERRL and EOMs intact bilaterally Cardio regular rate and regular rhythm GI Palpation: tender LLQ and periumbilical Back/Spine General Back: CVA tenderness left Neuro CN's II-XII intact bilaterally and moves all extremities Sensorium / Orientation: alert Psych mental status grossly normal and thought process normal Skin General Skin Exam: Negative for jaundice or pallor MDM MDM MDM Narrative Medical decision making narrative: Patient presenting with left lower quadrant pain, dysuria, hematuria. Differential includes UTI, pyelonephritis, ovarian cyst, ovarian torsion, ureteral calculi, renal calculi, diverticulitis, colitis, musculoskeletal pain. Patient medicated with 4 mg of morphine, 4 mg of Zofran, given 1 L IV fluids. CBC to assess white blood cell count, hemoglobin, platelets. CMP to assess liver function, renal function, electrolytes. Lipase to assess for pancreatitis. Urinalysis to assess for UTI. CBC shows no significant leukocytosis. Hemoglobin hematocrit are stable. Platelets are normal. Liver function, renal function within normal limits. Lipase negative. Urinalysis negative for infection. CT of the abdomen pelvis was obtained and shows no acute intra-abdominal process. Given negative work-up and negative CT this is likely something musculoskeletal. Patient was amenable to muscle relaxers for home. She will take Tylenol and ibuprofen as well. Return precautions discussed. Impression: 1. Left leg pain 2. Muscle strain Lab Data Attestation: I reviewed the patient's lab results. Labs: Laboratory Results - last 24 hr 09/18/22 09/18/22 09/18/22 08:15 08:15 08:15 WBC 9.3 RBC 4.27 Hgb 13.3 Hct 39.8 MCV 93.2 MCH 31.1 MCHC 33.4 RDW Std Deviation 54.2 H RDW Coeff of [place]an 15.9 H Plt Count 264 MPV 9.8 Immature Gran % (Auto) 0.100 Neut % (Auto) 57.7 Lymph % (Auto) 33.0 [place] % (Auto) 6.6 Eos % (Auto) 1.8 Baso % (Auto) 0.8 Absolute Neuts (auto) 5.4 Absolute Lymphs (auto) 3.06 Nucleated RBC % 0 Sodium 141 Potassium 3.9 Chloride 111 H Carbon Dioxide 24.0 Anion Gap 6 BUN 8 Creatinine 0.71 Estim Creat Clear Calc 104.57 Est GFR (MDRD) Af Amer 114 Est GFR (MDRD) Non-Af 95 BUN/Creatinine Ratio 11.3 Glucose 93 Calcium 8.7 Total Bilirubin 0.30 AST 13 L ALT 18 Alkaline Phosphatase 65 Total Protein 6.9 Albumin 3.5 Globulin 3.4 Albumin/Globulin Ratio 1.0 Lipase 44 Urine Color Yellow Urine Clarity Clear Urine pH 7.0 Ur Specific [place] 1.015 Urine Protein 15 H Urine Glucose (UA) Normal Urine Ketones Negative Urine Occult Blood 25 H Urine Nitrite Negative Urine Bilirubin Negative Urine Urobilinogen 1 H Ur Leukocyte Esterase 25 H Urine RBC 0 SEEN Urine WBC 0 SEEN Ur Squamous Epith Cells 5-10 SEEN Urine Bacteria 0 SEEN Urine Mucus 0 SEEN Radiography Diagnostic Testing: Clinical Impression(s) from Imaging Studies Abdomen/Pelvis CT 09/18/22 08:12 IMPRESSION: Colonic diverticulosis. No obstruction or abscess. Electronically Signed: Aries Chua MD at 10:00 EDT Reading Location ID and State: [address] [place] [address] , Service support , Discharge Plan Triage Chief Complaint: Abd Pain ED Provider: Lamont Ge Dx/Rx/DC Orders Instructions: ED Flank Pain, Uncertain Cause, ED Muscle Strain, Abdomen Prescriptions: New cyclobenzaprine 10 mg tablet 10 mg PO TID PRN (Reason: Muscle Spasm) Qty: 20 0RF No Action ondansetron HCl 4 mg tablet 4 mg PO Q8 PRN (Reason: Nausea) acetaminophen [Tylenol Ex Str Arthritis Pain] 500 mg Tablet 1,500 mg PO BID PRN (Reason: Pain) pantoprazole [Protonix] 40 mg tablet,delayed release (DR/EC) 40 mg PO DAILY Qty: 14 0RF oxycodone 5 mg tablet 5 mg PO Q6H PRN (Reason: pain) 3 Days Qty: 12 0RF oxycodone-acetaminophen [Percocet] 5-325 mg tablet 1 tab PO Q6H PRN (Reason: pain) 3 Days Qty: 12 0RF ondansetron 4 mg tablet,disintegrating 4 mg PO Q8H PRN (Reason: nausea and vomiting) 3 Days Qty: 9 0RF Primary Care Provider: Care Physician,No Primary Referrals: Bigg Abad DO [Med Staff - [facility]] - 3-5 Days Care Physician,No Primary [Primary Care Provider] - Disposition Disposition: Home, Self Care
[2022-09-18 08:19] LABS: Bacteria 0 SEEN /hpf (None Seen); Mucous, Urine 0 SEEN /hpf (<or=2+); Red Blood Cells-Urine 0 SEEN /hpf (0-5); White Blood Cells 0 SEEN /hpf (0-5)
[2022-09-18] MEDS: 0.9% Normal Saline 1,000 ML 1000 ML IV (08:20)
[2022-09-18] MEDS: Morphine 4 MG/ML Syringe IV (08:20)
[2022-09-18] MEDS: Ondansetron 4 MG/2 ML Vial IV (08:20)
[2022-09-18 08:22] LABS: Absolute Lymphocyte Count 3.06 X10^3/uL (0.83-4.51); Absolute Neutrophil Count 5.4 X10^3/uL (2.0-7.7); Basophil# 0.07 X10^3/uL; Basophil% 0.8 % (0-1); Eosinophil# 0.17 X10^3/uL; Eosinophils% 1.8 % (0-5); Hematocrit 39.8 % (37-47); Hemoglobin 13.3 g/dL (12.0-15.0); Lymphocyte # 3.06 X10^3/ul (0.83-4.51); Mean Corp Hgb Conc 33.4 g/dL (32-36); Mean Corpuscular Hgb 31.1 pg (27.0-32.0); Mean Corpuscular Volume 93.2 fL (81-99); Mean Platelet Vol. 9.8 fl (6.2-12.0); Monocyte# 0.61 X10^3/uL; Monocyte% 6.6 % (0-10); NRBC Flagged by Analyzer 0 % (0-5); Neutrophil # 5.35 X10^3/uL (2.7-7.7); Neutrophil % 57.7 % (47-70); Platelet Count 264 K/mm3 (150-450); RBC Distribution Width CV 15.9 % (11.6-14.6); RBC Distribution Width SD 54.2 fl (35.1-43.9); Red Blood Count 4.27 M/mm3 (4.2-5.4); White Blood Count 9.3 K/mm3 (4.4-11.0)
[2022-09-18 08:26] LABS: Color, Urine Yellow (Yellow); Glucose, Dipstick Normal (Normal); Ketone-Dipstick Negative (Negative); Leukocyte Esterase-Dipstick 25 /ul (Negative); Nitrite-Dipstick Negative (Negative); Occult Blood-Urine 25 /ul (Negative); Protein-Dipstick 15 mg/dl (Negative); Specific Gravity, Urine 1.015 (1.002-1.030); Urine Bilirubin Dipstick Negative (Negative); Urine Clarity Clear (Clear); Urine Urobilinogen 1 mg/dl (Normal)
[2022-09-18 08:40] LABS: AST(SGOT) 13 U/L (15-37); Alanine Aminotransfer ALT/SGPT 18 U/L (13-56); Albumin, Serum 3.5 g/dL (3.2-5.0); Alkaline Phosphatase 65 U/L (45-117); Anion Gap 6 (5-15); BUN 8 mg/dL (7-18); BUN/Creat Ratio 11.3 RATIO (10-20); Calcium,Total 8.7 mg/dL (8.5-10.1); Chloride 111 mmol/L (98-107); Creatinine, Serum 0.71 mg/dL (0.55-1.02); EST Glomerular Filtration Rate 95 mL/min (>60); Est Glom Filt Rate - Afr Amer 114 mL/min (>60); Estimated Creatinine Clearance 104.57 ml/min; Globulin 3.4 g/dL (2.2-4.2); Glucose 93 mg/dL (74-106); Lipase 44 U/L (13-75); Potassium 3.9 mmol/L (3.5-5.1); Protein, Total 6.9 g/dL (6.4-8.2); Sodium Level 141 mmol/L (136-145)
[2022-09-18 09:18] LABS: Squamous Epithelial Cells - UA 5-10 SEEN /hpf (5-10)
--- NOTE | 2022-09-18 11:54 | ED.RN ---
Meds to beds form sent to pharmacy. After 15 minutes this RN called pharmacy to get an update on how long it would. Sydney from pharmacy states she was having issues running the patient's insurance. This Rn informed pt. she could either continue to wait for insurance or pay the $13.55 for the script today. Pt. yelled 'I will just get it tomorrow. As pt. was leaving she stated I dont need to hang around here with smart ass bitches-fucking cunts.
== END 2022-09-18 11:57 | disposition home or self-care (01) ==
PROVIDERS: Emergency Provider Student in an Organized Health Care Education/Training Program; Visit Provider Student in an Organized Health Care Education/Training Program
DX: M79.605 Pain in left leg (principal); F17.210 Nicotine dependence, cigarettes, uncomplicated
CPT/HCPCS: 74177; 80053; 81001; 83690; 85025; 96361; 96374; 96375; 99281; J7030; Q9967; A4216; J2405

== ENCOUNTER 2022-10-31 23:10 | Emergency (ER) | payer MEDICAID, SELFPAY ==
[2022-10-31 23:11] VITALS: BP 166/111; PULSE 79; RESP 18; TEMP 36.3; O2SAT 100; BMI 34.3
--- NOTE | 2022-10-31 23:20 | EDS_ITS ---
HPI <Dr. Aries Dhaliwal MD - Last Filed: 11/01/22 00:05> History of Present Illness Chief Complaint: Headache Informant: patient Narrative Narrative: 47-year-old female states she was woke up by her sydney, and has when she rolled over she had a sudden pop in her right frontal retro-orbital head followed by a headache that has become severe. This started about an hour ago. Nausea but no vomiting. She is photophobic. 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 She states since being diagnosed she has been having headaches off and on but they are relatively mild not severe like this, and she has also had intermittent vision loss in the right eye, she is not having that right now just blurry. She denies any other focal neurologic symptoms or loss of consciousness since this started. PFSH <Dr. Aries Dhaliwal MD - Last Filed: 11/01/22 00:05> [facility] Medical History Anxiety and depression Arthritis Asthma Cancer Depression H/O psychiatric hospitalization Herniated nucleus pulposus, C5-6 History of asthma History of edema History of pain when walking History of ulceration Injury of back Injury of head and neck Low iron Migraine headache Smoker Wears dentures Wears glasses Home Medications acetaminophen 500 mg tablet 1,500 mg PO BID PRN Pain 02/28/22 [History Last Taken Unknown] Allergy/AdvReac Type Severity Reaction Status Date / Time aspirin Allergy Hives Verified 10/31/22 23:14 chlorpromazine HCl Allergy Hives Verified 10/31/22 23:14 [From Thorazine] hydrocodone [From [place]] Allergy Hives Verified 10/31/22 23:14 naproxen Allergy Anaphylaxis Verified 10/31/22 23:14 oseltamivir [From Tamiflu] Allergy Swelling Verified 10/31/22 23:14 tramadol HCl [From Ultram] Allergy Hives Verified 10/31/22 23:14 Family History Father Cancer Heart disease Mother Myocardial infarction Surgical History History of arthroscopy of left knee History of cholecystectomy Hx laparoscopic cholecystectomy Hx of tooth extraction Hx of tubal ligation Social History household members: significant other and children number of children: 4 Smoking Status: Current every day smoker tobacco type: cigarettes Tobacco: How many years used: 20 alcohol intake: never what type of physical activity do you participate in: none do you feel safe at home: Yes ROS <Dr. Aries Dhaliwal MD - Last Filed: 11/01/22 00:05> ROS ED Constitutional Constitutional ED: Denies chills or fever(s) Eyes Eyes: Reports blurry vision and photophobia; Denies diplopia ENT ENT ED: Denies ear pain or sore throat Cardiovascular Cardiovascular: Denies chest pain or palpitations Respiratory/Chest Respiratory/Chest: Denies cough or dyspnea Gastrointestinal Gastrointestinal: Reports nausea; Denies abdominal pain, diarrhea or vomiting Genitourinary Genitourinary ED: Denies dysuria or urinary frequency Musculoskeletal Musculoskeletal: Denies back pain or myalgias Integumentary Denies abscess or rash Neurologic Neurologic: Reports headache(s); Denies paresthesias or weakness EXAM <Dr. Aries Dhaliwal MD - Last Filed: 11/01/22 00:05> Physical Exam Const Vital Signs: 10/31/22 23:11 11/01/22 00:01 Temperature 97.4 F L Temperature Source Temporal Pulse Rate 79 76 Respiratory Rate 18 17 Blood Pressure 166/111 H 137/81 H Blood Pressure Mean 129 99 Pulse Ox 100 97 Oxygen Delivery Method Room Air Positive well nourished and well developed General Appearance ED: well developed and NAD HEENT Reports normocephalic and moist mucous membranes atraumatic Eyes PERRL, EOMs intact bilaterally and conjunctivae normal Eyes Narrative: photophobia Neck no lymphadenopathy, supple and no meningeal signs Resp normal respiratory effort and clear to auscultation bilaterally GI non-tender and non-distended Palpation: soft Extremity normal to inspection and full ROM Neuro oriented x3 and CN's II-XII intact bilaterally Sensorium / Orientation: awake and alert Speech: speech normal Gait (Neuro): normal gait Motor Exam: strength 5/5 throughout Psych mental status grossly normal Skin Lesions: no lesions Rashes: no rashes <Dr. Francisco Bai DO - Last Filed: 11/01/22 02:18> Physical Exam Const Vital Signs: 10/31/22 23:11 11/01/22 00:01 Temperature 97.4 F L Temperature Source Temporal Pulse Rate 79 76 Respiratory Rate 18 17 Blood Pressure 166/111 H 137/81 H Blood Pressure Mean 129 99 Pulse Ox 100 97 Oxygen Delivery Method Room Air [facility] <Dr. Aries Dhaliwal MD - Last Filed: 11/01/22 00:05> [facility] Narrative Medical decision making narrative: Treated the patient with IV fluids and Reglan while sending her for CT and CT a ngiography of the head to rule out rupture aneurysm. Clinically and hemodynamically stable at this time, neurologically intact. Repeat blood pressure 117/78. Radiography Diagnostic Testing: Clinical Impression(s) from Imaging Studies Head CTA 11/01/22 00:00 IMPRESSION: undefined <Dr. Francisco Bai DO - Last Filed: 11/01/22 02:18> [facility] Radiography Diagnostic Testing: Clinical Impression(s) from Imaging Studies Head CTA 11/01/22 00:00 IMPRESSION: undefined Treatment and Re-Evaluation Narrative: The patient was signed out to me while awaiting official CTA results. CTA revealed a aneurysm that is roughly 4 x 4.5 mm in size. This is a known aneurysm and there is no active leaking or rupture of it. On reevaluation the patient has improvement of her headache and her neuro exam remains normal. Therefore at this time with CTA confirming no acute rupture of the aneurysm or signs of internal bleeding and the fact the patient's had improvement of her headache I do not believe there is need for a spinal tap or further testing. Patient can be discharged home and follow-up with her surgeon to discuss removal of the aneurysm on an outpatient basis. Discharge Plan Triage Chief Complaint: Headache ED Provider: Aries Dhaliwal Dx/Rx/DC Orders Clinical Impression: Brain aneurysm, Cephalgia Instructions: What Is a Brain Aneurysm?, ED Headache Unspecified Prescriptions: No Action acetaminophen [Tylenol Ex Str Arthritis Pain] 500 mg Tablet 1,500 mg PO BID PRN (Reason: Pain) Primary Care Provider: Care Physician,No Primary Referrals: Care Physician,No Primary [Primary Care Provider] - Activity Restrictions/Additional Instructions: Your CT scan today showed the known aneurysm that you have and it is roughly the same size as your previous images. However there is no signs that it is ruptured or bleeding. Therefore follow-up with your surgeon as previously directed and return to the ER should you have any further concerns Disposition Disposition: Home, Self Care
[2022-10-31] MEDS: Metoclopramide 10 MG/2 ML Vial 5 MG IV (23:42)
[2022-10-31] MEDS: 0.9% Normal Saline 1,000 ML 999 ML IV (23:42)
--- NOTE | 2022-11-01 | CT_ITS ---
EXAM: CT angiogram brain. HISTORY: headache, hx aneurysm TECHNIQUE: CTA Head WO/W Contrast Injection. Multiplanar reconstructions and 3-D reformats were obtained. A radiation dose optimization technique was used for this scan. COMPARISON: None. LIMITATIONS: Motion artifact. DISTAL CAROTID ARTERIES: No significant stenosis. ANTERIOR CEREBRAL ARTERIES: No significant stenosis. MIDDLE CEREBRAL ARTERIES: No significant stenosis. An aneurysm arises from the right middle cerebral artery at a first order branch of the M1 segment. The aneurysm measures 4 x 4.5 x 4.5 mm. POSTERIOR CEREBRAL ARTERIES: No significant stenosis. BASILAR ARTERY: Decreased in caliber diffusely. No significant stenosis. BRAIN: Noncontrast images of the brain show no evidence of acute hemorrhage. Normal cardozo-white matter differentiation. No hydrocephalus. CONCLUSION: 4.5 mm aneurysm arises from a first order branch of the right middle cerebral artery. Electronically Signed: Brandon Monte MD at 2:07 EDT , CT/CTA Head W/WO Contrast IMPRESSION: undefined
[2022-11-01 00:01] VITALS: BP 137/81; PULSE 76; RESP 17; O2SAT 97
== END 2022-11-01 02:34 | disposition home or self-care (01) ==
PROVIDERS: Emergency Provider Emergency Medicine; Visit Provider Emergency Medicine
DX: I67.1 Cerebral aneurysm, nonruptured (principal); R51.9 Headache, unspecified; F17.210 Nicotine dependence, cigarettes, uncomplicated
CPT/HCPCS: 70496; 96361; 96374; 99283; J7030; Q9967; A4216

== ENCOUNTER 2022-11-10 23:14 | Emergency (ER) | payer MEDICAID, SELFPAY ==
[2022-11-10 23:17] VITALS: BP 145/94; PULSE 55; RESP 20; TEMP 36.1; O2SAT 99; BMI 33.3
--- NOTE | 2022-11-10 23:49 | CT_ITS ---
EXAM: CT HEAD WITHOUT INTRAVENOUS CONTRAST CLINICAL INDICATION: headache s/p surgery TECHNIQUE: Multiple axial images were obtained of the head without intravenous contrast. This CT exam was performed using one or more of the following dose reduction techniques: automated exposure control, adjustment of the mA and/or kV according to patient size, and/or use of iterative reconstruction technique. RADIATION DOSE: CTDIvol = 44.99 mGy, DLP = 812.98 mGy-cm. COMPARISON: CTA November 01, 2022 showing a 4.5 mm mckay aneurysm projecting from first order branching of right MCA M1 segment. FINDINGS: BRAIN AND EXTRA-AXIAL SPACES: Unremarkable. No intra- or extra-axial hemorrhage. No evidence of acute infarct. No intracranial mass or mass effect. There is preservation of the cardozo/white matter interface. Posterior fossa structures are unremarkable. Ventricles are appropriate for age. No hydrocephalus. Basal cisterns are patent. BONES/JOINTS: Unremarkable. No discrete lytic or blastic abnormalities. SOFT TISSUES: There is soft tissue swelling, fluid and gas in the right scalp overlying the postoperative changes, and mild pneumocephalus superiorly, consistent with very recent surgery. No midline shift convincing intracranial hemorrhage. Slight narrowing of the right sylvian fissure presumably due to minimal adjacent edema. VASCULATURE: There are new postoperative changes of right frontal sphenoid region and vascular clip in the region of the previously seen right M1 first order branching aneurysm. There is a small focus of extra-axial bubbly material deep to the anterior calvarial postoperative change, measuring roughly 6 mm x 1.4 cm, without significant internal fluid. SINUSES: Unremarkable as visualized. Clear. MASTOID AIR CELLS: Unremarkable. Clear. ORBITS: Visualized globes, extraocular muscles, optic nerves and retrobulbar fat appear unremarkable. CT/Brain/Head without Contrast IMPRESSION: 1. Recent right M1 branching aneurysm clipping with mild beam hardening artifact from the vascular clip and slight narrowing of the right sylvian fissure, presumably minimal edema. 2. Small oval pocket of extra-axial gas just deep to the new craniotomy changes and mild intracranial pneumocephalus superiorly. 3. The AI program suggests intracranial hemorrhage but on review this appears to be beam hardening artifact from the clip. No convincing intracranial hemorrhage. Electronically Signed: Negrita Mckenzie MD at 0:53 EDT Reading Location ID and State: [facility] / [place] Tel , Service support ,
[2022-11-11] VITALS (8 sets, daily range): BP systolic 124–180; BP diastolic 64–89; PULSE 45–59; RESP 12–17; O2SAT 94–100
[2022-11-11] MEDS: Ondansetron 4 MG/2 ML Vial IV (00:44)
[2022-11-11] MEDS: HYDROmorphone 1 MG/ML Syringe IV (00:45)
[2022-11-11 00:58] LABS: Bedside Glucose 112 mg/dL (74-106)
--- NOTE | 2022-11-11 01:37 | ED.RN ---
[facility] called for transfer. they will call back for doc to doc
[2022-11-11 01:41] LABS: Absolute Lymphocyte Count 2.75 X10^3/uL (0.83-4.51); Absolute Neutrophil Count 26.6 X10^3/uL (2.0-7.7); Basophil# 0.04 X10^3/uL; Basophil% 0.1 % (0-1); Hematocrit 37.2 % (37-47); Hemoglobin 12.3 g/dL (12.0-15.0); Lymphocyte # 2.75 X10^3/ul (0.83-4.51); Lymphocyte % 8.7 % (19-41); Mean Corp Hgb Conc 33.1 g/dL (32-36); Mean Corpuscular Hgb 31.1 pg (27.0-32.0); Mean Corpuscular Volume 93.9 fL (81-99); Mean Platelet Vol. 10.3 fl (6.2-12.0); Monocyte# 1.78 X10^3/uL; Monocyte% 5.6 % (0-10); NRBC Flagged by Analyzer 0 % (0-5); Neutrophil # 26.63 X10^3/uL (2.7-7.7); Neutrophil % 84.5 % (47-70); POSITIVE COUNT YES; POSITIVE DIFFERENTIAL YES; Platelet Count 275 K/mm3 (150-450); RBC Distribution Width CV 15.6 % (11.6-14.6); RBC Distribution Width SD 54.2 fl (35.1-43.9); Red Blood Count 3.96 M/mm3 (4.2-5.4)
[2022-11-11 01:46] LABS: Differential Indicated SCAN CRITERIA MET; White Blood Count 31.6 K/mm3 (4.4-11.0)
[2022-11-11 01:51] LABS: International Normalized Ratio 1.1; Prothrombin Time (Protime)PT. 14.1 SECONDS (11.7-14.9)
[2022-11-11 01:52] LABS: Partial Thromboplast Time 26.3 Seconds (24.1-36.2)
[2022-11-11] MEDS: LORazepam 2 MG/ML Syringe 1 MG IV ×2 (01:54→02:45)
[2022-11-11 01:55] LABS: Anion Gap 8 (5-15); BUN 13 mg/dL (7-18); BUN/Creat Ratio 19.5 RATIO (10-20); Calcium,Total 8.8 mg/dL (8.5-10.1); Chloride 108 mmol/L (98-107); Creatinine, Serum 0.67 mg/dL (0.55-1.02); EST Glomerular Filtration Rate 102 mL/min (>60); Est Glom Filt Rate - Afr Amer 123 mL/min (>60); Estimated Creatinine Clearance 110.81 ml/min; Glucose 154 mg/dL (74-106); Magnesium 1.7 mg/dL (1.6-2.6); Potassium 3.3 mmol/L (3.5-5.1); Sodium Level 139 mmol/L (136-145)
[2022-11-11 02:38] LABS: Differential Comment SCANNED
--- NOTE | 2022-11-11 02:48 | CT_ITS ---
We are attempting to reach an attending provider to discuss findings. An addendum with communication details will be sent when the communication is complete. EXAM: CT HEAD WITHOUT INTRAVENOUS CONTRAST CLINICAL INDICATION: seizure TECHNIQUE: Multiple axial images were obtained of the head without intravenous contrast. This CT exam was performed using one or more of the following dose reduction techniques: automated exposure control, adjustment of the mA and/or kV according to patient size, and/or use of iterative reconstruction technique. RADIATION DOSE: CTDIvol = 44.99 mGy, DLP = 846.73 mGy-cm. COMPARISON: 12 5:00 AM the same day recent postoperative change of aneurysm clipping. FINDINGS: BRAIN AND EXTRA-AXIAL SPACES: See below. BONES/JOINTS: See below. VASCULATURE: Right distal M1 segment aneurysm clip again noted. Similar small bubbly gas collection just deep to the anterior margin of the right craniotomy change, measuring roughly 1.3 cm x 0.8 cm, likely incidental postoperative change. The pneumocephalus superiorly has almost resolved since exam 3 hours earlier. The sulci appear diffusely narrowed and the ventricles are small, with mildly effaced right sylvian fissure, cannot exclude early or mild cerebral edema. There is no midline shift or intracranial hemorrhage. Jon-white matter differentiation is maintained. SINUSES: Unremarkable as visualized. Clear. MASTOID AIR CELLS: Unremarkable. Clear. ORBITS: Visualized globes, extraocular muscles, optic nerves and retrobulbar fat appear unremarkable. CT/Brain/Head without Contrast IMPRESSION: Resolution of most of the previously seen mild postoperative pneumocephalus. Otherwise similar exam. Diffusely narrowed cerebral sulci , ventricles, and mild narrowed right sylvian fissure are suspicious for mild cerebral edema but there is good jon-white matter differentiation and the basilar cisterns are patent. Electronically Signed: Negrita Mckenzie MD at 4:49 EDT ,
--- NOTE | 2022-11-11 02:49 | EKG12_ITS ---
Test Reason : Dysrhythmia Blood Pressure : / mmHG Vent. Rate : 055 BPM Atrial Rate : 055 BPM P-R Int : 142 ms QRS Dur : 086 ms QT Int : 492 ms P-R-T Axes : 074 057 049 degrees QTc Int : 470 ms Sinus bradycardia with marked sinus arrhythmia Nonspecific ST abnormality Abnormal ECG Confirmed by REEMA PUENTE ([id number]), newspaper copy editor TOBIN LERMA ([id number]) on 11/14/2022 2:09:53 PM Referred By: Confirmed By:REEMA PUENTE
[2022-11-11] MEDS: DiphenhydrAMINE 50 MG/ML Syringe 25 MG IV ×2 (02:52→03:37)
[2022-11-11] MEDS: levETIRAcetam IV 1,000 MG/100 ML BAG 400 MG IV (02:54)
[2022-11-11] MEDS: Haloperidol Lactate 5 MG/ML Vial IV (03:37)
--- NOTE | 2022-11-11 03:37 | EDS_ITS ---
HPI History of Present Illness Chief Complaint: Headache Informant: patient and spouse/S.O. Narrative Narrative: Patient is a 47-year-old female with past medical history of brain aneurysm. She was at the [facility] for clipping of the aneurysm on November 08. She states that she was discharged on November 10. She states that throughout the day she was feeling okay but around 5 PM started developing a headache near the incision site. She states she took [id number] medication and gave the headache time to improve but it did not do so. Secondary to this patient comes in for evaluation. [facility] Medical History (Updated 11/11/22 @ 05:[address] Francisco Bai DO) Anxiety and depression Arthritis Asthma Asthma Bipolar disorder Cancer Depression H/O psychiatric hospitalization Herniated nucleus pulposus, C5-6 History of asthma History of edema History of pain when walking History of ulceration Injury of back Injury of head and neck Low iron Migraine headache Smoker Wears dentures Wears glasses Home Medications acetaminophen 500 mg tablet 1,500 mg PO BID PRN Pain 02/28/22 [History Last Taken Unknown] captopril 12.5 mg tablet 12.5 mg PO Q12H bp 11/10/22 [History Last Taken 11/10/22] levetiracetam 750 mg tablet 750 mg PO Q12H sz 11/10/22 [History Last Taken Unknown] methocarbamol 500 mg tablet 750 mg PO Q8H PRN muscle relaxer 11/10/22 [History Last Taken Unknown] nicotine 14 mg/24 hr daily transdermal patch 1 patch transdermal Q24H 11/10/22 [History Last Taken Unknown] Allergy/AdvReac Type Severity Reaction Status Date / Time aspirin Allergy Hives Verified 11/10/22 23:17 chlorpromazine HCl Allergy Hives Verified 11/10/22 23:17 [From Thorazine] hydrocodone [From [place]] Allergy Hives Verified 11/10/22 23:17 naproxen Allergy Anaphylaxis Verified 11/10/22 23:17 oseltamivir [From Tamiflu] Allergy Swelling Verified 11/10/22 23:17 tramadol HCl [From Ultram] Allergy Hives Verified 11/10/22 23:17 Family History Father Cancer Heart disease Mother Myocardial infarction Surgical History History of arthroscopy of left knee History of cholecystectomy Hx laparoscopic cholecystectomy Hx of tooth extraction Hx of tubal ligation Social History household members: significant other and children number of children: 4 Smoking Status: Current every day smoker tobacco type: cigarettes Tobacco: How many years used: 20 alcohol intake: never what type of physical activity do you participate in: none do you feel safe at home: Yes ROS ROS ED Constitutional Constitutional ED: Denies chills or fever(s) Eyes Eyes: Denies change in vision ENT ENT ED: Denies sore throat Cardiovascular Cardiovascular: Denies chest pain Respiratory/Chest Respiratory/Chest: Denies cough or dyspnea Gastrointestinal Gastrointestinal: Reports nausea; Denies abdominal pain, diarrhea or vomiting Genitourinary Genitourinary ED: Denies dysuria Musculoskeletal Musculoskeletal: Denies neck pain Integumentary Denies rash Neurologic Neurologic: Reports headache(s); Denies paresthesias or weakness Hematologic/Lymphatic Hematologic/Lymphatic: Denies easy bleeding or easy bruising EXAM Physical Exam Const Vital Signs: 11/10/22 23:17 11/11/22 00:50 11/11/22 02:21 Temperature 97 F L Temperature Source Temporal Pulse Rate 55 L 45 L 53 L Respiratory Rate 20 H 16 12 Blood Pressure 145/94 H 180/83 H 170/89 H Blood Pressure Mean 111 115 116 Pulse Ox 99 94 97 Oxygen Delivery Method Room Air Room Air Room Air Oxygen Flow Rate (L/min) 11/11/22 02:56 11/11/22 03:50 11/11/22 04:53 Temperature Temperature Source Pulse Rate 56 L 59 L 51 L Respiratory Rate 16 12 14 Blood Pressure 149/72 H 145/64 H 124/66 H Blood Pressure Mean 97 91 85 Pulse Ox 98 100 100 Oxygen Delivery Method Room Air Nasal Cannula Nasal Cannula Oxygen Flow Rate (L/min) 2 2 11/11/22 05:00 Temperature Temperature Source Pulse Rate 52 L Respiratory Rate 15 Blood Pressure 132/72 H Blood Pressure Mean 92 Pulse Ox 100 Oxygen Delivery Method Nasal Cannula Oxygen Flow Rate (L/min) 2 Positive well nourished, well developed and obese General Appearance ED: well developed Nutritional Appearance: obese HEENT Reports moist mucous membranes HEENT Narrative: No signs of infection in the posterior pharynx Patient has postoperative changes along the right scalp. The wound is clean dry and intact without obvious secondary changes to suggest infection. Patient has soft tissue swelling along the right side of the face/orbit consistent with postoperative hematoma. Eyes PERRL and EOMs intact bilaterally Neck supple Neck Narrative: No nuchal rigidity or meningeal signs noted Resp normal respiratory effort and clear to auscultation bilaterally Cardio regular rhythm Rate: bradycardia and other Other Details: Bradycardic rate with regular rhythm Radial and carotid pulses equal and symmetric GI normal to inspection, nondistended, normoactive bowel sounds, non-tender and non-distended GI Narrative: No voluntary guarding or rigidity. No pulsatile mass or fluid wave. Auscultation: normoactive bowel sounds Palpation: soft Extremity normal to inspection Extremity Narrative: No asymmetric edema no pitting edema negative Homans' sign bilaterally Neuro oriented x3 and CN's II-XII intact bilaterally Neuro Narrative: Cranial nerves II through XII are grossly intact there are no focal neurologic deficits. No pronator drift no dysmetria no truncal ataxia. NIH stroke scale score of 0 Sensorium / Orientation: alert Psych mental status grossly normal Skin no rashes or lesions noted Skin Narrative: Postoperative changes to the scalp as documented above MDM MDM MDM Narrative Medical decision making narrative: Patient arrived to the ER afebrile but was hypertensive and mildly bradycardic. As she recently underwent aneurysmal clipping and developed a headache there is concern that she has a postoperative bleed. Secondary to this a noncontrast CT was obtained. This revealed postoperative changes without other acute finding. The patient was initially given 1 mg Dilaudid secondary to the headache. Following this she had improvement of her headache and was resting comfortably but then developed a tonic-clonic seizure. The seizure lasted approximate 1 to 2 minutes and then resolved spontaneously and patient became postictal. Patient was given Ativan secondary to the seizure. Roughly 30 minutes to an hour later patient had a second tonic-clonic seizure also lasting 1 to 2 minutes. This resolved and she became postictal once again. Roughly 30 minutes later patient had a third seizure similar nature to the first 2 and therefore she was loaded with Keppra. Following administration of Keppra patient had no further seizure activity. However patient became very agitated and was moving all extremities and thrashing in bed. Secondary to this she was given Benadryl and Ativan. This improved the agitation but when worn off thrashing return once again. Therefore she was given another dose of Benadryl and Haldol. This improved her agitation once again but when it wore off she returned to her agitated state. Patient was then given another 2 mg of IV Ativan. Because of the recurrent seizure activity a repeat CT scan was obtained. Second CT scan showed changes concerning for cerebral edema. Patient was medicated with 25 mg of mannitol and 20 mg of IV Lasix. [facility] was contacted secondary to a recent procedure at their site. Based on the recurrent seizure activity I do recommend that she go back to their facility for further evaluation. The patient's white count is elevated at 31.6 but her last value at the [facility] was elevated at 25. Therefore I feel this mild increase in her value is most likely stress response and we will hold off on antibiotics at this time as she is afebrile. The plan of care was discussed with the patient's significant other and brother as she is obtunded. However she is protecting her airway and she does not require intubation. History & Record Review Discussion w/independent historian: Patient and Significant other Lab Data Attestation: I reviewed the patient's lab results. Labs: Laboratory Results - last 24 hr 11/11/22 11/11/22 00:40 01:30 WBC 31.6 H* RBC 3.96 L Hgb 12.3 Hct 37.2 MCV 93.9 MCH 31.1 MCHC 33.1 RDW Std Deviation 54.2 H RDW Coeff of Mohan 15.6 H Plt Count 275 MPV 10.3 Immature Gran % (Auto) 1.100 H Neut % (Auto) 84.5 H Lymph % (Auto) 8.7 L [place] % (Auto) 5.6 Eos % (Auto) 0.0 Baso % (Auto) 0.1 Absolute Neuts (auto) 26.6 H Absolute Lymphs (auto) 2.75 Nucleated RBC % 0 Differential Comment SCANNED Diff Path Review July foll PT 14.1 INR 1.1 APTT 26.3 Sodium 139 Potassium 3.3 L Chloride 108 H Carbon Dioxide 23.0 Anion Gap 8 BUN 13 Creatinine 0.67 Estim Creat Clear Calc 110.81 Est GFR (MDRD) Af Amer 123 Est GFR (MDRD) Non-Af 102 BUN/Creatinine Ratio 19.5 Glucose 154 H Calcium 8.8 Magnesium 1.7 POC Glucose 112 H Radiography Diagnostic Testing: Clinical Impression(s) from Imaging Studies Brain CT 11/10/22 23:49 IMPRESSION: 1. Recent right M1 branching aneurysm clipping with mild beam hardening artifact from the vascular clip and slight narrowing of the right sylvian fissure, presumably minimal edema. 2. Small oval pocket of extra-axial gas just deep to the new craniotomy changes and mild intracranial pneumocephalus superiorly. 3. The AI program suggests intracranial hemorrhage but on review this appears to be beam hardening artifact from the clip. No convincing intracranial hemorrhage. Electronically Signed: Negrita Mckenzie MD at 0:53 EDT Reading Location ID and State: [facility] / [place] Tel , Service support , Brain CT 11/11/22 02:48 IMPRESSION: Resolution of most of the previously seen mild postoperative pneumocephalus. Otherwise similar exam. Diffusely narrowed cerebral sulci , ventricles, and mild narrowed right sylvian fissure are suspicious for mild cerebral edema but there is good cardozo-white matter differentiation and the basilar cisterns are patent. Electronically Signed: Negrita Mckenzie MD at 4:49 EDT , Management Discussion w/another healthcare provider: Consumer Services Advisor and Radiologist Critical Care Time Critical Care Time: Yes Critical care time (excluding procedures): Discussing w/Patient &/or Family/Cane Splicer, Discussing w/Consultants, Arranging Admission or Transfer and - (Critical care time of 33 minutes) Discharge Plan Triage Chief Complaint: Headache ED Provider: Francisco Bai Dx/Rx/DC Orders Clinical Impression: Observed seizure-like activity, Brain aneurysm, Bipolar disorder Prescriptions: No Action acetaminophen [Tylenol Ex Str Arthritis Pain] 500 mg Tablet 1,500 mg PO BID PRN (Reason: Pain) captopril 12.5 mg tablet 12.5 mg PO Q12H levetiracetam 750 mg tablet 750 mg PO Q12H methocarbamol 500 mg tablet 750 mg PO Q8H PRN (Reason: muscle relaxer) Patient Comments: Take 1 tablet by mouth three times daily as needed. nicotine 14 mg/24 hr patch 24 hour 1 patch transdermal Q24H Primary Care Provider: Care Physician,No Primary Referrals: Care Physician,No Primary [Primary Care Provider] - Disposition Disposition: Acute Care Hospital Discharge Location: [facility]
[2022-11-11] MEDS: Furosemide 20 MG/2 ML VIAL IV (04:05)
[2022-11-11] MEDS: Mannitol 50gm/250ml 250 ML IV (04:07)
[2022-11-11] MEDS: LORazepam 2 MG/ML Syringe IV ×2 (04:35→06:58)
--- NOTE | 2022-11-11 04:52 | ED.RN ---
Spoke with [facility] transportation about pt condition and appropriate transportation.
--- NOTE | 2022-11-11 05:21 | ED.RN ---
Report given to Jack SCOTT at [facility].
[2022-11-11 12:38] LABS: Pathologist Review Reviewed
[2022-11-14 20:08] LABS: KEPPRA (LEVETIRACETAM) 26.7 ug/mL (10.0-40.0)
== END 2022-11-11 07:07 | disposition short-term general hospital (02) ==
PROVIDERS: Emergency Provider Emergency Medicine; Visit Provider Emergency Medicine
DX: I67.1 Cerebral aneurysm, nonruptured (principal); F31.9 Bipolar disorder, unspecified; F17.210 Nicotine dependence, cigarettes, uncomplicated; E66.9 Obesity, unspecified; Z79.899 Other long term (current) drug therapy
CPT/HCPCS: 51702; 70450; 80048; 80177; 82962; 83735; 85025; 85610; 85730; 93005; 96365; 96375; 96376; 99285; A4216; J1940; J2405

== ENCOUNTER 2022-11-21 06:10 | Emergency (ER) | payer MEDICAID, SELFPAY ==
[2022-11-21 06:10] VITALS: BP 156/76; PULSE 62; RESP 16; TEMP 36.9; O2SAT 100
[2022-11-21 06:11] VITALS: BP 156/76; PULSE 62; RESP 18; TEMP 36.9; O2SAT 100; BMI 33.3
--- NOTE | 2022-11-21 06:35 | CT_ITS ---
INDICATION: Postsurgical hematoma versus seroma versus abscess EXAMINATION: CT BRAIN - CT Head or Brain W/O Contrast Injection TECHNIQUE: Multiple axial images were obtained of the head with sagittal and coronal reconstructed images. Individualized dose optimization techniques were used for this CT. IV contrast dosage and agent: None. COMPARISON: 11/11/2022 CT. FINDINGS: BRAIN PARENCHYMA: No evidence of an acute infarct or intracranial hemorrhage. No evidence of a mass. CSF SPACES: The ventricles, sulci and subarachnoid cisterns are appropriate for age. CALVARIUM, SKULL BASE, PARANASAL SINUSES AND MASTOID AIR CELLS: No fracture. Mastoid air cells are clear. Visualized paranasal sinuses are unremarkable. 7.6 x 1.6 x 6.8 cm fluid collection in the right anterolateral scalp adjacent to the surgical changes with decrease foci of air as compared to the prior exam. ORBITS: The globes, extraocular muscles, optic nerves and retrobulbar fat are unremarkable. CT/Brain/Head without Contrast IMPRESSION: 1. 7.6 x 1.6 x 6.8 cm right anterolateral scalp adjacent to the surgical site with differential considerations including hematoma versus seroma versus abscess. 2. No new/acute intracranial abnormality with intracranial appearance unchanged as compared to 11/11/2022. Electronically Signed: Julius Douglas DO at 7:29 EDT ,
[2022-11-21] MEDS: Ondansetron 4 MG/2 ML Vial IV (06:56)
[2022-11-21] MEDS: HYDROmorphone 0.5 MG/0.5 ML SYRINGE IV (06:56)
--- NOTE | 2022-11-21 06:58 | EX.ED.DYSGE1 ---
HPI History of Present Illness Chief Complaint: Wound Informant: patient and spouse/S.O. Narrative Narrative: Patient is a 47-year-old female with past medical history of degenerative disc disease but most recently of a brain aneurysm requiring clipping. She was seen in the ER status post surgery and found to have increased brain edema with increased seizure activity and was transferred back to [facility] where her procedure was performed. Patient states she was informed that time she had a brain infection and was kept in the hospital for approximately 7 to 10 days and discharged on antibiotics. She states she is still on antibiotics and has been doing well but noticed some drainage from the incisional site near her right ear and secondary to this comes in for evaluation. She states that there is been no trauma she denies any fevers or chills and states that there is been no recurrent seizure activity [facility] Medical History Anxiety and depression Arthritis Asthma Asthma Bipolar disorder Cancer Depression H/O psychiatric hospitalization Herniated nucleus pulposus, C5-6 History of asthma History of edema History of pain when walking History of ulceration Injury of back Injury of head and neck Low iron Migraine headache Smoker Wears dentures Wears glasses Home Medications acetaminophen 500 mg tablet 1,500 mg PO BID PRN Pain 02/28/22 [History Last Taken Unknown] captopril 12.5 mg tablet 12.5 mg PO Q12H bp 11/10/22 [History Last Taken 11/10/22] levetiracetam 750 mg tablet 750 mg PO Q12H sz 11/10/22 [History Last Taken Unknown] methocarbamol 500 mg tablet 750 mg PO Q8H PRN muscle relaxer 11/10/22 [History Last Taken Unknown] oxycodone-acetaminophen 5 mg-325 mg tablet (Percocet) 1 tab PO Q6H PRN pain 3 days #12 tabs 11/21/22 [Rx Last Taken Unknown] Allergy/AdvReac Type Severity Reaction Status Date / Time aspirin Allergy Hives Verified 11/21/22 06:18 chlorpromazine HCl Allergy Hives Verified 11/21/22 06:18 [From Thorazine] hydrocodone [From [place]] Allergy Hives Verified 11/21/22 06:18 naproxen Allergy Anaphylaxis Verified 11/21/22 06:18 oseltamivir [From Tamiflu] Allergy Swelling Verified 11/21/22 06:18 tramadol HCl [From Ultram] Allergy Hives Verified 11/21/22 06:18 Family History Father Cancer Heart disease Mother Myocardial infarction Surgical History History of arthroscopy of left knee History of cholecystectomy Hx laparoscopic cholecystectomy Hx of tooth extraction Hx of tubal ligation Social History household members: significant other and children number of children: 4 Smoking Status: Current every day smoker tobacco type: cigarettes Tobacco: How many years used: 20 alcohol intake: never what type of physical activity do you participate in: none do you feel safe at home: Yes ROS ROS ED Constitutional Constitutional ED: Denies chills or fever(s) Eyes Eyes: Denies change in vision ENT ENT ED: Denies sore throat Cardiovascular Cardiovascular: Denies chest pain Respiratory/Chest Respiratory/Chest: Denies cough or dyspnea Gastrointestinal Gastrointestinal: Reports nausea; Denies abdominal pain, diarrhea or vomiting Genitourinary Genitourinary ED: Denies dysuria Musculoskeletal Musculoskeletal: Denies myalgias or neck pain Integumentary Reports other Details: Positive swelling and bruising consistent with recent surgery Neurologic Neurologic: Reports headache(s) Hematologic/Lymphatic Hematologic/Lymphatic: Denies easy bleeding or easy bruising EXAM Physical Exam Const Vital Signs: 11/21/22 06:11 11/21/22 06:10 Temperature 98.4 F 98.4 F Temperature Source Oral Oral Pulse Rate 62 62 Respiratory Rate 18 16 Blood Pressure 156/76 H 156/76 H Blood Pressure Mean 102 102 Pulse Ox 100 100 Oxygen Delivery Method Room Air Room Air Positive well nourished and well developed General Appearance ED: well developed HEENT HEENT Narrative: Postoperative surgical incision along the right portion of the parietal/temporal portion of the scalp. There is surrounding soft tissue swelling and faint ecchymosis consistent with postoperative hematoma or seroma. There is mild erythema and warmth near the anterior aspect of the right ear and there is expression of a second serosanguineous of material noted at this site. No malodorous changes noted. no lymphangitic streaking. Eyes PERRL and EOMs intact bilaterally Neck supple Neck Narrative: No nuchal rigidity or meningeal signs noted Resp normal respiratory effort and clear to auscultation bilaterally Cardio regular rate and regular rhythm Extremity normal to inspection Neuro oriented x3 and CN's II-XII intact bilaterally Sensorium / Orientation: alert Motor Exam: strength 5/5 throughout Psych mental status grossly normal Skin no rashes or lesions noted Skin Narrative: Soft tissue changes to the right side of the scalp as documented above MDM MDM MDM Narrative Medical decision making narrative: Patient presented to the ER afebrile with normal neurologic exam and stable vitals. She was recently admitted to the hospital for aneurysm clipping and then developed a postoperative infection with seizure activity and had to be placed in the hospital for another 7 to 10 days. She has been home and doing well and is on antibiotics but noticed increased swelling to the right side of her head near the surgical wound and this morning had expression of fluid. Differential diagnosis is for seroma versus hematoma versus abscess. Based on her complex recent history I did elect to perform basic laboratory studies. White count is elevated at 21.1 but this is down for approximately 32 on November 11. Moreover her lactic acid is normal at 1.1. CT scan was obtained which shows soft tissue swelling the right side of the head consistent with her physical exam but no internal changes to the brain such as bleed. At this time the white count is elevated but it is downtrending from her previous value she is afebrile she has a normal neurologic exam her lactic acid is normal in the expression of fluid from the site is thickened serosanguineous fluid versus true purulent and there is no malodorous change to also suggest infection. Therefore this time I do not feel the patient needs readmitted and she can continue her home antibiotics and follow-up with her neurosurgeon as directed. Reportedly she does have an appointment tomorrow morning at approximately 10 AM. History & Record Review Discussion w/independent historian: Patient and Significant other Lab Data Attestation: I reviewed the patient's lab results. Labs: Laboratory Results - last 24 hr 11/21/22 06:55 WBC 21.1 H RBC 3.70 L Hgb 11.4 L Hct 34.9 L MCV 94.3 MCH 30.8 MCHC 32.7 RDW Std Deviation 55.6 H RDW Coeff of Mohan 16.7 H Plt Count 432 MPV 9.8 Immature Gran % (Auto) 3.700 H Neut % (Auto) 69.7 Lymph % (Auto) 19.2 [place] % (Auto) 6.4 Eos % (Auto) 0.5 Baso % (Auto) 0.5 Absolute Neuts (auto) 14.7 H Absolute Lymphs (auto) 4.06 Nucleated RBC % 0 Sodium 140 Potassium 3.6 Chloride 109 H Carbon Dioxide 27.0 Anion Gap 4 L BUN 6 L Creatinine 0.52 L Estim Creat Clear Calc 142.78 Est GFR (MDRD) Af Amer 163 Est GFR (MDRD) Non-Af 135 BUN/Creatinine Ratio 11.5 Glucose 89 Lactic Acid 1.1 Calcium 8.8 Radiography Diagnostic Testing: Clinical Impression(s) from Imaging Studies Brain CT 11/21/22 06:35 IMPRESSION: 1. 7.6 x 1.6 x 6.8 cm right anterolateral scalp adjacent to the surgical site with differential considerations including hematoma versus seroma versus abscess. 2. No new/acute intracranial abnormality with intracranial appearance unchanged as compared to 11/11/2022. Electronically Signed: Julius Douglas DO at 7:29 EDT , Discharge Plan Triage Chief Complaint: Wound ED Provider: Francisco Bai Dx/Rx/DC Orders Clinical Impression: Postoperative seroma, History of bipolar disorder, Brain aneurysm Instructions: ED Seroma, Postsurgical Prescriptions: New oxycodone-acetaminophen [Percocet] 5-325 mg tablet 1 tab PO Q6H PRN (Reason: pain) 3 Days Qty: 12 0RF No Action acetaminophen [Tylenol Ex Str Arthritis Pain] 500 mg Tablet 1,500 mg PO BID PRN (Reason: Pain) captopril 12.5 mg tablet 12.5 mg PO Q12H levetiracetam 750 mg tablet 750 mg PO Q12H methocarbamol 500 mg tablet 750 mg PO Q8H PRN (Reason: muscle relaxer) Patient Comments: Take 1 tablet by mouth three times daily as needed. Primary Care Provider: Care Physician,No Primary Referrals: Care Physician,No Primary [Primary Care Provider] - Activity Restrictions/Additional Instructions: Please follow-up with your neurosurgeon tomorrow as directed. Continue your antibiotics for infection control and return to the ER should you have any further concerns. Disposition Disposition: Home, Self Care
[2022-11-21 07:12] LABS: Absolute Lymphocyte Count 4.06 X10^3/uL (0.83-4.51); Absolute Neutrophil Count 14.7 X10^3/uL (2.0-7.7); Basophil# 0.11 X10^3/uL; Basophil% 0.5 % (0-1); Eosinophils% 0.5 % (0-5); Hematocrit 34.9 % (37-47); Hemoglobin 11.4 g/dL (12.0-15.0); Lymphocyte # 4.06 X10^3/ul (0.83-4.51); Lymphocyte % 19.2 % (19-41); Mean Corp Hgb Conc 32.7 g/dL (32-36); Mean Corpuscular Hgb 30.8 pg (27.0-32.0); Mean Corpuscular Volume 94.3 fL (81-99); Mean Platelet Vol. 9.8 fl (6.2-12.0); Monocyte# 1.36 X10^3/uL; Monocyte% 6.4 % (0-10); NRBC Flagged by Analyzer 0 % (0-5); Neutrophil % 69.7 % (47-70); Platelet Count 432 K/mm3 (150-450); RBC Distribution Width CV 16.7 % (11.6-14.6); RBC Distribution Width SD 55.6 fl (35.1-43.9); White Blood Count 21.1 K/mm3 (4.4-11.0)
[2022-11-21 07:38] LABS: Anion Gap 4 (5-15); BUN 6 mg/dL (7-18); BUN/Creat Ratio 11.5 RATIO (10-20); Calcium,Total 8.8 mg/dL (8.5-10.1); Chloride 109 mmol/L (98-107); Creatinine, Serum 0.52 mg/dL (0.55-1.02); EST Glomerular Filtration Rate 135 mL/min (>60); Est Glom Filt Rate - Afr Amer 163 mL/min (>60); Estimated Creatinine Clearance 142.78 ml/min; Glucose 89 mg/dL (74-106); Potassium 3.6 mmol/L (3.5-5.1); Sodium Level 140 mmol/L (136-145)
[2022-11-21 07:40] LABS: Lactic Acid 1.1 mmol/L (0.4-1.9)
== END 2022-11-21 08:41 | disposition home or self-care (01) ==
PROVIDERS: Emergency Provider Emergency Medicine; Visit Provider Emergency Medicine
DX: L76.32 Postprocedural hematoma of skin and subcutaneous tissue following other procedure (principal); I67.1 Cerebral aneurysm, nonruptured; F17.210 Nicotine dependence, cigarettes, uncomplicated; Z79.899 Other long term (current) drug therapy
CPT/HCPCS: 70450; 80048; 83605; 85025; 96374; 96375; 99283; A4216; J2405

== ENCOUNTER 2023-02-27 10:05 | Emergency (ER) | payer MEDICAID, SELFPAY ==
[2023-02-27 10:06] VITALS: BP 148/92; PULSE 83; RESP 18; TEMP 36.3; O2SAT 98; BMI 37.1
--- NOTE | 2023-02-27 10:59 | EDS_ITS ---
HPI HPI - URI History of Present Illness Chief Complaint: Cold Sx Informant: patient Onset/Context/Timing Onset: Weeks (1) Context: Gradual Onset Timing: Continuous Quality: Stabbing Location: Chest Worsened by: - (Coughing) Relieved by: - (Nothing) Associated Symptoms Associated Symptoms: Positive for Nasal Congestion, Headache, Sinus Pressure, Myalgias, Diarrhea, Shortness of Breath, Chest Pain and Productive Cough (Yellow sputum); Negative for Nausea or Vomiting Narrative Narrative: Patient presents with cough, congestion, headache, ear pain, and diarrhea that has been getting worse over the past week. Patient states it came on gradually. Patient states it is getting progressively worse. Patient admits to a cough with some yellow sputum. Patient admits to some subjective chills but denies any fevers. Patient admits to some pain in her chest with coughing. Patient also admits to some diarrhea and headaches. Patient denies any nausea or vomiting. Patient denies any urinary complaints. ROS ROS ED Constitutional Constitutional ED: Reports chills and subjective; Denies fever(s) Eyes Eyes: Denies blurry vision or change in vision ENT ENT ED: Reports ear pain bilateral; Denies rhinorrhea or sore throat Cardiovascular Cardiovascular: Reports chest pain; Denies palpitations Respiratory/Chest Respiratory/Chest: Reports cough and dyspnea Gastrointestinal Gastrointestinal: Reports diarrhea; Denies nausea or vomiting Genitourinary Genitourinary ED: Denies dysuria or hematuria Musculoskeletal Musculoskeletal: Denies back pain or neck pain Integumentary Denies abscess or rash Neurologic Neurologic: Reports headache(s); Denies weakness Allergic/Immunologic Allergic/Immunologic ED: Denies mouth swelling or urticaria [facility] Medical History Anxiety and depression Arthritis Asthma Asthma Bipolar disorder Cancer Depression H/O psychiatric hospitalization Herniated nucleus pulposus, C5-6 History of asthma History of edema History of pain when walking History of ulceration Injury of back Injury of head and neck Low iron Migraine headache Smoker Wears dentures Wears glasses Home Medications acetaminophen 500 mg tablet 1,500 mg PO BID PRN Pain 02/28/22 [History Last Taken Unknown] captopril 12.5 mg tablet 12.5 mg PO Q12H bp 11/10/22 [History Last Taken 11/10/22] levetiracetam 750 mg tablet 750 mg PO Q12H sz 11/10/22 [History Last Taken Unknown] methocarbamol 500 mg tablet 750 mg PO Q8H PRN muscle relaxer 11/10/22 [History Last Taken Unknown] oxycodone-acetaminophen 5 mg-325 mg tablet (Percocet) 1 tab PO Q6H PRN pain 3 days #12 tabs 11/21/22 [Rx Last Taken Unknown] albuterol sulfate 90 mcg/actuation aerosol inhaler (Ventolin HFA) 2 puff inhalation Q4H PRN PRN Wheezing ##1 02/27/23 [Rx Last Taken Unknown] Allergy/AdvReac Type Severity Reaction Status Date / Time aspirin Allergy Hives Verified 02/27/23 10:06 chlorpromazine HCl Allergy Hives Verified 02/27/23 10:06 [From Thorazine] hydrocodone [From [place]] Allergy Hives Verified 02/27/23 10:06 naproxen Allergy Anaphylaxis Verified 02/27/23 10:06 oseltamivir [From Tamiflu] Allergy Swelling Verified 02/27/23 10:06 tramadol HCl [From Ultram] Allergy Hives Verified 02/27/23 10:06 Family History Father Cancer Heart disease Mother Myocardial infarction Surgical History History of arthroscopy of left knee History of cholecystectomy Hx laparoscopic cholecystectomy Hx of tooth extraction Hx of tubal ligation Social History household members: significant other and children number of children: 4 Smoking Status: Current every day smoker tobacco type: cigarettes Tobacco: How many years used: 20 alcohol intake: never what type of physical activity do you participate in: none do you feel safe at home: Yes EXAM Physical Exam Const Vital Signs: 02/27/23 10:06 02/27/23 11:26 02/27/23 11:26 Temperature 97.3 F L Temperature Source Temporal Pulse Rate 83 76 Respiratory Rate 18 16 Respiratory Pattern Normal Blood Pressure 148/92 H Blood Pressure Mean 110 Pulse Ox 98 Oxygen Delivery Method Room Air Positive well nourished and well developed General Appearance ED: well developed and NAD HEENT Reports moist mucous membranes normocephalic Neck supple, no meningeal signs and no JVD Resp normal respiratory effort Auscultation: wheezes throughout Cardio Rate: regular rate Rhythm: regular rhythm GI non-tender and non-distended Palpation: soft Extremity normal to inspection and full ROM Neuro oriented x3, CN's II-XII intact bilaterally and no sensory deficits noted Sensorium / Orientation: alert Motor Exam: strength 5/5 throughout Psych mental status grossly normal MDM MDM MDM Narrative Medical decision making narrative: Differential diagnosis includes COPD exacerbation, pneumonia, bronchitis, viral upper respiratory infection, COVID-19 infection, and influenza infection. Chest x-ray will be obtained to assess for pneumonia and COPD. COVID-19 rapid antigen will be obtained to assess for COVID-19 infection. Influenza A and influenza B antigens will be obtained to assess for influenza infection. Lab Data Attestation: I reviewed the patient's lab results. Lab results narrative: COVID-19 rapid antigen was reviewed and was negative. Influenza A and influenza B antigens were reviewed and were negative. Radiography Chest X-Ray - ED: 2 View, Read by ED Physician, Read by Radiologist and No Acute Disease Diagnostic Testing: Clinical Impression(s) from Imaging Studies Chest X-Ray 02/27/23 11:42 IMPRESSION: Normal x-ray examination of the chest. Electronically Signed: Markel Diaz MD at 12:10 EST , PA and lateral chest x-ray was obtained. There are 2 views. On my independent interpretation, lung sanchez are clear. There is normal cardiac silhouette. [place] thorax is normal. There is no acute process noted. Radiologist also interpreted the x-ray and agrees. Treatment and Re-Evaluation Narrative: Smoking cessation was discussed. Patient was given a DuoNeb aerosol. Patient was feeling better on reevaluation. Patient was advised of her findings. Patient was given a prescription for albuterol inhaler. Patient was instructed to follow-up with her primary care physician in 5 to 7 days. Patient understood and was agreeable with the plan. All questions were answered. Discharge Plan Triage Chief Complaint: Cold Sx ED Provider: Wilmer Calvin Dx/Rx/DC Orders Clinical Impression: Asthma exacerbation, Dyspnea Instructions: ED Asthma, Acute (Adult) Prescriptions: New albuterol sulfate [Ventolin HFA] 90 mcg/actuation HFA aerosol inhaler 2 puff inhalation Q4H PRN PRN (Reason: Wheezing) Qty: 1 0RF No Action acetaminophen [Tylenol Ex Str Arthritis Pain] 500 mg Tablet 1,500 mg PO BID PRN (Reason: Pain) captopril 12.5 mg tablet 12.5 mg PO Q12H levetiracetam 750 mg tablet 750 mg PO Q12H methocarbamol 500 mg tablet 750 mg PO Q8H PRN (Reason: muscle relaxer) Patient Comments: Take 1 tablet by mouth three times daily as needed. oxycodone-acetaminophen [Percocet] 5-325 mg tablet 1 tab PO Q6H PRN (Reason: pain) 3 Days Qty: 12 0RF Primary Care Provider: Care Physician,No Primary Referrals: Bigg Abad DO [Med Staff - Radiochemical Technician] - 5-7 Days Care Physician,No Primary [Primary Care Provider] - Disposition Disposition: Home, Self Care
[2023-02-27 11:26] VITALS: PULSE 76; RESP 16
[2023-02-27] MEDS: Ipratropium/Albuterol Sulfate 3 ML AMPUL.NEB INHALATION (11:28)
--- NOTE | 2023-02-27 11:42 | RAD_ITS ---
STUDY: X-RAY CHEST REASON FOR EXAM: Female, 47 years old. Cough TECHNIQUE: PA and lateral views of the chest. COMPARISON: Comparison is made with prior study February 17, 2022. FINDINGS: The lungs are clear and expanded. There is no demonstrated pleural abnormality. Normal size heart. Normal mediastinum and mary. Normal visualized pulmonary arteries. Normal visualized aortic arch and descending thoracic aorta. Normal visualized thoracic spine. Normal visualized ribs, clavicles, and shoulders. There is no demonstrated abnormality of the visualized soft tissue structures of the upper abdomen. RAD/Chest PA and Lateral IMPRESSION: Normal x-ray examination of the chest. Electronically Signed: Markel Diaz MD at 12:10 [facility] ,
--- NOTE | 2023-02-27 13:40 | NURSING ---
02/27/23@1330- PT LEFT PRIOR TO DC INSTRUCTIONS. PT HAD A DOCUMENTED IV SITE THAT WAS NOT DC BY STAFF PRIOR TO DC. THIS NURSE ATTEMPTED TO CALL THE PT AND HER HUSBANDS NUMBERS BUT WAS UNABLE TO CONTACT EITHER [employer]. SEVERAL STAFF MEMBERS ATTEMPTED TO FIND EVIDENCE OF IV REMOVAL BY PT BUT FOUND NOTHING. YASH FISCHER OFFICER ON DUTY NOTIFIED.
== END 2023-02-27 13:30 | disposition home or self-care (01) ==
PROVIDERS: Emergency Provider Emergency Medicine; Visit Provider Emergency Medicine
DX: J45.901 Unspecified asthma with (acute) exacerbation (principal); R06.00 Dyspnea, unspecified; F17.210 Nicotine dependence, cigarettes, uncomplicated
CPT/HCPCS: 71046; 87428; 94640; 99282

== ENCOUNTER 2023-10-29 18:57 | Emergency (ER) | payer MEDICAID, SELFPAY ==
[2023-10-29 18:58] VITALS: BP 170/95; PULSE 67; RESP 26; TEMP 36.2; O2SAT 95; BMI 38.8
[2023-10-29 19:11] VITALS: O2SAT 98
--- NOTE | 2023-10-29 19:27 | EKG12_ITS ---
Test Reason : DYSRHYTHMIA Blood Pressure : / mmHG Vent. Rate : 079 BPM Atrial Rate : 079 BPM P-R Int : 144 ms QRS Dur : 076 ms QT Int : 394 ms P-R-T Axes : 058 027 044 degrees QTc Int : 451 ms Normal sinus rhythm with sinus arrhythmia Normal ECG Confirmed by Andrés Fontenot ([id number]), graphics editor RICKIE BHAT ([id number]) on 10/31/2023 2:07:34 PM Referred By: Confirmed By:Andrés Fontenot
--- NOTE | 2023-10-29 19:28 | EDS_ITS ---
HPI History of Present Illness Chief Complaint: Shortness of Breath Detail of Chief Complaint: Cough and shortness of breath Informant: patient Narrative Narrative: Patient presents the emergency department complaint of a cough that started 2 days ago. Patient today at work was coughing up some green and yellow phlegm that had some blood tinges in it. Patient also vomited x 4 and states she was gagging from the coughing. Also has diarrhea but states that is chronic since her gallbladder was removed. Patient is concerned because she has a headache and she has had history of aneurysm clipping. Patient denies fevers but she has had chills. She denies sick contacts. Patient is a smoker but down to 4 cigarettes a day from a pack and a half. She denies recent travel or surgery. No history of PE or DVT. [facility] Medical History Anxiety and depression Arthritis Asthma Asthma Bipolar disorder Cancer Depression H/O psychiatric hospitalization Herniated nucleus pulposus, C5-6 History of asthma History of edema History of pain when walking History of ulceration Injury of back Injury of head and neck Low iron Migraine headache Smoker Wears dentures Wears glasses Home Medications ?Medication ?Instructions ?Recorded ?Last Taken ?Type acetaminophen 500 mg tablet 1,500 mg PO BID PRN Pain 02/28/22 Unknown History albuterol sulfate 90 mcg/actuation 2 puff inhalation Q4H PRN PRN 02/27/23 Unknown Rx aerosol inhaler (Ventolin HFA) Wheezing ##1 doxycycline monohydrate 100 mg 100 mg PO BID #20 CAPSULES 10/29/23 Unknown Rx capsule prednisone 20 mg tablet 20 mg PO BID #10 tabs 10/29/23 Unknown Rx Allergy/AdvReac Type Severity Reaction Status Date / Time aspirin Allergy Hives Verified 10/29/23 18:58 chlorpromazine HCl (From Allergy Hives Verified 10/29/23 18:58 Thorazine) hydrocodone (From [place]) Allergy Hives Verified 10/29/23 18:58 naproxen Allergy Anaphylaxis Verified 10/29/23 18:58 oseltamivir (From Tamiflu) Allergy Swelling Verified 10/29/23 18:58 tramadol HCl (From Ultram) Allergy Hives Verified 10/29/23 18:58 Family History Father Cancer Heart disease Mother Myocardial infarction Surgical History History of arthroscopy of left knee History of cholecystectomy Hx laparoscopic cholecystectomy Hx of tooth extraction Hx of tubal ligation Social History household members: significant other and children number of children: 4 Smoking Status: Current every day smoker tobacco type: cigarettes Tobacco: How many years used: 20 alcohol intake: never what type of physical activity do you participate in: none do you feel safe at home: Yes ROS ROS ED Review of Systems ROS Unobtainable: other Constitutional Constitutional ED: Reports chills and lethargy; Denies fever(s), sweats or weight loss Eyes Eyes: Denies blurry vision, change in vision or diplopia ENT ENT ED: Denies rhinorrhea or sore throat Cardiovascular Cardiovascular: Denies chest pain, orthopnea or racing heartbeat Respiratory/Chest Respiratory/Chest: Reports cough, dyspnea and dyspnea on exertion; Denies orthopnea or sputum Gastrointestinal Gastrointestinal: Denies abdominal pain, diarrhea, nausea or vomiting Genitourinary Genitourinary ED: Denies dysuria, hematuria or urinary frequency Musculoskeletal Musculoskeletal: Denies arthralgias, back pain, myalgias or neck pain Integumentary Denies abscess, Abrasions or rash Neurologic Neurologic: Denies headache(s) or weakness Psychiatric Psychiatric: Denies anxiety, depression or suicidal thoughts Endocrine Endocrinology: Denies polydipsia, polyphagia or polyuria Hematologic/Lymphatic Hematologic/Lymphatic: Denies easy bleeding, easy bruising or lymphadenopathy Allergic/Immunologic Allergic/Immunologic ED: Denies mouth swelling, tongue swelling or urticaria EXAM Physical Exam Const Vital Signs: 10/29/23 18:58 10/29/23 19:11 10/29/23 19:34 Temperature 97.2 F L Temperature Source Temporal Pulse Rate 67 69 Respiratory Rate 26 H 20 H Respiratory Effort Normal Non-Labored Respiratory Depth Normal Respiratory Pattern Normal Normal Blood Pressure 170/95 H Blood Pressure Mean 120 Pulse Ox 95 Oxygen Delivery Method Room Air Room Air 10/29/23 19:43 10/29/23 20:58 Temperature Temperature Source Pulse Rate 63 Respiratory Rate 17 Respiratory Effort Respiratory Depth Respiratory Pattern Blood Pressure 163/95 H Blood Pressure Mean 117 Pulse Ox 95 Oxygen Delivery Method Room Air Room Air Positive well nourished and well developed General Appearance ED: well developed and NAD HEENT Reports TM's clear and moist mucous membranes normocephalic and atraumatic; Negative for trauma or tenderness Tympanic Membrane ED: Yes TM's clear Eyes PERRL and EOMs intact bilaterally General Eye ED: Negative for pale conjunctiva or scleral icterus Neck no lymphadenopathy, supple and no JVD General: Negative for tenderness Chest Wall inspection of chest normal and palpation of chest normal Chest: Negative for tenderness Resp normal respiratory effort and clear to auscultation bilaterally Resp Narrative: Mild tachypnea. Patient has expiratory wheezes noted bilaterally. No accessory muscle use or retractions. Effort and Inspection: Negative for respiratory distress or pain with movement Auscultation: wheezes; Negative for rhonchi or diminished lung sounds Cardio regular rate, regular rhythm, S1 normal heart sound, S2 normal heart sound and no murmurs Peripheral Pulses: pulses 2+ throughout GI normal to inspection, nondistended, normoactive bowel sounds, soft to palpation, non-tender, non-distended and no masses Back/Spine no CVA tenderness and no thoracic nor lumbar tenderness Extremity normal to inspection General Extremety ED: Negative for edema General Extremity: Negative for edema Neuro oriented x3, CN's II-XII intact bilaterally, no sensory deficits noted and gait normal Sensorium / Orientation: awake, alert, oriented to person, oriented to place and oriented to time Motor Exam: strength 5/5 throughout and strength abnormal Psych mental status grossly normal Skin no rashes or lesions noted and no wounds MDM MDM MDM Narrative Medical decision making narrative: Patient presents to the emergency department with a cough and shortness of breath and bringing up thick yellow phlegm. Patient coughing so hard that she is actually thrown up today. IV line established. CBC with differential white count 11.3 with hemoglobin 11.2 and platelet count of 364. Chemistries unremarkable. I did give patient a DuoNeb aerosol and started on Solu-Medrol 125 mg IV. Chest x-ray obtained showed no acute disease process. This point she also had COVID flu and RSV testing that was negative. I suspect an asthmatic bronchitis. Patient states that she gets this every year. I will st art her on doxycycline and prednisone as well as an albuterol MDI. Advised to follow-up with her primary care physician within next 2 to 5 days. Vies to return if increasing shortness of breath or condition worsen anyway. Lab Data Attestation: I reviewed the patient's lab results. Labs: Laboratory Results - last 24 hr 10/29/23 10/29/23 19:27 20:00 WBC 11.3 H RBC 4.13 L Hgb 11.2 L Hct 35.7 L MCV 86.4 MCH 27.1 MCHC 31.4 L RDW Std Deviation 51.0 H RDW Coeff of Mohan 16.2 H Plt Count 364 MPV 11.1 Immature Gran % (Auto) 0.400 Neut % (Auto) 60.5 Lymph % (Auto) 29.8 Door % (Auto) 7.3 Eos % (Auto) 1.4 Baso % (Auto) 0.6 Absolute Neuts (auto) 6.8 Absolute Lymphs (auto) 3.37 D-Dimer Quant (PE/DVT) 0.40 Sodium 143 Potassium 3.5 Chloride 113 H Carbon Dioxide 24.0 Anion Gap 6 BUN 8 Creatinine 0.87 Estim Creat Clear Calc 111.53 Est GFR (MDRD) Af Amer 91 Est GFR (MDRD) Non-Af 75 BUN/Creatinine Ratio 9.2 L Glucose 92 Calcium 9.2 Radiography Diagnostic Testing: Clinical Impression(s) from Imaging Studies Chest X-Ray 10/29/23 20:15 IMPRESSION: No radiographic evidence of acute cardiopulmonary disease. Electronically Signed: Terrence Brian DO at 21:45 EDT Reading Location ID and State: [address] [place] [address] Tel [phone], Service support , 1 view chest x-ray obtained interpreted by myself as no evidence of infiltrate or pneumothorax or acute disease process. Radiology in agreement. EKG Initial EKG: Attestation: I personally reviewed and interpreted this EKG as follows: Comments: Sinus rhythm with rate of 79 bpm with occasional PACs, no acute ST segment changes Discharge Plan Triage Chief Complaint: Shortness of Breath ED Provider: Da Merida Dx/Rx/DC Orders Clinical Impression: Acute asthmatic bronchitis Instructions: ED Bronchitis with Wheezing (Adult) Prescriptions: New doxycycline monohydrate 100 mg capsule 100 mg PO BID Qty: 20 0RF prednisone 20 mg tablet 20 mg PO BID Qty: 10 0RF No Action acetaminophen [Tylenol Ex Str Arthritis Pain] 500 mg Tablet 1,500 mg PO BID PRN (Reason: Pain) albuterol sulfate [Ventolin HFA] 90 mcg/actuation HFA aerosol inhaler 2 puff inhalation Q4H PRN PRN (Reason: Wheezing) Qty: 1 0RF Primary Care Provider: Care Physician,No Primary Referrals: Raad Mccord MD [Med Staff - Active Staff] - 3-5 Days Care Physician,No Primary [Primary Care Provider] - Print Language: Czech Disposition Disposition: Home, Self Care
[2023-10-29 19:34] VITALS: PULSE 69; RESP 20
[2023-10-29] MEDS: Ipratropium/Albuterol Sulfate 3 ML AMPUL.NEB INHALATION (19:34)
[2023-10-29] MEDS: 0.9% Normal Saline (1000mL) 1,000 ML 150 ML IV (19:49)
[2023-10-29] MEDS: MethylPREDNISolone 125 MG/2 ML Vial IV (19:49)
[2023-10-29 19:57] LABS: Hematocrit 35.7 % (37-47); Hemoglobin 11.2 g/dL (12.0-15.0); Red Blood Count 4.13 M/mm3 (4.2-5.4); White Blood Count 11.3 K/mm3 (4.4-11.0)
[2023-10-29 19:58] LABS: Eosinophils% 1.4 % (0-5); Lymphocyte % 29.8 % (19-41); Mean Corp Hgb Conc 31.4 g/dL (32-36); Mean Corpuscular Hgb 27.1 pg (27.0-32.0); Mean Corpuscular Volume 86.4 fL (81-99); Mean Platelet Vol. 11.1 fl (6.2-12.0); Monocyte% 7.3 % (0-10); Neutrophil % 60.5 % (47-70); POSITIVE COUNT NO; POSITIVE DIFFERENTIAL NO; POSITIVE MORPHOLOGY NO; Platelet Count 364 K/mm3 (150-450); RBC Distribution Width CV 16.2 % (11.6-14.6)
[2023-10-29 19:59] LABS: Absolute Lymphocyte Count 3.37 X10^3/uL (0.83-4.51); Absolute Neutrophil Count 6.8 X10^3/uL (2.0-7.7); Basophil# 0.07 X10^3/uL; Basophil% 0.6 % (0-1); Eosinophil# 0.16 X10^3/uL; Lymphocyte # 3.37 X10^3/ul (0.83-4.51); Monocyte# 0.83 X10^3/uL; Neutrophil # 6.84 X10^3/uL (2.7-7.7)
--- NOTE | 2023-10-29 20:15 | RAD_ITS ---
INDICATION: cough EXAMINATION/TECHNIQUE: X-RAY - XR Chest 1 View COMPARISON: February 27, 2023 FINDINGS: LINES/DEVICES: None. LUNGS: No consolidation, edema or effusion. No pneumothorax. MEDIASTINUM AND CARDIOVASCULAR STRUCTURES: Cardiac silhouette not enlarged. Central airways and mediastinal contour are unremarkable. BONES AND SOFT TISSUES: Unremarkable. RAD/Chest 1 View (Portable) IMPRESSION: No radiographic evidence of acute cardiopulmonary disease. Electronically Signed: Terrence Brian DO at 21:45 EDT ,
[2023-10-29 20:26] LABS: Anion Gap 6 (5-15); BUN 8 mg/dL (7-18); BUN/Creat Ratio 9.2 RATIO (10-20); Calcium,Total 9.2 mg/dL (8.5-10.1); Chloride 113 mmol/L (98-107); Creatinine, Serum 0.87 mg/dL (0.55-1.02); EST Glomerular Filtration Rate 75 mL/min (>60); Est Glom Filt Rate - Afr Amer 91 mL/min (>60); Estimated Creatinine Clearance 111.53 ml/min; Glucose 92 mg/dL (74-106); Potassium 3.5 mmol/L (3.5-5.1); Sodium Level 143 mmol/L (136-145)
[2023-10-29 20:58] VITALS: BP 163/95; PULSE 63; RESP 17; O2SAT 95
[2023-10-29 22:00] VITALS: BP 175/97; PULSE 62; RESP 19; O2SAT 94
[2023-10-29 22:21] VITALS: BP 175/97; PULSE 61; RESP 22; TEMP 37.2; O2SAT 94
[2023-10-29] MEDS: Doxycycline 100 MG CAPSULE PO (22:24)
[2023-10-29] MEDS: Albuterol Sulfate 8 gm Inhaler (60 puffs) 2 PUFF INHALATION (22:30)
== END 2023-10-29 22:38 | disposition home or self-care (01) ==
PROVIDERS: Emergency Provider Emergency Medicine; Visit Provider Emergency Medicine
DX: J45.909 Unspecified asthma, uncomplicated (principal); R04.2 Hemoptysis; R51.9 Headache, unspecified; Z11.52 Encounter for screening for COVID-19; F17.210 Nicotine dependence, cigarettes, uncomplicated; Z90.49 Acquired absence of other specified parts of digestive tract
CPT/HCPCS: 71045; 80048; 85025; 85379; 87631; 93005; 94640; 96361; 96374; 99285; J7030; A4216

== ENCOUNTER 2024-03-24 16:21 | Emergency (ER) | payer MEDICAID, SELFPAY ==
[2024-03-24 16:22] VITALS: BP 171/90; PULSE 65; RESP 18; TEMP 36.6; O2SAT 100; BMI 44.5
--- NOTE | 2024-03-24 16:34 | EDS_ITS ---
HPI <YOUNG Beckett - Last Filed: 03/24/24 21:20> History of Present Illness Chief Complaint: Shortness of Breath Narrative Narrative: 48-year-old female with PMH of asthma, brain aneurysm presents with 3 days of chills, nausea and vomiting, diarrhea, runny nose, cough and wheezing. She states she was coughing so much that she had a headache. She was concerned because she has a history of brain aneurysm that was clipped and called her doctor who recommended she come in for evaluation of her URI symptoms. Her primary complaint is shortness of breath and wheezing. PFSH <YOUNG Beckett - Last Filed: 03/24/24 21:20> PFSH Medical History Anxiety and depression Arthritis Asthma Asthma Bipolar disorder Cancer Depression H/O psychiatric hospitalization Herniated nucleus pulposus, C5-6 History of asthma History of edema History of pain when walking History of ulceration Injury of back Injury of head and neck Low iron Migraine headache Smoker Wears dentures Wears glasses Home Medications ?Medication ?Instructions ?Recorded ?Last Taken ?Type acetaminophen 500 mg tablet 1,500 mg PO BID PRN Pain 02/28/22 Unknown History albuterol sulfate 90 mcg/actuation 2 puff inhalation Q4H PRN PRN 02/27/23 Unknown Rx aerosol inhaler (Ventolin HFA) Wheezing ##1 doxycycline monohydrate 100 mg 100 mg PO BID #20 CAPSULES 10/29/23 Unknown Rx capsule prednisone 20 mg tablet 20 mg PO BID #10 tabs 10/29/23 Unknown Rx doxycycline hyclate 100 mg capsule 100 mg PO BID 7 days #14 caps 03/24/24 Unknown Rx Allergy/AdvReac Type Severity Reaction Status Date / Time aspirin Allergy Hives Verified 03/24/24 16:21 chlorpromazine HCl (From Allergy Hives Verified 03/24/24 16:21 Thorazine) hydrocodone (From Omega) Allergy Hives Verified 03/24/24 16:21 naproxen Allergy Anaphylaxis Verified 03/24/24 16:21 oseltamivir (From Tamiflu) Allergy Swelling Verified 03/24/24 16:21 tramadol HCl (From Ultram) Allergy Hives Verified 03/24/24 16:21 Family History Father Cancer Heart disease Mother Myocardial infarction Surgical History History of arthroscopy of left knee History of cholecystectomy Hx laparoscopic cholecystectomy Hx of tooth extraction Hx of tubal ligation Social History household members: significant other and children number of children: 4 Smoking Status: Current every day smoker tobacco type: cigarettes Tobacco: How many years used: 20 alcohol intake: never what type of physical activity do you participate in: none do you feel safe at home: Yes ROS <YOUNG Beckett - Last Filed: 03/24/24 21:20> ROS ED ROS Narrative Constitutional: Positive for chills, malaise. CVS: Negative for chest pain. Respiratory: Positive for shortness of breath, cough. GI: Positive nausea, vomiting, diarrhea. EXAM <YOUNG Beckett - Last Filed: 03/24/24 21:20> Physical Exam Narrative Exam Narrative: CONST: Patient sitting in no acute distress. EYES: Normal inspection. ENT: Normal inspection, moist mucous membranes. NECK: Normal inspection. RESP: Mildly tachypneic around 24/minute, expiratory wheezing in all lung sanchez. No retractions. CVS: Regular rate and rhythm, no murmur, no gallop. ABD: Soft and nontender, no guarding or rebound, nondistended. SKIN: Color normal, no rash, warm, dry, intact. EXTREMITIES: Normal appearance, no pedal edema. NEURO: Alert and answering questions appropriately. PSYCH: Normal affect. Const Vital Signs: 03/24/24 16:22 03/24/24 16:48 03/24/24 16:50 Temperature 97.9 F 97.9 F Temperature Source Oral Oral Pulse Rate 65 61 Respiratory Rate 18 18 Respiratory Effort Short of Breath Respiratory Pattern Blood Pressure 171/90 H 138/84 H Blood Pressure Mean 117 102 Pulse Ox 100 97 Oxygen Delivery Method Room Air Room Air 03/24/24 17:22 03/24/24 18:24 03/24/24 18:33 Temperature 97.9 F Temperature Source Pulse Rate 60 63 63 Respiratory Rate 12 18 18 Respiratory Effort Respiratory Pattern Normal Blood Pressure 119/97 H 119/97 H Blood Pressure Mean 104 104 Pulse Ox 96 96 Oxygen Delivery Method Room Air <Dr. Sean Lambert DO - Last Filed: 03/24/24 22:00> Physical Exam Const Vital Signs: 03/24/24 16:22 03/24/24 16:48 03/24/24 16:50 Temperature 97.9 F 97.9 F Temperature Source Oral Oral Pulse Rate 65 61 Respiratory Rate 18 18 Respiratory Effort Short of Breath Respiratory Pattern Blood Pressure 171/90 H 138/84 H Blood Pressure Mean 117 102 Pulse Ox 100 97 Oxygen Delivery Method Room Air Room Air 03/24/24 17:22 03/24/24 18:24 03/24/24 18:33 Temperature 97.9 F Temperature Source Pulse Rate 60 63 63 Respiratory Rate 12 18 18 Respiratory Effort Respiratory Pattern Normal Blood Pressure 119/97 H 119/97 H Blood Pressure Mean 104 104 Pulse Ox 96 96 Oxygen Delivery Method Room Air MDM <YOUNG Beckett - Last Filed: 03/24/24 21:20> MDM MDM Narrative Medical decision making narrative: History gathered from: Patient, family Differential: Viral URI, pneumonia, asthma exacerbation, ACS 48-year-old female was evaluated for N/V/D and upper respiratory symptoms. She has history of asthma and has been wheezing and short of breath. She appears well and nontoxic. Initially she was hypertensive with a pressure of 171/90, otherwise normal vital signs. She is 100% on room air. She does have mild expiratory wheezing throughout all lung sanchez. CXR shows a right-sided pneumonia and viral swab is negative. Labs and cardiac workup overall negative. She feels improved after the DuoNeb and declined prednisone in the ED or prescription stating that it causes her to feel nauseous and lose her appetite. I prescribed doxycycline and she will continue use her inhalers at home. She is not hypoxic and does not require admission. Return precautions discussed and she was discharged in stable condition. Lab Data Attestation: I reviewed the patient's lab results. Labs: Laboratory Results - last 24 hr 03/24/24 16:39 WBC 12.6 H RBC 4.42 Hgb 12.6 Hct 38.3 MCV 86.7 MCH 28.5 MCHC 32.9 RDW Std Deviation 51.9 H RDW Coeff of Mohan 16.6 H Plt Count 347 MPV 9.9 Immature Gran % (Auto) 0.500 Neut % (Auto) 61.5 Lymph % (Auto) 29.1 [place] % (Auto) 6.8 Eos % (Auto) 1.5 Baso % (Auto) 0.6 Absolute Neuts (auto) 7.7 Absolute Lymphs (auto) 3.65 Nucleated RBC % 0 Sodium 140 Potassium 3.5 Chloride 108 H Carbon Dioxide 24.0 Anion Gap 8 BUN 6 L Creatinine 0.75 Estim Creat Clear Calc 135.39 Est GFR (MDRD) Af Amer 106 Est GFR (MDRD) Non-Af 88 BUN/Creatinine Ratio 8.0 L Glucose 93 Calcium 8.9 Troponin I High Sens 5 Radiography Diagnostic Testing: Clinical Impression(s) from Imaging Studies Chest X-Ray 03/24/24 17:30 IMPRESSION: Right sided pneumonia. Electronically Signed: Toby Wilson MD at 17:58 EST Reading Location ID and State: [facility] / [place] , Service support , ED attending interpretation of 2 view chest x-ray shows normal heart size, right-sided infiltrate. <Dr. Sean Lambert, DO - Last Filed: 03/24/24 22:00> [facility] MDM Narrative Medical decision making narrative: History gathered from: Patient, family Differential: Viral URI, pneumonia, asthma exacerbation, ACS 48-year-old female was evaluated for N/V/D and upper respiratory symptoms. She has history of asthma and has been wheezing and short of breath. She appears well and nontoxic. Initially she was hypertensive with a pressure of 171/90, otherwise normal vital signs. She is 100% on room air. She does have mild expiratory wheezing throughout all lung sanchez. CXR shows a right-sided pneumonia and viral swab is negative. Labs and cardiac workup overall negative. She feels improved after the DuoNeb and declined prednisone in the ED or prescription stating that it causes her to feel nauseous and lose her appetite. I prescribed doxycycline and she will continue use her inhalers at home. She is not hypoxic and does not require admission. Return precautions discussed and she was discharged in stable condition. M ED attending note: I evaluated the patient in conjunction with the ROBERTA. I agree with his/her statements and above findings. I have personally performed a face to face assessment of the patient and have reviewed the ROBERTA Note. I performed a substantive portion of the visit including all aspects of the following. I personally saw the patient performed chart review, physical exam, reviewed labs, imaging (if obtained), and formulated a treatment and management plan. Patient denies sudden onset or thunderclap headache, denies maximal intensity within 1 minute, vomiting, neck pain, stiffness, changes in vision, fever, history malignancy, syncope, or seizures associated with headache. Alert and oriented x3, neuro exam at baseline, cranial nerves II through XII are intact. No pain with extraocular muscle movement. There is negative test of skew. 5 of 5 strength in upper and lower extremities in flexion extension. Intact sensation to light touch in upper and lower extremity dermatomes. No truncal or extremity ataxia. No dysdiadochokinesia. Normal gait. 2+ reflexes in upper and lower extremities. No meningeal signs. Negative Babinski. NIH of 0. I have personally reviewed the patient's chest x-ray. Chest x-ray is showed evidence of right lower lobe pneumonia. This likely explains of her symptoms including leukocytosis, cough, systemic symptoms with nausea vomiting diarrhea. Will prescribe antibiotics. Strict return precautions were discussed. In terms of patient's concern for brain aneurysm status post clip patient had no headache here and had a nonfocal neurologic exam. As such have a low suspicion that she is suffering from an aneurysm at this time. No indication for advanced imaging at this time. This note was generated with [employer] dictation software. It may contain incorrect words, spelling, and punctuation that were not noted in review of the chart prior to signing. Lab Data Labs: Laboratory Results - last 24 hr 03/24/24 16:39 WBC 12.6 H RBC 4.42 Hgb 12.6 Hct 38.3 MCV 86.7 MCH 28.5 MCHC 32.9 RDW Std Deviation 51.9 H RDW Coeff of Mohan 16.6 H Plt Count 347 MPV 9.9 Immature Gran % (Auto) 0.500 Neut % (Auto) 61.5 Lymph % (Auto) 29.1 [place] % (Auto) 6.8 Eos % (Auto) 1.5 Baso % (Auto) 0.6 Absolute Neuts (auto) 7.7 Absolute Lymphs (auto) 3.65 Nucleated RBC % 0 Sodium 140 Potassium 3.5 Chloride 108 H Carbon Dioxide 24.0 Anion Gap 8 BUN 6 L Creatinine 0.75 Estim Creat Clear Calc 135.39 Est GFR (MDRD) Af Amer 106 Est GFR (MDRD) Non-Af 88 BUN/Creatinine Ratio 8.0 L Glucose 93 Calcium 8.9 Troponin I High Sens 5 Radiography Chest X-Ray - ED: Read by ED Physician Diagnostic Testing: Clinical Impression(s) from Imaging Studies Chest X-Ray 03/24/24 17:30 IMPRESSION: Right sided pneumonia. Electronically Signed: Toby Wilson MD at 17:58 EST , Discharge Plan Triage Chief Complaint: Shortness of Breath ED Midlevel Provider: Deirdre Tyler ED Provider: Sean Lambert Dx/Rx/DC Orders Clinical Impression: Pneumonia, Asthma exacerbation Instructions: ED Pneumonia (Adult) Prescriptions: New doxycycline hyclate 100 mg capsule 100 mg PO BID 7 Days Qty: 14 0RF No Action acetaminophen [Tylenol Ex Str Arthritis Pain] 500 mg Tablet 1,500 mg PO BID PRN (Reason: Pain) albuterol sulfate [Ventolin HFA] 90 mcg/actuation HFA aerosol inhaler 2 puff inhalation Q4H PRN PRN (Reason: Wheezing) Qty: 1 0RF doxycycline monohydrate 100 mg capsule 100 mg PO BID Qty: 20 0RF prednisone 20 mg tablet 20 mg PO BID Qty: 10 0RF Primary Care Provider: Care Physician,No Primary Referrals: Care Physician,No Primary [Primary Care Provider] - Activity Restrictions/Additional Instructions: You are being treated for pneumonia with an antibiotic. Continue your inhaler. Return if you have increasing shortness of breath or worsening symptoms Print Language: Malaysian Disposition Disposition: Home, Self Care Discharge Date/Time: 03/24/24 18:34
[2024-03-24] MEDS: Ondansetron 4 MG/2 ML Vial IV (16:45)
[2024-03-24 16:50] VITALS: BP 138/84; PULSE 61; RESP 18; TEMP 36.6; O2SAT 97
[2024-03-24 17:01] LABS: Absolute Lymphocyte Count 3.65 X10^3/uL (0.83-4.51); Absolute Neutrophil Count 7.7 X10^3/uL (2.0-7.7); Basophil# 0.08 X10^3/uL; Basophil% 0.6 % (0-1); Eosinophil# 0.19 X10^3/uL; Eosinophils% 1.5 % (0-5); Hematocrit 38.3 % (37-47); Hemoglobin 12.6 g/dL (12.0-15.0); Lymphocyte # 3.65 X10^3/ul (0.83-4.51); Lymphocyte % 29.1 % (19-41); Mean Corp Hgb Conc 32.9 g/dL (32-36); Mean Corpuscular Hgb 28.5 pg (27.0-32.0); Mean Corpuscular Volume 86.7 fL (81-99); Mean Platelet Vol. 9.9 fl (6.2-12.0); Monocyte# 0.86 X10^3/uL; Monocyte% 6.8 % (0-10); NRBC Flagged by Analyzer 0 % (0-5); Neutrophil # 7.72 X10^3/uL (2.7-7.7); Neutrophil % 61.5 % (47-70); Platelet Count 347 K/mm3 (150-450); RBC Distribution Width CV 16.6 % (11.6-14.6); RBC Distribution Width SD 51.9 fl (35.1-43.9); Red Blood Count 4.42 M/mm3 (4.2-5.4); White Blood Count 12.6 K/mm3 (4.4-11.0)
[2024-03-24] MEDS: Ipratropium/Albuterol Sulfate 3 ML AMPUL.NEB INHALATION (17:19)
[2024-03-24 17:20] LABS: Anion Gap 8 (5-15); BUN 6 mg/dL (7-18); Calcium,Total 8.9 mg/dL (8.5-10.1); Chloride 108 mmol/L (98-107); Creatinine, Serum 0.75 mg/dL (0.55-1.02); EST Glomerular Filtration Rate 88 mL/min (>60); Est Glom Filt Rate - Afr Amer 106 mL/min (>60); Estimated Creatinine Clearance 135.39 ml/min; Glucose 93 mg/dL (74-106); Potassium 3.5 mmol/L (3.5-5.1); Sodium Level 140 mmol/L (136-145); Troponin-I HS 5 pg/mL (3.0-54.0)
[2024-03-24 17:22] VITALS: PULSE 60; RESP 12
--- NOTE | 2024-03-24 17:30 | RAD_ITS ---
STUDY: X-RAY CHEST REASON FOR EXAM: Female, 48 years old. CHEST PAIN cough TECHNIQUE: XR Chest 2 Views COMPARISON: 10/29/2023 FINDINGS: There is no demonstrated pleural abnormality. Right lower lobe infiltrate Normal size heart. Normal mediastinum and mary. Normal visualized pulmonary arteries. Normal visualized aortic arch and descending thoracic aorta. Normal visualized thoracic spine. Normal visualized ribs, clavicles, and shoulders. There are no acute findings of the upper abdomen. RAD/Chest PA and Lateral IMPRESSION: Right sided pneumonia. Electronically Signed: Toby Wilson MD at 17:58 EST ,
[2024-03-24] MEDS: Doxycycline 100 MG CAPSULE PO (18:15)
[2024-03-24 18:24] VITALS: BP 119/97; PULSE 63; RESP 18; O2SAT 96
--- NOTE | 2024-03-24 18:27 | ED.RN ---
patient started yelling when trying to sit pt up in bed, states it was hurting her neck. assisted to sit at edge of bed to take pill. yelling at significant other. patient upset with RN taking off IV tegaderm. patient them ripped off tele leads, threw stickers against wall. This RN stated that I wanted out of room due to not feeling safe. Then patient starting yelling that I should not say I don't feel safe. medical charge entry specialist to room and security call. MD aware did not get walking pulse ox.
[2024-03-24 18:33] VITALS: BP 119/97; PULSE 63; RESP 18; TEMP 36.6; O2SAT 96
--- NOTE | 2024-03-24 18:33 | ED.RN ---
RN charted disposition.
== END 2024-03-24 18:34 | disposition home or self-care (01) ==
PROVIDERS: Physician Assistant; Emergency Provider Emergency Medicine; Visit Provider Emergency Medicine
DX: J18.9 Pneumonia, unspecified organism (principal); F31.9 Bipolar disorder, unspecified; J45.901 Unspecified asthma with (acute) exacerbation; F17.210 Nicotine dependence, cigarettes, uncomplicated; Z86.79 Personal history of other diseases of the circulatory system; Z88.1 Allergy status to other antibiotic agents; Z90.49 Acquired absence of other specified parts of digestive tract; R19.7 Diarrhea, unspecified
CPT/HCPCS: 71046; 80048; 84484; 85025; 87631; 94640; 96374; 99283; J2405

== ENCOUNTER 2024-06-12 09:42 | Emergency (ER) | payer MEDICAID, SELFPAY ==
[2024-06-12 09:43] VITALS: PULSE 98; RESP 26; TEMP 36.8; O2SAT 93; BMI 40.4
--- NOTE | 2024-06-12 09:57 | RAD_ITS ---
PROCEDURE: CHEST PA AND LATERAL 06/12/2024 REASON FOR EXAM: SHORTNESS OF BREATH, COUGH TECHNIQUE: Frontal and lateral views of the chest. COMPARISON: Comparison is made with prior study dated March 24, 2024. FINDINGS: The heart size is normal. The mediastinal contour is unremarkable. The lungs are clear. Degenerative changes are identified within the thoracic spine. RAD/Chest PA and Lateral IMPRESSION: NO ACUTE FINDINGS. Reading Location: [facility]-
--- NOTE | 2024-06-12 09:59 | ED.VIS.DYS ---
HPI History of Present Illness Chief Complaint: Shortness of Breath Narrative Narrative: Chief complaint and HPI: Shortness of breath and cold-like symptoms. 48-year-old female with past medical history of asthma presents for evaluation of shortness of breath and cold-like symptoms. Patient states a couple months ago she was diagnosed with pneumonia which she was treated with antibiotics. She states she followed up with her PCP and the pneumonia had moved to her other lung. She states that she was again treated with antibiotics. She states her symptoms got better but then developed reoccurring symptoms. She endorses shortness of breath, cough, nonbloody emesis, and nonbloody diarrhea. She denies any fever, chills, headache, chest pain, abdominal pain, dysuria. Patient states that she was recently prescribed Symbicort as a maintenance inhaler. She states prior to this she was only using albuterol as needed. Review of systems: See HPI Medications: As listed on the chart Allergies: As listed on the chart PFSH: Per chart Vital signs: As listed on the chart. Reviewed. Physical exam: Gen: A&O x3, NAD, nontoxic Head: Normocephalic, atraumatic Eyes: No sclera icterus, conjunctiva clear, PERRL, EOMI ENT: Moist mucous membranes Neck: Trachea midline, No JVD CV: RRR, no murmurs, no peripheral edema Resp: Diffuse expiratory wheezing otherwise clear, + dry cough GI: Abd soft, non-distended, non-tender, no r/r/g Musc: Full ROM, no deformity Skin: Warm, dry Neuro: Alert, oriented, grossly intact, sensation intact Psych: Cooperative, appropriate mood and affect [facility] Medical History Anxiety and depression Arthritis Asthma Asthma Bipolar disorder Cancer Depression H/O psychiatric hospitalization Herniated nucleus pulposus, C5-6 History of asthma History of edema History of pain when walking History of ulceration Injury of back Injury of head and neck Low iron Migraine headache Smoker Wears dentures Wears glasses Home Medications ?Medication ?Instructions ?Recorded ?Last Taken ?Type acetaminophen 500 mg tablet 1,500 mg PO BID PRN Pain 02/28/22 Unknown History albuterol sulfate 90 mcg/actuation 2 puff inhalation Q4H PRN PRN 02/27/23 Unknown Rx aerosol inhaler (Ventolin HFA) Wheezing ##1 doxycycline monohydrate 100 mg 100 mg PO BID #20 CAPSULES 10/29/23 Unknown Rx capsule doxycycline hyclate 100 mg capsule 100 mg PO BID 7 days #14 caps 03/24/24 Unknown Rx prednisone 20 mg tablet 40 mg (2 x 20 mg) PO DAILY 5 days 06/12/24 Unknown Rx #15 TABLETS Allergy/AdvReac Type Severity Reaction Status Date / Time aspirin Allergy Hives Verified 06/12/24 09:43 chlorpromazine HCl (From Allergy Hives Verified 06/12/24 09:43 Thorazine) hydrocodone (From [place]) Allergy Hives Verified 06/12/24 09:43 naproxen Allergy Anaphylaxis Verified 06/12/24 09:43 oseltamivir (From Tamiflu) Allergy Swelling Verified 06/12/24 09:43 tramadol HCl (From Ultram) Allergy Hives Verified 06/12/24 09:43 Family History Father Cancer Heart disease Mother Myocardial infarction Surgical History History of arthroscopy of left knee History of cholecystectomy Hx laparoscopic cholecystectomy Hx of tooth extraction Hx of tubal ligation Social History household members: significant other and children number of children: 4 Smoking Status: Current every day smoker tobacco type: cigarettes Tobacco: How many years used: 20 alcohol intake: never what type of physical activity do you participate in: none do you feel safe at home: Yes EXAM Physical Exam Const Vital Signs: 06/12/24 09:43 06/12/24 10:11 06/12/24 11:10 Temperature 98.2 F Temperature Source Oral Pulse Rate 98 Respiratory Rate 26 H 16 Respiratory Effort Short of Breath Respiratory Depth Normal Respiratory Pattern Normal Normal Pulse Ox 93 Oxygen Delivery Method Room Air MDM MDM MDM Narrative Medical decision making narrative: 48-year-old female with past medical history of asthma presents for evaluation of shortness of breath and cold-like symptoms. Differential diagnosis includes but is not limited to asthma exacerbation, COVID-19, influenza, pneumonia, electrolyte abnormality. On presentation patient's vitals are stable. She is not hypoxic or tachycardic. NS bolus, Solu-Medrol, breathing treatments ordered for symptoms. Laboratory workup ordered including chest x-ray. Patient's abdomen is nontender on physical exam therefore I do not think any imaging of the abdomen is needed at this time. CBC with mild leukocytosis of 13.2. No anemia. CMP relatively unremarkable without significant electrolyte abnormality, MARIE, transaminitis. Chest x-ray was personally reviewed and interpreted by me, ED physician. No pneumonia, cardiomegaly, effusion, pneumothorax. On reevaluation, patient's shortness of breath has improved. Her wheezing has improved. COVID, flu, RSV negative. Patient's symptoms are likely secondary to asthma exacerbation from viral illness. She will be placed on a short course of steroids. Albuterol inhaler as needed. Follow-up with PCP. Return precautions explained. She confirmed understand the plan. Patient stable to discharge home. Impression: 1. Mild asthma exacerbation 2. Viral syndrome Lab Data Labs: Laboratory Results - last 24 hr 06/12/24 10:05 WBC 13.2 H RBC 4.39 Hgb 12.8 Hct 38.3 MCV 87.2 MCH 29.2 MCHC 33.4 RDW Std Deviation 54.2 H RDW Coeff of Mohan 17.0 H Plt Count 362 MPV 9.7 Immature Gran % (Auto) 0.600 Neut % (Auto) 77.5 H Lymph % (Auto) 16.5 L [place] % (Auto) 5.0 Eos % (Auto) 0.2 Baso % (Auto) 0.2 Absolute Neuts (auto) 10.2 H Absolute Lymphs (auto) 2.18 Nucleated RBC % 0 Sodium 141 Potassium 3.3 Chloride 107 Carbon Dioxide 18.6 L Anion Gap 15 BUN 4 Creatinine 0.73 Estim Creat Clear Calc 135.95 Est GFR (MDRD) Non-Af 103 BUN/Creatinine Ratio 5.1 L Glucose 121 H Calcium 9.0 Total Bilirubin 0.44 AST 14 ALT 7 Alkaline Phosphatase 70 Total Protein 7.1 Albumin 4.1 Globulin 3.0 Albumin/Globulin Ratio 1.4 Radiography Diagnostic Testing: Clinical Impression(s) from Imaging Studies Chest X-Ray 06/12/24 09:57 IMPRESSION: NO ACUTE FINDINGS. Reading Location: [id number] Discharge Plan Triage Chief Complaint: Shortness of Breath ED Provider: Dg Segura Dx/Rx/DC Orders Clinical Impression: Asthma exacerbation, Viral syndrome Instructions: ED Asthma, Acute (Adult), ED Viral Syndrome (Adult) Prescriptions: New prednisone 20 mg tablet 40 mg PO DAILY 5 Days Qty: 15 0RF Rx Instructions: Medication to start 06/13/2024 Discontinued prednisone 20 mg tablet 20 mg PO BID Qty: 10 0RF No Action acetaminophen [Tylenol Ex Str Arthritis Pain] 500 mg Tablet 1,500 mg PO BID PRN (Reason: Pain) albuterol sulfate [Ventolin HFA] 90 mcg/actuation HFA aerosol inhaler 2 puff inhalation Q4H PRN PRN (Reason: Wheezing) Qty: 1 0RF doxycycline hyclate 100 mg capsule 100 mg PO BID 7 Days Qty: 14 0RF doxycycline monohydrate 100 mg capsule 100 mg PO BID Qty: 20 0RF Primary Care Provider: Paige Bliss NP Referrals: Paige Bliss NP, RECESSING MACHINE OPERATOR-[employer] [Primary Care Provider] - 3-5 Days Activity Restrictions/Additional Instructions: Follow-up with your primary care physician. Return back to the ED if symptoms change or worsen. Start your prednisone tomorrow as you took it already today. Continue your maintenance and albuterol inhaler. Print Language: Welsh Disposition Disposition: Home, Self Care Discharge Date/Time: 06/12/24 12:01
[2024-06-12] MEDS: Ipratropium/Albuterol Sulfate 3 ML AMPUL.NEB INHALATION (10:10)
[2024-06-12] MEDS: Albuterol 2.5 MG/3 ML VIAL.NEB. 5 MG INHALATION (10:10)
[2024-06-12 10:11] VITALS: RESP 16
[2024-06-12 10:28] LABS: Absolute Lymphocyte Count 2.18 X10^3/uL (0.83-4.51); Absolute Neutrophil Count 10.2 X10^3/uL (2.0-7.7); Basophil# 0.03 X10^3/uL; Basophil% 0.2 % (0-1); Eosinophil# 0.03 X10^3/uL; Eosinophils% 0.2 % (0-5); Hematocrit 38.3 % (37-47); Hemoglobin 12.8 g/dL (12.0-15.0); Lymphocyte # 2.18 X10^3/ul (0.83-4.51); Lymphocyte % 16.5 % (19-41); Mean Corp Hgb Conc 33.4 g/dL (32-36); Mean Corpuscular Hgb 29.2 pg (27.0-32.0); Mean Corpuscular Volume 87.2 fL (81-99); Mean Platelet Vol. 9.7 fl (6.2-12.0); Monocyte# 0.66 X10^3/uL; NRBC Flagged by Analyzer 0 % (0-5); Neutrophil # 10.21 X10^3/uL (2.7-7.7); Neutrophil % 77.5 % (47-70); Platelet Count 362 K/mm3 (150-450); RBC Distribution Width SD 54.2 fl (35.1-43.9); Red Blood Count 4.39 M/mm3 (4.2-5.4); White Blood Count 13.2 K/mm3 (4.4-11.0)
[2024-06-12 10:52] LABS: ALB/GLOB Ratio 1.4 RATIO (0.9-2.4); AST(SGOT) 14 U/L (<=31); Alanine Aminotransfer ALT/SGPT 7 U/L (<=34); Albumin, Serum 4.1 g/dL (3.5-5.0); Alkaline Phosphatase 70 U/L (35-104); Anion Gap 15 (5-15); BUN 4 mg/dL (4-19); BUN/Creat Ratio 5.1 RATIO (10-20); Carbon Dioxide 18.6 mmol/L (21.0-32.0); Chloride 107 mmol/L (98-108); Creatinine, Serum 0.73 mg/dL (0.70-1.20); EST Glomerular Filtration Rate 103 (>60); Estimated Creatinine Clearance 135.95 ml/min (50-250); Glucose 121 mg/dL (70-99); Potassium 3.3 mmol/L (3.3-5.1); Protein, Total 7.1 g/dL (5.9-8.4); Sodium Level 141 mmol/L (133-145); Total Bilirubin 0.44 mg/dL (0.00-1.30)
[2024-06-12] MEDS: Ondansetron 4 MG/2 ML Vial IV (10:52)
[2024-06-12] MEDS: 0.9% Normal Saline (1000mL) 1,000 ML 999 ML IV (10:52)
[2024-06-12] MEDS: MethylPREDNISolone 125 MG/2 ML Vial IV (10:52)
== END 2024-06-12 12:01 | disposition home or self-care (01) ==
PROVIDERS: Emergency Provider Surgery; PCP Nurse Practitioner Family; Visit Provider Surgery
DX: J45.901 Unspecified asthma with (acute) exacerbation (principal); F31.9 Bipolar disorder, unspecified; B34.9 Viral infection, unspecified; F17.210 Nicotine dependence, cigarettes, uncomplicated
CPT/HCPCS: 71046; 80053; 85025; 87631; 94640; 96374; 96375; 99283; J2405

== ENCOUNTER 2025-01-04 19:52 | Emergency (ER) | payer MEDICAID, SELFPAY ==
[2025-01-04] VITALS (7 sets, daily range): BP systolic 158–192; BP diastolic 78–98; PULSE 68–95; RESP 14–26; TEMP 36.8–37; O2SAT 93–98; BMI 38.2
--- NOTE | 2025-01-04 20:05 | EKG12_ITS ---
Test Reason : GEN. ILLNESS/CP Blood Pressure : */* mmHG Vent. Rate : 72 BPM Atrial Rate : 72 BPM P-R Int : 142 ms QRS Dur : 78 ms QT Int : 406 ms P-R-T Axes : 48 27 65 degrees QTcB Int : 444 ms Normal sinus rhythm with sinus arrhythmia Normal ECG Confirmed by LIBBY PEACOCK, ESTEFANIA ([id number]), manager editorial KARL CHAN ([id number]) on 01/07/2025 7:39:25 AM Referred By: VALERI Confirmed By: ESTEFANIA SOUZA MD
--- NOTE | 2025-01-04 20:06 | EX.ED.DYSGE1 ---
HPI History of Present Illness Chief Complaint: General Illness Narrative Narrative: Patient is a 49-year-old female with past medical history of bipolar disorder, asthma, migraines, depression, anxiety who presented to the emergency department the chief complaint of cough, diffuse body aches, chills, not feeling well. States that about 10 days ago her children were sick with similar symptoms she states and notes that it gone away however states that starting of the day she started to get ill and feeling worse. States that she has been using her inhalers at home as prescribed and notes that she has not been on any antibiotics recently. Patient states that she has chest discomfort and notes that this is worse when she coughs. [facility] Medical History Bipolar disorder Asthma Wears glasses Wears dentures Cancer Arthritis Low iron Injury of back Migraine headache Injury of head and neck History of ulceration Smoker History of pain when walking History of edema Herniated nucleus pulposus, C5-6 Depression Asthma H/O psychiatric hospitalization Anxiety and depression History of asthma Home Medications ?Medication ?Instructions ?Recorded ?Last Taken ?Type albuterol sulfate 90 mcg/actuation 2 puff inhalation Q4H PRN PRN 02/27/23 Unknown Rx aerosol inhaler (Ventolin HFA) Wheezing ##1 doxycycline hyclate 100 mg capsule 100 mg PO BID #10 caps 01/04/25 Unknown Rx prednisone 50 mg tablet 50 mg PO DAILY #4 tabs 01/04/25 Unknown Rx Allergy/AdvReac Type Severity Reaction Status Date / Time aspirin Allergy Hives Verified 01/04/25 19:55 chlorpromazine HCl (From Allergy Hives Verified 01/04/25 19:55 Thorazine) hydrocodone (From [place]) Allergy Hives Verified 01/04/25 19:55 naproxen Allergy Anaphylaxis Verified 01/04/25 19:55 oseltamivir (From Tamiflu) Allergy Swelling Verified 01/04/25 19:55 tramadol HCl (From Ultram) Allergy Hives Verified 01/04/25 19:55 Family History Father Cancer Heart disease Mother Myocardial infarction Surgical History History of cholecystectomy Hx laparoscopic cholecystectomy Hx of tooth extraction Hx of tubal ligation History of arthroscopy of left knee Social History household members: significant other and children number of children: 4 Smoking Status: Current every day smoker tobacco type: cigarettes Tobacco: How many years used: 20 alcohol intake: never what type of physical activity do you participate in: none do you feel safe at home: Yes ROS ROS ED ROS Narrative Constitutional: Complains of chills as noted above as well as whole body aches denies any headaches lightheadedness Eyes: Denies double vision Cardiovascular: Complains of chest discomfort as noted above that is worse with coughing denies palpitations Respiratory: Complains of coughing as noted above as well as wheezing Abdomen: Denies abdominal pain but states that she is nauseous : Denies urinary symptoms Neurological: Denies any numbness, weakness, tingling Skin: Denies any rashes or lesions EXAM Physical Exam Narrative Exam Narrative: General: Patient is lying in bed resting comfortably did not appear to be in acute distress Head: Atraumatic, normocephalic Eyes: PERRL bilaterally, EOMI bilaterally, no conjunctival injection noted Neck: Soft, supple, trachea midline Cardiovascular: Regular rate and rhythm Respiratory: Patient has diffuse end expiratory wheezing noted Abdomen: Soft, nondistended, no tenderness palpation Extremities: +5/5 strength noted in the bilateral lower extremities Neurological: Patient following commands that she was at [facility] the year is 2024 Skin: Warm, dry, intact no rashes or lesions noted Const Vital Signs: 01/04/25 19:52 01/04/25 20:29 01/04/25 20:30 Temperature 98.3 F Temperature Source Oral Pulse Rate 82 92 Respiratory Rate 20 H 17 Respiratory Effort Respiratory Pattern Normal Blood Pressure 163/93 H Blood Pressure Mean 116 Pulse Ox 98 Oxygen Delivery Method Room Air Room Air 01/04/25 21:00 01/04/25 21:00 01/04/25 21:01 Temperature 98.6 F Temperature Source Oral Pulse Rate 68 84 Respiratory Rate 14 14 Respiratory Effort Normal Non-Labored Respiratory Pattern Normal Normal Blood Pressure 174/98 H Blood Pressure Mean 123 Pulse Ox 98 Oxygen Delivery Method Room Air 01/04/25 22:00 Temperature 98.2 F Temperature Source Oral Pulse Rate 95 Respiratory Rate 26 H Respiratory Effort Respiratory Pattern Blood Pressure 192/89 H Blood Pressure Mean 123 Pulse Ox 93 Oxygen Delivery Method Room Air MDM MDM MDM Narrative Medical decision making narrative: Patient is a 49-year-old female who presented to the emergency department chief complaint of cough, diffuse bodyaches and generalized not feeling well. On the differential diagnose includes but not limited to pneumonia, pneumothorax, upper respiratory infection secondary to viral etiology, asthma exacerbation. Once the workup is obtained and reviewed she will be reevaluated. Patient will be given IV fluids 3 DuoNebs and 125 mg Solu-Medrol. Patient CBC reviewed and showed evidence of leukocytosis white blood cell count of 12,000 however she chronically has elevated white blood count according previous blood draw, hemoglobin 12.6, plate count is 261. Patient sodium is 139, potassium low at 3.5, creatinine 0.66. Patient's troponin was 9 with a delta troponin of less than 6 EKG reviewed showed sinus rhythm with a rate of 72 bpm the rate FL interval 142. Patient's chest x-ray reviewed by myself by radiology showed no acute cardiopulmonary processes. Patient ambulated well here in the emergency department and upon reevaluation of the patient at 10:50 PM she states that she feels significantly improved and like to go home. Patient will be given a prescription for doxycycline as she states that she is coughing up more sputum than normal she was given first dose here this was also sent to the pharmacy. States that she has plenty of inhalers at home she also be placed on prednisone for the next 4 days. She was vies return with worsening symptoms or any other concerns otherwise she is to follow-up with her doctor in outpatient setting. All question concerns answered she was discharged home in stable condition Lab Data Labs: Laboratory Results - last 24 hr 01/04/25 01/04/25 20:33 22:22 WBC 12.9 H RBC 4.04 L Hgb 12.6 Hct 37.6 MCV 93.1 MCH 31.2 MCHC 33.5 RDW Std Deviation 52.8 H RDW Coeff of [place]an 15.4 H Plt Count 261 MPV 9.4 Immature Gran % (Auto) 0.400 Neut % (Auto) 66.1 Lymph % (Auto) 22.8 [place] % (Auto) 8.8 Eos % (Auto) 1.2 Baso % (Auto) 0.7 Absolute Neuts (auto) 8.5 H Absolute Lymphs (auto) 2.94 Nucleated RBC % 0 Sodium 139 Potassium 3.5 Chloride 107 Carbon Dioxide 20.2 L Anion Gap 12 BUN 4 Creatinine 0.66 L Estim Creat Clear Calc 144.25 Est GFR (MDRD) Non-Af 109 BUN/Creatinine Ratio 5.4 L Glucose 97 Calcium 8.9 Troponin T High Sens 9 Troponin T Hi Sens 2 Hr < 6 Radiography Diagnostic Testing: Clinical Impression(s) from Imaging Studies Chest X-Ray 01/04/25 20:43 IMPRESSION: NO ACUTE FINDINGS. Reading Location: [facility] Discharge Plan Triage Chief Complaint: General Illness ED Provider: Clem Campos Dx/Rx/DC Orders Clinical Impression: Asthma exacerbation, Bipolar disorder, Cough Prescriptions: New doxycycline hyclate 100 mg capsule 100 mg PO BID Qty: 10 0RF prednisone 50 mg tablet 50 mg PO DAILY Qty: 4 0RF No Action albuterol sulfate [Ventolin HFA] 90 mcg/actuation HFA aerosol inhaler 2 puff inhalation Q4H PRN PRN (Reason: Wheezing) Qty: 1 0RF Primary Care Provider: Paige Bliss NP Referrals: Paige Bliss NP, [employer] [Primary Care Provider, Medical] Activity Restrictions/Additional Instructions: Take antibiotics and steroids as prescribed. Follow-up your doctor in the outpatient setting. Return with worsening symptoms or any other concerns Print Language: Citizen Of [place] Disposition Disposition: Home, Self Care
[2025-01-04 20:39] LABS: Hematocrit 37.6 % (37-47); Hemoglobin 12.6 g/dL (12.0-15.0); Immature Granulocytes Count 0.050 X10^3/uL (0.0-0.0); Mean Corp Hgb Conc 33.5 g/dL (32-36); Mean Corpuscular Volume 93.1 fL (81-99); Mean Platelet Vol. 9.4 fl (6.2-12.0); NRBC Flagged by Analyzer 0 % (0-5); Platelet Count 261 K/mm3 (150-450); RBC Distribution Width CV 15.4 % (11.6-14.6); RBC Distribution Width SD 52.8 fl (35.1-43.9); Red Blood Count 4.04 M/mm3 (4.2-5.4); White Blood Count 12.9 K/mm3 (4.4-11.0)
[2025-01-04] MEDS: 0.9% Normal Saline (1000mL) 1,000 ML 999 ML IV (20:41)
--- NOTE | 2025-01-04 20:43 | RAD_ITS ---
PROCEDURE: CHEST PA AND LATERAL 01/04/2025 REASON FOR EXAM: SOB, COUGH TECHNIQUE: Procedure Code: RADCXR Modality: DX Procedure: CHEST PA AND LATERAL COMPARISON: 06/12/2024 FINDINGS: Hardware: None. Heart: The heart size is normal. Mediastinum: The mediastinal contour is unremarkable. Lungs: The lungs are clear. No pneumothorax or pleural effusion. Bones: The bones are unremarkable. RAD/Chest PA and Lateral IMPRESSION: NO ACUTE FINDINGS. Reading [facility]
[2025-01-04 20:57] LABS: Anion Gap 12 (5-15); BUN 4 mg/dL (4-19); BUN/Creat Ratio 5.4 RATIO (10-20); Calcium,Total 8.9 mg/dL (7.6-11.0); Carbon Dioxide 20.2 mmol/L (21.0-32.0); Chloride 107 mmol/L (98-108); Estimated Creatinine Clearance 144.25 ml/min (50-250); Glucose 97 mg/dL (70-99); Potassium 3.5 mmol/L (3.3-5.1); Troponin T High Sensitivity 9 ng/L (<=14)
[2025-01-04 22:43] LABS: Troponin T High Sens 2 HR < 6 ng/L (<=14)
--- NOTE | 2025-01-04 23:16 | ED.RN ---
This RN went to discharge the patient. The patient saw the patient's discharge paperwork that stated, you were seen here for asthma exacerbation, bipolar disorder, and cough listed at the top of the discharge information sheet. The patient yelled at this RN why the fuck is that written on my paperwork when that is not reason that I was seen here today, I am not bipolar, that should not be on my paperwork or my chart. I don't even know why the fuck that would even be on there. This RN attempted to educate the patient on discharge paperwork process and the patient was not receptive to education. The patient continued yell at this RN that she does not have bipolar disorder and it should not be on her paperwork. The patient ambulated out of the department, yelling fuck this, that is not why I was not seen here for bipolar and I am not fucking bipolar.
== END 2025-01-04 23:15 | disposition home or self-care (01) ==
PROVIDERS: Emergency Provider Emergency Medicine; PCP Nurse Practitioner Family; Visit Provider Emergency Medicine
DX: J45.901 Unspecified asthma with (acute) exacerbation (principal); F31.9 Bipolar disorder, unspecified; G43.909 Migraine, unspecified, not intractable, without status migrainosus; F41.9 Anxiety disorder, unspecified; Z79.899 Other long term (current) drug therapy; F17.210 Nicotine dependence, cigarettes, uncomplicated
CPT/HCPCS: 71046; 80048; 84484; 85025; 87631; 93005; 94640; 96361; 96374; 96375; 99283; A4216; J2405